=== PATIENT | female | born 1965 | race Hispanic/Latino ===

== ENCOUNTER 2020-05-03 17:41 | Inpatient (IN) | payer MEDICAID, SELFPAY ==
[~2020-05-03 17:41] MED LIST: Heparin 1,000 UNITS/ML VIAL ONE
[2020-05-03 18:08] LABS: Base Excess-Venous -8.8 mmol/L (-2.0 to 3.0); Bicarbonate (HCO3v) 16.3 mmol/L (22.0-28.0); CO2 Tension (PvCO2) 32.1 mmHg (40.0-50.0); Chloride 110 mmol/L (98-107); Hemoglobin - Calc 12.8 g/dL (12.0-16.0); Potassium 4.1 mmol/L (3.5-5.1); Sodium 140 mmol/L (138-145); T. Carbon Dioxide 17.3 mmol/L (22.0-28.0); vO2 Saturation-calc 67.7 % (60.0-85.0)
[2020-05-03] MEDS ORDERED: Albuterol 200 PUFF (6.7GM INHALER) ONE (18:12)
[2020-05-03 18:20] LABS: #Lymphocytes 0.6 thou/uL (1.20-3.40); #Monocytes 0.5 thou/uL (0.11-0.59); #Neutrophils 5.8 thou/uL (1.40-6.50); %Basophils 0.1 % (0.0-1.0); %Eosinophils 0.1 % (0.0-10.0); %Lymphocytes 9.2 % (21.0-51.0); %Monocytes 7.5 % (0.0-10.0); %Neutrophils 83.1 % (42.0-75.0); Hemoglobin 12.8 g/dL (12.0-16.0); Mean Corpuscular HGB CONC 33.5 g/dL (32.0-36.0); Mean Corpuscular Hemoglobin 30.3 pg (27.0-31.0); Mean Corpuscular Volume 90.5 fL (78.0-98.0); Mean Platelet Volume 8.3 fL (7.4-10.4); Platelet Count 389 thou/uL (130-400); RBC Distribution Width 12.7 % (11.5-14.5); White Blood Cell (WBC) Count 6.9 thou/uL (4.8-10.8)
--- NOTE | 2020-05-03 18:37 | RAD ---
SINGLE VIEW OF THE CHEST: 05/03/20 COMPARISON: 05/03/20 at 2:53 p.m. HISTORY: COVID pneumonia for one week with worsening shortness of breath. FINDINGS: Single view of the chest shows a normal sized cardiomediastinal silhouette. There are scattered multi focal opacities in the lungs. These are worse in the lower lobes. No pleural effusion is seen. IMPRESSION: Multifocal pneumonia. POS: EAA
[2020-05-03 18:40] LABS: ALT (SGPT) 455 U/L (8-55); AST (SGOT) 131 U/L (5-34); Albumin 3.4 g/dL (3.5-5.0); Alkaline Phosphatase 372 U/L (40-110); Anion Gap 21 mmol/L (10-20); BUN (Urea Nitrogen) 17 mg/dL (9.8-20.1); Bilirubin, Total 0.3 mg/dL (0.2-1.2); Calc. Creatinine Clearance 0 mL/min (70-130); Calcium 8.9 mg/dL (7.8-10.44); Carbon Dioxide 15 mmol/L (22-29); Chloride 107 mmol/L (98-107); Globulin 4.2 g/dL (2.4-3.5); Glucose 462 mg/dL (70-105); Potassium 4.2 mmol/L (3.5-5.1); Protein, Total 7.6 g/dL (6.0-8.3); Sodium 139 mmol/L (136-145)
[2020-05-03 19:02] LABS: CKMB 1.6 ng/mL (0-6.6)
[2020-05-03] MEDS ORDERED: INSULIN REGULAR IN 0.9 % NACL 100 UNIT/100 ML BAG ONE (19:03)
[2020-05-03] MEDS ORDERED: Potassium Chloride 20 MEQ in Premix Bag 1 BAG IVPB SCH (19:15)
[2020-05-03] MEDS ORDERED: Insulin Regular 100 units/100 ml in NS IVPB SCH (19:15)
[2020-05-03] MEDS ORDERED: NS 0.9% w/ 20 MEQ KCL 1,000 ML/1,000 ML BAG IV PRN ×3 (20:00→22:30)
--- NOTE | 2020-05-03 21:55 | HP ---
PRIMARY CARE PROVIDER: [facility]. CHIEF COMPLAINT: Fever, general weakness, and shortness of breath. HISTORY OF PRESENT ILLNESS: This is a 55-year-old female, who was transferred from [place] [facility] to [facility] after the patient apparently presented with complaints of generalized weakness and shortness of breath, feeling generally fatigued with associated cough. The patient was initially noted in [place] [facility] with hypoxia with O2 saturations in the low 80% range and placed on a non-rebreather. The patient apparently did not respond appropriate to the non-rebreather and was placed on high-flow by nasal cannula. The patient underwent chest imaging showing bilateral infiltrates and COVID PCR was positive. The patient was also noted with hyperglycemia with initial glucose of 653 and a potassium of 4.7 with a pH of 7.31 consistent with diabetic ketoacidosis. The patient was given IV Rocephin, Decadron, Pulmicort, and azithromycin as well as initiated on insulin infusion with intravenous normal saline per DKA protocol. The patient was transferred by [facility] to [facility] and placed in isolation protocol. The patient states she was exposed to her son, who had cough and shortness of breath and some fever approximately 1 week prior to this evaluation. The patient denied any other known exposure history. The patient admitted to associated nausea, vomiting, and some diarrhea over the last 2 to 3 days. The patient's O2 saturations stabilized on high-flow by nasal cannula in the emergency room and referred to the Hospitalist Service for admission. PAST MEDICAL HISTORY: 1. Diabetes mellitus type 2. 2. Hypothyroidism. PAST SURGICAL HISTORY: Status post laparoscopic procedure. The patient is unclear what was performed. CURRENT MEDICATIONS: Reviewed. The patient is unsure of her chronic medication regimen. ALLERGIES: NO KNOWN DRUG ALLERGIES. FAMILY HISTORY: Positive for diabetes and hypertension. SOCIAL HISTORY: Resides in [facility], living with her son. No alcohol, tobacco, or illicit drug use. Functional activities of daily living. REVIEW OF SYSTEMS: CONSTITUTIONAL: Negative for weight loss or gain, ability to conduct usual activities. SKIN: Negative for rash, itching. EYES: Negative for double vision, pain. ENT/MOUTH: Negative for nose bleeding, neck stiffness, pain, tenderness. CARDIOVASCULAR: Negative for palpitations, dyspnea on exertion, orthopnea. RESPIRATORY: Negative for shortness of breath, wheezing, cough, hemoptysis, fever or night sweats. GASTROINTESTINAL: Negative for poor appetite, abdominal pain, heartburn, nausea, vomiting, constipation, or diarrhea. GENITOURINARY: Negative for urgency, frequency, dysuria, nocturia. MUSCULOSKELETAL: Negative for pain, swelling. NEUROLOGIC/PSYCHIATRIC: Negative for anxiety, depression. ALLERGY/IMMUNOLOGIC: Negative for skin rash, bleeding tendency. Otherwise, negative except as stated per HPI. PHYSICAL EXAMINATION: VITALSIGNS: On admission, blood pressure 133/85, pulse 110, respiratory rate ranging between 28-40, temperature 99.8 degrees Fahrenheit, O2 saturation 87% on high-flow increasing to 97% on 80% FiO2 and 50 L/minute. GENERAL APPEARANCE: This is a 55-year-old female, alert, and responsive in respiratory distress in the emergency room. HEENT: Pupils are equal, round, reactive to light and accommodation. Extraocular muscles are intact. No scleral icterus. No conjunctival injection. Nares patent. OP is clear. High-flow nasal cannula in place. Oral mucosa dry. NECK: Supple. No cervical adenopathy. No thyromegaly. No carotid bruits. No JVD noted. Cervical spine with full active and passive range of motion. No meningeal signs noted. CHEST: Diminished breath sounds bilaterally with scattered coarse breath sounds. Tachypnea noted. CARDIOVASCULAR: S1 and S2 with tachycardia. ABDOMEN: Rounded, soft, nontender, and nondistended. Bowel sounds are positive in all 4 quadrants. There is no hepatosplenomegaly. No abdominal bruits. No rebound or guarding appreciated. EXTREMITIES: Warm and dry with fair turgor. Clammy to touch. Pulses palpable distally at the dorsalis pedis, posterior tibial, and popliteal arteries bilaterally. Capillary refill less than 2 seconds. No asymmetric edema. NEUROLOGIC: Cranial nerves 2 through 12 are grossly intact. No focal or lateralizing signs appreciated. PERTINENT LABORATORY AND X-RAY FINDINGS: Sodium 139, potassium 4.2, chloride is 107, CO2 of 15, BUN 17, creatinine 1.50, glucose ranging between 322-653. AST 131, ALT of 455, alkaline phosphatase 372. Troponin I 0.079. Albumin 3.4. CBC showed a white blood cell count of 6.9, hemoglobin 13, hematocrit 38, platelet count 389 with 83% neutrophils. Venous blood gas dated 05/03/2020, showed a pH of 7.31, pCO2 of 32, PO2 of 37.8. Portable chest x-ray dated 05/03/2020, showed multifocal pneumonia. EKG dated 05/03/2020, by my interpretation shows sinus tachycardia with heart rates in low 100s. Normal R-wave progression noted in the precordial leads. Normal axis. No acute ST-T wave changes appreciated. ASSESSMENT/PLAN: 1. Pneumonia due to COVID-19. The patient will be admitted to the intermediate care unit. We will continue azithromycin 500 mg IV daily with additional Rocephin 2 g IV daily. Add dexamethasone 8 mg IV daily. Consult Pulmonology Critical Care Service for initiation of remdesivir in the a.m. Add vitamin C 1000 mg p.o. daily and zinc sulfate 220 mg daily. Continue isolation protocol. Lovenox 40 mg subcutaneously daily. 2. Acute hypoxic respiratory failure secondary to pneumonia due to COVID-19. Continue high-flow oxygen to maintain O2 saturations greater than or equal to 90%. Titrate to clinical effect. Add albuterol metered-dose inhaler 2 puffs q.4 hours p.r.n. 3. Diabetic ketoacidosis. Continue admission to intermediate care unit. Continue DKA protocol. Suspect presentation secondary to COVID-19 pneumonia. Continue aggressive IV fluid hydration. Serial base met monitoring. Check beta hydroxybutyrate level per protocol. 4. Transaminitis. Suspect secondary to patient's presentation. We will repeat LFTs in the a.m. and monitor trend. Consider hepatitis A, B, and C evaluation if LFTs do not improve. Consider right upper quadrant ultrasound, however, the patient without clinical findings or tenderness in the right upper quadrant. 5. Acute kidney injury. Suspect multifactorial including volume depletion and COVID-19 pneumonia. Continue IV fluids as outlined previously and avoid nephrotoxic agents and limit contrast exposure. Repeat creatinine in the a.m. 6. Prophylaxis. SCDs while in bed. Pepcid 20 mg p.o. b.i.d. Isolation protocol. CODE STATUS: Full. Surrogate medical decision maker is the patient's son. Total critical care time is 40 minutes. Job ID: [id number]
[2020-05-03] MEDS ORDERED: Morphine 2 MG/ML VIAL SLOW IVP SCH (22:15)
[2020-05-03] MEDS ORDERED: Dextrose 5 %-0.45 % NaCl 1,000 ML IV PRN (22:30)
[2020-05-03] MEDS ORDERED: Dextrose 5% in Water 1,000 ML IV PRN (22:30)
[2020-05-03] MEDS ORDERED: Electrolyte Replacement Protocol FS PRN (22:30)
[2020-05-03] MEDS ORDERED: Sodium Chloride 0.9% 1,000 ML IV PRN ×4 (22:30)
[2020-05-03] MEDS ORDERED: D5 1/2 NS w/20 mEq KCL 1,000 ML IV PRN (22:30)
[2020-05-03] MEDS ORDERED: ADD ELECTROLYTE REPLACEMENT SET TO PROFILE FS SCH (22:30)
[2020-05-03 23:45] LABS: Troponin I 0.074 ng/mL (< 0.028)
[2020-05-04] MEDS: Lactated Ringer's 1,000 ML IV SCH ×2 (00:15→05:41)
[2020-05-04 01:17] LABS: Troponin I 0.096 ng/mL (< 0.028)
[2020-05-04 02:35] LABS: Anion Gap 21 mmol/L (10-20); BUN (Urea Nitrogen) 13 mg/dL (9.8-20.1); Calc. Creatinine Clearance 73 mL/min (70-130); Calcium 8.8 mg/dL (7.8-10.44); Carbon Dioxide 11 mmol/L (22-29); Chloride 115 mmol/L (98-107); Glucose 229 mg/dL (70-105); Potassium 4.7 mmol/L (3.5-5.1); Sodium 142 mmol/L (136-145)
[2020-05-04] MEDS ORDERED: cefTRIAXone\\ROCEPHIN 1 GM in Sodium Chloride 0.9% 100 ML IVPB SCH (03:00)
[2020-05-04 05:13] LABS: Anion Gap 16 mmol/L (10-20); BUN (Urea Nitrogen) 12 mg/dL (9.8-20.1); Calc. Creatinine Clearance 79 mL/min (70-130); Calcium 8.6 mg/dL (7.8-10.44); Carbon Dioxide 17 mmol/L (22-29); Chloride 113 mmol/L (98-107); Glucose 226 mg/dL (70-105); Potassium 4.3 mmol/L (3.5-5.1); Sodium 142 mmol/L (136-145)
[2020-05-04 06:21] LABS: SARS-CoV-2 MS2 Positive; SARS-CoV-2 N Gene Positive; SARS-CoV-2 S Gene Positive; SARS-CoV-2 by NAA DETECTED (NotDetected); SARS-CoV-2 orf1ab Positive
[2020-05-04] MEDS ORDERED: Ondansetron PF 4 MG/2 ML Vial IVP PRN (07:05)
[2020-05-04] MEDS ORDERED: Albuterol Sulfate 2.5 mg/3 ml Neb NEB PRN (07:05)
[2020-05-04] MEDS ORDERED: HUMULIN R 100 UNITS in Sodium Chloride 0.9% 100 ML IVPB SCH (07:05)
[2020-05-04] MEDS ORDERED: Ibuprofen 200 MG TAB PO PRN (07:05)
[2020-05-04] MEDS ORDERED: Ondansetron ODT 4 MG TAB PO PRN (07:05)
[2020-05-04] MEDS ORDERED: hydrALAZINE 20 MG/ML VIAL SLOW IVP PRN (07:05)
[2020-05-04] MEDS ORDERED: Electrolyte Replacement Protocol 1 EACH IVPB SCH (07:05)
[2020-05-04] MEDS ORDERED: NS 0.9% w/ 20 MEQ KCL 1,000 ML IV PRN ×2 (07:05)
[2020-05-04] MEDS ORDERED: Sodium Chloride 0.9% 1,000 ML IV PRN ×4 (07:05)
[2020-05-04] MEDS ORDERED: D5 1/2 NS w/20 mEq KCL 1,000 ML IV PRN (07:05)
[2020-05-04] MEDS ORDERED: Dextrose 5 %-0.45 % NaCl 1,000 ML IV PRN (07:05)
[2020-05-04] MEDS: Ascorbic Acid 500 mg Chewable Tablet PO SCH (08:35)
[2020-05-04] MEDS: Dexamethasone 10 MG/ML VIAL SLOW IVP SCH (08:36)
[2020-05-04] MEDS: Zinc Sulfate 220 MG CAP PO SCH (08:36)
[2020-05-04] MEDS: Famotidine 20 MG TAB PO SCH ×2 (08:36→21:34)
[2020-05-04] MEDS: cefTRIAXone\\ROCEPHIN 2 GM in Sodium Chloride 0.9% 100 ML IVPB SCH (08:37)
[2020-05-04 08:39] LABS: Anion Gap 18 mmol/L (10-20); BUN (Urea Nitrogen) 9 mg/dL (9.8-20.1); Calc. Creatinine Clearance 85 mL/min (70-130); Carbon Dioxide 18 mmol/L (22-29); Chloride 110 mmol/L (98-107); Glucose 231 mg/dL (70-105); Magnesium 1.8 mg/dL (1.6-2.6); Potassium 4.2 mmol/L (3.5-5.1); Sodium 142 mmol/L (136-145)
[2020-05-04] MEDS ORDERED: Magnesium 2 GM/50 ML 2 GM in Premix Bag 1 BAG IVPB SCH (09:00)
[2020-05-04] MEDS ORDERED: Enoxaparin Sodium 40 MG/0.4 ML SYRINGE SC SCH (09:00)
[2020-05-04] MEDS: Azithromycin 500 MG in Sodium Chloride 0.9% 250 ML 250 ML IVPB SCH (10:08)
--- NOTE | 2020-05-04 10:56 | CON ---
DATE OF CONSULTATION: 05/04/2020 CONSULTING PHYSICIAN: Dr. Glen Almazan. REASON FOR CONSULTATION: Shortness of breath related to COVID-19 pneumonia. HISTORY OF PRESENT ILLNESS: The patient is a 55-year-old female who recently presented to [place], but was transferred here for further care. She has had a several-day history of increasing cough. She was found to be hypoxic at the ER with an O2 saturation in the 80% range on nonrebreather. She tested positive for COVID there. She was also severely hyperglycemic with a glucose of 653. She was started on a DKA protocol. She was placed on BiPAP. She was brought here and has been stable on mechanical ventilation overnight. PAST MEDICAL HISTORY: 1. Diabetes mellitus, type 2. 2. Hypothyroidism. PAST SURGICAL HISTORY: Some type of laparoscopic abdominal procedure in the past. ALLERGIES: NONE. FAMILY MEDICAL HISTORY: Remarkable for diabetes and hypertension. SOCIAL HISTORY: She does not smoke, does not use illicit drugs, and does not consume alcohol. MEDICATIONS: Prior to admission, she is on some type of insulin regimen at home. Her inpatient medications were reviewed. REVIEW OF SYSTEMS: Difficult to obtain as the patient seems somewhat confused. PHYSICAL EXAMINATION: VITAL SIGNS: Temperature 98.8, pulse 102, blood pressure 160/113, O2 saturation 100% on BiPAP with an FiO2 of 80%. HEENT: Unremarkable. NECK: No adenopathy or JVD. LUNGS: Diffuse crackles. CARDIAC: S1 and S2. Regular. ABDOMEN: Soft. EXTREMITIES: No edema. LABORATORY DATA: White blood cell count 6.9, hematocrit 38.1, and platelet count 389. A pH of 7.31, pCO2 of 32, and venous oxygen 37.8. Sodium 142, potassium 4.2, chloride 110, CO2 of 18, BUN 9, creatinine 0.7, and glucose 231. Beta hydroxybutyrate 0.81. X-ray shows diffuse bilateral infiltrates. ASSESSMENT: 1. COVID-19 pneumonia. 2. Acute hypoxic respiratory failure. 3. Diabetes, out of control. PLAN: In terms of her COVID, she has severe risk for progressing towards endotracheal intubation. The main risk is being uncontrolled diabetes mellitus. The patient is on appropriate treatment including steroids and anticoagulation. I have added vitamin D to her vitamin C and zinc. She is not a candidate for remdesivir based on her need for mechanical ventilation. Thank you for the referral. We will continue to follow. Sunday ID: [id number]
[2020-05-04 11:55] LABS: Anion Gap 17 mmol/L (10-20); BUN (Urea Nitrogen) 9 mg/dL (9.8-20.1); Calc. Creatinine Clearance 91 mL/min (70-130); Carbon Dioxide 18 mmol/L (22-29); Chloride 107 mmol/L (98-107); Glucose 223 mg/dL (70-105); Potassium 4.1 mmol/L (3.5-5.1); Sodium 138 mmol/L (136-145)
[2020-05-04 15:10] LABS: Anion Gap 16 mmol/L (10-20); BUN (Urea Nitrogen) 11 mg/dL (9.8-20.1); Calc. Creatinine Clearance 92 mL/min (70-130); Calcium 8.9 mg/dL (7.8-10.44); Carbon Dioxide 20 mmol/L (22-29); Chloride 108 mmol/L (98-107); Glucose 214 mg/dL (70-105); Sodium 140 mmol/L (136-145)
--- NOTE | 2020-05-04 18:00 | PDOC.HOSPP ---
- Subjective Encounter Date: 05/04/20 Encounter Time: 10:10 Subjective: Patient seen for follow-up regarding COVID-19 pneumonia. She reports feeling better. She denies chest pain. Reports shortness of breath with exertion. - Objective Vital Signs & Weight: Vital Signs (12 hours) Temp Pulse Resp BP Pulse Ox 05/04/20 12:00 93 L 05/04/20 11:05 98.6 F 110 H 05/04/20 08:00 92 L 05/04/20 07:05 98.8 F 110 H 38 H 164/90 H 92 L Weight Weight 147 lb Most Recent Monitor Data Heart Rate from ECG 95 NIBP 144/82 NIBP BP-Mean 102 Respiration from ECG 37 SpO2 94 I&O: 05/03/20 05/04/20 05/05/20 06:59 06:59 06:59 Intake Total 2276 20 Output Total 900 1775 Balance 1376 -1755 Result Diagrams: 05/03/20 17:05 05/04/20 14:41 Additional Labs: Accuchecks 05/04/20 05/04/20 05/04/20 16:52 13:19 11:56 POC Glucose 175 H 238 H 213 H 05/04/20 05/04/20 05/04/20 11:06 10:21 08:55 POC Glucose 201 H 199 H 162 H 05/04/20 05/04/20 05/04/20 07:59 07:21 05:57 POC Glucose 201 H 232 H 248 H 05/04/20 05/04/20 05/04/20 04:45 04:14 03:17 POC Glucose 220 H 230 H 233 H 05/04/20 05/04/20 05/03/20 02:15 00:06 23:07 POC Glucose 173 H 216 H 248 H 05/03/20 05/03/20 05/03/20 22:23 20:20 19:14 POC Glucose 279 H 322 H 404 H 05/03/20 18:09 POC Glucose 390 H I reviewed patient's labs and MAR EKG Reviewed by me: Yes (Normal sinus rhythm on telemetry) Hospitalist ROS - Review of Systems Respiratory: reports: SOB with excertion Cardiovascular: denies: chest pain, palpitations, orthopnea, paroxysmal noc. dyspnea, edema, light headedness Gastrointestinal: denies: nausea, vomiting, abdominal pain, diarrhea, constipation, melena, hematochezia - Medication Medications: Active Medications Generic Name Dose Route Start Last Admin Trade Name Freq PRN Reason Stop Dose Admin Ascorbic Acid 1,000 mg 05/04/20 09:00 05/04/20 08:35 Ascorbic Acid 500 Mg Chewable Tablet PO 1,000 mg DAILY OMARI Administration Dexamethasone 8 mg 05/04/20 09:00 05/04/20 08:36 Dexamethasone 10 Mg/Ml Vial SLOW IVP 8 mg DAILY OMARI Administration Famotidine 20 mg 05/04/20 09:00 05/04/20 08:36 Famotidine 20 Mg Tab PO 20 mg BID OMARI Administration Ceftriaxone Sodium 2 gm/ 100 mls @ 200 mls/hr 05/04/20 08:00 05/04/20 08:37 Sodium Chloride IVPB 100 mls Q24HR OMARI Administration Azithromycin 500 mg/ Sodium 250 mls @ 250 mls/hr 05/04/20 09:00 05/04/20 10:08 Chloride IVPB 250 mls Q24HR OMARI Administration Ondansetron HCl 4 mg 05/04/20 07:05 05/04/20 12:12 Ondansetron Pf 4 Mg/2 Ml Vial IVP 4 mg Q6H PRN Administration Nausea/Vomiting Sodium Chloride 10 ml 05/03/20 22:30 05/04/20 08:38 Flush - Normal Saline 10 Ml Syringe IVF 10 ml PRN PRN Administration Saline Flush Zinc Sulfate 220 mg 05/04/20 09:00 05/04/20 08:36 Zinc Sulfate 220 Mg Cap PO 220 mg DAILY OMARI Administration - Exam General Appearance: awake alert Eye: anicteric sclera ENT: moist mucosa Neck: supple Heart: RRR Respiratory: CTAB Gastrointestinal: soft, non-tender Skin: no rashes Psychiatric: normal affect, normal behavior Hosp A/P (1) Pneumonia due to COVID-19 virus Code(s): U07.1 - COVID-19; J12.89 - OTHER VIRAL PNEUMONIA Status: Acute (2) Acute respiratory failure with hypoxia Code(s): J96.01 - ACUTE RESPIRATORY FAILURE WITH HYPOXIA Status: Acute (3) DKA (diabetic ketoacidoses) Code(s): E11.10 - TYPE 2 DIABETES MELLITUS WITH KETOACIDOSIS WITHOUT COMA Status: Acute - Plan Continue dexamethasone. Patient is also on ceftriaxone and azithromycin. Transition to subcutaneous insulin. Diabetic diet. Continue vitamin C, zinc and vitamin D. DVT prophylaxis with Lovenox.
[2020-05-04] MEDS: Insulin Glargine 20 UNITS in Pre-Filled Syringe 1 EACH SC SCH (21:32)
[2020-05-04] MEDS: Sodium Chloride 0.9% 1,000 ML IV SCH (21:32)
[2020-05-04] MEDS: Enoxaparin Sodium 40 MG/0.4 ML SYRINGE SC SCH (21:33)
[2020-05-04] MEDS: Cholecalciferol 1,000 UNITS (25 MCG) TAB PO SCH (21:34)
[2020-05-05] MEDS ORDERED: Insulin Regular 300 UNITS/3 ML VIAL SC PRN (01:19)
[2020-05-05 04:20] LABS: #Lymphocytes 0.9 thou/uL (1.20-3.40); #Monocytes 0.7 thou/uL (0.11-0.59); #Neutrophils 13.4 thou/uL (1.40-6.50); %Eosinophils 0.1 % (0.0-10.0); %Lymphocytes 6.3 % (21.0-51.0); %Monocytes 4.5 % (0.0-10.0); %Neutrophils 89.1 % (42.0-75.0); Mean Corpuscular HGB CONC 34.9 g/dL (32.0-36.0); Mean Corpuscular Hemoglobin 31.3 pg (27.0-31.0); Mean Corpuscular Volume 89.6 fL (78.0-98.0); Mean Platelet Volume 9.1 fL (7.4-10.4); Platelet Count 323 thou/uL (130-400); RBC Distribution Width 13.2 % (11.5-14.5); Red Blood Cell (RBC) Count 4.17 mill/uL (4.20-5.40)
[2020-05-05 04:22] LABS: Hemoglobin 12.9 g/dL (12.0-16.0); Mean Corpuscular HGB CONC 34.6 g/dL (32.0-36.0); Mean Corpuscular Hemoglobin 30.9 pg (27.0-31.0); Mean Corpuscular Volume 89.4 fL (78.0-98.0); Mean Platelet Volume 9.2 fL (7.4-10.4); Platelet Count 339 thou/uL (130-400); RBC Distribution Width 13.2 % (11.5-14.5); Red Blood Cell (RBC) Count 4.17 mill/uL (4.20-5.40); White Blood Cell (WBC) Count 14.4 thou/uL (4.8-10.8)
[2020-05-05 04:55] LABS: ALT (SGPT) 307 U/L (8-55); AST (SGOT) 128 U/L (5-34); Albumin 3.4 g/dL (3.5-5.0); Alkaline Phosphatase 382 U/L (40-110); Anion Gap 23 mmol/L (10-20); BUN (Urea Nitrogen) 21 mg/dL (9.8-20.1); Bilirubin, Direct 0.2 mg/dL (0.1-0.3); Bilirubin, Total 0.4 mg/dL (0.2-1.2); Calc. Creatinine Clearance 83 mL/min (70-130); Calcium 9.1 mg/dL (7.8-10.44); Carbon Dioxide 14 mmol/L (22-29); Chloride 107 mmol/L (98-107); Glucose 296 mg/dL (70-105); HBCM Index 0.11 S/CO (0-0.79); HBSAg Index 0.22 S/CO (0-0.99); Hep A IgM AB Non-Reactive (NonReactive); Hep A IgM S/CO 0.24 S/CO (0-0.79); Hep B Surf Ag Non-Reactive S/CO (NonReactive); Hep C IgG Ab Non-Reactive (NonReactive); Hep C Index 0.08 S/CO (0-0.79); Hepatitis B Core IgM Abs Non-Reactive (NonReactive); Potassium 4.4 mmol/L (3.5-5.1); Protein, Total 7.5 g/dL (6.0-8.3); Sodium 140 mmol/L (136-145)
[2020-05-05] MEDS: cefTRIAXone\\ROCEPHIN 2 GM in Sodium Chloride 0.9% 100 ML IVPB SCH (08:07)
[2020-05-05] MEDS: Famotidine 20 MG TAB PO SCH ×2 (08:08→20:53)
[2020-05-05] MEDS: Ascorbic Acid 500 mg Chewable Tablet PO SCH (08:09)
[2020-05-05] MEDS: Zinc Sulfate 220 MG CAP PO SCH (08:09)
[2020-05-05] MEDS: Enoxaparin Sodium 40 MG/0.4 ML SYRINGE SC SCH ×2 (08:11→20:54)
[2020-05-05] MEDS: Dexamethasone 10 MG/ML VIAL SLOW IVP SCH (08:13)
[2020-05-05] MEDS: HumaLOG 300 UNITS/3 ML VIAL SC PRN ×2 (08:41→13:27)
[2020-05-05] MEDS ORDERED: Insulin Glargine 15 UNITS in Pre-Filled Syringe 1 EACH SC SCH ×2 (10:02→10:15)
--- NOTE | 2020-05-05 10:04 | PDOC.HOSPP ---
- Subjective Encounter Date: 05/05/20 (f/u acute resp failure) Encounter Time: 10:02 Subjective: Pt reports her breathing feels more comfortable today. She denies any chest pain. She did have a small amount of nose bleed today an is currently on HF oxygen. - Objective Vital Signs & Weight: Vital Signs (12 hours) Temp Pulse Resp Pulse Ox 05/05/20 08:00 94 L 05/05/20 07:05 98.6 F 84 26 H 93 L 05/05/20 04:00 98.4 F 28 H 92 L 05/05/20 00:40 92 L 05/05/20 00:38 92 38 H 92 L 05/05/20 00:00 98.5 F Weight Weight 147 lb Most Recent Monitor Data Heart Rate from ECG 97 NIBP 140/81 NIBP BP-Mean 100 Respiration from ECG 17 SpO2 88 I&O: 05/04/20 05/05/20 05/06/20 06:59 06:59 06:59 Intake Total 2276 865 240 Output Total 900 3275 225 Balance 1376 -2410 15 Result Diagrams: 05/05/20 03:44 05/05/20 03:44 Additional Labs: Accuchecks 05/05/20 05/05/20 05/05/20 08:28 04:07 00:08 POC Glucose 239 H 274 H 328 H 05/04/20 05/04/20 05/04/20 19:37 18:31 17:49 POC Glucose 270 H 240 H 222 H 05/04/20 05/04/20 05/04/20 16:52 13:19 11:56 POC Glucose 175 H 238 H 213 H 05/04/20 05/04/20 11:06 10:21 POC Glucose 201 H 199 H EKG Reviewed by me: Yes (tele - sinus 80's) Hospitalist ROS - Medication Medications: Active Medications Generic Name Dose Route Start Last Admin Trade Name Freq PRN Reason Stop Dose Admin Ascorbic Acid 1,000 mg 05/04/20 09:00 05/05/20 08:09 Ascorbic Acid 500 Mg Chewable Tablet PO 1,000 mg DAILY OMARI Administration Cholecalciferol 5,000 units 05/04/20 21:00 05/04/20 21:34 Cholecalciferol 1,000 Units (25 Mcg) Tab PO 5,000 units HS OMARI Administration Dexamethasone 8 mg 05/04/20 09:00 05/05/20 08:13 Dexamethasone 10 Mg/Ml Vial SLOW IVP 8 mg DAILY OMARI Administration Enoxaparin Sodium 40 mg 05/04/20 21:00 05/05/20 08:11 Enoxaparin Sodium 40 Mg/0.4 Ml Syringe SC 40 mg 0900,2100 OMARI Administration Famotidine 20 mg 05/04/20 09:00 05/05/20 08:08 Famotidine 20 Mg Tab PO 20 mg BID OMARI Administration Ceftriaxone Sodium 2 gm/ 100 mls @ 200 mls/hr 05/04/20 08:00 05/05/20 08:07 Sodium Chloride IVPB 100 mls Q24HR OMARI Administration Azithromycin 500 mg/ Sodium 250 mls @ 250 mls/hr 05/04/20 09:00 05/04/20 10:08 Chloride IVPB 250 mls Q24HR OMARI Administration Insulin Glargine 20 units/ 0.2 mls @ 0 mls/hr 05/04/20 21:00 05/04/20 21:32 Miscellaneous Medication SC 0.2 mls HS OMARI Administration Sodium Chloride 1,000 mls @ 70 mls/hr 05/04/20 18:15 05/04/20 21:32 Normal Saline 0.9% IV 1,000 mls .[id number] OMARI Administration Insulin Human Lispro 0 units 05/05/20 01:19 05/05/20 08:41 Humalog 300 Units/3 Ml Vial SC 4 unit .MODERATE SLIDING SC PRN Administration Moderate Correctional Scale Ondansetron HCl 4 mg 05/04/20 07:05 05/04/20 12:12 Ondansetron Pf 4 Mg/2 Ml Vial IVP 4 mg Q6H PRN Administration Nausea/Vomiting Sodium Chloride 10 ml 05/03/20 22:30 05/04/20 08:38 Flush - Normal Saline 10 Ml Syringe IVF 10 ml PRN PRN Administration Saline Flush Zinc Sulfate 220 mg 05/04/20 09:00 05/05/20 08:09 Zinc Sulfate 220 Mg Cap PO 220 mg DAILY OMARI Administration - Exam General Appearance: NAD Heart: RRR, no murmur Respiratory: no wheezes Respiratory - other findings: rhonchi in lower lung chaves Gastrointestinal: soft, non-tender, non-distended, normal bowel sounds Extremities: no cyanosis, no clubbing, no edema Musculoskeletal: normal tone Psychiatric: normal affect Hosp A/P (1) Acute respiratory failure with hypoxia Code(s): J96.01 - ACUTE RESPIRATORY FAILURE WITH HYPOXIA Status: Acute (2) COVID-19 virus infection Code(s): U07.1 - COVID-19 Status: Acute (3) Diabetes mellitus Code(s): E11.9 - TYPE 2 DIABETES MELLITUS WITHOUT COMPLICATIONS Status: Chronic Qualifiers: Diabetes mellitus type: type 2 (4) Pneumonia due to COVID-19 virus Code(s): U07.1 - COVID-19; J12.89 - OTHER VIRAL PNEUMONIA Status: Acute (5) Elevated liver enzymes Code(s): R74.8 - ABNORMAL LEVELS OF OTHER SERUM ENZYMES Status: Acute - Plan Acute resp failure with bilateral pneumonia secondary to pneumonia - appreciate Pulm consult - continue steroids and antibiotics - not a candidate for remdesivir per Pulm - continue inhalers prn DM s/p DKA - uncontrolled - add lantus now and continue PM, titrate to effect dvt prophy - lovenox gi prophy - famotidine while on sterodis code status full reviewed plan of care with patient, no questions or further needs at end of eval
[2020-05-05] MEDS ORDERED: Sodium Chloride 0.65% Nasal 44 ML BOT EA NARE PRN (10:19)
[2020-05-05] MEDS: Azithromycin 500 MG in Sodium Chloride 0.9% 250 ML 250 ML IVPB SCH (11:01)
--- NOTE | 2020-05-05 11:26 | EKG ---
Test Reason : Blood Pressure : / mmHG Vent. Rate : 107 BPM Atrial Rate : 107 BPM P-R Int : 128 ms QRS Dur : 074 ms QT Int : 322 ms P-R-T Axes : 048 026 026 degrees QTc Int : 429 ms Sinus tachycardia Otherwise normal ECG Confirmed by GABBY HENRY ([id number]), deputy editor in chief AURE VAZQUEZ ([id number]) on 05/05/2020 11:26:36 AM Referred By: Confirmed By:GABBY HENRY
--- NOTE | 2020-05-05 12:46 | PRG ---
DATE OF SERVICE: 05/05/2020 SUBJECTIVE: The patient remains on high-flow oxygen. She says she feels better. OBJECTIVE: VITAL SIGNS: Temperature 98.6, pulse 103, blood pressure 148/82, and O2 saturation in the 90s on 75% high-flow oxygen. HEENT: Unremarkable. NECK: No adenopathy or JVD. LUNGS: Inspiratory crackles bilaterally. CARDIAC: S1 and S2. Regular. ABDOMEN: Soft. EXTREMITIES: No edema. LABORATORY DATA: White blood cell count 15, hematocrit 37, and platelet count 323. Sodium 140, potassium 4.4, BUN 21, creatinine 0.7, and glucose 296. C-reactive protein is 9.1. ASSESSMENT: 1. COVID-19 pneumonia. 2. Acute hypoxic respiratory failure. PLAN: The patient is continuing steroids, anticoagulation, vitamin D, vitamin C, and zinc. She will be michelle if she avoids intubation, but right now she seems stable on conservative measures. Job ID: [id number]
[2020-05-05] MEDS: Sodium Chloride 0.9% 1,000 ML IV SCH (13:29)
[2020-05-05] MEDS: Cholecalciferol 1,000 UNITS (25 MCG) TAB PO SCH (20:53)
[2020-05-05] MEDS: Insulin Glargine 20 UNITS in Pre-Filled Syringe 1 EACH SC SCH (20:54)
[2020-05-06] MEDS: Sodium Chloride 0.9% 1,000 ML IV SCH (00:22)
[2020-05-06 04:45] LABS: Anion Gap 20 mmol/L (10-20); BUN (Urea Nitrogen) 24 mg/dL (9.8-20.1); CRP (Inflammatory) 3.62 mg/dL (= or < 0.5); Calc. Creatinine Clearance 95 mL/min (70-130); Calcium 8.9 mg/dL (7.8-10.44); Carbon Dioxide 21 mmol/L (22-29); Chloride 106 mmol/L (98-107); Glucose 240 mg/dL (70-105); Sodium 143 mmol/L (136-145)
[2020-05-06 05:21] LABS: Band 6 % (5-11); Hemoglobin 11.8 g/dL (12.0-16.0); Lymphocytes 7 % (21-51); MDiff Complete? YES; Mean Corpuscular HGB CONC 34.1 g/dL (32.0-36.0); Mean Corpuscular Hemoglobin 30.2 pg (27.0-31.0); Mean Corpuscular Volume 88.7 fL (78.0-98.0); Mean Platelet Volume 9.9 fL (7.4-10.4); Monocytes 4 % (0-10); Neutrophil 82 % (42-75); Platelet Count 265 thou/uL (130-400); Reactive Lymphocytes 1 % (0-10); Red Blood Cell (RBC) Count 3.92 mill/uL (4.20-5.40); White Blood Cell (WBC) Count 12.2 thou/uL (4.8-10.8)
[2020-05-06] MEDS: HumaLOG 300 UNITS/3 ML VIAL SC PRN ×2 (05:46→17:07)
[2020-05-06] MEDS: cefTRIAXone\\ROCEPHIN 2 GM in Sodium Chloride 0.9% 100 ML IVPB SCH (07:51)
[2020-05-06] MEDS: Zinc Sulfate 220 MG CAP PO SCH (07:52)
[2020-05-06] MEDS: Famotidine 20 MG TAB PO SCH ×2 (07:53→21:01)
[2020-05-06] MEDS: Ascorbic Acid 500 mg Chewable Tablet PO SCH (07:53)
[2020-05-06] MEDS: Dexamethasone 10 MG/ML VIAL SLOW IVP SCH (07:53)
[2020-05-06] MEDS: Enoxaparin Sodium 40 MG/0.4 ML SYRINGE SC SCH ×2 (07:56→21:03)
[2020-05-06] MEDS ORDERED: Azithromycin 250 MG TAB PO SCH (09:00)
[2020-05-06] MEDS: Insulin Glargine 15 UNITS in Pre-Filled Syringe 1 EACH SC SCH (10:18)
--- NOTE | 2020-05-06 15:04 | PRG ---
DATE OF SERVICE: 05/06/2020 SUBJECTIVE: The patient says she feels better. She remains on high-flow oxygen is about 90% FiO2. OBJECTIVE: VITAL SIGNS: Temperature 97.8, pulse 95, O2 saturation 93%, blood pressure 140/89. HEENT: Unremarkable. NECK: No JVD. CHEST: With crackles. CARDIAC: S1 and S2. Regular. ABDOMEN: Soft. EXTREMITIES: No edema. LABORATORY DATA: White blood cell count 12.2, hematocrit 34.7, and platelet count 265. Sodium 143, potassium 4.0, chloride 106, CO2 of 21, BUN 24, creatinine 0.7, glucose 240. C-reactive protein is 3.6. ASSESSMENT: COVID-19 pneumonia with improved inflammatory markers and improved clinical status. PLAN: Continue to wean oxygen as tolerated. Continue steroids, anticoagulation, vitamin D, vitamin C, and zinc. Job ID: [id number]
[2020-05-06] MEDS ORDERED: Polyethylene Glycol 3350 17 GM Packet PO PRN (15:40)
--- NOTE | 2020-05-06 15:43 | PDOC.HOSPP ---
- Subjective Encounter Date: 05/06/20 (f/u acute resp failure) Encounter Time: 15:42 Subjective: Pt feeling a little better today. She remains on HF oxygen. No BM in about 5 days. She reports a sore throat and some pain in neck and chest. Denies n/v/abd pain. - Objective Vital Signs & Weight: Vital Signs (12 hours) Temp Resp Pulse Ox 05/06/20 12:00 97.8 F 05/06/20 08:00 98.3 F 24 H 91 L 05/06/20 07:54 92 L 05/06/20 06:00 97.2 F L 05/06/20 04:00 97.2 F L Weight Weight 147 lb Most Recent Monitor Data Heart Rate from ECG 93 NIBP 143/89 NIBP BP-Mean 107 Respiration from ECG 35 SpO2 94 I&O: 05/05/20 05/06/20 05/07/20 06:59 06:59 06:59 Intake Total 865 1640 Output Total 1510 5195 Balance -5911 -3834 Result Diagrams: 05/06/20 03:54 05/06/20 03:54 Additional Labs: Accuchecks 05/06/20 05/06/20 05/06/20 12:31 05:39 00:26 POC Glucose 271 H 219 H 250 H 05/05/20 05/05/20 19:54 17:29 POC Glucose 291 H 205 H EKG Reviewed by me: Yes (tele - sinus 80's) Hospitalist ROS - Medication Medications: Active Medications Generic Name Dose Route Start Last Admin Trade Name Jmq PRN Reason Stop Dose Admin Ascorbic Acid 1,000 mg 05/04/20 09:00 05/06/20 07:53 Ascorbic Acid 500 Mg Chewable Tablet PO 1,000 mg DAILY OMARI Administration Azithromycin 500 mg 05/06/20 09:00 05/06/20 07:52 Azithromycin 250 Mg Tab PO 500 mg DAILY OMARI Administration Cholecalciferol 5,000 units 05/04/20 21:00 05/05/20 20:53 Cholecalciferol 1,000 Units (25 Mcg) Tab PO 5,000 units HS OMARI Administration Dexamethasone 8 mg 05/04/20 09:00 05/06/20 07:53 Dexamethasone 10 Mg/Ml Vial SLOW IVP 8 mg DAILY OMARI Administration Enoxaparin Sodium 40 mg 05/04/20 21:00 05/06/20 07:56 Enoxaparin Sodium 40 Mg/0.4 Ml Syringe SC 40 mg 0900,2100 OMARI Administration Famotidine 20 mg 05/04/20 09:00 05/06/20 07:53 Famotidine 20 Mg Tab PO 20 mg BID OMARI Administration Ceftriaxone Sodium 2 gm/ 100 mls @ 200 mls/hr 05/04/20 08:00 05/06/20 07:51 Sodium Chloride IVPB 100 mls Q24HR OMARI Administration Insulin Glargine 15 units/ 0.15 mls @ 0 mls/hr 05/06/20 09:00 05/06/20 10:18 Miscellaneous Medication SC 0.15 mls QAM OMARI Administration Insulin Human Lispro 0 units 05/05/20 01:19 05/06/20 05:46 Humalog 300 Units/3 Ml Vial SC 4 unit .MODERATE SLIDING SC PRN Administration Moderate Correctional Scale Ondansetron HCl 4 mg 05/04/20 07:05 05/04/20 12:12 Ondansetron Pf 4 Mg/2 Ml Vial IVP 4 mg Q6H PRN Administration Nausea/Vomiting Sodium Chloride 10 ml 05/03/20 22:30 05/04/20 08:38 Flush - Normal Saline 10 Ml Syringe IVF 10 ml PRN PRN Administration Saline Flush Zinc Sulfate 220 mg 05/04/20 09:00 05/06/20 07:52 Zinc Sulfate 220 Mg Cap PO 220 mg DAILY OMARI Administration - Exam General Appearance: NAD Heart: RRR, no murmur Respiratory: no wheezes, no rales, no ronchi Respiratory - other findings: shallow breathing Gastrointestinal: soft, non-tender, non-distended, normal bowel sounds Extremities: no cyanosis, no clubbing, no edema Psychiatric: normal affect Hosp A/P (1) Acute respiratory failure with hypoxia Code(s): J96.01 - ACUTE RESPIRATORY FAILURE WITH HYPOXIA Status: Acute (2) COVID-19 virus infection Code(s): U07.1 - COVID-19 Status: Acute (3) Diabetes mellitus Code(s): E11.9 - TYPE 2 DIABETES MELLITUS WITHOUT COMPLICATIONS Status: Chronic Qualifiers: Diabetes mellitus type: type 2 (4) Pneumonia due to COVID-19 virus Code(s): U07.1 - COVID-19; J12.89 - OTHER VIRAL PNEUMONIA Status: Acute (5) Elevated liver enzymes Code(s): R74.8 - ABNORMAL LEVELS OF OTHER SERUM ENZYMES Status: Acute - Plan Acute resp failure with bilateral pneumonia secondary to pneumonia - on high flow oxygen with slight subjective improvement - appreciate Pulm consult - continue steroids and antibiotics. Has received 3 doses of azithromycin - will d/c this one. - not a candidate for remdesivir per Pulm - continue inhalers prn DM s/p DKA - uncontrolled - AM lantus added today 15 units, will increase lantus at night to 25 units and continue SSI Constipation - scheduled and prn bowel meds Sore throat - lozenges prn dvt prophy - lovenox gi prophy - famotidine while on steroids code status full reviewed plan of care with patient, no questions or further needs at end of eval
[2020-05-06] MEDS ORDERED: Cepastat Lozenges 1 LOZ PO PRN (15:44)
[2020-05-06] MEDS: Insulin Glargine 25 UNITS in Pre-Filled Syringe 1 EACH SC SCH (21:00)
[2020-05-06] MEDS: Senokot S 8.6-50 MG TAB PO SCH (21:01)
[2020-05-06] MEDS: Cholecalciferol 1,000 UNITS (25 MCG) TAB PO SCH (21:01)
[2020-05-06] MEDS: Acetaminophen 500 MG TAB PO PRN (21:02)
[2020-05-07 04:35] LABS: Anion Gap 19 mmol/L (10-20); BUN (Urea Nitrogen) 21 mg/dL (9.8-20.1); CRP (Inflammatory) 2.21 mg/dL (= or < 0.5); Calc. Creatinine Clearance 96 mL/min (70-130); Calcium 9.1 mg/dL (7.8-10.44); Carbon Dioxide 24 mmol/L (22-29); Chloride 103 mmol/L (98-107); Glucose 153 mg/dL (70-105); Potassium 3.8 mmol/L (3.5-5.1); Sodium 142 mmol/L (136-145)
[2020-05-07 06:19] LABS: Hemoglobin 13.1 g/dL (12.0-16.0); Mean Corpuscular HGB CONC 34.5 g/dL (32.0-36.0); Mean Corpuscular Hemoglobin 30.5 pg (27.0-31.0); Mean Corpuscular Volume 88.5 fL (78.0-98.0); Mean Platelet Volume 9.2 fL (7.4-10.4); Platelet Count 285 thou/uL (130-400); White Blood Cell (WBC) Count 12.7 thou/uL (4.8-10.8)
[2020-05-07 06:20] LABS: Band 10 % (5-11); Lymphocytes 4 % (21-51); MDiff Complete? YES; Monocytes 4 % (0-10); Neutrophil 82 % (42-75)
--- NOTE | 2020-05-07 07:11 | PDOC.HOSPP ---
- Subjective Encounter Date: 05/07/20 (f/u acute resp failure) Encounter Time: 07:08 Subjective: Pt admitted for acute resp failure secondary to COVID pneumonia. She has been on bipap and high flow oxygen, steroids, antibiotics. Pt requiring bipap overnight, tolerating it this morning. she denies any complaints. - Objective Vital Signs & Weight: Vital Signs (12 hours) Temp Pulse Resp Pulse Ox 05/07/20 04:00 98.7 F 05/07/20 00:00 80 33 H 91 L 05/06/20 22:10 98.2 F 05/06/20 20:00 99.4 F 05/06/20 19:50 93 L Weight Weight 147 lb Most Recent Monitor Data Heart Rate from ECG 79 NIBP 163/85 NIBP BP-Mean 111 Respiration from ECG 37 SpO2 91 I&O: 05/06/20 05/07/20 05/08/20 06:59 06:59 06:59 Intake Total 1640 240 Output Total 2825 400 Balance -1185 -160 Result Diagrams: 05/07/20 03:55 05/07/20 03:54 Additional Labs: Accuchecks 05/07/20 05/07/20 05/06/20 06:24 01:28 20:23 POC Glucose 145 H 154 H 186 H 05/06/20 05/06/20 05/06/20 18:54 15:43 12:31 POC Glucose 178 H 253 H 271 H EKG Reviewed by me: Yes (tele - sinus 90's) Hospitalist ROS - Medication Medications: Active Medications Generic Name Dose Route Start Last Admin Trade Name Jmq PRN Reason Stop Dose Admin Ascorbic Acid 1,000 mg 05/04/20 09:00 05/06/20 07:53 Ascorbic Acid 500 Mg Chewable Tablet PO 1,000 mg DAILY OMARI Administration Cholecalciferol 5,000 units 05/04/20 21:00 05/06/20 21:01 Cholecalciferol 1,000 Units (25 Mcg) Tab PO 5,000 units HS OMARI Administration Dexamethasone 8 mg 05/04/20 09:00 05/06/20 07:53 Dexamethasone 10 Mg/Ml Vial SLOW IVP 8 mg DAILY OMARI Administration Enoxaparin Sodium 40 mg 05/04/20 21:00 05/06/20 21:03 Enoxaparin Sodium 40 Mg/0.4 Ml Syringe SC 40 mg 0900,2100 OMARI Administration Famotidine 20 mg 05/04/20 09:00 05/06/20 21:01 Famotidine 20 Mg Tab PO 20 mg BID OMARI Administration Ceftriaxone Sodium 2 gm/ 100 mls @ 200 mls/hr 05/04/20 08:00 05/06/20 07:51 Sodium Chloride IVPB 100 mls Q24HR OMARI Administration Insulin Glargine 15 units/ 0.15 mls @ 0 mls/hr 05/06/20 09:00 05/06/20 10:18 Miscellaneous Medication SC 0.15 mls QAM OMARI Administration Insulin Glargine 25 units/ 0.25 mls @ 0 mls/hr 05/06/20 21:00 05/06/20 21:00 Miscellaneous Medication SC 0.25 mls HS OMARI Administration Insulin Human Lispro 0 units 05/05/20 01:19 05/06/20 17:07 Humalog 300 Units/3 Ml Vial SC 6 unit .MODERATE SLIDING SC PRN Administration Moderate Correctional Scale Ondansetron HCl 4 mg 05/04/20 07:05 05/04/20 12:12 Ondansetron Pf 4 Mg/2 Ml Vial IVP 4 mg Q6H PRN Administration Nausea/Vomiting Senna/Docusate Sodium 1 tab 05/06/20 21:00 05/06/20 21:01 Senokot S 8.6-50 Mg Tab PO 1 tab BID OMARI Administration Sodium Chloride 10 ml 05/03/20 22:30 05/04/20 08:38 Flush - Normal Saline 10 Ml Syringe IVF 10 ml PRN PRN Administration Saline Flush Zinc Sulfate 220 mg 05/04/20 09:00 05/06/20 07:52 Zinc Sulfate 220 Mg Cap PO 220 mg DAILY OMARI Administration - Exam General Appearance: NAD Heart: RRR, no murmur Respiratory: no wheezes, no rales, no ronchi Gastrointestinal: soft, non-tender, non-distended, normal bowel sounds Extremities: no cyanosis, no clubbing, no edema Psychiatric: normal affect Hosp A/P (1) Acute respiratory failure with hypoxia Code(s): J96.01 - ACUTE RESPIRATORY FAILURE WITH HYPOXIA Status: Acute (2) COVID-19 virus infection Code(s): U07.1 - COVID-19 Status: Acute (3) Diabetes mellitus Code(s): E11.9 - TYPE 2 DIABETES MELLITUS WITHOUT COMPLICATIONS Status: Chronic Qualifiers: Diabetes mellitus type: type 2 (4) Pneumonia due to COVID-19 virus Code(s): U07.1 - COVID-19; J12.89 - OTHER VIRAL PNEUMONIA Status: Acute (5) Elevated liver enzymes Code(s): R74.8 - ABNORMAL LEVELS OF OTHER SERUM ENZYMES Status: Acute - Plan Acute resp failure with bilateral pneumonia secondary to pneumonia - on high flow oxygen with slight subjective improvement - appreciate Pulm consult - continue steroids - on antibiotics- Azithromycin d/c after 3 doses, and ceftriaxone continues - not a candidate for remdesivir per Pulm - continue inhalers prn DM s/p DKA - improved - continue current insulin orders of lantus 15 units AM and 25 units PM Constipation - scheduled and prn bowel meds Sore throat - lozenges prn dvt prophy - lovenox gi prophy - famotidine while on steroids code status full reviewed plan of care with patient, no questions or further needs at end of eval given the need for frequent monitoring, transitions on/off bipap, and high flow oxygen, pt appropriate to remain in the IMCU.
[2020-05-07] MEDS: Dexamethasone 10 MG/ML VIAL SLOW IVP SCH (09:19)
[2020-05-07] MEDS: cefTRIAXone\\ROCEPHIN 2 GM in Sodium Chloride 0.9% 100 ML IVPB SCH (09:19)
[2020-05-07] MEDS: Ascorbic Acid 500 mg Chewable Tablet PO SCH (09:19)
[2020-05-07] MEDS: Insulin Glargine 15 UNITS in Pre-Filled Syringe 1 EACH SC SCH (09:20)
[2020-05-07] MEDS: Enoxaparin Sodium 40 MG/0.4 ML SYRINGE SC SCH ×2 (09:20→20:51)
[2020-05-07] MEDS: Famotidine 20 MG TAB PO SCH ×2 (09:20→20:50)
[2020-05-07] MEDS: Zinc Sulfate 220 MG CAP PO SCH (09:21)
[2020-05-07] MEDS: Senokot S 8.6-50 MG TAB PO SCH ×2 (09:21→20:50)
[2020-05-07] MEDS: Acetaminophen 500 MG TAB PO PRN ×2 (09:22→20:50)
--- NOTE | 2020-05-07 09:26 | PRG ---
DATE OF SERVICE: 05/07/2020 SUBJECTIVE: The patient is on BiPAP. She was doing well when I went in there earlier, but later, she took off her BiPAP and desaturated significantly, but did recover once the BiPAP was replaced. OBJECTIVE: VITAL SIGNS: Temperature 98.7, pulse 95, blood pressure 161/87, O2 saturation 94%. HEENT: Unremarkable. NECK: No JVD. LUNGS: Crackles bilaterally. CARDIAC: S1, S2. Regular. ABDOMEN: Soft. EXTREMITIES: No edema. LABORATORY DATA: White blood cell count 12.7, hematocrit 38, and platelet count 285. Sodium 142, potassium 3.8, chloride 103, CO2 of 24, BUN 21, creatinine 0.6, glucose 153. C-reactive protein 2.2. ASSESSMENT: 1. COVID-19 pneumonia. 2. Acute respiratory failure, requiring BiPAP. PLAN: Continue steroids, anticoagulation, vitamin D, vitamin C, zinc. It would not surprise me if she worsens to the point where she needs to be intubated. Job ID: [id number]
[2020-05-07] MEDS: Insulin Glargine 25 UNITS in Pre-Filled Syringe 1 EACH SC SCH (20:50)
[2020-05-07] MEDS: Cholecalciferol 1,000 UNITS (25 MCG) TAB PO SCH (20:50)
[2020-05-08 04:47] LABS: Anion Gap 16 mmol/L (10-20); BUN (Urea Nitrogen) 24 mg/dL (9.8-20.1); Calc. Creatinine Clearance 104 mL/min (70-130); Calcium 8.8 mg/dL (7.8-10.44); Carbon Dioxide 27 mmol/L (22-29); Chloride 103 mmol/L (98-107); Glucose 146 mg/dL (70-105); Potassium 3.5 mmol/L (3.5-5.1); Sodium 142 mmol/L (136-145)
[2020-05-08] MEDS ORDERED: Potassium Chloride 20 MEQ TAB PO SCH (06:45)
--- NOTE | 2020-05-08 09:38 | PRG ---
DATE OF SERVICE: 05/08/2020 SUBJECTIVE: She remains on BiPAP, looks about the same compared to yesterday. OBJECTIVE: VITAL SIGNS: Temperature 98.9, O2 saturation running in the high 90s, pulse 87, blood pressure 142/72. HEENT: Unremarkable. NECK: No JVD. LUNGS: Crackles. CARDIAC: S1, S2. Regular. ABDOMEN: Soft. EXTREMITIES: No edema. LABORATORY DATA: Sodium 142, potassium 3.5, BUN 24, creatinine 0.6, glucose 146. ASSESSMENT: COVID-19 pneumonia with acute respiratory failure requiring mechanical ventilation. PLAN: Continue anticoagulation, steroids, and BiPAP. Wean FiO2 as tolerated. Job ID: [id number]
[2020-05-08] MEDS: Senokot S 8.6-50 MG TAB PO SCH ×2 (09:53→21:04)
[2020-05-08] MEDS: Enoxaparin Sodium 40 MG/0.4 ML SYRINGE SC SCH ×2 (09:53→21:04)
[2020-05-08] MEDS: Famotidine 20 MG TAB PO SCH ×2 (09:53→21:04)
[2020-05-08] MEDS: Insulin Glargine 15 UNITS in Pre-Filled Syringe 1 EACH SC SCH (09:53)
[2020-05-08] MEDS: Ascorbic Acid 500 mg Chewable Tablet PO SCH (09:53)
[2020-05-08] MEDS: Zinc Sulfate 220 MG CAP PO SCH (09:53)
[2020-05-08] MEDS: Dexamethasone 10 MG/ML VIAL SLOW IVP SCH (09:53)
[2020-05-08] MEDS: cefTRIAXone\\ROCEPHIN 2 GM in Sodium Chloride 0.9% 100 ML IVPB SCH (09:54)
[2020-05-08] MEDS: Cholecalciferol 1,000 UNITS (25 MCG) TAB PO SCH (21:01)
[2020-05-08] MEDS: Insulin Glargine 25 UNITS in Pre-Filled Syringe 1 EACH SC SCH (21:04)
[2020-05-09 04:27] LABS: Anion Gap 15 mmol/L (10-20); BUN (Urea Nitrogen) 26 mg/dL (9.8-20.1); Calc. Creatinine Clearance 102 mL/min (70-130); Calcium 8.9 mg/dL (7.8-10.44); Carbon Dioxide 26 mmol/L (22-29); Chloride 105 mmol/L (98-107); Glucose 156 mg/dL (70-105); Potassium 3.9 mmol/L (3.5-5.1); Sodium 142 mmol/L (136-145)
[2020-05-09] MEDS: Acetaminophen 500 MG TAB PO PRN (04:45)
[2020-05-09] MEDS: Sodium Chloride 0.9% 1,000 ML IV SCH ×2 (06:15→22:47)
--- NOTE | 2020-05-09 07:38 | PDOC.HOSPP ---
- Subjective Encounter Date: 05/08/20 Encounter Time: 11:15 Subjective: Patient up in bed on BiPAP. Does not appear in any distress. - Objective Vital Signs & Weight: Vital Signs (12 hours) Temp Pulse Resp Pulse Ox 05/09/20 06:00 98.9 F 05/09/20 04:00 99.1 F 05/09/20 02:09 84 28 H 88 L 05/09/20 00:00 99.1 F 05/08/20 22:28 96 41 H 92 L 05/08/20 20:00 99.4 F 93 L Weight Weight 147 lb Most Recent Monitor Data Heart Rate from ECG 87 NIBP 119/68 NIBP BP-Mean 85 Respiration from ECG 29 SpO2 87 I&O: 05/08/20 05/09/20 05/10/20 06:59 06:59 06:59 Intake Total 880 2020 Output Total 950 1150 Balance -70 870 Result Diagrams: 05/07/20 03:55 05/09/20 03:34 Additional Labs: Accuchecks 05/09/20 05/08/20 05/08/20 04:48 21:13 17:29 POC Glucose 124 H 219 H 133 H 05/08/20 11:35 POC Glucose 210 H Hospitalist ROS - Review of Systems Cardiovascular: denies: chest pain, palpitations, orthopnea, paroxysmal noc. dyspnea, edema, light headedness, other Gastrointestinal: denies: nausea, vomiting, abdominal pain, diarrhea, constipation, melena, hematochezia, other Genitourinary: denies: dysuria, frequency, incontinence, hematuria, retention, other - Medication Medications: Active Medications Generic Name Dose Route Start Last Admin Trade Name Freq PRN Reason Stop Dose Admin Acetaminophen 1,000 mg 05/04/20 07:05 05/09/20 04:45 Acetaminophen 500 Mg Tab PO 1,000 mg Q6H PRN Administration Mild Pain (1-3) Ascorbic Acid 1,000 mg 05/04/20 09:00 05/08/20 09:53 Ascorbic Acid 500 Mg Chewable Tablet PO 1,000 mg DAILY OMARI Administration Cholecalciferol 5,000 units 05/04/20 21:00 05/08/20 21:01 Cholecalciferol 1,000 Units (25 Mcg) Tab PO 5,000 units HS OMARI Administration Dexamethasone 8 mg 05/04/20 09:00 12/08/20 09:53 Dexamethasone 10 Mg/Ml Vial SLOW IVP 8 mg DAILY OMARI Administration Enoxaparin Sodium 40 mg 05/04/20 21:00 05/08/20 21:04 Enoxaparin Sodium 40 Mg/0.4 Ml Syringe SC 40 mg 0900,2100 OMARI Administration Famotidine 20 mg 05/04/20 09:00 05/08/20 21:04 Famotidine 20 Mg Tab PO 20 mg BID OMARI Administration Ceftriaxone Sodium 2 gm/ 100 mls @ 200 mls/hr 05/04/20 08:00 05/08/20 09:54 Sodium Chloride IVPB 100 mls Q24HR OMARI Administration Insulin Glargine 15 units/ 0.15 mls @ 0 mls/hr 05/06/20 09:00 05/08/20 09:53 Miscellaneous Medication SC 0.15 mls QAM OMARI Administration Insulin Glargine 25 units/ 0.25 mls @ 0 mls/hr 05/06/20 21:00 05/08/20 21:04 Miscellaneous Medication SC 0.25 mls HS OMARI Administration Sodium Chloride 1,000 mls @ 50 mls/hr 05/09/20 06:15 05/09/20 06:15 Normal Saline 0.9% IV 1,000 mls .Q20H OMARI Administration Insulin Human Lispro 0 units 05/05/20 01:19 05/06/20 17:07 Humalog 300 Units/3 Ml Vial SC 6 unit .MODERATE SLIDING SC PRN Administration Moderate Correctional Scale Ondansetron HCl 4 mg 05/04/20 07:05 05/04/20 12:12 Ondansetron Pf 4 Mg/2 Ml Vial IVP 4 mg Q6H PRN Administration Nausea/Vomiting Senna/Docusate Sodium 1 tab 05/06/20 21:00 05/08/20 21:04 Senokot S 8.6-50 Mg Tab PO 1 tab BID OMARI Administration Sodium Chloride 10 ml 05/03/20 22:30 05/07/20 20:51 Flush - Normal Saline 10 Ml Syringe IVF 10 ml PRN PRN Administration Saline Flush Zinc Sulfate 220 mg 05/04/20 09:00 05/08/20 09:53 Zinc Sulfate 220 Mg Cap PO 220 mg DAILY OMARI Administration - Exam Heart: negative: RRR, no murmur, no gallops, no rubs, normal peripheral pulses, irregular, diminshed peripheral pulses, murmur present, II/IV, III/IV Respiratory: negative: CTAB, no wheezes, no rales, no ronchi, normal chest expansion, no tachypnea, normal percussion, rales, rhonchi, tachypneic, wheezes Gastrointestinal: negative: soft, non-tender, non-distended, normal bowel sounds, no palpable masses, no hepatomegaly, no splenomegaly, no bruit, no guarding, no rigidity, tender to palpation, distended, diminished bowl sounds, voluntary guarding Extremities: 1+ LE edema Hosp A/P - Plan (1) Acute respiratory failure with hypoxia Code(s): J96.01 - ACUTE RESPIRATORY FAILURE WITH HYPOXIA Status: Acute (2) COVID-19 virus infection Code(s): U07.1 - COVID-19 Status: Acute (3) Diabetes mellitus Code(s): E11.9 - TYPE 2 DIABETES MELLITUS WITHOUT COMPLICATIONS Status: Chronic Qualifiers: Diabetes mellitus type: type 2 (4) Pneumonia due to COVID-19 virus Code(s): U07.1 - COVID-19; J12.89 - OTHER VIRAL PNEUMONIA Status: Acute (5) Elevated liver enzymes Code(s): R74.8 - ABNORMAL LEVELS OF OTHER SERUM ENZYMES Status: Acute - Plan Acute resp failure with bilateral pneumonia secondary to pneumonia - on high flow oxygen with slight subjective improvement - appreciate Pulm consult - continue steroids - on antibiotics- Azithromycin d/c after 3 doses, and ceftriaxone continues - not a candidate for remdesivir per Pulm - continue inhalers prn DM s/p DKA - improved - continue current insulin orders of lantus 15 units AM and 25 units PM Constipation - scheduled and prn bowel meds Sore throat - lozenges prn dvt prophy - lovenox gi prophy - famotidine while on steroids code status full reviewed plan of care with patient, no questions or further needs at end of eval given the need for frequent monitoring, transitions on/off bipap, and high flow oxygen, pt appropriate to remain in the IMCU. 05/08 patient continues to be on BiPAP. If her oxygen saturations continues to drop may require an ABG. We will check CRP and ferritin in a.m. hepatitis panel negative we will continue to trend LFTs. Sugars are controlled. Patient on DVT prophylaxis.
[2020-05-09] MEDS: Zinc Sulfate 220 MG CAP PO SCH (08:41)
[2020-05-09] MEDS: Famotidine 20 MG TAB PO SCH ×2 (08:41→20:08)
[2020-05-09] MEDS: Senokot S 8.6-50 MG TAB PO SCH ×2 (08:41→20:09)
[2020-05-09] MEDS: Ascorbic Acid 500 mg Chewable Tablet PO SCH (08:41)
[2020-05-09] MEDS: Dexamethasone 4 mg/ml Vial SLOW IVP SCH (08:42)
[2020-05-09] MEDS: Enoxaparin Sodium 40 MG/0.4 ML SYRINGE SC SCH ×2 (08:42→20:09)
[2020-05-09] MEDS: Insulin Glargine 15 UNITS in Pre-Filled Syringe 1 EACH SC SCH (08:42)
[2020-05-09] MEDS: cefTRIAXone\\ROCEPHIN 2 GM in Sodium Chloride 0.9% 100 ML IVPB SCH (08:42)
[2020-05-09] MEDS ORDERED: Cholecalciferol (Vitamin D3) 400 UNITS TAB PO SCH (09:00)
--- NOTE | 2020-05-09 09:08 | PRG ---
DATE OF SERVICE: 05/09/2020 SUBJECTIVE: The patient remains on BiPAP. OBJECTIVE: VITAL SIGNS: Temperature 98.9, pulse 87, blood pressure 119/68, O2 saturation generally in the low 90s. She is requiring 100% FiO2. HEENT: Unremarkable. NECK: No adenopathy or JVD. LUNGS: Crackles. CARDIAC: S1 and S2, regular. ABDOMEN: Soft. EXTREMITIES: No edema. LABORATORY DATA: Sodium 142, potassium 3.9, chloride 105, CO2 of 26, BUN 26, creatinine 0.6, glucose 156. ASSESSMENT: 1. COVID-19 pneumonia. 2. Acute hypoxic respiratory failure requiring noninvasive mechanical ventilation. PLAN: Continue steroids, anticoagulation, and BiPAP. Job ID: [id number]
[2020-05-09 17:29] LABS: Actual Bicarbonate (HCO3a) 27.8 mEq/L (22-28); Base Excess (BEa) 4.5 mEq/L (-2.0 to +3.0); CO2 Tension 36.7 mmHg (35.0-45.0); Calcium, Ionized (arterial) 1.18 mmol/L (1.12-1.30); Carboxyhemoglobin (COHb) 0.7 gm% (0.0-3.0); Hemoglobin (Hb) 12.3 g/dL (12.0-16.0); Potassium - ABG Lab 4.01 mmol/L (3.70-5.30); Puncture Site RRA
[2020-05-09 17:30] LABS: ALV-art Gradient 618.125 mmHg (0-20)
[2020-05-09] MEDS: Cholecalciferol 1,000 UNITS (25 MCG) TAB PO SCH (20:08)
[2020-05-09] MEDS: Insulin Glargine 25 UNITS in Pre-Filled Syringe 1 EACH SC SCH (20:09)
[2020-05-10 04:44] LABS: Anion Gap 14 mmol/L (10-20); BUN (Urea Nitrogen) 21 mg/dL (9.8-20.1); Calc. Creatinine Clearance 113 mL/min (70-130); Calcium 8.6 mg/dL (7.8-10.44); Carbon Dioxide 28 mmol/L (22-29); Chloride 103 mmol/L (98-107); Glucose 81 mg/dL (70-105); Potassium 3.7 mmol/L (3.5-5.1); Sodium 141 mmol/L (136-145)
[2020-05-10 04:47] LABS: ALT (SGPT) 45 U/L (8-55); AST (SGOT) 41 U/L (5-34); Albumin 2.7 g/dL (3.5-5.0); Alkaline Phosphatase 179 U/L (40-110); Bilirubin, Direct 0.3 mg/dL (0.1-0.3); Bilirubin, Total 0.5 mg/dL (0.2-1.2); Protein, Total 6.6 g/dL (6.0-8.3)
[2020-05-10] MEDS: Zinc Sulfate 220 MG CAP PO SCH (09:10)
[2020-05-10] MEDS: Acetaminophen 500 MG TAB PO PRN (09:10)
[2020-05-10] MEDS: Enoxaparin Sodium 40 MG/0.4 ML SYRINGE SC SCH (09:10)
--- NOTE | 2020-05-10 09:10 | PDOC.HOSPP ---
- Subjective Encounter Date: 05/09/20 Encounter Time: 13:00 Subjective: Patient continues to be on BiPAP. Nursing staff stated that patient ripped her BiPAP off early and dropped her oxygen saturations in the 30s. - Objective Vital Signs & Weight: Vital Signs (12 hours) Temp Pulse Resp Pulse Ox 05/10/20 08:26 101 H 31 H 85 L 05/10/20 04:00 98.2 F 05/10/20 02:59 86 27 H 90 L 05/09/20 23:41 99.0 F Weight Weight 147 lb Most Recent Monitor Data Heart Rate from ECG 92 NIBP 122/64 NIBP BP-Mean 83 Respiration from ECG 31 SpO2 92 I&O: 05/09/20 05/10/20 05/11/20 06:59 06:59 06:59 Intake Total 2019 1997 Output Total 1150 950 Balance 870 1048 Result Diagrams: 05/07/20 03:55 05/10/20 03:51 Additional Labs: Accuchecks 05/10/20 05/10/20 05/09/20 07:45 00:35 20:27 POC Glucose 77 150 H 120 H 05/09/20 05/09/20 15:16 11:24 POC Glucose 139 H 183 H Hospitalist ROS - Review of Systems Other: Patient on BiPAP unable to tell me. - Medication Medications: Active Medications Generic Name Dose Route Start Last Admin Trade Name Freq PRN Reason Stop Dose Admin Acetaminophen 1,000 mg 05/04/20 07:05 05/09/20 04:45 Acetaminophen 500 Mg Tab PO 1,000 mg Q6H PRN Administration Mild Pain (1-3) Ascorbic Acid 1,000 mg 05/04/20 09:00 05/09/20 08:41 Ascorbic Acid 500 Mg Chewable Tablet PO 1,000 mg DAILY OMARI Administration Cholecalciferol 5,000 units 05/04/20 21:00 05/09/20 20:08 Cholecalciferol 1,000 Units (25 Mcg) Tab PO 5,000 units HS OMARI Administration Dexamethasone 6 mg 05/09/20 09:00 05/09/20 08:42 Dexamethasone 4 Mg/Ml Vial SLOW IVP 6 mg DAILY OMARI Administration Enoxaparin Sodium 40 mg 05/04/20 21:00 05/09/20 20:09 Enoxaparin Sodium 40 Mg/0.4 Ml Syringe SC 40 mg 0900,2100 OMARI Administration Famotidine 20 mg 05/04/20 09:00 05/09/20 20:08 Famotidine 20 Mg Tab PO 20 mg BID OMARI Administration Ceftriaxone Sodium 2 gm/ 100 mls @ 200 mls/hr 05/04/20 08:00 05/09/20 08:42 Sodium Chloride IVPB 100 mls Q24HR OMARI Administration Insulin Glargine 15 units/ 0.15 mls @ 0 mls/hr 05/06/20 09:00 05/09/20 08:42 Miscellaneous Medication SC 0.15 mls QAM OMARI Administration Insulin Glargine 25 units/ 0.25 mls @ 0 mls/hr 05/06/20 21:00 05/09/20 20:09 Miscellaneous Medication SC 0.25 mls HS OMRAI Administration Sodium Chloride 1,000 mls @ 50 mls/hr 05/09/20 06:15 05/09/20 22:47 Normal Saline 0.9% IV 1,000 mls .Q20H OMARI Administration Insulin Human Lispro 0 units 05/05/20 01:19 05/06/20 17:07 Humalog 300 Units/3 Ml Vial SC 6 unit .MODERATE SLIDING SC PRN Administration Moderate Correctional Scale Ondansetron HCl 4 mg 05/04/20 07:05 05/04/20 12:12 Ondansetron Pf 4 Mg/2 Ml Vial IVP 4 mg Q6H PRN Administration Nausea/Vomiting Senna/Docusate Sodium 1 tab 05/06/20 21:00 05/09/20 20:09 Senokot S 8.6-50 Mg Tab PO 1 tab BID OMARI Administration Sodium Chloride 10 ml 05/03/20 22:30 05/07/20 20:51 Flush - Normal Saline 10 Ml Syringe IVF 10 ml PRN PRN Administration Saline Flush Zinc Sulfate 220 mg 05/04/20 09:00 05/09/20 08:41 Zinc Sulfate 220 Mg Cap PO 220 mg DAILY OMARI Administration - Exam Neck: negative: supple, symmetric, no JVD, no thyromegaly, no lymphadenopathy, no carotid bruit, JVD Heart: negative: RRR, no murmur, no gallops, no rubs, normal peripheral pulses, irregular, diminshed peripheral pulses, murmur present, II/IV, III/IV Respiratory: rales Gastrointestinal: negative: soft, non-tender, non-distended, normal bowel sounds, no palpable masses, no hepatomegaly, no splenomegaly, no bruit, no guarding, no rigidity, tender to palpation, distended, diminished bowl sounds, voluntary guarding Hosp A/P - Plan (1) Acute respiratory failure with hypoxia Code(s): J96.01 - ACUTE RESPIRATORY FAILURE WITH HYPOXIA Status: Acute (2) COVID-19 virus infection Code(s): U07.1 - COVID-19 Status: Acute (3) Diabetes mellitus Code(s): E11.9 - TYPE 2 DIABETES MELLITUS WITHOUT COMPLICATIONS Status: Chronic Qualifiers: Diabetes mellitus type: type 2 (4) Pneumonia due to COVID-19 virus Code(s): U07.1 - COVID-19; J12.89 - OTHER VIRAL PNEUMONIA Status: Acute (5) Elevated liver enzymes Code(s): R74.8 - ABNORMAL LEVELS OF OTHER SERUM ENZYMES Status: Acute - Plan Acute resp failure with bilateral pneumonia secondary to pneumonia - on high flow oxygen with slight subjective improvement - appreciate Pulm consult - continue steroids - on antibiotics- Azithromycin d/c after 3 doses, and ceftriaxone continues - not a candidate for remdesivir per Pulm - continue inhalers prn DM s/p DKA - improved - continue current insulin orders of lantus 15 units AM and 25 units PM Constipation - scheduled and prn bowel meds Sore throat - lozenges prn dvt prophy - lovenox gi prophy - famotidine while on steroids code status full reviewed plan of care with patient, no questions or further needs at end of eval given the need for frequent monitoring, transitions on/off bipap, and high flow oxygen, pt appropriate to remain in the IMCU. 05/08 patient continues to be on BiPAP. If her oxygen saturations continues to drop may require an ABG. We will check CRP and ferritin in a.m. hepatitis panel negative we will continue to trend LFTs. Sugars are controlled. Patient on DVT prophylaxis. 05/09 we will get an ABG on this patient her sats are very labile. She is a high risk for intubation. We will continue current treatment. She was not a candidate for remdesivir per pulmonary notes. Patient is on DVT prophylaxis we will continue to monitor. Her ABG that was done later on showed a PO2 of 49 pulmonology was aware of this no further intervention per pulmonology.
[2020-05-10] MEDS: Famotidine 20 MG TAB PO SCH ×2 (09:12→21:02)
[2020-05-10] MEDS: Senokot S 8.6-50 MG TAB PO SCH ×2 (09:12→21:00)
[2020-05-10] MEDS: Insulin Glargine 15 UNITS in Pre-Filled Syringe 1 EACH SC SCH (09:12)
[2020-05-10] MEDS: Ascorbic Acid 500 mg Chewable Tablet PO SCH (09:12)
[2020-05-10] MEDS: cefTRIAXone\\ROCEPHIN 2 GM in Sodium Chloride 0.9% 100 ML IVPB SCH (09:13)
[2020-05-10] MEDS: Dexamethasone 4 mg/ml Vial SLOW IVP SCH (09:14)
--- NOTE | 2020-05-10 09:29 | RAD ---
PORTABLE CHEST: Date: 05/10/2020 HISTORY: COVID pneumonia. COMPARISON: 05/03/2020 exam. FINDINGS: Heart size and mediastinum are within normal limits. Bilateral lung infiltrates are stable. IMPRESSION: Stable exam. POS: RIGOBERTO
[2020-05-10] MEDS ORDERED: Enoxaparin Sodium 40 MG/0.4 ML SYRINGE SC SCH (11:05)
[2020-05-10] MEDS ORDERED: Ventilator Sedation Protocol 1 EACH FS SCH (11:15)
--- NOTE | 2020-05-10 11:25 | PRG ---
DATE OF SERVICE: 05/10/2020 35 minutes of critical care time. SUBJECTIVE: The patient remains on continuous BiPAP. Unfortunately, her O2 sats have continued to tank. OBJECTIVE: VITAL SIGNS: She right now is in the low 80s. Her temperature is 100.8, pulse 92, and blood pressure 122/64. HEENT: Unremarkable. NECK: No adenopathy or JVD. LUNGS: Diffuse crackles. CARDIAC: S1 and S2. Regular. ABDOMEN: Soft. EXTREMITIES: No edema. LABORATORY DATA: Chest x-ray demonstrates diffuse bilateral infiltrates. ASSESSMENT: 1. COVID-19 pneumonia with worsening hypoxemia. 2. Acute hypoxic respiratory failure. PLAN: 1. The patient is going to go to the ICU to be intubated. There is really no other option at this point as her O2 saturations are too low on BiPAP and I think there may be some component of oxygen toxicity. 2. I would like to use elevated PEEP and put her in a prone position. We will start enteral tube feeds. Her prognosis is fairly dismal. Job ID: [id number]
[2020-05-10] MEDS ORDERED: Propofol 1,000 MG/100 ML VIAL IV ONE (12:05)
[2020-05-10] MEDS ORDERED: DISCONTINUE PREVIOUS NARCOTIC PAIN MEDICATIONS AND BENZODIAZEPINES FS SCH (12:15)
[2020-05-10] MEDS ORDERED: Fentanyl BOLUS 250 ML IVPB PRN (12:15)
[2020-05-10] MEDS ORDERED: Propofol BOLUS 1,000 MG/100 ML VIAL IV PRN (12:15)
[2020-05-10] MEDS ORDERED: Morphine 2 MG/ML VIAL SLOW IVP PRN (12:15)
[2020-05-10] MEDS ORDERED: Enoxaparin Sodium 60 MG/0.6 ML SYRINGE SC SCH (12:15)
[2020-05-10] MEDS: Sterile Water 10 ML ONE ×2 (12:25→16:56)
[2020-05-10] MEDS: Vecuronium 10 MG VIAL IVP PRN ×5 (12:40→21:00)
[2020-05-10 13:12] LABS: Base Excess (BEa) 1.1 mEq/L (-2.0 to +3.0); CO2 Tension 48.1 mmHg (35.0-45.0); Calcium, Ionized (arterial) 1.17 mmol/L (1.12-1.30); Carboxyhemoglobin (COHb) 0.7 gm% (0.0-3.0); O2 Tension (PaO2), arterial 67.6 mmHg (80.0-100.0); Potassium - ABG Lab 3.87 mmol/L (3.70-5.30); pH, Arterial 7.37 (7.35-7.45)
[2020-05-10] MEDS ORDERED: Sterile Water 10 ML ONE (13:18)
[2020-05-10 13:20] LABS: ALV-art Gradient 442.675 mmHg (0-20); Puncture Site RRA
[2020-05-10] MEDS: Lorazepam 2 MG/ML VIAL SLOW IVP PRN ×2 (13:40→21:00)
[2020-05-10] MEDS: Sodium Chloride 0.9% 1,000 ML IV SCH ×2 (14:34→21:02)
[2020-05-10] MEDS ORDERED: PROPOFOL 200 MG/20 ML VIAL IVP SCH (14:45)
[2020-05-10] MEDS ORDERED: Succinylcholine 200 MG/10 ml SYRINGE FS SCH (14:45)
--- NOTE | 2020-05-10 16:16 | RAD ---
PORTABLE CHEST: 05/10/20 HISTORY: Intubation. COMPARISON: Earlier exam of the same day. Heart size within normal limits. Bilateral infiltrates related to COVID pneumonia are present. Endot chacho and NG tubes are in satisfactory position. IMPRESSION: Placement of endotracheal and NG tubes which are in satisfactory position. POS: RIGOBERTO
[2020-05-10] MEDS: HumaLOG 300 UNITS/3 ML VIAL SC PRN (16:56)
[2020-05-10] MEDS: Propofol 1,000 MG/100 ML VIAL IV PRN ×2 (16:57→21:00)
--- NOTE | 2020-05-10 18:54 | PDOC.HOSPP ---
- Subjective Encounter Date: 05/10/20 Encounter Time: 12:30 Subjective: Patient seen for follow-up regarding hypoxic respiratory failure. Patient is intubated, could not complete review of systems. - Objective Vital Signs & Weight: Vital Signs (12 hours) Temp Pulse Resp BP Pulse Ox 05/10/20 18:24 86 05/10/20 18:00 22 H 05/10/20 16:00 22 H 05/10/20 15:43 94 101/62 05/10/20 14:00 22 H 05/10/20 13:35 120 H 164/80 H 05/10/20 12:20 98.9 F 22 H 91 L 05/10/20 12:00 86 L 05/10/20 11:02 99.8 F H 05/10/20 09:10 100.8 F H 05/10/20 08:26 101 H 31 H 85 L 05/10/20 08:00 99.1 F 88 L 05/10/20 07:15 100.8 F H Weight Weight 147 lb Most Recent Monitor Data Heart Rate from ECG 87 NIBP 96/68 NIBP BP-Mean 77 Respiration from ECG 22 SpO2 92 I&O: 05/09/20 05/10/20 05/11/20 06:59 06:59 06:59 Intake Total 2019 1997 631.0 Output Total 9913 996 5281 Balance 870 1048 -484.0 Result Diagrams: 05/07/20 03:55 05/10/20 03:51 Additional Labs: Accuchecks 05/10/20 05/10/20 05/10/20 15:11 11:09 07:45 POC Glucose 227 H 154 H 77 05/10/20 05/09/20 00:35 20:27 POC Glucose 150 H 120 H I reviewed patient's labs and MAR EKG Reviewed by me: Yes (Normal sinus rhythm on telemetry) Hospitalist ROS - Review of Systems ROS unobtainable: due to endotracheal tube - Medication Medications: Active Medications Generic Name Dose Route Start Last Admin Trade Name Freq PRN Reason Stop Dose Admin Acetaminophen 1,000 mg 05/04/20 07:05 05/10/20 09:10 Acetaminophen 500 Mg Tab PO 1,000 mg Q6H PRN Administration Mild Pain (1-3) Ascorbic Acid 1,000 mg 05/04/20 09:00 05/10/20 09:12 Ascorbic Acid 500 Mg Chewable Tablet PO 1,000 mg DAILY OMARI Administration Cholecalciferol 5,000 units 05/04/20 21:00 05/09/20 20:08 Cholecalciferol 1,000 Units (25 Mcg) Tab PO 5,000 units HS OMARI Administration Dexamethasone 6 mg 05/09/20 09:00 05/10/20 09:14 Dexamethasone 4 Mg/Ml Vial SLOW IVP 6 mg DAILY OMARI Administration Famotidine 20 mg 05/04/20 09:00 05/10/20 09:12 Famotidine 20 Mg Tab PO 20 mg BID OMARI Administration Ceftriaxone Sodium 2 gm/ 100 mls @ 200 mls/hr 05/04/20 08:00 05/10/20 09:13 Sodium Chloride IVPB 100 mls Q24HR OMARI Administration Insulin Glargine 15 units/ 0.15 mls @ 0 mls/hr 05/06/20 09:00 05/10/20 09:12 Miscellaneous Medication SC Not Given QAM OMARI Insulin Glargine 25 units/ 0.25 mls @ 0 mls/hr 05/06/20 21:00 05/09/20 20:09 Miscellaneous Medication SC 0.25 mls HS OMARI Administration Sodium Chloride 1,000 mls @ 50 mls/hr 05/09/20 06:15 05/10/20 14:34 Normal Saline 0.9% IV 1,000 mls .Q20H OMARI Administration Midazolam HCl 100 mg/ Sodium 100 mls @ 0 mls/hr 05/10/20 14:45 05/10/20 15:03 Chloride IVPB 100 mls INF PRN Administration Sedation Protocol As Directed Insulin Human Lispro 0 units 05/05/20 01:19 05/10/20 16:56 Humalog 300 Units/3 Ml Vial SC 4 unit .MODERATE SLIDING SC PRN Administration Moderate Correctional Scale Lorazepam 2 mg 05/10/20 12:15 05/10/20 13:40 Lorazepam 2 Mg/Ml Vial SLOW IVP 06/09/20 12:15 2 mg Q1H PRN Administration Breakthrough agitation Ondansetron HCl 4 mg 05/04/20 07:05 05/04/20 12:12 Ondansetron Pf 4 Mg/2 Ml Vial IVP 4 mg Q6H PRN Administration Nausea/Vomiting Propofol 1,000 mg 05/10/20 12:15 05/10/20 16:57 Propofol 1,000 Mg/100 Ml Vial IV 06/09/20 12:15 1,000 mg INF PRN Administration TO ACHIEVE GOAL RASS Protocol Senna/Docusate Sodium 1 tab 05/06/20 21:00 05/10/20 09:12 Senokot S 8.6-50 Mg Tab PO 1 tab BID OMARI Administration Sodium Chloride 10 ml 05/03/20 22:30 05/07/20 20:51 Flush - Normal Saline 10 Ml Syringe IVF 10 ml PRN PRN Administration Saline Flush Vecuronium [place] 10 mg 05/10/20 11:01 05/10/20 16:56 Vecuronium 10 Mg Vial IVP 10 mg Q30MIN PRN Administration Agitation Zinc Sulfate 220 mg 05/04/20 09:00 05/10/20 09:10 Zinc Sulfate 220 Mg Cap PO 220 mg DAILY OMARI Administration - Exam General - other findings: Intubated, prone Neck: no lymphadenopathy Heart: RRR Respiratory: rales, rhonchi Skin: no rashes Neurological - other findings: Unable to assess Psychiatric - other findings: Unable to assess Hosp A/P (1) Acute respiratory failure with hypoxia Code(s): J96.01 - ACUTE RESPIRATORY FAILURE WITH HYPOXIA Status: Acute (2) Pneumonia due to COVID-19 virus Code(s): U07.1 - COVID-19; J12.89 - OTHER VIRAL PNEUMONIA Status: Acute (3) DKA (diabetic ketoacidoses) Code(s): E11.10 - TYPE 2 DIABETES MELLITUS WITH KETOACIDOSIS WITHOUT COMA Status: Acute - Plan Patient was intubated today, being ventilated in the prone position. Continue dexamethasone. Continue ceftriaxone and azithromycin. Continue vitamin C, zinc and vitamin D. DVT prophylaxis with Lovenox.
[2020-05-10] MEDS: Enoxaparin Sodium 60 MG/0.6 ML SYRINGE SC SCH (20:59)
[2020-05-10] MEDS: Cholecalciferol 1,000 UNITS (25 MCG) TAB PO SCH (20:59)
[2020-05-10] MEDS: Insulin Glargine 25 UNITS in Pre-Filled Syringe 1 EACH SC SCH (21:00)
[2020-05-11] MEDS: Propofol 1,000 MG/100 ML VIAL IV PRN ×2 (00:27→11:38)
[2020-05-11] MEDS: Lorazepam 2 MG/ML VIAL SLOW IVP PRN ×8 (00:27→23:10)
[2020-05-11] MEDS: Vecuronium 10 MG VIAL IVP PRN ×9 (00:27→23:10)
[2020-05-11] MEDS: fentaNYL Citrate/PF 2,000 MCG in Sodium Chloride 0.9% 60 ML IV SCH ×2 (00:52→17:42)
[2020-05-11 04:36] LABS: #Lymphocytes 0.5 thou/uL (1.20-3.40); #Monocytes 0.2 thou/uL (0.11-0.59); #Neutrophils 5.7 thou/uL (1.40-6.50); %Eosinophils 0.5 % (0.0-10.0); %Lymphocytes 7.4 % (21.0-51.0); %Monocytes 2.6 % (0.0-10.0); %Neutrophils 89.4 % (42.0-75.0); Hemoglobin 10.3 g/dL (12.0-16.0); Mean Corpuscular HGB CONC 33.1 g/dL (32.0-36.0); Mean Corpuscular Hemoglobin 30.4 pg (27.0-31.0); Mean Corpuscular Volume 91.6 fL (78.0-98.0); Mean Platelet Volume 9.5 fL (7.4-10.4); Platelet Count 244 thou/uL (130-400); RBC Distribution Width 12.5 % (11.5-14.5); Red Blood Cell (RBC) Count 3.39 mill/uL (4.20-5.40); White Blood Cell (WBC) Count 6.4 thou/uL (4.8-10.8)
[2020-05-11 04:38] LABS: Anion Gap 15 mmol/L (10-20); BUN (Urea Nitrogen) 16 mg/dL (9.8-20.1); Calc. Creatinine Clearance 126 mL/min (70-130); Carbon Dioxide 26 mmol/L (22-29); Chloride 104 mmol/L (98-107); Glucose 96 mg/dL (70-105); Sodium 141 mmol/L (136-145)
[2020-05-11 06:44] LABS: Actual Bicarbonate (HCO3a) 26.6 mEq/L (22-28); Base Excess (BEa) 1.9 mEq/L (-2.0 to +3.0); CO2 Tension 42.3 mmHg (35.0-45.0); Calcium, Ionized (arterial) 1.17 mmol/L (1.12-1.30); Carboxyhemoglobin (COHb) 0.7 gm% (0.0-3.0); Hemoglobin (Hb) 10.9 g/dL (12.0-16.0); O2 Tension (PaO2), arterial 61.7 mmHg (80.0-100.0); Potassium - ABG Lab 3.72 mmol/L (3.70-5.30); pH, Arterial 7.42 (7.35-7.45)
[2020-05-11 06:45] LABS: ALV-art Gradient 241.925 mmHg (0-20); Puncture Site LRA
--- NOTE | 2020-05-11 08:05 | PRG ---
DATE OF SERVICE: 05/11/2020 35 minutes of critical care time. SUBJECTIVE: The patient remains intubated in a prone position with no acute changes overnight. OBJECTIVE: VITAL SIGNS: Temperature 97.7, pulse 81, blood pressure 94/69. 24-hour intake 1704, output 1540. HEENT: Unremarkable. NECK: No JVD. LUNGS: Inspiratory crackles, poor air movement. CARDIOVASCULAR: S1, S2. Regular. ABDOMEN: Soft. EXTREMITIES: No edema. LABORATORY DATA: ABG; pH 7.42, pCO2 of 42, pO2 of 61, on bilevel rate 22, high pressure of 31, low pressure of 13, FiO2 of 50%. Sodium 141, potassium 4, chloride 104, CO2 of 26, BUN 16, creatinine 0.5, and glucose 96. White blood cell count 6.4, hematocrit 31.1, and platelet count 244. Chest x-ray continues to show diffuse bilateral infiltrates, although it appears to be clearing. ASSESSMENT: 1. Coronavirus disease 2019 pneumonia. 2. Acute respiratory failure requiring mechanical ventilation. PLAN: 1. Supine ventilation later today. 2. Start enteral tube feeds. 3. Wean off propofol, try to maintain her own Versed and fentanyl. 4. Continue steroids. 5. Discontinue antibiotics after today. Job ID: [id number]
--- NOTE | 2020-05-11 08:30 | RAD ---
CHEST 1 VIEW: Date: 05/11/2020 HISTORY: Follow up pneumonia FINDINGS/IMPRESSION: Life support tubes in place. Extensive bilateral interstitial alveolar and ground-glass opacity miles es throughout both lungs. Evidence for COVID pneumonia with little change from prior exams. Continue short-term follow-up. POS: RRE
[2020-05-11] MEDS: Zinc Sulfate 220 MG CAP PO SCH (08:47)
[2020-05-11] MEDS: cefTRIAXone\\ROCEPHIN 2 GM in Sodium Chloride 0.9% 100 ML IVPB SCH (08:47)
[2020-05-11] MEDS: Senokot S 8.6-50 MG TAB PO SCH ×2 (08:47→19:54)
[2020-05-11] MEDS: Ascorbic Acid 500 mg Chewable Tablet PO SCH (08:47)
[2020-05-11] MEDS: Dexamethasone 4 mg/ml Vial SLOW IVP SCH (08:47)
[2020-05-11] MEDS: Famotidine 20 MG TAB PO SCH ×2 (08:47→19:52)
[2020-05-11] MEDS: Enoxaparin Sodium 60 MG/0.6 ML SYRINGE SC SCH ×2 (08:48→19:52)
[2020-05-11] MEDS: Insulin Glargine 15 UNITS in Pre-Filled Syringe 1 EACH SC SCH (09:32)
[2020-05-11] MEDS: Dextrose 50% Abboject 50 ML SYRINGE SLOW IVP PRN (10:24)
[2020-05-11] MEDS: HumaLOG 300 UNITS/3 ML VIAL SC PRN (16:20)
--- NOTE | 2020-05-11 18:06 | PDOC.HOSPP ---
- Subjective Encounter Date: 05/11/20 Encounter Time: 14:00 Subjective: Seen for follow-up regarding COVID-19 pneumonia. Intubated, could not complete review of systems. - Objective Vital Signs & Weight: Vital Signs (12 hours) Temp Pulse Resp BP 05/11/20 14:05 75 86/54 L 05/11/20 14:00 22 H 05/11/20 12:00 22 H 05/11/20 10:00 22 H 05/11/20 08:00 97.6 F 22 H 05/11/20 06:26 70 94/68 Weight Admit Weight 147 lb Weight 147 lb Most Recent Monitor Data Heart Rate from ECG 75 NIBP 102/57 NIBP BP-Mean 72 Respiration from ECG 22 SpO2 91 I&O: 05/10/20 05/11/20 05/12/20 06:59 06:59 06:59 Intake Total 1997 1704.5 1071 Output Total 950 1540 600 Balance 1048 164.5 471 Result Diagrams: 05/11/20 03:48 05/11/20 03:47 Additional Labs: Accuchecks 05/11/20 05/11/20 05/11/20 13:18 11:10 10:17 POC Glucose 158 H 126 H 56 L* 05/11/20 05/11/20 05/11/20 09:03 04:34 00:37 POC Glucose 58 L* 88 111 H 05/10/20 05/10/20 21:31 05:00 POC Glucose 149 H 75 Labs and MAR reviewed by me EKG Reviewed by me: Yes (Normal sinus rhythm on telemetry) Hospitalist ROS - Review of Systems ROS unobtainable: due to endotracheal tube - Medication Medications: Active Medications Generic Name Dose Route Start Last Admin Trade Name Freq PRN Reason Stop Dose Admin Acetaminophen 1,000 mg 05/04/20 07:05 05/10/20 09:10 Acetaminophen 500 Mg Tab PO 1,000 mg Q6H PRN Administration Mild Pain (1-3) Ascorbic Acid 1,000 mg 05/04/20 09:00 05/11/20 08:47 Ascorbic Acid 500 Mg Chewable Tablet PO 1,000 mg DAILY OMARI Administration Cholecalciferol 5,000 units 05/04/20 21:00 05/10/20 20:59 Cholecalciferol 1,000 Units (25 Mcg) Tab PO 5,000 units HS OMARI Administration Dexamethasone 6 mg 05/09/20 09:00 05/11/20 08:47 Dexamethasone 4 Mg/Ml Vial SLOW IVP 6 mg DAILY OMARI Administration Dextrose/Water 25 gm 05/03/20 22:18 05/11/20 10:24 Dextrose 50% Abboject 50 Ml Syringe SLOW IVP 25 gm PRN PRN Administration HYPOGLYCEMIA PROTOCOL Enoxaparin Sodium 60 mg 05/10/20 21:00 05/11/20 08:48 Enoxaparin Sodium 60 Mg/0.6 Ml Syringe SC 60 mg 0900,2100 OMARI Administration Famotidine 20 mg 05/04/20 09:00 05/11/20 08:47 Famotidine 20 Mg Tab PO 20 mg BID OMARI Administration Ceftriaxone Sodium 2 gm/ 100 mls @ 200 mls/hr 05/04/20 08:00 05/11/20 08:47 Sodium Chloride IVPB 100 mls Q24HR OMARI Administration Insulin Glargine 15 units/ 0.15 mls @ 0 mls/hr 05/06/20 09:00 05/11/20 09:32 Miscellaneous Medication SC Not Given QAM OMARI Insulin Glargine 25 units/ 0.25 mls @ 0 mls/hr 05/06/20 21:00 05/10/20 21:00 Miscellaneous Medication SC 0.25 mls HS OMARI Administration Sodium Chloride 1,000 mls @ 50 mls/hr 05/09/20 06:15 05/10/20 21:02 Normal Saline 0.9% IV 1,000 mls .Q20H OMARI Administration Fentanyl Citrate 2,000 mcg/ 100 mls @ 0 mls/hr 05/10/20 12:15 05/11/20 17:42 Sodium Chloride IV 06/09/20 12:15 100 mls INF OMARI Administration Protocol Per Protocol Midazolam HCl 100 mg/ Sodium 100 mls @ 0 mls/hr 05/10/20 14:45 05/11/20 16:03 Chloride IVPB 100 mls INF PRN Administration Sedation Protocol As Directed Insulin Human Lispro 0 units 05/05/20 01:19 05/11/20 16:20 Humalog 300 Units/3 Ml Vial SC 4 unit .MODERATE SLIDING SC PRN Administration Moderate Correctional Scale Lorazepam 2 mg 05/10/20 12:15 05/11/20 16:33 Lorazepam 2 Mg/Ml Vial SLOW IVP 06/09/20 12:15 2 mg Q1H PRN Administration Breakthrough agitation Ondansetron HCl 4 mg 05/04/20 07:05 05/04/20 12:12 Ondansetron Pf 4 Mg/2 Ml Vial IVP 4 mg Q6H PRN Administration Nausea/Vomiting Propofol 1,000 mg 05/10/20 12:15 05/11/20 11:38 Propofol 1,000 Mg/100 Ml Vial IV 06/09/20 12:15 1,000 mg INF PRN Administration TO ACHIEVE GOAL RASS Protocol Senna/Docusate Sodium 1 tab 05/06/20 21:00 05/11/20 08:47 Senokot S 8.6-50 Mg Tab PO 1 tab BID OMARI Administration Sodium Chloride 10 ml 05/03/20 22:30 05/07/20 20:51 Flush - Normal Saline 10 Ml Syringe IVF 10 ml PRN PRN Administration Saline Flush Vecuronium [place] 10 mg 05/10/20 11:01 05/11/20 17:49 Vecuronium 10 Mg Vial IVP 10 mg Q30MIN PRN Administration Agitation Zinc Sulfate 220 mg 05/04/20 09:00 05/11/20 08:47 Zinc Sulfate 220 Mg Cap PO 220 mg DAILY OMARI Administration - Exam General - other findings: Intubated and mechanically ventilated, supine ENT: moist mucosa Heart: RRR Respiratory: rhonchi Gastrointestinal: soft Skin: no rashes Psychiatric - other findings: Unable to assess Hosp A/P (1) Acute respiratory failure with hypoxia Code(s): J96.01 - ACUTE RESPIRATORY FAILURE WITH HYPOXIA Status: Acute (2) Pneumonia due to COVID-19 virus Code(s): U07.1 - COVID-19; J12.89 - OTHER VIRAL PNEUMONIA Status: Acute (3) DKA (diabetic ketoacidoses) Code(s): E11.10 - TYPE 2 DIABETES MELLITUS WITH KETOACIDOSIS WITHOUT COMA Status: Acute - Plan Patient is being ventilated in supine position in the CCU. Continue dexamethasone. Antibiotics being discontinued. Continue vitamin C, zinc and vitamin D. DVT prophylaxis with Lovenox.
[2020-05-11] MEDS: Cholecalciferol 1,000 UNITS (25 MCG) TAB PO SCH (19:51)
[2020-05-11] MEDS: Insulin Glargine 25 UNITS in Pre-Filled Syringe 1 EACH SC SCH (19:54)
[2020-05-12] MEDS: Sodium Chloride 0.9% 1,000 ML IV SCH ×2 (00:19→20:13)
[2020-05-12] MEDS: Propofol 1,000 MG/100 ML VIAL IV PRN ×3 (00:20→22:39)
[2020-05-12 03:54] LABS: Band 9 % (5-11); Hemoglobin 11.1 g/dL (12.0-16.0); Hypochromia SLIGHT = 6-15 cells (100X) (0-5/hpf); Lymphocytes 5 % (21-51); MDiff Complete? YES; Mean Corpuscular HGB CONC 34.6 g/dL (32.0-36.0); Mean Corpuscular Hemoglobin 32.2 pg (27.0-31.0); Mean Platelet Volume 9.8 fL (7.4-10.4); Monocytes 5 % (0-10); Neutrophil 81 % (42-75); Platelet Count 265 thou/uL (130-400); Platelet Morphology Comment Appears Adequate; RBC Distribution Width 12.5 % (11.5-14.5); Red Blood Cell (RBC) Count 3.44 mill/uL (4.20-5.40); White Blood Cell (WBC) Count 7.8 thou/uL (4.8-10.8)
[2020-05-12 04:09] LABS: Anion Gap 15 mmol/L (10-20); BUN (Urea Nitrogen) 15 mg/dL (9.8-20.1); Calc. Creatinine Clearance 99 mL/min (70-130); Calcium 7.9 mg/dL (7.8-10.44); Carbon Dioxide 24 mmol/L (22-29); Chloride 103 mmol/L (98-107); Glucose 209 mg/dL (70-105); Potassium 4.1 mmol/L (3.5-5.1); Sodium 138 mmol/L (136-145)
[2020-05-12] MEDS: Vecuronium 10 MG VIAL IVP PRN ×6 (04:45→12:29)
[2020-05-12] MEDS: HumaLOG 300 UNITS/3 ML VIAL SC PRN ×2 (04:46→08:15)
[2020-05-12] MEDS: Lorazepam 2 MG/ML VIAL SLOW IVP PRN ×5 (04:46→09:59)
[2020-05-12] MEDS: fentaNYL Citrate/PF 2,000 MCG in Sodium Chloride 0.9% 60 ML IV SCH ×2 (05:08→15:49)
[2020-05-12 06:53] LABS: Actual Bicarbonate (HCO3a) 26.5 mEq/L (22-28); Base Excess (BEa) 2.2 mEq/L (-2.0 to +3.0); CO2 Tension 39.9 mmHg (35.0-45.0); Calcium, Ionized (arterial) 1.16 mmol/L (1.12-1.30); Carboxyhemoglobin (COHb) 1.1 gm% (0.0-3.0); Hemoglobin (Hb) 10.7 g/dL (12.0-16.0); Potassium - ABG Lab 3.77 mmol/L (3.70-5.30); pH, Arterial 7.44 (7.35-7.45)
[2020-05-12 07:02] LABS: O2 Tension (PaO2), arterial 46.5 mmHg (80.0-100.0); Puncture Site LRA
[2020-05-12 07:03] LABS: ALV-art Gradient 331.425 mmHg (0-20)
[2020-05-12] MEDS: Zinc Sulfate 220 MG CAP PO SCH (08:00)
[2020-05-12] MEDS: Ascorbic Acid 500 mg Chewable Tablet PO SCH (08:00)
[2020-05-12] MEDS: Senokot S 8.6-50 MG TAB PO SCH ×2 (08:00→19:56)
[2020-05-12] MEDS: Famotidine 20 MG TAB PO SCH ×2 (08:00→19:56)
[2020-05-12] MEDS: Dexamethasone 4 mg/ml Vial SLOW IVP SCH (08:01)
[2020-05-12] MEDS: Acetaminophen 500 MG TAB PO PRN (08:01)
[2020-05-12] MEDS: Enoxaparin Sodium 60 MG/0.6 ML SYRINGE SC SCH ×2 (08:01→19:56)
[2020-05-12] MEDS: cefTRIAXone\\ROCEPHIN 2 GM in Sodium Chloride 0.9% 100 ML IVPB SCH (08:03)
[2020-05-12] MEDS: Insulin Glargine 15 UNITS in Pre-Filled Syringe 1 EACH SC SCH (08:15)
--- NOTE | 2020-05-12 08:43 | RAD ---
PORTABLE CHEST 1 VIEW: Date: 05/12/2020 Time: 0516 hours HISTORY: Respiratory failure, pneumonia. COVID pneumonia. COMPARISON: Previous day. FINDINGS/IMPRESSION: Endotracheal and nasogastric tubes remain in place. The heart size is stable. Extensive bilateral int erstitial, alveolar, and ground-glass opacities are stable. No pneumothoraces are seen. POS: OFF
[2020-05-12] MEDS ORDERED: Furosemide 20 MG/2 ML VIAL IVP SCH (11:00)
--- NOTE | 2020-05-12 11:54 | PRG ---
DATE OF SERVICE: 05/12/2020 SUBJECTIVE: Ms. Parmar had worsening of oxygen status during the night and was returned to prone positioning. At this point, she is on FiO2 of 60% and bilevel with marginal saturation of only 90%. PHYSICAL EXAMINATION: VITAL SIGNS: Blood pressure 101/57, heart rate is 90, temperature 100. GENERAL: She is intubated in prone position. LUNGS: Show rhonchi without wheezes or rales. HEART: Regular rate and rhythm. ABDOMEN: Shows normal bowel sounds. EXTREMITIES: There is 1+ edema. There is no cords or tenderness. LABORATORY DATA: White count 7800, hemoglobin is 11.1, hematocrit 32, and platelet count 265,000. There were 9% bands. D-dimer is 11.6. Chemistry panel includes sodium 138, potassium 4.1, chloride 103, CO2 is 24, BUN 15, creatinine 0.6. Blood sugar ranges from 125-175. Blood gas includes pH 7.44, pCO2 of 40, pO2 of 27, and bicarbonate of 46. Chest x-ray today reviewed by me and demonstrates lines and tubes in good positions. There is a diffuse consolidative pattern greater in the lower lung zones and left greater than right. There is no obvious effusion when compared to the x-ray of 05/10, there appears to be increased consolidation along the left heart border, which is not as clear as previously noted. IMPRESSION: Coronavirus disease pneumonia, requiring prone positioning and FiO2 of 60%. PLAN: We will continue current ventilator support including prone positioning. Attempts yesterday to return to supine demonstrates saturations which could not be controlled even at 90%. We will try again. Her x-ray is a little wet and she may tolerate very gentle diuresis and as such, Lasix x1 is provided. Critical care 33 minutes. Job ID: [id number]
--- NOTE | 2020-05-12 18:32 | PDOC.HOSPP ---
- Subjective Encounter Date: 05/12/20 Encounter Time: 13:00 Subjective: Patient seen for follow-up for respiratory failure. She is intubated, could not complete review of systems. - Objective Vital Signs & Weight: Vital Signs (12 hours) Pulse Resp BP Pulse Ox 05/12/20 18:00 22 H 05/12/20 16:00 22 H 05/12/20 14:15 80 102/59 L 05/12/20 14:00 22 H 05/12/20 12:00 22 H 05/12/20 10:06 90 101/57 L 05/12/20 10:00 22 H 05/12/20 08:00 22 H 94 L 05/12/20 06:44 90 Weight Admit Weight 147 lb Weight 147 lb Most Recent Monitor Data Heart Rate from ECG 69 NIBP 114/67 NIBP BP-Mean 82 Respiration from ECG 22 SpO2 96 I&O: 05/11/20 05/12/20 05/13/20 06:59 06:59 06:59 Intake Total 1704.5 2771.3 1281.2 Output Total 1540 1090 1770 Balance 164.5 1681.3 -488.8 Result Diagrams: 05/12/20 03:15 05/12/20 03:15 Additional Labs: Accuchecks 05/12/20 05/12/20 05/12/20 15:56 12:34 00:35 POC Glucose 141 H 133 H 173 H 05/11/20 20:01 POC Glucose 147 H I reviewed patient's labs and MAR EKG Reviewed by me: Yes (Normal sinus rhythm on telemetry) Hospitalist ROS - Review of Systems ROS unobtainable: due to endotracheal tube - Medication Medications: Active Medications Generic Name Dose Route Start Last Admin Trade Name Freq PRN Reason Stop Dose Admin Acetaminophen 1,000 mg 05/04/20 07:05 05/12/20 08:01 Acetaminophen 500 Mg Tab PO 1,000 mg Q6H PRN Administration Mild Pain (1-3) Ascorbic Acid 1,000 mg 05/04/20 09:00 05/12/20 08:00 Ascorbic Acid 500 Mg Chewable Tablet PO 1,000 mg DAILY OMARI Administration Cholecalciferol 5,000 units 05/04/20 21:00 05/11/20 19:51 Cholecalciferol 1,000 Units (25 Mcg) Tab PO 5,000 units HS OMARI Administration Dexamethasone 6 mg 05/09/20 09:00 05/12/20 08:01 Dexamethasone 4 Mg/Ml Vial SLOW IVP 6 mg DAILY OMARI Administration Dextrose/Water 25 gm 05/03/20 22:18 05/11/20 10:24 Dextrose 50% Abboject 50 Ml Syringe SLOW IVP 25 gm PRN PRN Administration HYPOGLYCEMIA PROTOCOL Enoxaparin Sodium 60 mg 05/10/20 21:00 05/12/20 08:01 Enoxaparin Sodium 60 Mg/0.6 Ml Syringe SC 60 mg 0900,2100 OMARI Administration Famotidine 20 mg 05/04/20 09:00 05/12/20 08:00 Famotidine 20 Mg Tab PO 20 mg BID OMARI Administration Ceftriaxone Sodium 2 gm/ 100 mls @ 200 mls/hr 05/04/20 08:00 05/12/20 08:03 Sodium Chloride IVPB 100 mls Q24HR OMARI Administration Insulin Glargine 15 units/ 0.15 mls @ 0 mls/hr 05/06/20 09:00 05/12/20 08:15 Miscellaneous Medication SC 0.15 mls QAM OMARI Administration Insulin Glargine 25 units/ 0.25 mls @ 0 mls/hr 05/06/20 21:00 05/11/20 19:54 Miscellaneous Medication SC 0.25 mls HS OMARI Administration Sodium Chloride 1,000 mls @ 50 mls/hr 05/09/20 06:15 05/12/20 00:19 Normal Saline 0.9% IV 1,000 mls .Q20H OMARI Administration Fentanyl Citrate 2,000 mcg/ 100 mls @ 0 mls/hr 05/10/20 12:15 05/12/20 15:49 Sodium Chloride IV 06/09/20 12:15 100 mls INF OMARI Administration Protocol Per Protocol Midazolam HCl 100 mg/ Sodium 100 mls @ 0 mls/hr 05/10/20 14:45 05/12/20 08:01 Chloride IVPB 100 mls INF PRN Administration Sedation Protocol As Directed Insulin Human Lispro 0 units 05/05/20 01:19 05/12/20 08:15 Humalog 300 Units/3 Ml Vial SC 4 unit .MODERATE SLIDING SC PRN Administration Moderate Correctional Scale Lorazepam 2 mg 05/10/20 12:15 05/12/20 09:59 Lorazepam 2 Mg/Ml Vial SLOW IVP 06/09/20 12:15 2 mg Q1H PRN Administration Breakthrough agitation Ondansetron HCl 4 mg 05/04/20 07:05 05/04/20 12:12 Ondansetron Pf 4 Mg/2 Ml Vial IVP 4 mg Q6H PRN Administration Nausea/Vomiting Propofol 1,000 mg 05/10/20 12:15 05/12/20 14:00 Propofol 1,000 Mg/100 Ml Vial IV 06/09/20 12:15 1,000 mg INF PRN Administration TO ACHIEVE GOAL RASS Protocol Senna/Docusate Sodium 1 tab 05/06/20 21:00 05/12/20 08:00 Senokot S 8.6-50 Mg Tab PO 1 tab BID OMARI Administration Sodium Chloride 10 ml 05/03/20 22:30 05/07/20 20:51 Flush - Normal Saline 10 Ml Syringe IVF 10 ml PRN PRN Administration Saline Flush Vecuronium [place] 10 mg 05/10/20 11:01 05/12/20 12:29 Vecuronium 10 Mg Vial IVP 10 mg Q30MIN PRN Administration Agitation Zinc Sulfate 220 mg 05/04/20 09:00 05/12/20 08:00 Zinc Sulfate 220 Mg Cap PO 220 mg DAILY OMARI Administration - Exam General - other findings: Intubated, in prone position Heart: RRR Respiratory: rales, rhonchi Skin: no rashes Psychiatric - other findings: Could not assess Hosp A/P (1) Acute respiratory failure with hypoxia Code(s): J96.01 - ACUTE RESPIRATORY FAILURE WITH HYPOXIA Status: Acute (2) Pneumonia due to COVID-19 virus Code(s): U07.1 - COVID-19; J12.89 - OTHER VIRAL PNEUMONIA Status: Acute (3) DKA (diabetic ketoacidoses) Code(s): E11.10 - TYPE 2 DIABETES MELLITUS WITH KETOACIDOSIS WITHOUT COMA Status: Acute - Plan Patient is being ventilated in prone position in the CCU. Patient received a dose of furosemide today. Patient is on dexamethasone. Continue vitamin C, zinc and vitamin D. DVT prophylaxis with Lovenox.
[2020-05-12] MEDS: Cholecalciferol 1,000 UNITS (25 MCG) TAB PO SCH (19:57)
[2020-05-12] MEDS: Insulin Glargine 25 UNITS in Pre-Filled Syringe 1 EACH SC SCH (19:58)
[2020-05-13] MEDS: fentaNYL Citrate/PF 2,000 MCG in Sodium Chloride 0.9% 60 ML IV SCH ×2 (01:54→11:49)
[2020-05-13 03:31] LABS: #Lymphocytes 0.7 thou/uL (1.20-3.40); #Monocytes 0.3 thou/uL (0.11-0.59); #Neutrophils 8.1 thou/uL (1.40-6.50); %Basophils 0.1 % (0.0-1.0); %Eosinophils 0.4 % (0.0-10.0); %Lymphocytes 7.7 % (21.0-51.0); %Monocytes 3.3 % (0.0-10.0); %Neutrophils 88.6 % (42.0-75.0); Hemoglobin 10.2 g/dL (12.0-16.0); Mean Corpuscular HGB CONC 34.3 g/dL (32.0-36.0); Mean Corpuscular Hemoglobin 30.9 pg (27.0-31.0); Mean Corpuscular Volume 90.3 fL (78.0-98.0); Mean Platelet Volume 9.9 fL (7.4-10.4); Platelet Count 337 thou/uL (130-400); RBC Distribution Width 12.4 % (11.5-14.5); Red Blood Cell (RBC) Count 3.31 mill/uL (4.20-5.40); White Blood Cell (WBC) Count 9.1 thou/uL (4.8-10.8)
[2020-05-13 03:45] LABS: Anion Gap 13 mmol/L (10-20); BUN (Urea Nitrogen) 14 mg/dL (9.8-20.1); Calc. Creatinine Clearance 126 mL/min (70-130); Calcium 7.9 mg/dL (7.8-10.44); Carbon Dioxide 27 mmol/L (22-29); Chloride 103 mmol/L (98-107); Glucose 131 mg/dL (70-105); Potassium 3.8 mmol/L (3.5-5.1); Sodium 139 mmol/L (136-145)
[2020-05-13] MEDS: Senokot S 8.6-50 MG TAB PO SCH ×2 (08:00→19:34)
[2020-05-13] MEDS: Propofol 1,000 MG/100 ML VIAL IV PRN (08:00)
[2020-05-13] MEDS: Ascorbic Acid 500 mg Chewable Tablet PO SCH (08:00)
[2020-05-13] MEDS: Zinc Sulfate 220 MG CAP PO SCH (08:00)
[2020-05-13] MEDS: Enoxaparin Sodium 60 MG/0.6 ML SYRINGE SC SCH ×2 (08:00→19:34)
[2020-05-13] MEDS: Dexamethasone 4 mg/ml Vial SLOW IVP SCH (08:00)
[2020-05-13] MEDS: Famotidine 20 MG TAB PO SCH ×2 (08:00→19:34)
[2020-05-13] MEDS: Insulin Glargine 15 UNITS in Pre-Filled Syringe 1 EACH SC SCH (08:01)
[2020-05-13] MEDS: cefTRIAXone\\ROCEPHIN 2 GM in Sodium Chloride 0.9% 100 ML IVPB SCH (08:03)
[2020-05-13 08:22] LABS: Base Excess (BEa) 5.3 mEq/L (-2.0 to +3.0); Calcium, Ionized (arterial) 1.14 mmol/L (1.12-1.30); Carboxyhemoglobin (COHb) 0.5 gm% (0.0-3.0); Hemoglobin (Hb) 10.9 g/dL (12.0-16.0); Potassium - ABG Lab 3.52 mmol/L (3.70-5.30); pH, Arterial 7.49 (7.35-7.45)
--- NOTE | 2020-05-13 09:52 | RAD ---
SINGLE VIEW CHEST: Date: 05/13/2020 COMPARISON: 05/12/2020. HISTORY: Pneumonia. FINDINGS: Single view of the chest shows normal size cardiomediastinal silhouette. Endotracheal tube and NG tub e are unchanged in position. There are stable multifocal opacities scattered throughout the lungs. IMPRESSION: Stable multifocal pneumonia. POS: EAA
[2020-05-13] MEDS: Vecuronium 10 MG VIAL IVP PRN ×4 (10:24→21:03)
[2020-05-13] MEDS: Sodium Chloride 0.9% 1,000 ML IV SCH (10:25)
--- NOTE | 2020-05-13 11:30 | PRG ---
DATE OF SERVICE: 05/13/2020 SUBJECTIVE: Ms. Parmar has now been in prone position for approximately 36 hours. Current ventilator settings include a rate of 22, bilevel 31/13 with FiO2 45%. Saturations have been in the mid upper 90s. She is sedated. PHYSICAL EXAMINATION: VITAL SIGNS: Blood pressure 104/68, heart rate is 68, respiratory rate 22, saturation 97. She is afebrile 98.2. GENERAL: Orally intubated. Prone position. LUNGS: Bilateral rhonchi. HEART: Regular rate and rhythm. ABDOMEN: Soft. EXTREMITIES: She has 1+ edema. There is no cords or tenderness. LABORATORY DATA: White count 9100, hemoglobin is 10.2 with hematocrit 29.9. Chemistries include sodium 139, potassium 3.8, chloride 103, CO2 is 27, BUN 14, creatinine 0.5. Chest x-ray today is reviewed by me and demonstrates hazy bilateral interstitial infiltrates consistent with COVID/ARDS. There is no pneumothorax. There is no obvious effusion. Tubes and lines are appropriately placed. IMPRESSION: COVID pneumonia with persistent severe hypoxic respiratory failure. She has been in the prone position for 36 hours, having failed her prior attempt at return to supine. PLAN: Her oxygenation is a little bit better, although radiographically she is unchanged. Earlier, I have reduced her bilevel support to 28/11 and she seems to tolerate that well. I think it is reasonable that we try to get her out of prone positioning, although success is to be determined in the effort. She remains critically unstable. Critical care, 30 minutes. Job ID: [id number]
[2020-05-13] MEDS: HumaLOG 300 UNITS/3 ML VIAL SC PRN (13:44)
[2020-05-13 17:14] LABS: O2 Tension (PaO2), arterial 52.2 mmHg (80.0-100.0); Puncture Site LRA
--- NOTE | 2020-05-13 18:15 | PDOC.HOSPP ---
- Subjective Encounter Date: 05/13/20 Encounter Time: 12:00 Subjective: Patient seen for follow-up for acute hypoxic respiratory failure, secondary to COVID-19 infection. Patient is intubated, could not complete review of systems. - Objective Vital Signs & Weight: Vital Signs (12 hours) Pulse Resp BP Pulse Ox 05/13/20 15:00 22 H 05/13/20 14:38 61 99/56 L 05/13/20 07:46 22 H 96 05/13/20 07:40 65 106/66 Weight Admit Weight 147 lb Weight 153 lb 7.068 oz Most Recent Monitor Data Heart Rate from ECG 62 NIBP 100/63 NIBP BP-Mean 75 Respiration from ECG 22 SpO2 92 I&O: 05/12/20 05/13/20 05/14/20 06:59 06:59 06:59 Intake Total 2771.3 2421.8 1107 Output Total 1090 2700 735 Balance 1681.3 -278.2 372 Result Diagrams: 05/13/20 03:07 05/13/20 03:07 Additional Labs: Accuchecks 05/13/20 05/13/20 05/13/20 13:31 09:26 00:25 POC Glucose 171 H 151 H 127 H 05/12/20 20:03 POC Glucose 126 H Labs and MAR reviewed by me EKG Reviewed by me: Yes (Telemetry shows normal sinus rhythm) Hospitalist ROS - Review of Systems ROS unobtainable: due to endotracheal tube - Medication Medications: Active Medications Generic Name Dose Route Start Last Admin Trade Name Freq PRN Reason Stop Dose Admin Acetaminophen 1,000 mg 05/04/20 07:05 05/12/20 08:01 Acetaminophen 500 Mg Tab PO 1,000 mg Q6H PRN Administration Mild Pain (1-3) Ascorbic Acid 1,000 mg 05/04/20 09:00 05/13/20 08:00 Ascorbic Acid 500 Mg Chewable Tablet PO 1,000 mg DAILY OMARI Administration Cholecalciferol 5,000 units 05/04/20 21:00 05/12/20 19:57 Cholecalciferol 1,000 Units (25 Mcg) Tab PO 5,000 units HS OMARI Administration Dexamethasone 6 mg 05/09/20 09:00 05/13/20 08:00 Dexamethasone 4 Mg/Ml Vial SLOW IVP 6 mg DAILY OMARI Administration Dextrose/Water 25 gm 05/03/20 22:18 05/11/20 10:24 Dextrose 50% Abboject 50 Ml Syringe SLOW IVP 25 gm PRN PRN Administration HYPOGLYCEMIA PROTOCOL Enoxaparin Sodium 60 mg 05/10/20 21:00 05/13/20 08:00 Enoxaparin Sodium 60 Mg/0.6 Ml Syringe SC 60 mg 0900,2100 OMARI Administration Famotidine 20 mg 05/04/20 09:00 05/13/20 08:00 Famotidine 20 Mg Tab PO 20 mg BID OMARI Administration Ceftriaxone Sodium 2 gm/ 100 mls @ 200 mls/hr 05/04/20 08:00 05/13/20 08:03 Sodium Chloride IVPB 100 mls Q24HR OMARI Administration Insulin Glargine 15 units/ 0.15 mls @ 0 mls/hr 05/06/20 09:00 05/13/20 08:01 Miscellaneous Medication SC 0.15 mls QAM OMARI Administration Insulin Glargine 25 units/ 0.25 mls @ 0 mls/hr 05/06/20 21:00 05/12/20 19:58 Miscellaneous Medication SC 0.25 mls HS OMARI Administration Sodium Chloride 1,000 mls @ 50 mls/hr 05/09/20 06:15 05/13/20 10:25 Normal Saline 0.9% IV 1,000 mls .Q20H OMARI Administration Fentanyl Citrate 2,000 mcg/ 100 mls @ 0 mls/hr 05/10/20 12:15 05/13/20 11:49 Sodium Chloride IV 06/09/20 12:15 100 mls INF OMARI Administration Protocol Per Protocol Midazolam HCl 100 mg/ Sodium 100 mls @ 0 mls/hr 05/10/20 14:45 05/13/20 09:19 Chloride IVPB 100 mls INF PRN Administration Sedation Protocol As Directed Insulin Human Lispro 0 units 05/05/20 01:19 05/13/20 13:44 Humalog 300 Units/3 Ml Vial SC 2 unit .MODERATE SLIDING SC PRN Administration Moderate Correctional Scale Lorazepam 2 mg 05/10/20 12:15 05/12/20 09:59 Lorazepam 2 Mg/Ml Vial SLOW IVP 06/09/20 12:15 2 mg Q1H PRN Administration Breakthrough agitation Ondansetron HCl 4 mg 05/04/20 07:05 05/04/20 12:12 Ondansetron Pf 4 Mg/2 Ml Vial IVP 4 mg Q6H PRN Administration Nausea/Vomiting Propofol 1,000 mg 05/10/20 12:15 05/13/20 08:00 Propofol 1,000 Mg/100 Ml Vial IV 06/09/20 12:15 1,000 mg INF PRN Administration TO ACHIEVE GOAL RASS Protocol Senna/Docusate Sodium 1 tab 05/06/20 21:00 05/13/20 08:00 Senokot S 8.6-50 Mg Tab PO 1 tab BID OMARI Administration Sodium Chloride 10 ml 05/03/20 22:30 05/07/20 20:51 Flush - Normal Saline 10 Ml Syringe IVF 10 ml PRN PRN Administration Saline Flush Vecuronium [place] 10 mg 05/10/20 11:01 05/13/20 15:18 Vecuronium 10 Mg Vial IVP 10 mg Q30MIN PRN Administration Agitation Zinc Sulfate 220 mg 05/04/20 09:00 05/13/20 08:00 Zinc Sulfate 220 Mg Cap PO 220 mg DAILY OMARI Administration - Exam General - other findings: Intubated Heart: RRR Respiratory: rales, rhonchi Skin: no rashes Psychiatric - other findings: Unable to assess Hosp A/P (1) Acute respiratory failure with hypoxia Code(s): J96.01 - ACUTE RESPIRATORY FAILURE WITH HYPOXIA Status: Acute (2) Pneumonia due to COVID-19 virus Code(s): U07.1 - COVID-19; J12.89 - OTHER VIRAL PNEUMONIA Status: Acute (3) DKA (diabetic ketoacidoses) Code(s): E11.10 - TYPE 2 DIABETES MELLITUS WITH KETOACIDOSIS WITHOUT COMA Status: Acute - Plan Patient continues to be intubated and ventilated in BiPAP mode, in prone position. Patient is on dexamethasone. Patient is on vitamin C, zinc and vitamin D. Continue DVT prophylaxis with Lovenox.
[2020-05-13] MEDS: Cholecalciferol 1,000 UNITS (25 MCG) TAB PO SCH (19:34)
[2020-05-13] MEDS: Insulin Glargine 25 UNITS in Pre-Filled Syringe 1 EACH SC SCH (19:38)
[2020-05-13] MEDS: Sterile Water 10 ML ONE (19:47)
[2020-05-13] MEDS ORDERED: Sterile Water 10 ML ONE (21:01)
[2020-05-14] MEDS: Vecuronium 10 MG VIAL IVP PRN ×4 (00:16→06:03)
[2020-05-14] MEDS: Sterile Water 10 ML ONE ×3 (01:36→06:04)
[2020-05-14] MEDS: Propofol 1,000 MG/100 ML VIAL IV PRN ×2 (02:47→13:10)
[2020-05-14] MEDS: fentaNYL Citrate/PF 2,000 MCG in Sodium Chloride 0.9% 60 ML IV SCH ×3 (02:51→23:38)
[2020-05-14 03:47] LABS: #Eosinphils 0.1 thou/uL (0.0-0.7); #Lymphocytes 1.2 thou/uL (1.20-3.40); #Monocytes 0.5 thou/uL (0.11-0.59); #Neutrophils 9.6 thou/uL (1.40-6.50); %Basophils 0.1 % (0.0-1.0); %Eosinophils 0.8 % (0.0-10.0); %Lymphocytes 10.7 % (21.0-51.0); %Monocytes 4.2 % (0.0-10.0); %Neutrophils 84.2 % (42.0-75.0); Mean Corpuscular HGB CONC 33.5 g/dL (32.0-36.0); Mean Corpuscular Hemoglobin 30.8 pg (27.0-31.0); Mean Corpuscular Volume 92.1 fL (78.0-98.0); Mean Platelet Volume 10.6 fL (7.4-10.4); Platelet Count 346 thou/uL (130-400); RBC Distribution Width 12.7 % (11.5-14.5); Red Blood Cell (RBC) Count 3.24 mill/uL (4.20-5.40); White Blood Cell (WBC) Count 11.3 thou/uL (4.8-10.8)
[2020-05-14 04:07] LABS: Anion Gap 12 mmol/L (10-20); BUN (Urea Nitrogen) 20 mg/dL (9.8-20.1); Calc. Creatinine Clearance 116 mL/min (70-130); Carbon Dioxide 26 mmol/L (22-29); Chloride 102 mmol/L (98-107); Glucose 171 mg/dL (70-105); Potassium 4.3 mmol/L (3.5-5.1); Sodium 136 mmol/L (136-145)
[2020-05-14] MEDS: HumaLOG 300 UNITS/3 ML VIAL SC PRN ×4 (04:23→20:36)
[2020-05-14] MEDS ORDERED: Sterile Water 10 ML ONE (06:03)
[2020-05-14] MEDS ORDERED: Rocuronium Bromide 10 MG/ML (10ML VIAL) ONE (07:40)
--- NOTE | 2020-05-14 07:54 | PRG ---
DATE OF SERVICE: 05/14/2020 TIME SPENT: 35 minutes of critical care time. The patient remains intubated on mechanical ventilation, has not made any progress from an oxygenation standpoint over the weekend. OBJECTIVE: VITAL SIGNS: On exam, temperature 99.7, pulse 84, and blood pressure 91/59. 24-hour intake 2586, output 1295. HEENT: Unremarkable. NECK: No JVD. LUNGS: Inspiratory crackles. CARDIAC: S1 and S2. Regular. ABDOMEN: Soft. EXTREMITIES: Edematous. LABORATORY DATA: White blood cell count 11.3, hemoglobin 10, hematocrit 30, and platelet count 346. D-dimer is 9.4. ABG pending. Sodium 136, potassium 4.3, chloride 102, CO2 of 26, BUN 20, creatinine 0.6, and glucose 171. Ferritin 520. X-ray shows bilateral infiltrates. ASSESSMENT: 1. COVID-19 pneumonia. 2. Acute respiratory failure, requiring mechanical ventilation. PLAN: Given that she is requiring 85% FiO2 on mechanical ventilation, I will go ahead and put her back in prone positioning today. So far, she does not show any evidence of necrosis of her facial tissue from being in a prone position. We will continue her on steroids and anticoagulation. It looks like this will be a very protracted illness. Job ID: [id number]
[2020-05-14 07:57] LABS: Actual Bicarbonate (HCO3a) 26.3 mEq/L (22-28); Base Excess (BEa) 1.8 mEq/L (-2.0 to +3.0); CO2 Tension 40.6 mmHg (35.0-45.0); Calcium, Ionized (arterial) 1.18 mmol/L (1.12-1.30); Hemoglobin (Hb) 9.7 g/dL (12.0-16.0); Potassium - ABG Lab 3.96 mmol/L (3.70-5.30); pH, Arterial 7.43 (7.35-7.45)
[2020-05-14] MEDS: Sodium Chloride 0.9% 1,000 ML IV SCH (07:59)
--- NOTE | 2020-05-14 08:11 | RAD ---
EXAM: Single view of the chest HISTORY: Pneumonia COMPARISON: 05/13/2020 FINDINGS: Single view of the chest shows a normal sized cardiomediastinal silhouette. The endotrache al tube and NG tube are unchanged in position. Stable multifocal opacities are seen in the lungs. No acute osseous abnormality. IMPRESSION: Stable exam
[2020-05-14] MEDS: cefTRIAXone\\ROCEPHIN 2 GM in Sodium Chloride 0.9% 100 ML IVPB SCH (08:45)
[2020-05-14] MEDS: Dexamethasone 4 mg/ml Vial SLOW IVP SCH (08:45)
[2020-05-14] MEDS: Famotidine 20 MG TAB PO SCH ×2 (08:45→20:02)
[2020-05-14] MEDS: Enoxaparin Sodium 60 MG/0.6 ML SYRINGE SC SCH ×2 (08:45→20:02)
[2020-05-14] MEDS: Ascorbic Acid 500 mg Chewable Tablet PO SCH (08:45)
[2020-05-14] MEDS: Zinc Sulfate 220 MG CAP PO SCH (08:45)
[2020-05-14] MEDS: Senokot S 8.6-50 MG TAB PO SCH ×2 (08:45→20:01)
[2020-05-14] MEDS: Insulin Glargine 15 UNITS in Pre-Filled Syringe 1 EACH SC SCH (08:47)
[2020-05-14 09:21] LABS: O2 Tension (PaO2), arterial 46.4 mmHg (80.0-100.0); Puncture Site LRA
--- NOTE | 2020-05-14 19:15 | PDOC.HOSPP ---
- Subjective Encounter Date: 05/14/20 Encounter Time: 12:00 Subjective: Seen in follow-up for hypoxic respiratory failure. Prone position, could not complete review of systems. - Objective Vital Signs & Weight: Vital Signs (12 hours) Temp Pulse Resp BP Pulse Ox 05/14/20 18:29 61 05/14/20 18:00 22 H 05/14/20 16:00 98.9 F 22 H 05/14/20 14:15 65 129/70 05/14/20 14:00 22 H 05/14/20 12:00 98.8 F 22 H 05/14/20 10:48 77 84/56 L 05/14/20 10:00 22 H 05/14/20 08:00 22 H 90 L 05/14/20 07:55 79 103/56 L Weight Admit Weight 147 lb Weight 155 lb 3.287 oz Most Recent Monitor Data Heart Rate from ECG 56 NIBP 137/77 NIBP BP-Mean 97 Respiration from ECG 22 SpO2 99 I&O: 05/13/20 05/14/20 05/15/20 06:59 06:59 06:59 Intake Total 2421.8 2586.1 1316.5 Output Total 2700 1295 1750 Balance -278.2 1291.1 -433.5 Result Diagrams: 05/14/20 03:02 05/14/20 03:02 Additional Labs: Accuchecks 05/14/20 05/14/20 05/14/20 16:31 13:14 08:53 POC Glucose 174 H 225 H 138 H 05/13/20 05/13/20 05/12/20 23:38 19:41 08:12 POC Glucose 130 H 127 H 219 H 05/12/20 05/11/20 04:31 16:08 POC Glucose 187 H 205 H I reviewed patient's labs and MAR EKG Reviewed by me: Yes (Normal sinus rhythm on telemetry) Hospitalist ROS - Review of Systems ROS unobtainable: due to endotracheal tube - Medication Medications: Active Medications Generic Name Dose Route Start Last Admin Trade Name Freq PRN Reason Stop Dose Admin Acetaminophen 1,000 mg 05/04/20 07:05 05/12/20 08:01 Acetaminophen 500 Mg Tab PO 1,000 mg Q6H PRN Administration Mild Pain (1-3) Ascorbic Acid 1,000 mg 05/04/20 09:00 12/14/20 08:45 Ascorbic Acid 500 Mg Chewable Tablet PO 1,000 mg DAILY OMARI Administration Cholecalciferol 5,000 units 05/04/20 21:00 05/13/20 19:34 Cholecalciferol 1,000 Units (25 Mcg) Tab PO 5,000 units HS OMARI Administration Dexamethasone 6 mg 05/09/20 09:00 05/14/20 08:45 Dexamethasone 4 Mg/Ml Vial SLOW IVP 6 mg DAILY OMARI Administration Dextrose/Water 25 gm 05/03/20 22:18 05/11/20 10:24 Dextrose 50% Abboject 50 Ml Syringe SLOW IVP 25 gm PRN PRN Administration HYPOGLYCEMIA PROTOCOL Enoxaparin Sodium 60 mg 05/10/20 21:00 05/14/20 08:45 Enoxaparin Sodium 60 Mg/0.6 Ml Syringe SC 60 mg 09,2099 OMARI Administration Famotidine 20 mg 05/04/20 09:00 05/14/20 08:45 Famotidine 20 Mg Tab PO 20 mg BID OMARI Administration Insulin Glargine 15 units/ 0.15 mls @ 0 mls/hr 05/06/20 09:00 05/14/20 08:47 Miscellaneous Medication SC 0.15 mls QAM OMARI Administration Insulin Glargine 25 units/ 0.25 mls @ 0 mls/hr 05/06/20 21:00 05/13/20 19:38 Miscellaneous Medication SC 0.25 mls HS OMARI Administration Sodium Chloride 1,000 mls @ 50 mls/hr 05/09/20 06:15 05/14/20 07:59 Normal Saline 0.9% IV 1,000 mls .Q20H OMARI Administration Fentanyl Citrate 2,000 mcg/ 100 mls @ 0 mls/hr 05/10/20 12:15 05/14/20 13:25 Sodium Chloride IV 06/09/20 12:15 100 mls INF OMARI Administration Protocol Per Protocol Midazolam HCl 100 mg/ Sodium 100 mls @ 0 mls/hr 05/10/20 14:45 05/14/20 14:39 Chloride IVPB 100 mls INF PRN Administration Sedation Protocol As Directed Insulin Human Lispro 0 units 05/05/20 01:19 05/14/20 16:35 Humalog 300 Units/3 Ml Vial SC 2 unit .MODERATE SLIDING SC PRN Administration Moderate Correctional Scale Lorazepam 2 mg 05/10/20 12:15 05/12/20 09:59 Lorazepam 2 Mg/Ml Vial SLOW IVP 06/09/20 12:15 2 mg Q1H PRN Administration Breakthrough agitation Ondansetron HCl 4 mg 05/04/20 07:05 05/04/20 12:12 Ondansetron Pf 4 Mg/2 Ml Vial IVP 4 mg Q6H PRN Administration Nausea/Vomiting Propofol 1,000 mg 05/10/20 12:15 05/14/20 13:10 Propofol 1,000 Mg/100 Ml Vial IV 06/09/20 12:15 1,000 mg INF PRN Administration TO ACHIEVE GOAL RASS Protocol Senna/Docusate Sodium 1 tab 05/06/20 21:00 05/14/20 08:45 Senokot S 8.6-50 Mg Tab PO 1 tab BID OMARI Administration Sodium Chloride 10 ml 05/03/20 22:30 05/07/20 20:51 Flush - Normal Saline 10 Ml Syringe IVF 10 ml PRN PRN Administration Saline Flush Vecuronium [place] 10 mg 05/10/20 11:01 05/14/20 06:03 Vecuronium 10 Mg Vial IVP 10 mg Q30MIN PRN Administration Agitation Zinc Sulfate 220 mg 05/04/20 09:00 05/14/20 08:45 Zinc Sulfate 220 Mg Cap PO 220 mg DAILY OMARI Administration - Exam General - other findings: Intubated, in prone position Heart: RRR Respiratory: rhonchi Skin: no rashes Psychiatric - other findings: Unable to assess Hosp A/P (1) Acute respiratory failure with hypoxia Code(s): J96.01 - ACUTE RESPIRATORY FAILURE WITH HYPOXIA Status: Acute (2) Pneumonia due to COVID-19 virus Code(s): U07.1 - COVID-19; J12.89 - OTHER VIRAL PNEUMONIA Status: Acute (3) DKA (diabetic ketoacidoses) Code(s): E11.10 - TYPE 2 DIABETES MELLITUS WITH KETOACIDOSIS WITHOUT COMA Status: Acute - Plan Continue dexamethasone. Reasonable control of blood sugars. Patient is intubated and ventilated in bilevel mode, in prone position. Continue vitamin C, zinc and vitamin D. Patient is on DVT prophylaxis with Lovenox.
[2020-05-14] MEDS: Cholecalciferol 1,000 UNITS (25 MCG) TAB PO SCH (20:01)
[2020-05-14] MEDS: Insulin Glargine 25 UNITS in Pre-Filled Syringe 1 EACH SC SCH (20:35)
[2020-05-15] MEDS: Propofol 1,000 MG/100 ML VIAL IV PRN ×3 (01:45→23:25)
[2020-05-15 04:07] LABS: Hemoglobin 10.7 g/dL (12.0-16.0); Mean Corpuscular HGB CONC 33.8 g/dL (32.0-36.0); Mean Corpuscular Hemoglobin 30.6 pg (27.0-31.0); Mean Corpuscular Volume 90.6 fL (78.0-98.0); Mean Platelet Volume 10.7 fL (7.4-10.4); Platelet Count 312 thou/uL (130-400); RBC Distribution Width 12.6 % (11.5-14.5); Red Blood Cell (RBC) Count 3.49 mill/uL (4.20-5.40)
[2020-05-15 04:08] LABS: Band 27 % (5-11); Lymphocytes 10 % (21-51); MDiff Complete? YES; Monocytes 3 % (0-10); Neutrophil 60 % (42-75); Platelet Morphology Comment Appears Adequate
[2020-05-15 04:19] LABS: Anion Gap 14 mmol/L (10-20); BUN (Urea Nitrogen) 16 mg/dL (9.8-20.1); Calc. Creatinine Clearance 128 mL/min (70-130); Calcium 8.4 mg/dL (7.8-10.44); Carbon Dioxide 26 mmol/L (22-29); Chloride 102 mmol/L (98-107); Glucose 180 mg/dL (70-105); Sodium 137 mmol/L (136-145)
[2020-05-15] MEDS: Sodium Chloride 0.9% 1,000 ML IV SCH (04:19)
[2020-05-15] MEDS: HumaLOG 300 UNITS/3 ML VIAL SC PRN ×7 (04:30→23:45)
[2020-05-15 07:44] LABS: Actual Bicarbonate (HCO3a) 31.3 mEq/L (22-28); Base Excess (BEa) 7.4 mEq/L (-2.0 to +3.0); CO2 Tension 41.1 mmHg (35.0-45.0); Calcium, Ionized (arterial) 1.18 mmol/L (1.12-1.30); Carboxyhemoglobin (COHb) 0.9 gm% (0.0-3.0); Hemoglobin (Hb) 10.1 g/dL (12.0-16.0)
[2020-05-15 07:59] LABS: O2 Tension (PaO2), arterial 44.7 mmHg (80.0-100.0)
[2020-05-15 08:00] LABS: ALV-art Gradient 331.725 mmHg (0-20); Puncture Site RRA
--- NOTE | 2020-05-15 08:05 | RAD ---
XR Chest 1 View Portable History: Pneumonia Comparison: Radiograph prior day Findings: Endotracheal tube tip at the clavicular level. Enteric tube tip gastric fundus. Airspace op acities are similar. Bilateral pleural effusions are similar. Relative to the May 10, 2020 examination the findings are also similar. No acute osseous abnormality. Impression: Similar examination of the chest.
[2020-05-15] MEDS: Enoxaparin Sodium 60 MG/0.6 ML SYRINGE SC SCH ×2 (08:24→20:30)
[2020-05-15] MEDS: Famotidine 20 MG TAB PO SCH ×2 (08:25→20:12)
[2020-05-15] MEDS: Zinc Sulfate 220 MG CAP PO SCH (08:25)
[2020-05-15] MEDS: Senokot S 8.6-50 MG TAB PO SCH ×2 (08:25→20:11)
[2020-05-15] MEDS: Ascorbic Acid 500 mg Chewable Tablet PO SCH (08:25)
[2020-05-15] MEDS: Dexamethasone 4 mg/ml Vial SLOW IVP SCH (08:25)
[2020-05-15] MEDS: fentaNYL Citrate/PF 2,000 MCG in Sodium Chloride 0.9% 60 ML IV SCH ×2 (08:26→20:51)
[2020-05-15] MEDS: Insulin Glargine 15 UNITS in Pre-Filled Syringe 1 EACH SC SCH (08:33)
--- NOTE | 2020-05-15 08:40 | PRG ---
DATE OF SERVICE: 05/15/2020 Thirty five minutes critical care time. SUBJECTIVE: The patient remains intubated on mechanical ventilation. She has been proned since about 8 a.m. yesterday. OBJECTIVE: VITAL SIGNS: Temperature 99.7, pulse 74, blood pressure 101/65, O2 saturation running in the 92% to 93%. Total intake 2592, output 3020. HEENT: She is swollen from being in a prone position. NECK: No JVD. LUNGS: Harsh inspiratory crackles bilaterally. CARDIAC: S1 and S2, regular. ABDOMEN: Cannot be examined because she is in a prone position. EXTREMITIES: Edematous. LABORATORY DATA: White blood cell count 11.0, hematocrit 31.6, platelet count 312, with 60% neutrophils, 27% bands. PH 7.50, pCO2 of 41, PO2 of 45, on bilevel 36/10, with FiO2 of 60%. Sodium 137, potassium 5, chloride 102, CO2 of 26, BUN 16, creatinine 0.5, glucose 180. Ferritin 520. X-ray continued to show bilateral infiltrates. ASSESSMENT: 1. Acute respiratory failure, requiring mechanical ventilation. 2. COVID-19 pneumonia. 3. Developing hyperkalemia. 4. Developing bandemia. PLAN: 1. The bandemia is concerning for the development of a secondary infection. Therefore, I will go ahead and add empiric broad-spectrum antibiotics and antifungals for the next 7 days. 2. Continue steroids and anticoagulation. 3. Continue enteral tube feeds. 4. Prognosis remains very poor for functional recovery. Job ID: [id number]
[2020-05-15] MEDS: Micafungin 100 MG in Sodium Chloride 0.9% 100 ML IVPB SCH (09:14)
[2020-05-15] MEDS: Vecuronium 10 MG VIAL IVP PRN ×4 (10:05→17:02)
[2020-05-15] MEDS: Piperacillin/Tazobactam 3.375 GM in Sodium Chloride 0.9% 100 ML IVPB SCH ×3 (11:18→22:54)
--- NOTE | 2020-05-15 19:53 | PDOC.HOSPP ---
- Subjective Encounter Date: 05/15/20 Encounter Time: 19:52 Subjective: Patient seen for follow-up for hypoxic respiratory failure secondary to COVID-19 pneumonia. She is intubated, could not complete review of systems. - Objective Vital Signs & Weight: Vital Signs (12 hours) Pulse Resp BP Pulse Ox 05/15/20 18:27 64 05/15/20 18:00 31 H 05/15/20 16:00 22 H 05/15/20 14:54 62 111/64 05/15/20 14:00 22 H 05/15/20 12:00 22 H 05/15/20 10:59 74 105/59 L 05/15/20 10:00 40 H 05/15/20 08:00 22 H 94 L Weight Admit Weight 147 lb Weight 155 lb 3.287 oz Most Recent Monitor Data Heart Rate from ECG 67 NIBP 108/67 NIBP BP-Mean 80 Respiration from ECG 23 SpO2 91 I&O: 05/14/20 05/15/20 05/16/20 06:59 06:59 06:59 Intake Total 2586.1 2592.2 1216 Output Total 1295 3020 1370 Balance 1291.1 -427.8 -154 Result Diagrams: 05/15/20 03:12 05/15/20 03:12 Additional Labs: Accuchecks 05/15/20 05/15/20 05/15/20 11:26 08:41 04:25 POC Glucose 248 H 164 H 188 H 05/14/20 05/14/20 23:52 20:09 POC Glucose 193 H 192 H Labs and MAR reviewed by me EKG Reviewed by me: Yes (Telemetry shows normal sinus rhythm) Hospitalist ROS - Review of Systems ROS unobtainable: due to endotracheal tube - Medication Medications: Active Medications Generic Name Dose Route Start Last Admin Trade Name Freq PRN Reason Stop Dose Admin Acetaminophen 1,000 mg 05/04/20 07:05 05/12/20 08:01 Acetaminophen 500 Mg Tab PO 1,000 mg Q6H PRN Administration Mild Pain (1-3) Ascorbic Acid 1,000 mg 05/04/20 09:00 05/15/20 08:25 Ascorbic Acid 500 Mg Chewable Tablet PO 1,000 mg DAILY OMARI Administration Cholecalciferol 5,000 units 05/04/20 21:00 05/14/20 20:01 Cholecalciferol 1,000 Units (25 Mcg) Tab PO 5,000 units HS OMARI Administration Dexamethasone 6 mg 05/09/20 09:00 05/15/20 08:25 Dexamethasone 4 Mg/Ml Vial SLOW IVP 6 mg DAILY OMARI Administration Dextrose/Water 25 gm 05/03/20 22:18 05/11/20 10:24 Dextrose 50% Abboject 50 Ml Syringe SLOW IVP 25 gm PRN PRN Administration HYPOGLYCEMIA PROTOCOL Enoxaparin Sodium 60 mg 05/10/20 21:00 05/15/20 08:24 Enoxaparin Sodium 60 Mg/0.6 Ml Syringe SC 60 mg 0900,2100 OMARI Administration Famotidine 20 mg 05/04/20 09:00 05/15/20 08:25 Famotidine 20 Mg Tab PO 20 mg BID OMARI Administration Insulin Glargine 15 units/ 0.15 mls @ 0 mls/hr 05/06/20 09:00 05/15/20 08:33 Miscellaneous Medication SC 0.15 mls QAM OMARI Administration Insulin Glargine 25 units/ 0.25 mls @ 0 mls/hr 05/06/20 21:00 05/14/20 20:35 Miscellaneous Medication SC 0.25 mls HS OMARI Administration Fentanyl Citrate 2,000 mcg/ 100 mls @ 0 mls/hr 05/10/20 12:15 05/15/20 08:26 Sodium Chloride IV 06/09/20 12:15 100 mls INF OMARI Administration Protocol Per Protocol Midazolam HCl 100 mg/ Sodium 100 mls @ 0 mls/hr 05/10/20 14:45 05/15/20 16:31 Chloride IVPB 100 mls INF PRN Administration Sedation Protocol As Directed Piperacillin Sod/Tazobactam 100 mls @ 200 mls/hr 05/15/20 12:00 05/15/20 17:48 Sod 3.375 gm/ Sodium Chloride IVPB 05/22/20 12:01 100 mls Q6HR OMARI Administration Micafungin Sodium 100 mg/ 100 mls @ 100 mls/hr 05/15/20 08:30 05/15/20 09:14 Sodium Chloride IVPB 05/22/20 08:31 100 mls Q24H OMARI Administration Insulin Human Lispro 0 units 05/05/20 01:19 05/15/20 16:54 Humalog 300 Units/3 Ml Vial SC 4 unit .MODERATE SLIDING SC PRN Administration Moderate Correctional Scale Lorazepam 2 mg 05/10/20 12:15 05/12/20 09:59 Lorazepam 2 Mg/Ml Vial SLOW IVP 06/09/20 12:15 2 mg Q1H PRN Administration Breakthrough agitation Ondansetron HCl 4 mg 05/04/20 07:05 05/04/20 12:12 Ondansetron Pf 4 Mg/2 Ml Vial IVP 4 mg Q6H PRN Administration Nausea/Vomiting Propofol 1,000 mg 05/10/20 12:15 05/15/20 11:19 Propofol 1,000 Mg/100 Ml Vial IV 06/09/20 12:15 1,000 mg INF PRN Administration TO ACHIEVE GOAL RASS Protocol Senna/Docusate Sodium 1 tab 05/06/20 21:00 05/15/20 08:25 Senokot S 8.6-50 Mg Tab PO 1 tab BID OMARI Administration Sodium Chloride 10 ml 05/03/20 22:30 05/07/20 20:51 Flush - Normal Saline 10 Ml Syringe IVF 10 ml PRN PRN Administration Saline Flush Vecuronium [place] 10 mg 05/10/20 11:01 05/15/20 17:02 Vecuronium 10 Mg Vial IVP 10 mg Q30MIN PRN Administration Agitation Zinc Sulfate 220 mg 05/04/20 09:00 05/15/20 08:25 Zinc Sulfate 220 Mg Cap PO 220 mg DAILY OMARI Administration - Exam General - other findings: Intubated, in supine position ENT: moist mucosa Heart: RRR Respiratory: rales, rhonchi Gastrointestinal: soft, non-tender Skin: no rashes Psychiatric - other findings: Could not assess Hosp A/P (1) Acute respiratory failure with hypoxia Code(s): J96.01 - ACUTE RESPIRATORY FAILURE WITH HYPOXIA Status: Acute (2) Pneumonia due to COVID-19 virus Code(s): U07.1 - COVID-19; J12.89 - OTHER VIRAL PNEUMONIA Status: Acute (3) DKA (diabetic ketoacidoses) Code(s): E11.10 - TYPE 2 DIABETES MELLITUS WITH KETOACIDOSIS WITHOUT COMA Status: Acute - Plan Patient is on dexamethasone. Continue Accu-Cheks and insulin sliding scale Patient is intubated and ventilated in bilevel mode, in supine position today. Patient is on vitamin C, zinc and vitamin D. Patient is on DVT prophylaxis with Lovenox.
[2020-05-15] MEDS: Cholecalciferol 1,000 UNITS (25 MCG) TAB PO SCH (20:11)
[2020-05-15] MEDS: Insulin Glargine 25 UNITS in Pre-Filled Syringe 1 EACH SC SCH (20:12)
[2020-05-16 04:34] LABS: Anion Gap 11 mmol/L (10-20); BUN (Urea Nitrogen) 19 mg/dL (9.8-20.1); Calc. Creatinine Clearance 111 mL/min (70-130); Calcium 8.4 mg/dL (7.8-10.44); Carbon Dioxide 29 mmol/L (22-29); Chloride 100 mmol/L (98-107); Glucose 208 mg/dL (70-105); Potassium 4.1 mmol/L (3.5-5.1); Sodium 136 mmol/L (136-145)
[2020-05-16 04:40] LABS: Band 2 % (5-11); Hemoglobin 10.1 g/dL (12.0-16.0); Hypochromia SLIGHT = 6-15 cells (100X) (0-5/hpf); Lymphocytes 24 % (21-51); MDiff Complete? YES; Mean Corpuscular HGB CONC 33.2 g/dL (32.0-36.0); Mean Corpuscular Hemoglobin 30.2 pg (27.0-31.0); Mean Corpuscular Volume 90.9 fL (78.0-98.0); Mean Platelet Volume 9.8 fL (7.4-10.4); Monocytes 3 % (0-10); Neutrophil 71 % (42-75); Platelet Count 396 thou/uL (130-400); Platelet Morphology Comment Appears Adequate; RBC Distribution Width 12.6 % (11.5-14.5); Red Blood Cell (RBC) Count 3.34 mill/uL (4.20-5.40); White Blood Cell (WBC) Count 11.3 thou/uL (4.8-10.8)
[2020-05-16] MEDS: HumaLOG 300 UNITS/3 ML VIAL SC PRN ×4 (05:33→20:58)
[2020-05-16] MEDS: Piperacillin/Tazobactam 3.375 GM in Sodium Chloride 0.9% 100 ML IVPB SCH ×4 (06:18→23:35)
[2020-05-16 07:25] LABS: Actual Bicarbonate (HCO3a) 27.1 mEq/L (22-28); Base Excess (BEa) 3.1 mEq/L (-2.0 to +3.0); CO2 Tension 39.3 mmHg (35.0-45.0); Carboxyhemoglobin (COHb) 1.4 gm% (0.0-3.0); Hemoglobin (Hb) 12.4 g/dL (12.0-16.0); Potassium - ABG Lab 3.85 mmol/L (3.70-5.30); pH, Arterial 7.46 (7.35-7.45)
[2020-05-16 07:28] LABS: O2 Tension (PaO2), arterial 46.7 mmHg (80.0-100.0); Puncture Site RRA
[2020-05-16 07:29] LABS: ALV-art Gradient 331.975 mmHg (0-20)
[2020-05-16] MEDS: Enoxaparin Sodium 60 MG/0.6 ML SYRINGE SC SCH ×2 (08:20→20:18)
[2020-05-16] MEDS: Ascorbic Acid 500 mg Chewable Tablet PO SCH (08:20)
[2020-05-16] MEDS: Senokot S 8.6-50 MG TAB PO SCH ×2 (08:20→20:18)
[2020-05-16] MEDS: Zinc Sulfate 220 MG CAP PO SCH (08:20)
[2020-05-16] MEDS: Dexamethasone 4 mg/ml Vial SLOW IVP SCH (08:21)
[2020-05-16] MEDS: Famotidine 20 MG TAB PO SCH ×2 (08:30→20:18)
[2020-05-16] MEDS: Insulin Glargine 15 UNITS in Pre-Filled Syringe 1 EACH SC SCH (08:31)
--- NOTE | 2020-05-16 08:39 | RAD ---
PORTABLE CHEST: HISTORY: Followup of COVID pneumonia. COMPARISON: Prior day's study. FINDINGS: Endotracheal and NG tubes are in satisfactory position. Bilateral infiltrates are stable. IMPRESSION: Stable exam. POS: RIGOBERTO
[2020-05-16] MEDS: Micafungin 100 MG in Sodium Chloride 0.9% 100 ML IVPB SCH (08:48)
--- NOTE | 2020-05-16 09:11 | PRG ---
DATE OF SERVICE: 05/16/2020 35 minutes critical care time. SUBJECTIVE: The patient remains intubated on mechanical ventilation. She is lying in supine position today. OBJECTIVE: VITAL SIGNS: Temperature 98.6, pulse rate 64, blood pressure 110/63, and O2 saturation generally in the mid to low 90s. HEENT: Unremarkable. NECK: No JVD. LUNGS: Crackles bilaterally. CARDIAC: S1 and S2. Regular. ABDOMEN: Soft. EXTREMITIES: No edema. LABORATORY DATA: Sodium 136, potassium 4.1, chloride 100, CO2 of 29, BUN 19, creatinine 0.6, glucose 208. Ferritin is 728. PH 7.46, pCO2 of 39, PO2 of 46. Bilevel rate 22, pressure 38/12, FiO2 60%. White blood cell count 11.3, hematocrit 30.4, and platelet count 396. X-ray continues to show bilateral infiltrates. ASSESSMENT: 1. COVID-19 pneumonia. 2. Acute respiratory failure requiring mechanical ventilation. 3. Improved bandemia after starting antifungals and antibiotics yesterday. 4. Improved mild hyperkalemia. PLAN: Continue supportive care with mechanical ventilation; anticoagulants, steroids, antibiotics, and antifungals. Job ID: [id number]
[2020-05-16] MEDS: fentaNYL Citrate/PF 2,000 MCG in Sodium Chloride 0.9% 60 ML IV SCH (10:10)
[2020-05-16] MEDS: Propofol 1,000 MG/100 ML VIAL IV PRN ×2 (12:26→16:09)
[2020-05-16] MEDS ORDERED: Digoxin 0.5 MG/2 ML AMP ONE (17:51)
--- NOTE | 2020-05-16 19:28 | PDOC.HOSPP ---
- Subjective Encounter Date: 05/16/20 Encounter Time: 11:00 Subjective: Patient seen in follow-up for hypoxic respiratory failure secondary to COVID-19 infection. Patient is intubated, could not complete review of systems. - Objective Vital Signs & Weight: Vital Signs (12 hours) Temp Pulse Resp BP Pulse Ox 05/16/20 18:00 22 H 05/16/20 16:00 97.8 F 22 H 05/16/20 15:44 57 L 98/63 05/16/20 14:00 22 H 05/16/20 13:07 64 05/16/20 12:00 98.0 F 22 H 05/16/20 10:32 78 107/64 05/16/20 10:00 22 H 05/16/20 09:00 98.7 F 05/16/20 08:00 22 H 91 L Weight Admit Weight 147 lb Weight 155 lb 3.287 oz Most Recent Monitor Data Heart Rate from ECG 65 NIBP 109/70 NIBP BP-Mean 83 Respiration from ECG 22 SpO2 93 I&O: 05/15/20 05/16/20 05/17/20 06:59 06:59 06:59 Intake Total 2592.2 2022 747 Output Total 3020 2365 690 Balance -427.8 -343 57 Result Diagrams: 05/16/20 03:47 05/16/20 03:47 Additional Labs: Accuchecks 05/16/20 05/15/20 05/15/20 09:09 23:36 21:31 POC Glucose 150 H 198 H 223 H I reviewed patient's labs and MAR EKG Reviewed by me: Yes (Normal sinus rhythm on telemetry) Hospitalist ROS - Review of Systems ROS unobtainable: due to endotracheal tube - Medication Medications: Active Medications Generic Name Dose Route Start Last Admin Trade Name Freq PRN Reason Stop Dose Admin Acetaminophen 1,000 mg 05/04/20 07:05 05/12/20 08:01 Acetaminophen 500 Mg Tab PO 1,000 mg Q6H PRN Administration Mild Pain (1-3) Ascorbic Acid 1,000 mg 05/04/20 09:00 05/16/20 08:20 Ascorbic Acid 500 Mg Chewable Tablet PO 1,000 mg DAILY OMARI Administration Cholecalciferol 5,000 units 05/04/20 21:00 05/15/20 20:11 Cholecalciferol 1,000 Units (25 Mcg) Tab PO 5,000 units HS OMARI Administration Dexamethasone 6 mg 05/09/20 09:00 05/16/20 08:21 Dexamethasone 4 Mg/Ml Vial SLOW IVP 6 mg DAILY OMARI Administration Dextrose/Water 25 gm 05/03/20 22:18 05/11/20 10:24 Dextrose 50% Abboject 50 Ml Syringe SLOW IVP 25 gm PRN PRN Administration HYPOGLYCEMIA PROTOCOL Enoxaparin Sodium 60 mg 05/10/20 21:00 05/16/20 08:20 Enoxaparin Sodium 60 Mg/0.6 Ml Syringe SC 60 mg 09,2100 OMARI Administration Famotidine 20 mg 05/04/20 09:00 05/16/20 08:30 Famotidine 20 Mg Tab PO 20 mg BID OMARI Administration Insulin Glargine 15 units/ 0.15 mls @ 0 mls/hr 05/06/20 09:00 05/16/20 08:31 Miscellaneous Medication SC 0.15 mls QAM OMARI Administration Insulin Glargine 25 units/ 0.25 mls @ 0 mls/hr 05/06/20 21:00 05/15/20 20:12 Miscellaneous Medication SC 0.25 mls HS OMARI Administration Fentanyl Citrate 2,000 mcg/ 100 mls @ 0 mls/hr 05/10/20 12:15 05/16/20 10:10 Sodium Chloride IV 06/09/20 12:15 100 mls INF OMARI Administration Protocol Per Protocol Midazolam HCl 100 mg/ Sodium 100 mls @ 0 mls/hr 05/10/20 14:45 05/16/20 17:50 Chloride IVPB 100 mls INF PRN Administration Sedation Protocol As Directed Piperacillin Sod/Tazobactam 100 mls @ 200 mls/hr 05/15/20 12:00 05/16/20 17:33 Sod 3.375 gm/ Sodium Chloride IVPB 05/22/20 12:01 100 mls Q6HR OMARI Administration Micafungin Sodium 100 mg/ 100 mls @ 100 mls/hr 05/15/20 08:30 05/16/20 08:48 Sodium Chloride IVPB 05/22/20 08:31 100 mls Q24H OMARI Administration Insulin Human Lispro 0 units 05/05/20 01:19 05/16/20 17:34 Humalog 300 Units/3 Ml Vial SC 2 unit .MODERATE SLIDING SC PRN Administration Moderate Correctional Scale Lorazepam 2 mg 05/10/20 12:15 05/12/20 09:59 Lorazepam 2 Mg/Ml Vial SLOW IVP 06/09/20 12:15 2 mg Q1H PRN Administration Breakthrough agitation Ondansetron HCl 4 mg 05/04/20 07:05 05/04/20 12:12 Ondansetron Pf 4 Mg/2 Ml Vial IVP 4 mg Q6H PRN Administration Nausea/Vomiting Propofol 1,000 mg 05/10/20 12:15 05/16/20 16:09 Propofol 1,000 Mg/100 Ml Vial IV 06/09/20 12:15 1,000 mg INF PRN Administration TO ACHIEVE GOAL RASS Protocol Senna/Docusate Sodium 1 tab 05/06/20 21:00 05/16/20 08:20 Senokot S 8.6-50 Mg Tab PO 1 tab BID OMARI Administration Sodium Chloride 10 ml 05/03/20 22:30 05/07/20 20:51 Flush - Normal Saline 10 Ml Syringe IVF 10 ml PRN PRN Administration Saline Flush Vecuronium [place] 10 mg 05/10/20 11:01 05/15/20 17:02 Vecuronium 10 Mg Vial IVP 10 mg Q30MIN PRN Administration Agitation Zinc Sulfate 220 mg 05/04/20 09:00 05/16/20 08:20 Zinc Sulfate 220 Mg Cap PO 220 mg DAILY OMARI Administration - Exam General - other findings: Supine and intubated ENT: normocephalic atraumatic Heart: RRR Respiratory: rales, rhonchi Gastrointestinal: soft Neurological - other findings: Unable to assess Psychiatric - other findings: Unable to assess Hosp A/P (1) Acute respiratory failure with hypoxia Code(s): J96.01 - ACUTE RESPIRATORY FAILURE WITH HYPOXIA Status: Acute (2) Pneumonia due to COVID-19 virus Code(s): U07.1 - COVID-19; J12.89 - OTHER VIRAL PNEUMONIA Status: Acute (3) DKA (diabetic ketoacidoses) Code(s): E11.10 - TYPE 2 DIABETES MELLITUS WITH KETOACIDOSIS WITHOUT COMA S tatus: Acute - Plan Continue dexamethasone. Continue Accu-Cheks and insulin sliding scale Patient continues to be intubated and ventilated in bilevel mode, in supine position today. Continue vitamin C, zinc and vitamin D. Continue DVT prophylaxis with Lovenox.
[2020-05-16] MEDS: Cholecalciferol 1,000 UNITS (25 MCG) TAB PO SCH (20:18)
[2020-05-16] MEDS: Insulin Glargine 25 UNITS in Pre-Filled Syringe 1 EACH SC SCH (20:57)
[2020-05-17] MEDS: fentaNYL Citrate/PF 2,000 MCG in Sodium Chloride 0.9% 60 ML IV SCH ×2 (00:14→12:34)
[2020-05-17] MEDS: HumaLOG 300 UNITS/3 ML VIAL SC PRN ×4 (01:03→22:58)
[2020-05-17 05:30] LABS: Anion Gap 11 mmol/L (10-20); BUN (Urea Nitrogen) 22 mg/dL (9.8-20.1); Calc. Creatinine Clearance 108 mL/min (70-130); Calcium 8.5 mg/dL (7.8-10.44); Carbon Dioxide 31 mmol/L (22-29); Chloride 98 mmol/L (98-107); Glucose 149 mg/dL (70-105); Potassium 4.1 mmol/L (3.5-5.1); Sodium 136 mmol/L (136-145)
[2020-05-17 05:41] LABS: Band 10 % (5-11); Eosinophils 2 % (0-10); Hemoglobin 10.1 g/dL (12.0-16.0); Lymphocytes 21 % (21-51); MDiff Complete? YES; Mean Corpuscular HGB CONC 33.3 g/dL (32.0-36.0); Mean Corpuscular Hemoglobin 30.9 pg (27.0-31.0); Mean Platelet Volume 9.4 fL (7.4-10.4); Metamyelocyte 4 % (0-0); Monocytes 1 % (0-10); Neutrophil 62 % (42-75); Platelet Count 406 thou/uL (130-400); Platelet Morphology Comment Appears Increased; RBC Distribution Width 12.6 % (11.5-14.5); Red Blood Cell (RBC) Count 3.27 mill/uL (4.20-5.40); White Blood Cell (WBC) Count 14.6 thou/uL (4.8-10.8)
[2020-05-17] MEDS: Piperacillin/Tazobactam 3.375 GM in Sodium Chloride 0.9% 100 ML IVPB SCH ×4 (06:07→22:57)
[2020-05-17 07:26] LABS: Actual Bicarbonate (HCO3a) 29.5 mEq/L (22-28); Base Excess (BEa) 5.3 mEq/L (-2.0 to +3.0); CO2 Tension 41.8 mmHg (35.0-45.0); Calcium, Ionized (arterial) 1.21 mmol/L (1.12-1.30); Hemoglobin (Hb) 10.4 g/dL (12.0-16.0); pH, Arterial 7.47 (7.35-7.45)
[2020-05-17 07:27] LABS: O2 Tension (PaO2), arterial 44.4 mmHg (80.0-100.0)
[2020-05-17 07:28] LABS: Puncture Site RRA
--- NOTE | 2020-05-17 07:52 | PRG ---
DATE OF SERVICE: 05/17/2020 TIME SPENT: 35 minutes of critical care time. SUBJECTIVE: The patient remains intubated on mechanical ventilation. There has been no acute changes overnight. OBJECTIVE: VITAL SIGNS: On exam, temperature is 99.5, pulse 74, and blood pressure 92/56. 24-hour intake 1745, output 2185. HEENT: Unchanged. NECK: No adenopathy or JVD. LUNGS: Coarse breath sounds. CARDIOVASCULAR: S1 and S2. Regular. ABDOMEN: Soft and nontender. EXTREMITIES: Trace edema throughout. LABORATORY DATA: Sodium 136, potassium 4.1, chloride 98, CO2 of 31, BUN 22, creatinine 0.6, and glucose 149. ABG result pending. White blood cell count 14.6, hematocrit 30.4, and platelet count 406. X-ray is about the same. She has subtle bilateral infiltrates. ASSESSMENT: 1. COVID-19 pneumonia. 2. Acute hypoxic respiratory failure, requiring mechanical ventilation. 3. Improved bandemia after starting antifungals and antibiotics few days ago. 4. Resolved hyperkalemia. PLAN: There is really not much to do today other than continue supportive care with mechanical ventilation. I think it is going to be quite sometime before we see any significant improvement to the form where we can follow through with the tracheostomy. The patient continues on steroids, anticoagulation, and enteral tube feeds. Job ID: [id number]
--- NOTE | 2020-05-17 08:51 | RAD ---
PORTABLE CHEST: Date: 05/17/2020 HISTORY: CCU follow-up, on ventilator. COMPARISON: 05/16/2020. FINDINGS/IMPRESSION: ET tube and NG tube are unchanged. There are hazy bilateral infiltrates which have somewhat of a perihilar distribution but extend into both lower lobes. Evidence of small effusions. No significant interval change. POS: AGW
[2020-05-17] MEDS: Micafungin 100 MG in Sodium Chloride 0.9% 100 ML IVPB SCH (09:52)
[2020-05-17] MEDS: Apixaban 5 MG TAB PER TUBE SCH ×2 (09:52→21:38)
[2020-05-17] MEDS: Famotidine 20 MG TAB PO SCH ×2 (09:52→21:38)
[2020-05-17] MEDS: Senokot S 8.6-50 MG TAB PO SCH ×2 (09:53→21:38)
[2020-05-17] MEDS: Zinc Sulfate 220 MG CAP PO SCH (09:53)
[2020-05-17] MEDS: Ascorbic Acid 500 mg Chewable Tablet PO SCH (09:53)
[2020-05-17] MEDS: Insulin Glargine 15 UNITS in Pre-Filled Syringe 1 EACH SC SCH (09:53)
[2020-05-17] MEDS: Dexamethasone 4 mg/ml Vial SLOW IVP SCH (09:53)
[2020-05-17] MEDS: Propofol 1,000 MG/100 ML VIAL IV PRN (11:56)
[2020-05-17] MEDS: Lorazepam 2 MG/ML VIAL SLOW IVP PRN (11:57)
[2020-05-17] MEDS: Vecuronium 10 MG VIAL IVP PRN (11:58)
--- NOTE | 2020-05-17 18:41 | PDOC.HOSPP ---
- Subjective Encounter Date: 05/17/20 Encounter Time: 09:30 Subjective: Patient seen for follow-up for acute respiratory failure with hypoxia. Patient is intubated and mechanically ventilated in the CCU, could not complete review of systems. - Objective Vital Signs & Weight: Vital Signs (12 hours) Temp Pulse Resp BP Pulse Ox 05/17/20 16:00 98 F 22 H 05/17/20 14:18 66 106/63 05/17/20 14:00 22 H 05/17/20 12:00 22 H 05/17/20 11:17 83 123/63 05/17/20 11:00 99.2 F 05/17/20 10:00 22 H 05/17/20 08:00 99.4 F 22 H 87 L 05/17/20 07:13 74 92/55 L Weight Admit Weight 147 lb Weight 155 lb 3.287 oz Most Recent Monitor Data Heart Rate from ECG 62 NIBP 104/65 NIBP BP-Mean 78 Respiration from ECG 22 SpO2 96 I&O: 05/16/20 05/17/20 05/18/20 06:59 06:59 06:59 Intake Total 2 1745.8 358 Output Total 2365 2185 1250 Balance -343 -439.2 -892 Result Diagrams: 05/17/20 04:30 05/17/20 04:30 Additional Labs: Accuchecks 05/17/20 05/17/20 05/16/20 16:12 10:03 20:28 POC Glucose 240 H 136 H 181 H 05/16/20 05/15/20 16:18 16:39 POC Glucose 196 H 219 H Labs and MAR reviewed by me EKG Reviewed by me: Yes (Telemetry shows normal sinus rhythm) Hospitalist ROS - Review of Systems ROS unobtainable: due to endotracheal tube - Medication Medications: Active Medications Generic Name Dose Route Start Last Admin Trade Name Freq PRN Reason Stop Dose Admin Acetaminophen 1,000 mg 05/04/20 07:05 05/12/20 08:01 Acetaminophen 500 Mg Tab PO 1,000 mg Q6H PRN Administration Mild Pain (1-3) Apixaban 5 mg 05/17/20 09:00 05/17/20 09:52 Apixaban 5 Mg Tab PER TUBE 5 mg BID OMARI Administration Ascorbic Acid 1,000 mg 05/04/20 09:00 05/17/20 09:53 Ascorbic Acid 500 Mg Chewable Tablet PO 1,000 mg DAILY OMARI Administration Cholecalciferol 5,000 units 05/04/20 21:00 05/16/20 20:18 Cholecalciferol 1,000 Units (25 Mcg) Tab PO 5,000 units HS OMARI Administration Dexamethasone 6 mg 05/09/20 09:00 05/17/20 09:53 Dexamethasone 4 Mg/Ml Vial SLOW IVP 6 mg DAILY OMARI Administration Dextrose/Water 25 gm 05/03/20 22:18 05/11/20 10:24 Dextrose 50% Abboject 50 Ml Syringe SLOW IVP 25 gm PRN PRN Administration HYPOGLYCEMIA PROTOCOL Famotidine 20 mg 05/04/20 09:00 05/17/20 09:52 Famotidine 20 Mg Tab PO 20 mg BID OMARI Administration Insulin Glargine 15 units/ 0.15 mls @ 0 mls/hr 05/06/20 09:00 05/17/20 09:53 Miscellaneous Medication SC 0.15 mls QAM OMARI Administration Insulin Glargine 25 units/ 0.25 mls @ 0 mls/hr 05/06/20 21:00 05/16/20 20:57 Miscellaneous Medication SC 0.25 mls HS OMARI Administration Fentanyl Citrate 2,000 mcg/ 100 mls @ 0 mls/hr 05/10/20 12:15 05/17/20 12:34 Sodium Chloride IV 06/09/20 12:15 100 mls INF OMARI Administration Protocol Per Protocol Midazolam HCl 100 mg/ Sodium 100 mls @ 0 mls/hr 05/10/20 14:45 05/17/20 06:06 Chloride IVPB 100 mls INF PRN Administration Sedation Protocol As Directed Piperacillin Sod/Tazobactam 100 mls @ 200 mls/hr 05/15/20 12:00 05/17/20 18:25 Sod 3.375 gm/ Sodium Chloride IVPB 05/22/20 12:01 100 mls Q6HR OMARI Administration Micafungin Sodium 100 mg/ 100 mls @ 100 mls/hr 05/15/20 08:30 05/17/20 09:52 Sodium Chloride IVPB 05/22/20 08:31 100 mls Q24H OMARI Administration Insulin Human Lispro 0 units 05/05/20 01:19 05/17/20 16:33 Humalog 300 Units/3 Ml Vial SC 4 unit .MODERATE SLIDING SC PRN Administration Moderate Correctional Scale Lorazepam 2 mg 05/10/20 12:15 05/17/20 11:57 Lorazepam 2 Mg/Ml Vial SLOW IVP 06/09/20 12:15 2 mg Q1H PRN Administration Breakthrough agitation Ondansetron HCl 4 mg 05/04/20 07:05 05/04/20 12:12 Ondansetron Pf 4 Mg/2 Ml Vial IVP 4 mg Q6H PRN Administration Nausea/Vomiting Propofol 1,000 mg 05/10/20 12:15 05/17/20 11:56 Propofol 1,000 Mg/100 Ml Vial IV 06/09/20 12:15 1,000 mg INF PRN Administration TO ACHIEVE GOAL RASS Protocol Senna/Docusate Sodium 1 tab 05/06/20 21:00 05/17/20 09:53 Senokot S 8.6-50 Mg Tab PO 1 tab BID OMARI Administration Sodium Chloride 10 ml 05/03/20 22:30 05/07/20 20:51 Flush - Normal Saline 10 Ml Syringe IVF 10 ml PRN PRN Administration Saline Flush Vecuronium [place] 10 mg 05/10/20 11:01 05/17/20 11:58 Vecuronium 10 Mg Vial IVP 10 mg Q30MIN PRN Administration Agitation Zinc Sulfate 220 mg 05/04/20 09:00 05/17/20 09:53 Zinc Sulfate 220 Mg Cap PO 220 mg DAILY OMARI Administration - Exam General - other findings: Intubated ENT: moist mucosa Neck: supple Heart: RRR Respiratory: normal chest expansion, rales, rhonchi Gastrointestinal: soft, normal bowel sounds Skin: no rashes Psychiatric - other findings: Could not assess Hosp A/P (1) Acute respiratory failure with hypoxia Code(s): J96.01 - ACUTE RESPIRATORY FAILURE WITH HYPOXIA Status: Acute (2) Pneumonia due to COVID-19 virus Code(s): U07.1 - COVID-19; J12.89 - OTHER VIRAL PNEUMONIA Status: Acute (3) DKA (diabetic ketoacidoses) Code(s): E11.10 - TYPE 2 DIABETES MELLITUS WITH KETOACIDOSIS WITHOUT COMA Status: Acute - Plan Patient is on dexamethasone. Continue micafungin and Zosyn. Urinary tract infection with nonhemolytic Streptococcus. Patient also has candiduria. Continue vitamin C, zinc and vitamin D. Continue DVT prophylaxis with Lovenox.
[2020-05-17] MEDS: Cholecalciferol 1,000 UNITS (25 MCG) TAB PO SCH (22:56)
[2020-05-17] MEDS: Insulin Glargine 25 UNITS in Pre-Filled Syringe 1 EACH SC SCH (22:56)
[2020-05-18] MEDS: fentaNYL Citrate/PF 2,000 MCG in Sodium Chloride 0.9% 60 ML IV SCH ×2 (02:40→17:29)
[2020-05-18 05:19] LABS: #Basophils 0.1 thou/uL (0.0-0.2); #Eosinphils 0.2 thou/uL (0.0-0.7); #Lymphocytes 2.1 thou/uL (1.20-3.40); #Monocytes 0.4 thou/uL (0.11-0.59); #Neutrophils 14.9 thou/uL (1.40-6.50); %Basophils 0.6 % (0.0-1.0); %Eosinophils 1.3 % (0.0-10.0); %Lymphocytes 11.6 % (21.0-51.0); %Neutrophils 84.4 % (42.0-75.0); Hemoglobin 10.4 g/dL (12.0-16.0); Mean Corpuscular Hemoglobin 30.2 pg (27.0-31.0); Mean Corpuscular Volume 91.5 fL (78.0-98.0); Mean Platelet Volume 9.6 fL (7.4-10.4); Platelet Count 421 thou/uL (130-400); RBC Distribution Width 12.7 % (11.5-14.5); Red Blood Cell (RBC) Count 3.45 mill/uL (4.20-5.40); White Blood Cell (WBC) Count 17.7 thou/uL (4.8-10.8)
[2020-05-18] MEDS: Piperacillin/Tazobactam 3.375 GM in Sodium Chloride 0.9% 100 ML IVPB SCH ×3 (05:25→17:30)
[2020-05-18 05:33] LABS: Anion Gap 15 mmol/L (10-20); BUN (Urea Nitrogen) 23 mg/dL (9.8-20.1); Calc. Creatinine Clearance 97 mL/min (70-130); Calcium 8.7 mg/dL (7.8-10.44); Carbon Dioxide 28 mmol/L (22-29); Chloride 98 mmol/L (98-107); Glucose 231 mg/dL (70-105); Potassium 4.1 mmol/L (3.5-5.1); Sodium 137 mmol/L (136-145)
[2020-05-18] MEDS: HumaLOG 300 UNITS/3 ML VIAL SC PRN ×3 (06:41→18:18)
[2020-05-18 07:29] LABS: Actual Bicarbonate (HCO3a) 29.3 mEq/L (22-28); Base Excess (BEa) 4.9 mEq/L (-2.0 to +3.0); CO2 Tension 42.9 mmHg (35.0-45.0); Carboxyhemoglobin (COHb) 1.1 gm% (0.0-3.0); Hemoglobin (Hb) 10.7 g/dL (12.0-16.0); Potassium - ABG Lab 3.66 mmol/L (3.70-5.30); pH, Arterial 7.45 (7.35-7.45)
[2020-05-18 07:30] LABS: O2 Tension (PaO2), arterial 42.9 mmHg (80.0-100.0)
[2020-05-18 07:31] LABS: ALV-art Gradient 331.275 mmHg (0-20); Puncture Site RRA
[2020-05-18] MEDS: Propofol 1,000 MG/100 ML VIAL IV PRN ×2 (07:40→17:31)
[2020-05-18] MEDS: Micafungin 100 MG in Sodium Chloride 0.9% 100 ML IVPB SCH (07:42)
[2020-05-18] MEDS: Vecuronium 10 MG VIAL IVP PRN ×4 (09:02→11:10)
--- NOTE | 2020-05-18 09:15 | PRG ---
DATE OF SERVICE: 05/18/2020 SUBJECTIVE: 35 minutes critical time. The patient remains intubated on mechanical ventilation. Right now, she is in the left lateral decubitus position. OBJECTIVE: VITAL SIGNS: Temperature is 99.1, pulse 73, blood pressure 105/58, O2 saturation 89%. HEENT: Unremarkable. NECK: No adenopathy or JVD. LUNGS: Coarse breath sounds bilaterally. CARDIAC: S1, S2. Regular. ABDOMEN: Soft. EXTREMITIES: No edema. LABORATORY DATA: White blood cell count 17.7, hematocrit 31, and platelet count 421. PH of 7.45, pCO2 of 42, PO2 of 43. Sodium 137, potassium 4.1, chloride 98, CO2 of 28, BUN 22, creatinine 0.7, glucose 231. Chest x-ray is unchanged in terms of bilateral infiltrates. ASSESSMENT: 1. COVID-19 pneumonia. 2. Acute hypoxic respiratory failure requiring mechanical ventilation. 3. Previous hyperkalemia, which is resolved. PLAN: 1. I am going to prone her again today. I am going to reduce the steroid dose. 2. Continue mechanical ventilation. 3. Prognosis poor. Job ID: [id number]
--- NOTE | 2020-05-18 09:22 | RAD ---
AP CHEST: HISTORY: Followup of COVID pneumonia. FINDINGS: Endotracheal and NG tubes are in satisfactory position. Bilateral lung infiltrates are sable. IMPRESSION: Stable exam. POS: RIGOBERTO
[2020-05-18] MEDS: Ascorbic Acid 500 mg Chewable Tablet PO SCH (09:33)
[2020-05-18] MEDS: Zinc Sulfate 220 MG CAP PO SCH (09:33)
[2020-05-18] MEDS: Apixaban 5 MG TAB PER TUBE SCH ×2 (09:33→20:23)
[2020-05-18] MEDS: Senokot S 8.6-50 MG TAB PO SCH ×2 (09:34→20:23)
[2020-05-18] MEDS: Famotidine 20 MG TAB PO SCH ×2 (09:34→20:23)
[2020-05-18] MEDS: Insulin Glargine 15 UNITS in Pre-Filled Syringe 1 EACH SC SCH (09:34)
[2020-05-18] MEDS: Dexamethasone 4 mg/ml Vial SLOW IVP SCH (09:35)
--- NOTE | 2020-05-18 16:34 | PDOC.FMACP ---
Advance Care Planning - Problem (1) Palliative care encounter Status: Acute Code(s): Z51.5 - ENCOUNTER FOR PALLIATIVE CARE (2) Acute respiratory failure with hypoxia Status: Acute Code(s): J96.01 - ACUTE RESPIRATORY FAILURE WITH HYPOXIA (3) COVID-19 virus infection Status: Acute Code(s): U07.1 - COVID-19 (4) DKA (diabetic ketoacidoses) Status: Acute Code(s): E11.10 - TYPE 2 DIABETES MELLITUS WITH KETOACIDOSIS WITHOUT COMA (5) Pneumonia due to COVID-19 virus Status: Acute Code(s): U07.1 - COVID-19; J12.89 - OTHER VIRAL PNEUMONIA (6) Diabetes mellitus Status: Chronic Code(s): E11.9 - TYPE 2 DIABETES MELLITUS WITHOUT COMPLICATIONS Qualifiers: Diabetes mellitus type: type 2 - Note 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 The diagnosis, prognosis and goals of care were discussed. Appropriate forms and documentation to accomplish the goals of care were discussed. All questions were answered. *Father Enio met with son and prayed for patient. He was unable to stay for family meeting. *Utilized Cultural link for meeting - sat math tutor Naa [id number] *Justin present with his siblings on conference call *Overview of condition and health status *Discussed resuscitation at length. For the present time family wishes to r emain with full resuscitaiton measures. *Family to write down questions, Palliative care will follow up next week to address questions. Noteworthy is patient lost her spouse one year ago and had been grieving. Prior to being intubated, but when she got sick she started giving personal items away to different family members. *Justin, oldest son and spokesperson, states he desires to have everything done, but states he knows Gods will may be different than our prayers. A Way associate marketing manager also present for meeting, please refer to Palliative Care notes in note section. Time Spent (mins): 60
--- NOTE | 2020-05-18 18:05 | PDOC.HOSPP ---
- Subjective Encounter Date: 05/18/20 Encounter Time: 08:00 Subjective: Patient seen for follow-up regarding respiratory failure. She is intubated, could not complete review of systems. - Objective Vital Signs & Weight: Vital Signs (12 hours) Pulse Resp BP Pulse Ox 05/18/20 16:00 22 H 05/18/20 15:18 77 05/18/20 14:00 22 H 05/18/20 13:16 86 103/68 05/18/20 12:00 22 H 05/18/20 11:06 123 H 123/69 05/18/20 10:00 25 H 05/18/20 08:00 22 H 88 L 05/18/20 07:15 73 105/58 L Weight Admit Weight 147 lb Weight 155 lb 3.287 oz Most Recent Monitor Data Heart Rate from ECG 78 NIBP 104/69 NIBP BP-Mean 80 Respiration from ECG 22 SpO2 95 I&O: 05/17/20 05/18/20 05/19/20 06:59 06:59 06:59 Intake Total 1745.8 1978.1 230 Output Total 2185 2750 1170 [facility] -439.2 -771.9 -940 Result Diagrams: 05/18/20 04:30 05/18/20 04:30 Additional Labs: Accuchecks 05/17/20 05/17/20 04:29 00:02 POC Glucose 160 H 173 H I reviewed patient's labs and MAR EKG Reviewed by me: Yes (Normal sinus rhythm on telemetry) Hospitalist ROS - Review of Systems ROS unobtainable: due to endotracheal tube - Medication Medications: Active Medications Generic Name Dose Route Start Last Admin Trade Name Jmq PRN Reason Stop Dose Admin Acetaminophen 1,000 mg 05/04/20 07:05 05/12/20 08:01 Acetaminophen 500 Mg Tab PO 1,000 mg Q6H PRN Administration Mild Pain (1-3) Apixaban 5 mg 05/17/20 09:00 05/18/20 09:33 Apixaban 5 Mg Tab PER TUBE 5 mg BID OMARI Administration Ascorbic Acid 1,000 mg 05/04/20 09:00 05/18/20 09:33 Ascorbic Acid 500 Mg Chewable Tablet PO 1,000 mg DAILY OMARI Administration Cholecalciferol 5,000 units 05/04/20 21:00 05/17/20 22:56 Cholecalciferol 1,000 Units (25 Mcg) Tab PO 5,000 units HS OMARI Administration Dexamethasone 3 mg 05/18/20 09:00 05/18/20 09:35 Dexamethasone 4 Mg/Ml Vial SLOW IVP 3 mg DAILY OMARI Administration Dextrose/Water 25 gm 05/03/20 22:18 05/11/20 10:24 Dextrose 50% Abboject 50 Ml Syringe SLOW IVP 25 gm PRN PRN Administration HYPOGLYCEMIA PROTOCOL Famotidine 20 mg 05/04/20 09:00 05/18/20 09:34 Famotidine 20 Mg Tab PO 20 mg BID OMARI Administration Insulin Glargine 15 units/ 0.15 mls @ 0 mls/hr 05/06/20 09:00 05/18/20 09:34 Miscellaneous Medication SC 0.15 mls QAM OMARI Administration Insulin Glargine 25 units/ 0.25 mls @ 0 mls/hr 05/06/20 21:00 05/17/20 22:56 Miscellaneous Medication SC 0.25 mls HS OMARI Administration Fentanyl Citrate 2,000 mcg/ 100 mls @ 0 mls/hr 05/10/20 12:15 05/18/20 17:29 Sodium Chloride IV 06/09/20 12:15 100 mls INF OMARI Administration Protocol Per Protocol Midazolam HCl 100 mg/ Sodium 100 mls @ 0 mls/hr 05/10/20 14:45 05/18/20 07:41 Chloride IVPB 100 mls INF PRN Administration Sedation Protocol As Directed Piperacillin Sod/Tazobactam 100 mls @ 200 mls/hr 05/15/20 12:00 05/18/20 17:30 Sod 3.375 gm/ Sodium Chloride IVPB 05/22/20 12:01 100 mls Q6HR OMARI Administration Micafungin Sodium 100 mg/ 100 mls @ 100 mls/hr 05/15/20 08:30 05/18/20 07:42 Sodium Chloride IVPB 05/22/20 08:31 100 mls Q24H OMARI Administration Insulin Human Lispro 0 units 05/05/20 01:19 05/18/20 11:33 Humalog 300 Units/3 Ml Vial SC 2 unit .MODERATE SLIDING SC PRN Administration Moderate Correctional Scale Lorazepam 2 mg 05/10/20 12:15 05/17/20 11:57 Lorazepam 2 Mg/Ml Vial SLOW IVP 06/09/20 12:15 2 mg Q1H PRN Administration Breakthrough agitation Ondansetron HCl 4 mg 05/04/20 07:05 05/04/20 12:12 Ondansetron Pf 4 Mg/2 Ml Vial IVP 4 mg Q6H PRN Administration Nausea/Vomiting Propofol 1,000 mg 05/10/20 12:15 05/18/20 17:31 Propofol 1,000 Mg/100 Ml Vial IV 06/09/20 12:15 1,000 mg INF PRN Administration TO ACHIEVE GOAL RASS Protocol Senna/Docusate Sodium 1 tab 05/06/20 21:00 05/18/20 09:34 Senokot S 8.6-50 Mg Tab PO 1 tab BID OMARI Administration Sodium Chloride 10 ml 05/03/20 22:30 05/07/20 20:51 Flush - Normal Saline 10 Ml Syringe IVF 10 ml PRN PRN Administration Saline Flush Vecuronium [place] 10 mg 05/10/20 11:01 05/18/20 11:10 Vecuronium 10 Mg Vial IVP 10 mg Q30MIN PRN Administration Agitation Zinc Sulfate 220 mg 05/04/20 09:00 05/18/20 09:33 Zinc Sulfate 220 Mg Cap PO 220 mg DAILY OMARI Administration - Exam General - other findings: Intubated ENT - other findings: Endotracheal tube Heart: RRR Respiratory: rales, rhonchi Skin: no rashes Neurological - other findings: Unable to assess Psychiatric - other findings: Unable to assess Hosp A/P (1) Acute respiratory failure with hypoxia Code(s): J96.01 - ACUTE RESPIRATORY FAILURE WITH HYPOXIA Status: Acute (2) Pneumonia due to COVID-19 virus Code(s): U07.1 - COVID-19; J12.89 - OTHER VIRAL PNEUMONIA Status: Acute (3) DKA (diabetic ketoacidoses) Code(s): E11.10 - TYPE 2 DIABETES MELLITUS WITH KETOACIDOSIS WITHOUT COMA Status: Acute - Plan Continue dexamethasone. Patient is also on micafungin and Zosyn. Urinary tract infection nonhemolytic Streptococcus and candiduria. Patient is on vitamin C, zinc and vitamin D. Continue DVT prophylaxis with Lovenox.
[2020-05-18] MEDS: Cholecalciferol 1,000 UNITS (25 MCG) TAB PO SCH (20:23)
[2020-05-18] MEDS: Insulin Glargine 25 UNITS in Pre-Filled Syringe 1 EACH SC SCH (20:24)
[2020-05-19] MEDS: Piperacillin/Tazobactam 3.375 GM in Sodium Chloride 0.9% 100 ML IVPB SCH ×4 (00:07→17:40)
[2020-05-19 04:51] LABS: Anion Gap 13 mmol/L (10-20); BUN (Urea Nitrogen) 18 mg/dL (9.8-20.1); Calc. Creatinine Clearance 105 mL/min (70-130); Calcium 8.7 mg/dL (7.8-10.44); Carbon Dioxide 30 mmol/L (22-29); Chloride 98 mmol/L (98-107); Glucose 143 mg/dL (70-105); Sodium 137 mmol/L (136-145)
[2020-05-19] MEDS: Propofol 1,000 MG/100 ML VIAL IV PRN ×3 (04:56→20:57)
[2020-05-19 05:47] LABS: #Eosinphils 0.5 thou/uL (0.0-0.7); #Lymphocytes 2.3 thou/uL (1.20-3.40); #Monocytes 0.5 thou/uL (0.11-0.59); #Neutrophils 13.4 thou/uL (1.40-6.50); %Basophils 0.2 % (0.0-1.0); %Eosinophils 2.9 % (0.0-10.0); %Lymphocytes 13.7 % (21.0-51.0); %Neutrophils 80.3 % (42.0-75.0); Mean Corpuscular Hemoglobin 30.5 pg (27.0-31.0); Mean Corpuscular Volume 92.3 fL (78.0-98.0); Platelet Count 361 thou/uL (130-400); RBC Distribution Width 12.8 % (11.5-14.5); Red Blood Cell (RBC) Count 3.29 mill/uL (4.20-5.40); White Blood Cell (WBC) Count 16.7 thou/uL (4.8-10.8)
[2020-05-19] MEDS: fentaNYL Citrate/PF 2,000 MCG in Sodium Chloride 0.9% 60 ML IV SCH ×2 (07:21→20:57)
[2020-05-19 07:23] LABS: Actual Bicarbonate (HCO3a) 26.5 mEq/L (22-28); Base Excess (BEa) 3.5 mEq/L (-2.0 to +3.0); CO2 Tension 34.6 mmHg (35.0-45.0); Carboxyhemoglobin (COHb) 1.8 gm% (0.0-3.0); Hemoglobin (Hb) 11.3 g/dL (12.0-16.0); Potassium - ABG Lab 4.09 mmol/L (3.70-5.30)
[2020-05-19 07:42] LABS: O2 Tension (PaO2), arterial 40.4 mmHg (80.0-100.0); Puncture Site RRA
--- NOTE | 2020-05-19 08:08 | PRG ---
DATE OF SERVICE: 05/19/2020 35 minutes of critical care time. SUBJECTIVE: The patient remains in a prone position on mechanical ventilation. She has had progressive hypoxemia overnight. OBJECTIVE: VITAL SIGNS: Temperature is 100.2, pulse 90, blood pressure 112/65. 24-hour intake 2197, output 2115. HEENT: Exam cannot be assessed because she is in prone position. LUNGS: Coarse rhonchi. CARDIAC: S1, S2 regular. ABDOMEN: Soft. EXTREMITIES: No edema. LABORATORY DATA: White blood cell count 16.7, hematocrit 30.4, platelet count 361. PH 7.50, pCO2 of 34, pO2 of 40 that was on bilevel 38/12 with a rate of 22, FiO2 of 75%. Sodium 137, potassium 4, chloride 98, CO2 of 30, BUN 18, creatinine 0.6, glucose 143. X-ray continues to show bilateral infiltrates. ASSESSMENT: 1. COVID-19 pneumonia. 2. Acute respiratory failure requiring mechanical ventilation. 3. Worsening acute respiratory distress syndrome. PLAN: I am going to try to give her convalescent plasma to see if that will help. She is on broad-spectrum IV antibiotics, which should last through May 22. I spoke with her son yesterday. He understands that her prognosis is extremely poor for functional recovery. Job ID: [id number]
--- NOTE | 2020-05-19 08:15 | RAD ---
XR Chest 1 View Portable History: Pneumonia Comparison: Radiograph prior day Findings: Endotracheal tube tip at the clavicular level. Enteric tube tip at the gastric fundus as th e tube is focally partially kinked at the gastric body and tip extends craniad towards the fundus. Parenchymal opacities are similar along the pleural effusions. No pneumothorax or pneumomediastinum. Impression: Similar examination of the chest without worsening lung aeration.
[2020-05-19] MEDS: Insulin Glargine 15 UNITS in Pre-Filled Syringe 1 EACH SC SCH (08:58)
[2020-05-19] MEDS: Apixaban 5 MG TAB PER TUBE SCH ×2 (08:59→20:57)
[2020-05-19] MEDS: Dexamethasone 4 mg/ml Vial SLOW IVP SCH (08:59)
[2020-05-19] MEDS: Famotidine 20 MG TAB PO SCH ×2 (08:59→20:56)
[2020-05-19] MEDS: Zinc Sulfate 220 MG CAP PO SCH (08:59)
[2020-05-19] MEDS: Ascorbic Acid 500 mg Chewable Tablet PO SCH (08:59)
[2020-05-19] MEDS: Senokot S 8.6-50 MG TAB PO SCH ×2 (09:00→21:38)
[2020-05-19] MEDS: Acetaminophen 500 MG TAB PO PRN (10:11)
[2020-05-19] MEDS: Micafungin 100 MG in Sodium Chloride 0.9% 100 ML IVPB SCH (10:34)
--- NOTE | 2020-05-19 11:31 | PDOC.HOSPP ---
- Subjective Encounter Date: 05/19/20 Encounter Time: 11:30 Subjective: Ms. Parmar was seen today in follow-up of respiratory failure. She remains intubated. No new complaints voiced by staff. - Objective Vital Signs & Weight: Vital Signs (12 hours) Temp Pulse Resp BP 05/19/20 10:57 103 H 05/19/20 10:11 101.5 F H 05/19/20 10:00 26 H 05/19/20 08:00 27 H 05/19/20 07:40 110 H 05/19/20 06:00 31 H 05/19/20 04:00 22 H 05/19/20 02:10 84 88/59 L 05/19/20 02:00 22 H 05/19/20 00:22 77 83/60 L 05/19/20 00:00 22 H Weight Admit Weight 147 lb Weight 155 lb 3.287 oz Most Recent Monitor Data Heart Rate from ECG 107 NIBP 101/64 NIBP BP-Mean 76 Respiration from ECG 26 SpO2 92 I&O: 05/18/20 05/19/20 05/20/20 06:59 06:59 06:59 Intake Total 1978.1 2197.8 120 Output Total 2750 2150 265 Balance -771.9 47.8 -145 Result Diagrams: 05/19/20 03:35 05/19/20 03:35 Additional Labs: Accuchecks 05/19/20 00:17 POC Glucose 124 H Hospitalist ROS - Medication Medications: Active Medications Generic Name Dose Route Start Last Admin Trade Name Freq PRN Reason Stop Dose Admin Acetaminophen 1,000 mg 05/04/20 07:05 05/19/20 10:11 Acetaminophen 500 Mg Tab PO 1,000 mg Q6H PRN Administration Mild Pain (1-3) Apixaban 5 mg 05/17/20 09:00 05/19/20 08:59 Apixaban 5 Mg Tab PER TUBE 5 mg BID OMARI Administration Ascorbic Acid 1,000 mg 05/04/20 09:00 05/19/20 08:59 Ascorbic Acid 500 Mg Chewable Tablet PO 1,000 mg DAILY OMARI Administration Cholecalciferol 5,000 units 05/04/20 21:00 05/18/20 20:23 Cholecalciferol 1,000 Units (25 Mcg) Tab PO 5,000 units HS OMARI Administration Dexamethasone 3 mg 05/18/20 09:00 05/19/20 08:59 Dexamethasone 4 Mg/Ml Vial SLOW IVP 3 mg DAILY OMARI Administration Dextrose/Water 25 gm 05/03/20 22:18 05/11/20 10:24 Dextrose 50% Abboject 50 Ml Syringe SLOW IVP 25 gm PRN PRN Administration HYPOGLYCEMIA PROTOCOL Famotidine 20 mg 05/04/20 09:00 05/19/20 08:59 Famotidine 20 Mg Tab PO 20 mg BID OMARI Administration Insulin Glargine 15 units/ 0.15 mls @ 0 mls/hr 05/06/20 09:00 05/19/20 08:58 Miscellaneous Medication SC 0.15 mls QAM OMARI Administration Insulin Glargine 25 units/ 0.25 mls @ 0 mls/hr 05/06/20 21:00 05/18/20 20:24 Miscellaneous Medication SC 0.25 mls HS OMARI Administration Fentanyl Citrate 2,000 mcg/ 100 mls @ 0 mls/hr 05/10/20 12:15 05/19/20 07:21 Sodium Chloride IV 06/09/20 12:15 100 mls INF OMARI Administration Protocol Per Protocol Midazolam HCl 100 mg/ Sodium 100 mls @ 0 mls/hr 05/10/20 14:45 05/18/20 20:36 Chloride IVPB 100 mls INF PRN Administration Sedation Protocol As Directed Piperacillin Sod/Tazobactam 100 mls @ 200 mls/hr 05/15/20 12:00 05/19/20 06:00 Sod 3.375 gm/ Sodium Chloride IVPB 05/22/20 12:01 100 mls Q6HR OMARI Administration Micafungin Sodium 100 mg/ 100 mls @ 100 mls/hr 05/15/20 08:30 05/19/20 10:34 Sodium Chloride IVPB 05/22/20 08:31 100 mls Q24H OMARI Administration Insulin Human Lispro 0 units 05/05/20 01:19 05/18/20 18:18 Humalog 300 Units/3 Ml Vial SC 4 unit .MODERATE SLIDING SC PRN Administration Moderate Correctional Scale Lorazepam 2 mg 05/10/20 12:15 05/17/20 11:57 Lorazepam 2 Mg/Ml Vial SLOW IVP 06/09/20 12:15 2 mg Q1H PRN Administration Breakthrough agitation Ondansetron HCl 4 mg 05/04/20 07:05 05/04/20 12:12 Ondansetron Pf 4 Mg/2 Ml Vial IVP 4 mg Q6H PRN Administration Nausea/Vomiting Propofol 1,000 mg 05/10/20 12:15 05/19/20 07:22 Propofol 1,000 Mg/100 Ml Vial IV 06/09/20 12:15 1,000 mg INF PRN Administration TO ACHIEVE GOAL RASS Protocol Senna/Docusate Sodium 1 tab 05/06/20 21:00 05/19/20 09:00 Senokot S 8.6-50 Mg Tab PO Not Given BID OMARI Sodium Chloride 10 ml 05/03/20 22:30 05/07/20 20:51 Flush - Normal Saline 10 Ml Syringe IVF 10 ml PRN PRN Administration Saline Flush Vecuronium [place] 10 mg 05/10/20 11:01 05/18/20 11:10 Vecuronium 10 Mg Vial IVP 10 mg Q30MIN PRN Administration Agitation Zinc Sulfate 220 mg 05/04/20 09:00 05/19/20 08:59 Zinc Sulfate 220 Mg Cap PO 220 mg DAILY OMARI Administration - Exam Eye: PERRL Heart: RRR, no murmur, no gallops, no rubs, normal peripheral pulses Respiratory: rales (at both bases) Gastrointestinal: soft, non-tender, non-distended, normal bowel sounds, no palpable masses, no hepatomegaly Extremities: no cyanosis, 1+ LE edema Hosp A/P (1) Acute respiratory failure with hypoxia Code(s): J96.01 - ACUTE RESPIRATORY FAILURE WITH HYPOXIA Status: Acute (2) Pneumonia due to COVID-19 virus Code(s): U07.1 - COVID-19; J12.89 - OTHER VIRAL PNEUMONIA Status: Acute (3) Diabetes mellitus Code(s): E11.9 - TYPE 2 DIABETES MELLITUS WITHOUT COMPLICATIONS Status: Chronic Qualifiers: Diabetes mellitus type: type 2 - Plan * Acute respiratory failure due to COVID pneumonia-she continues to require mechanical ventilation * Plan is for a trial of convalescent plasma * Continue empiric broad spectrum antibiotics and Micafungin * DM- blood glucose is stable- continue Lantus as well as SSI * Nutritional Support- with tube feeds
[2020-05-19] MEDS: HumaLOG 300 UNITS/3 ML VIAL SC PRN (12:27)
[2020-05-19] MEDS: Cholecalciferol 1,000 UNITS (25 MCG) TAB PO SCH (20:56)
[2020-05-19] MEDS: Insulin Glargine 25 UNITS in Pre-Filled Syringe 1 EACH SC SCH (20:57)
[2020-05-19] MEDS: Lorazepam 2 MG/ML VIAL SLOW IVP PRN (21:55)
[2020-05-19] MEDS: Vecuronium 10 MG VIAL IVP PRN (21:55)
[2020-05-20] MEDS: Propofol 1,000 MG/100 ML VIAL IV PRN ×4 (01:08→13:55)
[2020-05-20] MEDS: Piperacillin/Tazobactam 3.375 GM in Sodium Chloride 0.9% 100 ML IVPB SCH ×5 (01:08→23:16)
[2020-05-20] MEDS: Vecuronium 10 MG VIAL IVP PRN ×4 (03:27→07:16)
[2020-05-20] MEDS: Lorazepam 2 MG/ML VIAL SLOW IVP PRN ×2 (04:29→07:16)
[2020-05-20 05:12] LABS: Anion Gap 14 mmol/L (10-20); BUN (Urea Nitrogen) 16 mg/dL (9.8-20.1); Calc. Creatinine Clearance 103 mL/min (70-130); Calcium 8.9 mg/dL (7.8-10.44); Carbon Dioxide 30 mmol/L (22-29); Chloride 99 mmol/L (98-107); Glucose 129 mg/dL (70-105); Potassium 3.7 mmol/L (3.5-5.1); Sodium 139 mmol/L (136-145)
[2020-05-20 06:47] LABS: #Basophils 0.1 thou/uL (0.0-0.2); #Eosinphils 0.6 thou/uL (0.0-0.7); #Lymphocytes 1.9 thou/uL (1.20-3.40); #Monocytes 0.3 thou/uL (0.11-0.59); #Neutrophils 14.7 thou/uL (1.40-6.50); %Basophils 0.5 % (0.0-1.0); %Eosinophils 3.7 % (0.0-10.0); %Lymphocytes 10.7 % (21.0-51.0); %Monocytes 1.6 % (0.0-10.0); %Neutrophils 83.6 % (42.0-75.0); Hemoglobin 9.8 g/dL (12.0-16.0); Mean Corpuscular HGB CONC 33.3 g/dL (32.0-36.0); Mean Corpuscular Hemoglobin 30.4 pg (27.0-31.0); Mean Corpuscular Volume 91.5 fL (78.0-98.0); Mean Platelet Volume 10.4 fL (7.4-10.4); Platelet Count 304 thou/uL (130-400); RBC Distribution Width 12.9 % (11.5-14.5); RBC Morphology Normal; Red Blood Cell (RBC) Count 3.24 mill/uL (4.20-5.40); White Blood Cell (WBC) Count 17.6 thou/uL (4.8-10.8)
[2020-05-20] MEDS: Micafungin 100 MG in Sodium Chloride 0.9% 100 ML IVPB SCH (07:17)
[2020-05-20 07:28] LABS: Actual Bicarbonate (HCO3a) 31.3 mEq/L (22-28); Base Excess (BEa) 4.9 mEq/L (-2.0 to +3.0); CO2 Tension 54.7 mmHg (35.0-45.0); Calcium, Ionized (arterial) 1.26 mmol/L (1.12-1.30); Carboxyhemoglobin (COHb) 1.9 gm% (0.0-3.0); Hemoglobin (Hb) 11.4 g/dL (12.0-16.0); Potassium - ABG Lab 3.48 mmol/L (3.70-5.30); pH, Arterial 7.38 (7.35-7.45)
[2020-05-20 08:01] LABS: O2 Tension (PaO2), arterial 48.7 mmHg (80.0-100.0); Puncture Site RRA
[2020-05-20 08:02] LABS: ALV-art Gradient 417.675 mmHg (0-20)
--- NOTE | 2020-05-20 08:17 | RAD ---
XR Chest 1 View Portable History: Pneumonia Comparison: Radiograph prior day Findings: Endotracheal tube tip at the clavicular level. Airspace opacities are similar. Enteric tube tip in gastric fundus. Right upper quadrant surgical clips. No pneumothorax or pneumomediastinum. Impression: No significant improved lung aeration.
[2020-05-20] MEDS: fentaNYL Citrate/PF 2,000 MCG in Sodium Chloride 0.9% 60 ML IV SCH ×2 (09:33→23:14)
[2020-05-20] MEDS: Famotidine 20 MG TAB PO SCH ×2 (09:34→20:48)
[2020-05-20] MEDS: Zinc Sulfate 220 MG CAP PO SCH (09:34)
[2020-05-20] MEDS: Apixaban 5 MG TAB PER TUBE SCH ×2 (09:34→20:49)
[2020-05-20] MEDS: Dexamethasone 4 mg/ml Vial SLOW IVP SCH (09:34)
[2020-05-20] MEDS: Ascorbic Acid 500 mg Chewable Tablet PO SCH (09:34)
[2020-05-20] MEDS: Senokot S 8.6-50 MG TAB PO SCH ×2 (09:35→20:57)
[2020-05-20] MEDS: Insulin Glargine 15 UNITS in Pre-Filled Syringe 1 EACH SC SCH (09:36)
--- NOTE | 2020-05-20 09:38 | PDOC.HOSPP ---
- Subjective Encounter Date: 05/20/20 Encounter Time: 09:36 Subjective: Ms. Parmar was seen today in follow-up of respiratory failure due to COVID pneumonia. She is intubated, and has a trach and PEG tube. She will respond by opening her eyes to voice. - Objective Vital Signs & Weight: Vital Signs (12 hours) Pulse Resp BP Pulse Ox 05/20/20 08:00 18 91 L 05/20/20 07:58 101 H 05/20/20 06:00 18 05/20/20 04:00 18 05/20/20 02:09 73 93/64 05/20/20 02:00 18 05/20/20 00:00 18 05/19/20 23:53 76 92/62 05/19/20 22:00 18 05/19/20 21:40 102 H 106/67 Weight Admit Weight 147 lb Weight 155 lb 3.287 oz Most Recent Monitor Data Heart Rate from ECG 97 NIBP 91/65 NIBP BP-Mean 73 Respiration from ECG 18 SpO2 93 I&O: 05/19/20 05/20/20 05/21/20 06:59 06:59 06:59 Intake Total 2197.8 2208 130 Output Total 2150 2230 675 Balance 47.8 -22 -545 Result Diagrams: 05/20/20 03:35 05/20/20 03:35 Additional Labs: Accuchecks 05/20/20 05/19/20 05/19/20 00:38 17:49 11:56 POC Glucose 102 H 130 H 237 H Hospitalist ROS - Medication Medications: Active Medications Generic Name Dose Route Start Last Admin Trade Name Jmq PRN Reason Stop Dose Admin Acetaminophen 1,000 mg 05/04/20 07:05 05/19/20 10:11 Acetaminophen 500 Mg Tab PO 1,000 mg Q6H PRN Administration Mild Pain (1-3) Apixaban 5 mg 05/17/20 09:00 05/19/20 20:57 Apixaban 5 Mg Tab PER TUBE 5 mg BID OMARI Administration Ascorbic Acid 1,000 mg 05/04/20 09:00 05/19/20 08:59 Ascorbic Acid 500 Mg Chewable Tablet PO 1,000 mg DAILY OMARI Administration Cholecalciferol 5,000 units 05/04/20 21:00 05/19/20 20:56 Cholecalciferol 1,000 Units (25 Mcg) Tab PO 5,000 units HS OMARI Administration Dexamethasone 3 mg 05/18/20 09:00 05/19/20 08:59 Dexamethasone 4 Mg/Ml Vial SLOW IVP 3 mg DAILY OMARI Administration Dextrose/Water 25 gm 05/03/20 22:18 05/11/20 10:24 Dextrose 50% Abboject 50 Ml Syringe SLOW IVP 25 gm PRN PRN Administration HYPOGLYCEMIA PROTOCOL Famotidine 20 mg 05/04/20 09:00 05/19/20 20:56 Famotidine 20 Mg Tab PO 20 mg BID OMARI Administration Insulin Glargine 15 units/ 0.15 mls @ 0 mls/hr 05/06/20 09:00 05/19/20 08:58 Miscellaneous Medication SC 0.15 mls QAM OMARI Administration Insulin Glargine 25 units/ 0.25 mls @ 0 mls/hr 05/06/20 21:00 05/19/20 20:57 Miscellaneous Medication SC 0.25 mls HS OMARI Administration Fentanyl Citrate 2,000 mcg/ 100 mls @ 0 mls/hr 05/10/20 12:15 05/19/20 20:57 Sodium Chloride IV 06/09/20 12:15 100 mls INF OMARI Administration Protocol Per Protocol Midazolam HCl 100 mg/ Sodium 100 mls @ 0 mls/hr 05/10/20 14:45 05/18/20 20:36 Chloride IVPB 100 mls INF PRN Administration Sedation Protocol As Directed Piperacillin Sod/Tazobactam 100 mls @ 200 mls/hr 05/15/20 12:00 05/20/20 04:29 Sod 3.375 gm/ Sodium Chloride IVPB 05/22/20 12:01 100 mls Q6HR OMARI Administration Micafungin Sodium 100 mg/ 100 mls @ 100 mls/hr 05/15/20 08:30 05/20/20 07:17 Sodium Chloride IVPB 05/22/20 08:31 100 mls Q24H OMARI Administration Insulin Human Lispro 0 units 05/05/20 01:19 05/19/20 12:27 Humalog 300 Units/3 Ml Vial SC 6 unit .MODERATE SLIDING SC PRN Administration Moderate Correctional Scale Lorazepam 2 mg 05/10/20 12:15 05/20/20 07:16 Lorazepam 2 Mg/Ml Vial SLOW IVP 06/09/20 12:15 2 mg Q1H PRN Administration Breakthrough agitation Ondansetron HCl 4 mg 05/04/20 07:05 05/04/20 12:12 Ondansetron Pf 4 Mg/2 Ml Vial IVP 4 mg Q6H PRN Administration Nausea/Vomiting Propofol 1,000 mg 05/10/20 12:15 05/20/20 07:15 Propofol 1,000 Mg/100 Ml Vial IV 06/09/20 12:15 1,000 mg INF PRN Administration TO ACHIEVE GOAL RASS Protocol Senna/Docusate Sodium 1 tab 05/06/20 21:00 05/19/20 21:38 Senokot S 8.6-50 Mg Tab PO Not Given BID OMARI Sodium Chloride 10 ml 05/03/20 22:30 05/07/20 20:51 Flush - Normal Saline 10 Ml Syringe IVF 10 ml PRN PRN Administration Saline Flush Vecuronium [place] 10 mg 05/10/20 11:01 05/20/20 07:16 Vecuronium 10 Mg Vial IVP 10 mg Q30MIN PRN Administration Agitation Zinc Sulfate 220 mg 05/04/20 09:00 05/19/20 08:59 Zinc Sulfate 220 Mg Cap PO 220 mg DAILY OMARI Administration - Exam Eye: PERRL, anicteric sclera ENT: dry oral mucosa Heart: RRR, no murmur, no gallops, no rubs, normal peripheral pulses, II/IV Respiratory: CTAB, no wheezes, no rales, no ronchi, normal chest expansion, no tachypnea, normal percussion Gastrointestinal: soft, non-tender, non-distended, normal bowel sounds, no palpable masses, no hepatomegaly Extremities: no cyanosis, no clubbing, 1+ LE edema Hosp A/P (1) Acute respiratory failure with hypoxia Code(s): J96.01 - ACUTE RESPIRATORY FAILURE WITH HYPOXIA Status: Acute (2) Pneumonia due to COVID-19 virus Code(s): U07.1 - COVID-19; J12.89 - OTHER VIRAL PNEUMONIA Status: Acute (3) Diabetes mellitus Code(s): E11.9 - TYPE 2 DIABETES MELLITUS WITHOUT COMPLICATIONS Status: Chronic Qualifiers: Diabetes mellitus type: type 2 - Plan * Acute respiratory failure due to COVID pneumonia-she continues to require mechanical ventilation * Continue Decadron and supportive care * Continue empiric broad spectrum antibiotics and Micafungin * DM- blood glucose is stable- continue Lantus as well as SSI * Nutritional Support- with tube feeds * HTN- blood pressure has been stable * Anticipate she will need LTAC placement
--- NOTE | 2020-05-20 09:44 | PRG ---
DATE OF SERVICE: 05/20/2020 35 minutes of critical care time. SUBJECTIVE: The patient remains intubated, on mechanical ventilation. She has been in a prone position now for the last 48 hours. OBJECTIVE: VITAL SIGNS: Temperature 99.3, pulse 97, blood pressure 91/65. She is on propofol drip, but is not requiring any vasopressors. Her 24-hour intake was 2208, output 2230. HEENT: Unchanged. NECK: No JVD. LUNGS: Coarse breath sounds. CARDIOVASCULAR: S1 and S2. Regular. ABDOMEN: Soft. EXTREMITIES: Edematous. LABORATORY DATA: White blood cell count 17.6, hemoglobin 9.8, hematocrit 29.6, and platelet count 304. PH 7.38, pCO2 of 54, pO2 of 48 on assist control, rate 18, inspiratory pressure 26, PEEP 12. Sodium 139, potassium 3.7, chloride 99, CO2 of 30, BUN 16, creatinine 0.6, and glucose 129. Her x-ray shows bilateral infiltrates. ASSESSMENT: 1. COVID-19 pneumonia. 2. Acute hypoxic respiratory failure requiring mechanical ventilation. PLAN: We will try to put her in a supine position today. She got convalescent plasma yesterday. She is continuing micafungin and piperacillin through 05/22, which will give her seven days of treatment. She is anticoagulated with Eliquis. Her steroids have been weaned down to 3 mg a day of Decadron. Her prognosis remains very poor for functional recovery. Job ID: [id number]
[2020-05-20] MEDS: HumaLOG 300 UNITS/3 ML VIAL SC PRN ×2 (17:32→21:31)
[2020-05-20] MEDS: Cholecalciferol 1,000 UNITS (25 MCG) TAB PO SCH (20:49)
[2020-05-20] MEDS: Insulin Glargine 25 UNITS in Pre-Filled Syringe 1 EACH SC SCH (20:57)
[2020-05-20] MEDS ORDERED: Morphine 2 MG/ML VIAL SLOW IVP PRN (22:50)
[2020-05-20] MEDS ORDERED: Fentanyl BOLUS 250 ML IVPB PRN (22:51)
[2020-05-21] MEDS: Propofol 1,000 MG/100 ML VIAL IV PRN ×2 (01:16→16:48)
[2020-05-21] MEDS: Lorazepam 2 MG/ML VIAL SLOW IVP PRN (01:16)
[2020-05-21 04:08] LABS: #Basophils 0.1 thou/uL (0.0-0.2); #Eosinphils 0.7 thou/uL (0.0-0.7); #Lymphocytes 1.9 thou/uL (1.20-3.40); #Monocytes 0.3 thou/uL (0.11-0.59); %Basophils 0.4 % (0.0-1.0); %Eosinophils 3.8 % (0.0-10.0); %Lymphocytes 9.9 % (21.0-51.0); %Monocytes 1.7 % (0.0-10.0); %Neutrophils 84.2 % (42.0-75.0); Hemoglobin 9.4 g/dL (12.0-16.0); Mean Corpuscular HGB CONC 32.9 g/dL (32.0-36.0); Mean Corpuscular Hemoglobin 29.6 pg (27.0-31.0); Mean Corpuscular Volume 90.1 fL (78.0-98.0); Mean Platelet Volume 9.1 fL (7.4-10.4); Platelet Count 383 thou/uL (130-400); Red Blood Cell (RBC) Count 3.16 mill/uL (4.20-5.40)
[2020-05-21 04:29] LABS: Anion Gap 12 mmol/L (10-20); BUN (Urea Nitrogen) 17 mg/dL (9.8-20.1); Calc. Creatinine Clearance 108 mL/min (70-130); Calcium 9.2 mg/dL (7.8-10.44); Carbon Dioxide 30 mmol/L (22-29); Chloride 98 mmol/L (98-107); Glucose 153 mg/dL (70-105); Potassium 3.4 mmol/L (3.5-5.1); Sodium 137 mmol/L (136-145)
[2020-05-21] MEDS: Piperacillin/Tazobactam 3.375 GM in Sodium Chloride 0.9% 100 ML IVPB SCH ×3 (06:24→18:19)
[2020-05-21] MEDS: Acetaminophen 500 MG TAB PO PRN (06:24)
[2020-05-21] MEDS ORDERED: Potassium Chloride 20 MEQ TAB PO SCH (06:45)
--- NOTE | 2020-05-21 07:23 | PRG ---
DATE OF SERVICE: 05/21/2020 35 minutes of critical care time. SUBJECTIVE: The patient remains intubated on mechanical ventilation for COVID-19 pneumonia. OBJECTIVE: VITAL SIGNS: Temperature 101.3, pulse 111, blood pressure 120/69. 24-hour intake 2352, output 2930. HEENT: Unremarkable. NECK: No adenopathy or JVD. LUNGS: Diffuse crackles anteriorly bilaterally. CARDIAC: S1, S2. Regular. ABDOMEN: Soft. EXTREMITIES: No edema. DIAGNOSTIC DATA: Chest x-ray continues to show bilateral diffuse infiltrates. LABORATORY DATA: White blood cell count 19, hematocrit 28.5, and platelet count 383. ABG pending. Sodium 137, potassium 3.4, chloride 98, CO2 of 30, BUN 17, creatinine 0.6, and glucose 153. ASSESSMENT: 1. COVID-19 pneumonia. 2. Development of fever overnight, on antibiotics which were scheduled to be stopped tomorrow. 3. Acute respiratory failure, requiring mechanical ventilation. PLAN: 1. Re-culture patient. 2. Continue supportive care with mechanical ventilation. 3. Replace potassium. 4. It seems less likely by the day that the patient will survive current illness. Job ID: [id number]
[2020-05-21 07:32] LABS: Actual Bicarbonate (HCO3a) 27.9 mEq/L (22-28); Base Excess (BEa) 4.2 mEq/L (-2.0 to +3.0); Calcium, Ionized (arterial) 1.21 mmol/L (1.12-1.30); Carboxyhemoglobin (COHb) 1.3 gm% (0.0-3.0); Hemoglobin (Hb) 9.7 g/dL (12.0-16.0); Potassium - ABG Lab 3.26 mmol/L (3.70-5.30); pH, Arterial 7.48 (7.35-7.45)
[2020-05-21 07:34] LABS: O2 Tension (PaO2), arterial 36.7 mmHg (80.0-100.0); Puncture Site RBA
--- NOTE | 2020-05-21 08:15 | RAD ---
XR Chest 1 View Portable History: Pneumonia Comparison: Radiograph prior day Findings: Multifocal airspace opacities are similar. Enteric tube tip at the gastric body. Endotrache al tube tip at the clavicular level. No pneumothorax. Moderate effusions. Impression: Similar examination of the chest.
[2020-05-21] MEDS: Dexamethasone 4 mg/ml Vial SLOW IVP SCH (09:10)
[2020-05-21] MEDS: Apixaban 5 MG TAB PER TUBE SCH ×2 (09:10→20:13)
[2020-05-21] MEDS: Famotidine 20 MG TAB PO SCH ×2 (09:10→20:13)
[2020-05-21] MEDS: Zinc Sulfate 220 MG CAP PO SCH (09:10)
[2020-05-21] MEDS: Ascorbic Acid 500 mg Chewable Tablet PO SCH (09:10)
[2020-05-21] MEDS: Insulin Glargine 15 UNITS in Pre-Filled Syringe 1 EACH SC SCH (10:18)
[2020-05-21] MEDS: Senokot S 8.6-50 MG TAB PO SCH ×2 (10:19→20:13)
--- NOTE | 2020-05-21 10:26 | PDOC.HOSPP ---
- Subjective Encounter Date: 05/21/20 Encounter Time: 10:25 Subjective: Ms. Parmar was seen today in follow-up of COVID pneumonia. She is intubated, and sedated. - Objective Vital Signs & Weight: Vital Signs (12 hours) Pulse Resp BP 05/21/20 07:03 109 H 96/55 L 05/21/20 06:00 31 H 05/21/20 04:00 24 H 05/21/20 02:12 87 101/64 05/21/20 02:00 25 H 05/21/20 00:05 105 H 98/69 05/21/20 00:00 22 H Weight Admit Weight 147 lb Weight 155 lb 3.287 oz Most Recent Monitor Data Heart Rate from ECG 111 NIBP 120/69 NIBP BP-Mean 86 Respiration from ECG 31 SpO2 86 I&O: 05/20/20 05/21/20 05/22/20 06:59 06:59 06:59 Intake Total 2208 2352.5 Output Total 2230 2930 Balance -22 -577.5 Result Diagrams: 05/21/20 03:45 05/21/20 03:45 Additional Labs: Accuchecks 05/21/20 05/20/20 05/20/20 09:20 21:20 17:08 POC Glucose 90 218 H 188 H 05/20/20 11:17 POC Glucose 192 H Hospitalist ROS - Medication Medications: Active Medications Generic Name Dose Route Start Last Admin Trade Name Freq PRN Reason Stop Dose Admin Acetaminophen 1,000 mg 05/04/20 07:05 05/21/20 06:24 Acetaminophen 500 Mg Tab PO 1,000 mg Q6H PRN Administration Mild Pain (1-3) Apixaban 5 mg 05/17/20 09:00 05/21/20 09:10 Apixaban 5 Mg Tab PER TUBE 5 mg BID OMARI Administration Ascorbic Acid 1,000 mg 05/04/20 09:00 05/21/20 09:10 Ascorbic Acid 500 Mg Chewable Tablet PO 1,000 mg DAILY OMARI Administration Cholecalciferol 5,000 units 05/04/20 21:00 05/20/20 20:49 Cholecalciferol 1,000 Units (25 Mcg) Tab PO 5,000 units HS OMARI Administration Dexamethasone 3 mg 05/18/20 09:00 05/21/20 09:10 Dexamethasone 4 Mg/Ml Vial SLOW IVP 3 mg DAILY OMARI Administration Dextrose/Water 25 gm 05/03/20 22:18 05/11/20 10:24 Dextrose 50% Abboject 50 Ml Syringe SLOW IVP 25 gm PRN PRN Administration HYPOGLYCEMIA PROTOCOL Famotidine 20 mg 05/04/20 09:00 05/21/20 09:10 Famotidine 20 Mg Tab PO 20 mg BID OMARI Administration Insulin Glargine 15 units/ 0.15 mls @ 0 mls/hr 05/06/20 09:00 05/21/20 10:18 Miscellaneous Medication SC Not Given QAM OMARI Insulin Glargine 25 units/ 0.25 mls @ 0 mls/hr 05/06/20 21:00 05/20/20 20:57 Miscellaneous Medication SC 0.25 mls HS OMARI Administration Piperacillin Sod/Tazobactam 100 mls @ 200 mls/hr 05/15/20 12:00 05/21/20 06:24 Sod 3.375 gm/ Sodium Chloride IVPB 05/22/20 12:01 100 mls Q6HR OMARI Administration Micafungin Sodium 100 mg/ 100 mls @ 100 mls/hr 05/15/20 08:30 05/20/20 07:17 Sodium Chloride IVPB 05/22/20 08:31 100 mls Q24H OMARI Administration Fentanyl Citrate 2,000 mcg/ 100 mls @ 0 mls/hr 05/20/20 23:00 05/20/20 23:14 Sodium Chloride IV 100 mls INF OMARI Administration Protocol Per Protocol Insulin Human Lispro 0 units 05/05/20 01:19 05/20/20 21:31 Humalog 300 Units/3 Ml Vial SC 4 unit .MODERATE SLIDING SC PRN Administration Moderate Correctional Scale Lorazepam 2 mg 05/20/20 22:51 05/21/20 01:16 Lorazepam 2 Mg/Ml Vial SLOW IVP 2 mg Q1H PRN Administration Breakthrough agitation Ondansetron HCl 4 mg 05/04/20 07:05 05/04/20 12:12 Ondansetron Pf 4 Mg/2 Ml Vial IVP 4 mg Q6H PRN Administration Nausea/Vomiting Propofol 1,000 mg 05/10/20 12:15 05/21/20 01:16 Propofol 1,000 Mg/100 Ml Vial IV 06/09/20 12:15 1,000 mg INF PRN Administration TO ACHIEVE GOAL RASS Protocol Senna/Docusate Sodium 1 tab 05/06/20 21:00 05/21/20 10:19 Senokot S 8.6-50 Mg Tab PO Not Given BID OMARI Sodium Chloride 10 ml 05/03/20 22:30 05/07/20 20:51 Flush - Normal Saline 10 Ml Syringe IVF 10 ml PRN PRN Administration Saline Flush Vecuronium [place] 10 mg 05/10/20 11:01 05/20/20 07:16 Vecuronium 10 Mg Vial IVP 10 mg Q30MIN PRN Administration Agitation Zinc Sulfate 220 mg 05/04/20 09:00 05/21/20 09:10 Zinc Sulfate 220 Mg Cap PO 220 mg DAILY OMARI Administration - Exam Eye: PERRL, anicteric sclera Heart: RRR, no murmur, no gallops, no rubs, normal peripheral pulses Respiratory: rales (at both bases) Gastrointestinal: soft, non-tender, non-distended, normal bowel sounds, no palpable masses Extremities: no cyanosis, 1+ LE edema (palpable d.p. pulses bilaterally) Hosp A/P (1) Acute respiratory failure with hypoxia Code(s): J96.01 - ACUTE RESPIRATORY FAILURE WITH HYPOXIA Status: Acute (2) Pneumonia due to COVID-19 virus Code(s): U07.1 - COVID-19; J12.89 - OTHER VIRAL PNEUMONIA Status: Acute (3) Diabetes mellitus Code(s): E11.9 - TYPE 2 DIABETES MELLITUS WITHOUT COMPLICATIONS Status: Chronic Qualifiers: Diabetes mellitus type: type 2 - Plan * Acute respiratory failure due to COVID pneumonia-she continues to require mechanical ventilation * Continue Decadron and supportive care * Continue empiric broad spectrum antibiotics and Micafungin- PCCM recom mendations noted- patient will be re-cultured * DM- blood glucose- she had a slightly low reading- and her Lantus was held this morning- will continue to monitor and adjust as needed * Nutritional Support- with tube feeds * HTN- blood pressure has been stable * Anticipate she will need LTAC placement
--- NOTE | 2020-05-21 12:14 | PDOC.PALCO ---
Palliative Care Consult - Consult Details Requesting Physician: Dr Conde Reason for Consult: goals of care, advance directives assistance, family support, complex decision-making - Pertinent HPI Ms Ghulam mo a 55 year old female who initially presented to [facility] room after continued weakness with increasing shortness of breath. Associated cough. On presentation to [facility] she was noted to have hypoxia, and placed on non re breather, but required high flow NC. Glucose of 653 and chest x-ray was bilateral infiltrates and PCR was Covid +. Given Steriods, ABX, and initiated on insulin as per DKA protocol. She was life flighted to [facility] for higher level of care. Admitted, continued decline with subsequent intubation and admission to CCU. Patient continues to require significant respiratory support, intermittent proning, nutritional support, Abx therapy with onset of febrile episode 05/20/2020. Chest x-ray continues to show bilateral diffuse infiltrates. *Palliative care initiated family meeting Thursday with cultural link, Patient oldest son Justin in person, and his siblings via phone. Justin at that time relayed that his mothers a year ago and she has had a difficult time "getting over his " he also relayed that after hospitalization, prior to intubation she was giving away some of her possessions to her children. - Pertinent PMH Diabetes II, Hypothyroid - Social History Smoking Status: Never smoker Smoking: no tobacco exposure Alcohol Use: none Drug Use History: none Living Situation: with family/parents - Allergies Allergies/Adverse Reactions: Allergies Allergy/AdvReac Type Severity Reaction Status Date / Time No Known Allergies Allergy Verified 05/03/20 23:57 - Subjective Intubated, mechanical ventilation, sedated, abx, nutritional support. - ROS Non Response: due to endotracheal tube, due to mental status - Objective Vital Signs: Vital Signs - Most Recent Temp Pulse Resp BP Pulse Ox 100.0 F H 99 33 H 97/60 90 L 05/19/20 14:00 05/21/20 11:14 05/21/20 10:00 05/21/20 11:14 05/21/20 08:00 Palliative Performance Scale: 20 - Physical Exam Constitutional: encephalitic, ill appearing HEENT: moist MMs Deviation from normal: intubated, bilaterally adventicious Cardiovascular: RRR Gastrointestinal: soft, non-tender Genitourinary: diamond catheter Musculoskeletal: pulses present, edema present, diffuse muscle atrophy Deviation from normal: Sedated Skin: fragile, friable Deviation from normal: Encephalopathic, sedated - Problem List (1) Palliative care encounter Code(s): Z51.5 - ENCOUNTER FOR PALLIATIVE CARE Current Visit: Yes Status: Acute (2) Acute respiratory failure with hypoxia Code(s): J96.01 - ACUTE RESPIRATORY FAILURE WITH HYPOXIA Current Visit: Yes Status: Acute (3) COVID-19 virus infection Code(s): U07.1 - COVID-19 Current Visit: Yes Status: Acute (4) DKA (diabetic ketoacidoses) Code(s): E11.10 - TYPE 2 DIABETES MELLITUS WITH KETOACIDOSIS WITHOUT COMA Current Visit: Yes Status: Resolved (5) Pneumonia due to COVID-19 virus Code(s): U07.1 - COVID-19; J12.89 - OTHER VIRAL PNEUMONIA Current Visit: Yes Status: Acute (6) Diabetes mellitus Code(s): E11.9 - TYPE 2 DIABETES MELLITUS WITHOUT COMPLICATIONS Current Visit: Yes Status: Chronic Qualifiers: Diabetes mellitus type: type 2 - Plan/Recommendations Plan: Justin had provided a short life review. Mrs Parmar was from [place], she came here and has "made a life for herself". She has various animals she cares for incliding chickens. She was active prior to anthony Covid. Difficult past year after the loss of her . Continue to assist family with understanding of prognosis, disease progression. Palliative Care communicating with patient oldest son Justin. He has been designated as surrogate decision maker. Conversation today to revisit resuscitation status. Please also refer to Palliative care notes in note section. [55] minutes spent on this encounter with >50% of the time in counseling and coordination of care. Thank you for this very appropriate consult.
[2020-05-21] MEDS: Micafungin 100 MG in Sodium Chloride 0.9% 100 ML IVPB SCH (12:21)
[2020-05-21] MEDS: fentaNYL Citrate/PF 2,000 MCG in Sodium Chloride 0.9% 60 ML IV SCH (12:22)
[2020-05-21] MEDS: HumaLOG 300 UNITS/3 ML VIAL SC PRN ×2 (16:10→21:38)
[2020-05-21] MEDS: Cholecalciferol 1,000 UNITS (25 MCG) TAB PO SCH (20:12)
[2020-05-21] MEDS: Insulin Glargine 25 UNITS in Pre-Filled Syringe 1 EACH SC SCH (20:13)
[2020-05-22] MEDS: Propofol 1,000 MG/100 ML VIAL IV PRN ×4 (01:07→20:15)
[2020-05-22] MEDS: Acetaminophen 500 MG TAB PO PRN (01:07)
[2020-05-22] MEDS: Piperacillin/Tazobactam 3.375 GM in Sodium Chloride 0.9% 100 ML IVPB SCH ×3 (01:07→12:26)
[2020-05-22] MEDS: Lorazepam 2 MG/ML VIAL SLOW IVP PRN ×3 (01:24→19:56)
[2020-05-22] MEDS: fentaNYL Citrate/PF 2,000 MCG in Sodium Chloride 0.9% 60 ML IV SCH ×3 (01:25→23:51)
[2020-05-22] MEDS: Vecuronium 10 MG VIAL IVP PRN ×5 (01:45→19:55)
[2020-05-22 05:15] LABS: #Basophils 0.1 thou/uL (0.0-0.2); #Eosinphils 0.9 thou/uL (0.0-0.7); #Lymphocytes 1.5 thou/uL (1.20-3.40); #Monocytes 0.2 thou/uL (0.11-0.59); #Neutrophils 16.5 thou/uL (1.40-6.50); %Basophils 0.4 % (0.0-1.0); %Eosinophils 4.8 % (0.0-10.0); %Lymphocytes 7.6 % (21.0-51.0); %Monocytes 1.1 % (0.0-10.0); Hemoglobin 8.9 g/dL (12.0-16.0); Mean Corpuscular HGB CONC 33.8 g/dL (32.0-36.0); Mean Corpuscular Hemoglobin 31.2 pg (27.0-31.0); Mean Corpuscular Volume 92.5 fL (78.0-98.0); Mean Platelet Volume 10.4 fL (7.4-10.4); Platelet Count 253 thou/uL (130-400); RBC Distribution Width 13.2 % (11.5-14.5); Red Blood Cell (RBC) Count 2.86 mill/uL (4.20-5.40); White Blood Cell (WBC) Count 19.2 thou/uL (4.8-10.8)
[2020-05-22 05:38] LABS: Anion Gap 15 mmol/L (10-20); BUN (Urea Nitrogen) 19 mg/dL (9.8-20.1); Calc. Creatinine Clearance 101 mL/min (70-130); Calcium 8.8 mg/dL (7.8-10.44); Carbon Dioxide 27 mmol/L (22-29); Chloride 99 mmol/L (98-107); Glucose 156 mg/dL (70-105); Potassium 3.6 mmol/L (3.5-5.1); Sodium 137 mmol/L (136-145)
[2020-05-22] MEDS: HumaLOG 300 UNITS/3 ML VIAL SC PRN ×4 (06:12→23:31)
[2020-05-22 07:11] LABS: Actual Bicarbonate (HCO3a) 27.3 mEq/L (22-28); CO2 Tension 40.6 mmHg (35.0-45.0); Carboxyhemoglobin (COHb) 1.3 gm% (0.0-3.0); Hemoglobin (Hb) 8.9 g/dL (12.0-16.0); Potassium - ABG Lab 3.72 mmol/L (3.70-5.30); pH, Arterial 7.45 (7.35-7.45)
[2020-05-22 07:16] LABS: O2 Tension (PaO2), arterial 45.4 mmHg (80.0-100.0); Puncture Site RRA
--- NOTE | 2020-05-22 08:32 | PRG ---
DATE OF SERVICE: 05/22/2020 35 minutes of critical care time. SUBJECTIVE: The patient remains intubated on mechanical ventilation plus oral this morning, she was in supine position, but her O2 saturations were terrible-in the high 70s to low 80s. OBJECTIVE: VITAL SIGNS: Her temperature is 100 with a T-max of 100.8, pulse 101, blood pressure 97/60. 24-hour intake output 2340. HEENT: Unchanged. NECK: No JVD. LUNGS: Coarse rhonchi bilaterally. CARDIOVASCULAR: S1, S2. Slightly tachycardic. ABDOMEN: Soft. EXTREMITIES: Edematous. LABORATORY DATA: Sodium 137, potassium 3.6, chloride 99, CO2 of 27, BUN 19, creatinine 0.6, glucose 156, pH 7.45, pCO2 of 40, pO2 of 45, that is on assist control with a pressure of 30 and FiO2 of 100%. White blood cell count 19.2, hematocrit 26.5, and platelet count 253. Chest x-ray shows diffuse bilateral infiltrates. ASSESSMENT: 1. COVID-19 pneumonia. 2. Persistent and worsening hypoxic respiratory failure. 3. Low-grade fevers. PLAN: The patient was re-cultured just today and her antibiotics are due to stop after today. We will place her back in a prone position. I am going to change her steroid regimen. I am becoming very pessimistic that she will survive this. Job ID: [id number]
[2020-05-22] MEDS: Insulin Glargine 15 UNITS in Pre-Filled Syringe 1 EACH SC SCH (09:06)
[2020-05-22] MEDS: Ascorbic Acid 500 mg Chewable Tablet PO SCH (09:07)
[2020-05-22] MEDS: Famotidine 20 MG TAB PO SCH ×2 (09:07→19:56)
[2020-05-22] MEDS: Apixaban 5 MG TAB PER TUBE SCH ×2 (09:07→19:57)
[2020-05-22] MEDS: methylPREDNISolone Sod Succ/PF 125 MG/2 ML VIAL IVP SCH ×3 (09:07→19:57)
[2020-05-22] MEDS: Zinc Sulfate 220 MG CAP PO SCH (09:07)
--- NOTE | 2020-05-22 09:12 | RAD ---
PORTABLE CHEST: Date: 05/22/2020 HISTORY: Follow-up of pneumonia. FINDINGS: Endotracheal and NG tubes are in satisfactory position. Heart size within normal limits. Diffuse pare nchymal lung changes are stable. IMPRESSION: Stable exam. POS: OFF
[2020-05-22] MEDS: Senokot S 8.6-50 MG TAB PO SCH ×2 (09:31→19:57)
[2020-05-22] MEDS ORDERED: Micafungin 100 MG in Sodium Chloride 0.9% 100 ML IVPB SCH (09:45)
[2020-05-22] MEDS: Micafungin 100 MG in Sodium Chloride 0.9% 100 ML IVPB SCH (10:37)
--- NOTE | 2020-05-22 11:40 | PDOC.HOSPP ---
- Subjective Encounter Date: 05/22/20 Encounter Time: 11:36 Subjective: Ms. Parmar was seen today in follow-up of COVID pneumonia. She is intubated and now in the prone position. She is not oxygenating well. - Objective Vital Signs & Weight: Vital Signs (12 hours) Temp Pulse Resp 05/22/20 10:49 116 H 05/22/20 10:00 18 05/22/20 08:00 23 H 05/22/20 06:55 94 05/22/20 06:00 22 H 05/22/20 04:00 26 H 05/22/20 02:50 104 H 05/22/20 02:00 18 05/22/20 01:07 100.6 F H 05/22/20 00:00 26 H Weight Admit Weight 147 lb Weight 155 lb 3.287 oz Most Recent Monitor Data Heart Rate from ECG 123 NIBP 110/67 NIBP BP-Mean 81 Respiration from ECG 18 SpO2 81 I&O: 05/21/20 05/22/20 05/23/20 06:59 06:59 06:59 Intake Total 2352.5 2771.1 100 Output Total 2930 2340 265 Balance -577.5 431.1 -165 Result Diagrams: 05/22/20 03:45 05/22/20 03:45 Additional Labs: Accuchecks 05/22/20 05/21/20 05/21/20 09:13 20:56 15:42 POC Glucose 173 H 208 H 217 H Hospitalist ROS - Medication Medications: Active Medications Generic Name Dose Route Start Last Admin Trade Name Freq PRN Reason Stop Dose Admin Acetaminophen 1,000 mg 05/04/20 07:05 05/22/20 01:07 Acetaminophen 500 Mg Tab PO 1,000 mg Q6H PRN Administration Mild Pain (1-3) Apixaban 5 mg 05/17/20 09:00 05/22/20 09:07 Apixaban 5 Mg Tab PER TUBE 5 mg BID OMARI Administration Ascorbic Acid 1,000 mg 05/04/20 09:00 05/22/20 09:07 Ascorbic Acid 500 Mg Chewable Tablet PO 1,000 mg DAILY OMARI Administration Cholecalciferol 5,000 units 05/04/20 21:00 05/21/20 20:12 Cholecalciferol 1,000 Units (25 Mcg) Tab PO 5,000 units HS OMARI Administration Dextrose/Water 25 gm 05/03/20 22:18 05/11/20 10:24 Dextrose 50% Abboject 50 Ml Syringe SLOW IVP 25 gm PRN PRN Administration HYPOGLYCEMIA PROTOCOL Famotidine 20 mg 05/04/20 09:00 05/22/20 09:07 Famotidine 20 Mg Tab PO 20 mg BID OMARI Administration Insulin Glargine 15 units/ 0.15 mls @ 0 mls/hr 05/06/20 09:00 05/22/20 09:06 Miscellaneous Medication SC 0.15 mls QAM OMARI Administration Insulin Glargine 25 units/ 0.25 mls @ 0 mls/hr 05/06/20 21:00 05/21/20 20:13 Miscellaneous Medication SC 0.25 mls HS OMARI Administration Piperacillin Sod/Tazobactam 100 mls @ 200 mls/hr 05/15/20 12:00 05/22/20 06:11 Sod 3.375 gm/ Sodium Chloride IVPB 05/22/20 12:01 100 mls Q6HR OMARI Administration Fentanyl Citrate 2,000 mcg/ 100 mls @ 0 mls/hr 05/20/20 23:00 05/22/20 01:25 Sodium Chloride IV 100 mls INF OMARI Administration Protocol Per Protocol Micafungin Sodium 100 mg/ 100 mls @ 100 mls/hr 05/22/20 09:45 05/22/20 10:37 Sodium Chloride IVPB 05/22/20 11:45 100 mls NOW OMARI Administration Insulin Human Lispro 0 units 05/05/20 01:19 05/22/20 09:29 Humalog 300 Units/3 Ml Vial SC 2 unit .MODERATE SLIDING SC PRN Administration Moderate Correctional Scale Lorazepam 2 mg 05/20/20 22:51 05/22/20 09:06 Lorazepam 2 Mg/Ml Vial SLOW IVP 2 mg Q1H PRN Administration Breakthrough agitation Methylprednisolone Sodium Succinate 60 mg 05/22/20 09:00 05/22/20 09:07 Methylprednisolone Sod Succ/Pf 125 Mg/2 Ml Vial IVP 60 mg 0300,0900,1500,2100 OMARI Administration Ondansetron HCl 4 mg 05/04/20 07:05 05/04/20 12:12 Ondansetron Pf 4 Mg/2 Ml Vial IVP 4 mg Q6H PRN Administration Nausea/Vomiting Propofol 1,000 mg 05/10/20 12:15 05/22/20 07:13 Propofol 1,000 Mg/100 Ml Vial IV 06/09/20 12:15 1,000 mg INF PRN Administration TO ACHIEVE GOAL RASS Protocol Senna/Docusate Sodium 1 tab 05/06/20 21:00 05/22/20 09:31 Senokot S 8.6-50 Mg Tab PO Not Given BID OMARI Sodium Chloride 10 ml 05/03/20 22:30 05/07/20 20:51 Flush - Normal Saline 10 Ml Syringe IVF 10 ml PRN PRN Administration Saline Flush Vecuronium [place] 10 mg 05/10/20 11:01 05/22/20 10:35 Vecuronium 10 Mg Vial IVP 10 mg Q30MIN PRN Administration Agitation Zinc Sulfate 220 mg 05/04/20 09:00 05/22/20 09:07 Zinc Sulfate 220 Mg Cap PO 220 mg DAILY OMARI Administration - Exam Eye: PERRL, anicteric sclera Heart: RRR, no murmur, no gallops, no rubs, normal peripheral pulses Respiratory: rales (+ rales at both bases. no wheezing or rhonchi) Extremities: no cyanosis, no edema Hosp A/P (1) Acute respiratory failure with hypoxia Code(s): J96.01 - ACUTE RESPIRATORY FAILURE WITH HYPOXIA Status: Acute (2) Pneumonia due to COVID-19 virus Code(s): U07.1 - COVID-19; J12.89 - OTHER VIRAL PNEUMONIA Status: Acute (3) Diabetes mellitus Code(s): E11.9 - TYPE 2 DIABETES MELLITUS WITHOUT COMPLICATIONS Status: [facility] Qualifiers: Diabetes mellitus type: type 2 - Plan * Acute respiratory failure due to COVID pneumonia-she continues to require mechanical ventilation and now is prone. Her oxygen saturations are in the 70's and 80's, and her pO2 is 45. * Continue Decadron and supportive care * Continue empiric broad spectrum antibiotics and Micafungin * DM- blood glucose- blood glucose is stable * Nutritional Support- with tube feeds * HTN- blood pressure has been stable * Anticipate she will need LTAC placement
[2020-05-22] MEDS: Cholecalciferol 1,000 UNITS (25 MCG) TAB PO SCH (19:56)
[2020-05-22] MEDS: Insulin Glargine 25 UNITS in Pre-Filled Syringe 1 EACH SC SCH (19:58)
[2020-05-23] MEDS: Vecuronium 10 MG VIAL IVP PRN ×9 (00:08→20:22)
[2020-05-23] MEDS: Lorazepam 2 MG/ML VIAL SLOW IVP PRN ×4 (00:08→20:22)
[2020-05-23] MEDS: methylPREDNISolone Sod Succ/PF 125 MG/2 ML VIAL IVP SCH ×4 (02:27→20:23)
[2020-05-23] MEDS: Propofol 1,000 MG/100 ML VIAL IV PRN ×4 (04:03→18:04)
[2020-05-23 04:46] LABS: #Monocytes 0.2 thou/uL (0.11-0.59); #Neutrophils 13.2 thou/uL (1.40-6.50); %Basophils 0.2 % (0.0-1.0); %Eosinophils 0.1 % (0.0-10.0); %Monocytes 1.7 % (0.0-10.0); %Neutrophils 91.1 % (42.0-75.0); Hemoglobin 8.6 g/dL (12.0-16.0); Mean Corpuscular Hemoglobin 29.1 pg (27.0-31.0); Mean Platelet Volume 10.2 fL (7.4-10.4); Platelet Count 297 thou/uL (130-400); RBC Distribution Width 13.2 % (11.5-14.5); Red Blood Cell (RBC) Count 2.94 mill/uL (4.20-5.40); White Blood Cell (WBC) Count 14.5 thou/uL (4.8-10.8)
[2020-05-23 05:09] LABS: Anion Gap 13 mmol/L (10-20); BUN (Urea Nitrogen) 31 mg/dL (9.8-20.1); Calc. Creatinine Clearance 108 mL/min (70-130); Carbon Dioxide 28 mmol/L (22-29); Chloride 98 mmol/L (98-107); Glucose 289 mg/dL (70-105); Potassium 4.7 mmol/L (3.5-5.1); Sodium 134 mmol/L (136-145)
[2020-05-23] MEDS: HumaLOG 300 UNITS/3 ML VIAL SC PRN ×4 (06:16→21:17)
[2020-05-23] MEDS: Apixaban 5 MG TAB PER TUBE SCH ×2 (07:40→20:22)
[2020-05-23] MEDS: Famotidine 20 MG TAB PO SCH ×2 (07:40→20:22)
[2020-05-23 07:41] LABS: Actual Bicarbonate (HCO3a) 26.4 mEq/L (22-28); Base Excess (BEa) 1.8 mEq/L (-2.0 to +3.0); CO2 Tension 41.6 mmHg (35.0-45.0); Calcium, Ionized (arterial) 1.25 mmol/L (1.12-1.30); Carboxyhemoglobin (COHb) 1.2 gm% (0.0-3.0); Hemoglobin (Hb) 9.4 g/dL (12.0-16.0); Potassium - ABG Lab 4.56 mmol/L (3.70-5.30); pH, Arterial 7.42 (7.35-7.45)
[2020-05-23] MEDS: Zinc Sulfate 220 MG CAP PO SCH (07:41)
[2020-05-23] MEDS: Ascorbic Acid 500 mg Chewable Tablet PO SCH (07:41)
--- NOTE | 2020-05-23 08:03 | RAD ---
CHEST 1 VIEW: Date: 05/23/2020 INDICATION: History of pneumonia. COMPARISON: Prior exam dated 05/22/2020. IMPRESSION: Patient remains intubated with gastric catheter placement. Bilateral air space disease is stable. No pneumothorax is evident. Osseous structures are unchanged. POS: BH
--- NOTE | 2020-05-23 08:12 | PRG ---
DATE OF SERVICE: 05/23/2020 35 minutes critical care time. SUBJECTIVE: The patient remains hypoxic on mechanical ventilation. She is on assist-control mode and FiO2 of 100%. OBJECTIVE: VITAL SIGNS: Temperature 97.9, pulse 74, blood pressure 115/70, O2 saturation around 81%. Total intake 2112, output 1935. HEENT: Unchanged. NECK: No JVD. LUNGS: Diffuse crackles. CARDIAC: S1, S2. Regular. ABDOMEN: Soft. EXTREMITIES: No edema. IMAGING DATA: Her x-ray shows diffuse bilateral infiltrates that are unchanged. LABORATORY DATA: White blood cell count 14.5, hematocrit 26.8, and platelet count 297, pH 7.42, pCO2 of 41, pO2 of 56. Sodium 134, potassium 4.7, chloride 98, CO2 of 28, BUN 31, creatinine 0.6, glucose 289. ASSESSMENT: 1. Coronavirus disease 2019 pneumonia. 2. Acute respiratory failure. 3. No improvement in the hypoxic respiratory failure, despite aggressive treatment. PLAN: It is really hard to justify moving her back into a supine position because of her extreme desaturation in prone position. Antibiotics were stopped yesterday as she has had 7 days of piperacillin and micafungin. She continues on Eliquis. I increased her steroid dose yesterday. I really do not think she is going to survive this. Job ID: [id number]
[2020-05-23] MEDS: Senokot S 8.6-50 MG TAB PO SCH ×2 (08:20→20:23)
[2020-05-23] MEDS ORDERED: Sterile Water 10 ML ONE (09:09)
[2020-05-23] MEDS: Insulin Glargine 15 UNITS in Pre-Filled Syringe 1 EACH SC SCH (09:10)
[2020-05-23 09:26] LABS: O2 Tension (PaO2), arterial 56.7 mmHg (80.0-100.0); Puncture Site RRA
[2020-05-23] MEDS: fentaNYL Citrate/PF 2,000 MCG in Sodium Chloride 0.9% 60 ML IV SCH ×2 (09:44→20:51)
--- NOTE | 2020-05-23 10:15 | PDOC.HOSPP ---
- Subjective Encounter Date: 05/23/20 Encounter Time: 10:14 Subjective: Ms. Parmar was seen today in follow-up of COVID pneumonia. She is intubated and in the prone position. - Objective Vital Signs & Weight: Vital Signs (12 hours) Pulse Resp BP 05/23/20 06:00 21 H 05/23/20 04:00 18 05/23/20 02:23 78 112/66 05/23/20 02:00 18 05/23/20 00:00 18 05/22/20 23:06 72 Weight Admit Weight 147 lb Weight 155 lb 3.287 oz Most Recent Monitor Data Heart Rate from ECG 74 NIBP 115/70 NIBP BP-Mean 85 Respiration from ECG 18 SpO2 87 I&O: 05/22/20 05/23/20 05/24/20 06:59 06:59 06:59 Intake Total 2771.1 2112.6 Output Total 2340 1935 Balance 431.1 177.6 Result Diagrams: 05/23/20 04:05 05/23/20 04:05 Additional Labs: Accuchecks 05/23/20 05/22/20 05/22/20 09:14 23:19 17:08 POC Glucose 324 H 290 H 274 H Hospitalist ROS - Medication Medications: Active Medications Generic Name Dose Route Start Last Admin Trade Name Freq PRN Reason Stop Dose Admin Acetaminophen 1,000 mg 05/04/20 07:05 05/22/20 01:07 Acetaminophen 500 Mg Tab PO 1,000 mg Q6H PRN Administration Mild Pain (1-3) Apixaban 5 mg 05/17/20 09:00 05/23/20 07:40 Apixaban 5 Mg Tab PER TUBE 5 mg BID OMARI Administration Ascorbic Acid 1,000 mg 05/04/20 09:00 05/23/20 07:41 Ascorbic Acid 500 Mg Chewable Tablet PO 1,000 mg DAILY OMARI Administration Cholecalciferol 5,000 units 05/04/20 21:00 05/22/20 19:56 Cholecalciferol 1,000 Units (25 Mcg) Tab PO 5,000 units HS OMARI Administration Dextrose/Water 25 gm 05/03/20 22:18 05/11/20 10:24 Dextrose 50% Abboject 50 Ml Syringe SLOW IVP 25 gm PRN PRN Administration HYPOGLYCEMIA PROTOCOL Famotidine 20 mg 05/04/20 09:00 05/23/20 07:40 Famotidine 20 Mg Tab PO 20 mg BID OMARI Administration Insulin Glargine 15 units/ 0.15 mls @ 0 mls/hr 05/06/20 09:00 05/23/20 09:10 Miscellaneous Medication SC 0.15 mls QAM OMARI Administration Insulin Glargine 25 units/ 0.25 mls @ 0 mls/hr 05/06/20 21:00 05/22/20 19:58 Miscellaneous Medication SC 0.25 mls HS OMARI Administration Fentanyl Citrate 2,000 mcg/ 100 mls @ 0 mls/hr 05/20/20 23:00 05/23/20 09:44 Sodium Chloride IV 100 mls INF OMARI Administration Protocol Per Protocol Insulin Human Lispro 0 units 05/05/20 01:19 05/23/20 09:25 Humalog 300 Units/3 Ml Vial SC 8 unit .MODERATE SLIDING SC PRN Administration Moderate Correctional Scale Lorazepam 2 mg 05/20/20 22:51 05/23/20 07:42 Lorazepam 2 Mg/Ml Vial SLOW IVP 2 mg Q1H PRN Administration Breakthrough agitation Methylprednisolone Sodium Succinate 60 mg 05/22/20 09:00 05/23/20 07:41 Methylprednisolone Sod Succ/Pf 125 Mg/2 Ml Vial IVP 60 mg 0300,0900,1500,2100 OMARI Administration Ondansetron HCl 4 mg 05/04/20 07:05 05/04/20 12:12 Ondansetron Pf 4 Mg/2 Ml Vial IVP 4 mg Q6H PRN Administration Nausea/Vomiting Propofol 1,000 mg 05/10/20 12:15 05/23/20 08:39 Propofol 1,000 Mg/100 Ml Vial IV 06/09/20 12:15 1,000 mg INF PRN Administration TO ACHIEVE GOAL RASS Protocol Senna/Docusate Sodium 1 tab 05/06/20 21:00 05/23/20 08:20 Senokot S 8.6-50 Mg Tab PO Not Given BID OMARI Sodium Chloride 10 ml 05/03/20 22:30 05/23/20 07:43 Flush - Normal Saline 10 Ml Syringe IVF 10 ml PRN PRN Administration Saline Flush Vecuronium [address] 10 mg 05/10/20 11:01 05/23/20 09:10 Vecuronium 10 Mg Vial IVP 10 mg Q30MIN PRN Administration Agitation Zinc Sulfate 220 mg 05/04/20 09:00 05/23/20 07:41 Zinc Sulfate 220 Mg Cap PO 220 mg DAILY OMARI Administration - Exam Eye: PERRL, anicteric sclera Heart: RRR, no murmur, no gallops, no rubs, normal peripheral pulses Respiratory: rales (at both bases) Gastrointestinal: soft, non-tender, non-distended, normal bowel sounds, no palpable masses Extremities: no cyanosis, no edema Hosp A/P (1) Acute respiratory failure with hypoxia Code(s): J96.01 - ACUTE RESPIRATORY FAILURE WITH HYPOXIA Status: Acute (2) Pneumonia due to COVID-19 virus Code(s): U07.1 - COVID-19; J12.89 - OTHER VIRAL PNEUMONIA Status: Acute (3) Diabetes mellitus Code(s): E11.9 - TYPE 2 DIABETES MELLITUS WITHOUT COMPLICATIONS Status: Chronic Qualifiers: Diabetes mellitus type: type 2 - Plan * Acute respiratory failure due to COVID pneumonia-she continues to require mechanical ventilation and now is prone. Oxygen saturation have improved. * Continue Decadron and supportive care * Antibiotic stop date is today * DM- blood glucose- is elevated- will increase the dose of the morning Lantus * Nutritional Support- with tube feeds * HTN- blood pressure has been stable
[2020-05-23] MEDS: Insulin Glargine 25 UNITS in Pre-Filled Syringe 1 EACH SC SCH (20:21)
[2020-05-23] MEDS: Cholecalciferol 1,000 UNITS (25 MCG) TAB PO SCH (20:22)
[2020-05-24] MEDS: methylPREDNISolone Sod Succ/PF 125 MG/2 ML VIAL IVP SCH ×4 (03:01→21:20)
[2020-05-24] MEDS: Propofol 1,000 MG/100 ML VIAL IV PRN ×4 (03:02→23:16)
[2020-05-24 04:25] LABS: Anion Gap 12 mmol/L (10-20); BUN (Urea Nitrogen) 30 mg/dL (9.8-20.1); Calc. Creatinine Clearance 109 mL/min (70-130); Calcium 9.2 mg/dL (7.8-10.44); Carbon Dioxide 31 mmol/L (22-29); Chloride 98 mmol/L (98-107); Glucose 210 mg/dL (70-105); Potassium 4.5 mmol/L (3.5-5.1); Sodium 136 mmol/L (136-145)
[2020-05-24 04:45] LABS: #Monocytes 0.3 thou/uL (0.11-0.59); #Neutrophils 10.3 thou/uL (1.40-6.50); %Eosinophils 0.1 % (0.0-10.0); %Lymphocytes 8.6 % (21.0-51.0); %Monocytes 2.8 % (0.0-10.0); %Neutrophils 88.4 % (42.0-75.0); Hemoglobin 8.9 g/dL (12.0-16.0); Mean Corpuscular HGB CONC 33.4 g/dL (32.0-36.0); Mean Corpuscular Hemoglobin 31.1 pg (27.0-31.0); Mean Corpuscular Volume 93.2 fL (78.0-98.0); Mean Platelet Volume 10.4 fL (7.4-10.4); Platelet Count 320 thou/uL (130-400); RBC Distribution Width 13.5 % (11.5-14.5); Red Blood Cell (RBC) Count 2.86 mill/uL (4.20-5.40); White Blood Cell (WBC) Count 11.6 thou/uL (4.8-10.8)
[2020-05-24] MEDS: HumaLOG 300 UNITS/3 ML VIAL SC PRN ×4 (05:55→23:12)
[2020-05-24 07:33] LABS: Actual Bicarbonate (HCO3a) 32.8 mEq/L (22-28); CO2 Tension 53.7 mmHg (35.0-45.0); Calcium, Ionized (arterial) 1.29 mmol/L (1.12-1.30); Carboxyhemoglobin (COHb) 0.6 gm% (0.0-3.0); Hemoglobin (Hb) 9.5 g/dL (12.0-16.0); O2 Tension (PaO2), arterial 66.6 mmHg (80.0-100.0); Potassium - ABG Lab 4.79 mmol/L (3.70-5.30)
--- NOTE | 2020-05-24 07:49 | RAD ---
Chest AP view INDICATION: Pneumonia COMPARISON: Prior exam dated May 23, 2020 FINDINGS: Lungs: Bilateral airspace disease is stable Cardiac silhouette: Mild cardiomegaly is stable. Pulmonary vasculature: Normal Pleural spaces: No pleural effusion or pneumothorax is demonstrated. Upper abdomen: No abnormality seen. Osseous structures: No acute osseous abnormality. Additional findings: ET tube and gastric catheter unchanged. IMPRESSION: Stable exam. Stable bilateral pneumonia.
--- NOTE | 2020-05-24 08:35 | PRG ---
DATE OF SERVICE: 05/24/2020 35 minutes critical care time. SUBJECTIVE: The patient remains intubated and prone on mechanical ventilation. OBJECTIVE: VITAL SIGNS: Temperature 98.2, pulse rate 65, blood pressure 101/66 with no vasopressors. She has had no fever overnight. 24-hour intake 1738, output 1835. HEENT: Exam is limited because she is prone. NECK: No JVD. LUNGS: Coarse breath sounds. CARDIOVASCULAR: S1 and S2. Regular. ABDOMEN: Soft and nontender to palpation. EXTREMITIES: No edema. LABORATORY DATA: Sodium 136, potassium 4.5, chloride 98, CO2 of 31, BUN 30, creatinine 0.6, glucose 210. White blood cell count 11.6, hematocrit 26.7, and platelet count 320. PH is 7.40, pCO2 of 53, PO2 of 66 on assist control, rate 18, , FiO2 100%. Chest x-ray continues to show bilateral infiltrates. ASSESSMENT: 1. COVID-19 pneumonia. 2. Acute hypoxic respiratory failure requiring mechanical ventilation without much improvement. PLAN: Antibiotics have been stopped. She continues on Eliquis. I have switched her over to Solu-Medrol to see if that would make a difference. I still do not believe she is going to survive this. The goal over the next week should be to try to wean her oxygen and if she tolerates, then consider tracheostomy feeding tube placement. Palliative care is working with the family. Job ID: [id number]
[2020-05-24] MEDS: fentaNYL Citrate/PF 2,000 MCG in Sodium Chloride 0.9% 60 ML IV SCH ×2 (08:41→20:14)
[2020-05-24] MEDS: Vecuronium 10 MG VIAL IVP PRN ×4 (08:48→15:22)
[2020-05-24] MEDS: Apixaban 5 MG TAB PER TUBE SCH ×2 (08:49→21:20)
[2020-05-24] MEDS: Senokot S 8.6-50 MG TAB PO SCH ×2 (08:49→21:20)
[2020-05-24] MEDS: Ascorbic Acid 500 mg Chewable Tablet PO SCH (08:49)
[2020-05-24] MEDS: Famotidine 20 MG TAB PO SCH ×2 (08:49→21:20)
[2020-05-24] MEDS: Zinc Sulfate 220 MG CAP PO SCH (08:52)
[2020-05-24 08:59] LABS: ALV-art Gradient 579.275 mmHg (0-20); Puncture Site LRA
[2020-05-24] MEDS: Insulin Glargine 25 UNITS in Pre-Filled Syringe 1 EACH SC SCH ×2 (09:00→21:41)
[2020-05-24] MEDS: Lorazepam 2 MG/ML VIAL SLOW IVP PRN ×3 (10:30→15:22)
--- NOTE | 2020-05-24 19:43 | PDOC.HOSPP ---
- Subjective Encounter Date: 05/24/20 Encounter Time: 12:30 Subjective: Patient seen in follow-up for COVID-19 infection. She is intubated, could not complete review of systems. - Objective Vital Signs & Weight: Vital Signs (12 hours) Temp Pulse Resp BP Pulse Ox 05/24/20 18:00 18 05/24/20 16:00 18 05/24/20 14:21 73 104/63 05/24/20 14:00 18 05/24/20 12:00 18 05/24/20 11:26 89 126/72 05/24/20 10:00 18 05/24/20 08:00 98.2 F 18 92 L Weight Admit Weight 147 lb Weight 155 lb 3.287 oz Most Recent Monitor Data Heart Rate from ECG 62 NIBP 105/64 NIBP BP-Mean 77 Respiration from ECG 18 SpO2 96 I&O: 05/23/20 05/24/20 05/25/20 06:59 06:59 06:59 Intake Total 2112.6 1738 914.2 Output Total 1935 1835 1025 Balance 177.6 -97 -110.8 Result Diagrams: 05/24/20 03:00 05/24/20 03:00 Additional Labs: Accuchecks 05/24/20 05/23/20 09:27 20:56 POC Glucose 267 H 291 H I reviewed patient's labs and MAR Hospitalist ROS - Review of Systems ROS unobtainable: due to endotracheal tube - Medication Medications: Active Medications Generic Name Dose Route Start Last Admin Trade Name Freq PRN Reason Stop Dose Admin Acetaminophen 1,000 mg 05/04/20 07:05 05/22/20 01:07 Acetaminophen 500 Mg Tab PO 1,000 mg Q6H PRN Administration Mild Pain (1-3) Apixaban 5 mg 05/17/20 09:00 05/24/20 08:49 Apixaban 5 Mg Tab PER TUBE 5 mg BID OMARI Administration Ascorbic Acid 1,000 mg 05/04/20 09:00 05/24/20 08:49 Ascorbic Acid 500 Mg Chewable Tablet PO 1,000 mg DAILY OMARI Administration Cholecalciferol 5,000 units 05/04/20 21:00 05/23/20 20:22 Cholecalciferol 1,000 Units (25 Mcg) Tab PO 5,000 units HS OMARI Administration Dextrose/Water 25 gm 05/03/20 22:18 05/11/20 10:24 Dextrose 50% Abboject 50 Ml Syringe SLOW IVP 25 gm PRN PRN Administration HYPOGLYCEMIA PROTOCOL Famotidine 20 mg 05/04/20 09:00 05/24/20 08:49 Famotidine 20 Mg Tab PO 20 mg BID OMARI Administration Insulin Glargine 25 units/ 0.25 mls @ 0 mls/hr 05/06/20 21:00 05/23/20 20:21 Miscellaneous Medication SC 0.25 mls HS OMARI Administration Fentanyl Citrate 2,000 mcg/ 100 mls @ 0 mls/hr 05/20/20 23:00 05/24/20 08:41 Sodium Chloride IV 100 mls INF OMARI Administration Protocol Per Protocol Insulin Glargine 25 units/ 0.25 mls @ 0 mls/hr 05/24/20 09:00 05/24/20 09:00 Miscellaneous Medication SC 0.25 mls QAM OMARI Administration Insulin Human Lispro 0 units 05/05/20 01:19 05/24/20 16:09 Humalog 300 Units/3 Ml Vial SC 2 unit .MODERATE SLIDING SC PRN Administration Moderate Correctional Scale Lorazepam 2 mg 05/20/20 22:51 05/24/20 15:22 Lorazepam 2 Mg/Ml Vial SLOW IVP 2 mg Q1H PRN Administration Breakthrough agitation Methylprednisolone Sodium Succinate 60 mg 05/22/20 09:00 05/24/20 15:30 Methylprednisolone Sod Succ/Pf 125 Mg/2 Ml Vial IVP 60 mg 0300,0900,1500,2100 OMARI Administration Ondansetron HCl 4 mg 05/04/20 07:05 05/04/20 12:12 Ondansetron Pf 4 Mg/2 Ml Vial IVP 4 mg Q6H PRN Administration Nausea/Vomiting Propofol 1,000 mg 05/10/20 12:15 05/24/20 15:22 Propofol 1,000 Mg/100 Ml Vial IV 06/09/20 12:15 1,000 mg INF PRN Administration TO ACHIEVE GOAL RASS Protocol Senna/Docusate Sodium 1 tab 05/06/20 21:00 05/24/20 08:49 Senokot S 8.6-50 Mg Tab PO 1 tab BID OMARI Administration Sodium Chloride 10 ml 05/03/20 22:30 05/23/20 07:43 Flush - Normal Saline 10 Ml Syringe IVF 10 ml PRN PRN Administration Saline Flush Vecuronium [place] 10 mg 05/10/20 11:01 05/24/20 15:22 Vecuronium 10 Mg Vial IVP 10 mg Q30MIN PRN Administration Agitation Zinc Sulfate 220 mg 05/04/20 09:00 05/24/20 08:52 Zinc Sulfate 220 Mg Cap PO 220 mg DAILY OMARI Administration - Exam Heart: RRR Respiratory: rhonchi Skin: no rashes Psychiatric - other findings: Unable to assess Hosp A/P (1) Pneumonia due to COVID-19 virus Code(s): U07.1 - COVID-19; J12.89 - OTHER VIRAL PNEUMONIA Status: Acute (2) Acute respiratory failure with hypoxia Code(s): J96.01 - ACUTE RESPIRATORY FAILURE WITH HYPOXIA Status: Acute (3) DKA (diabetic ketoacidoses) Code(s): E11.10 - TYPE 2 DIABETES MELLITUS WITH KETOACIDOSIS WITHOUT COMA Status: Resolved - Plan Continue Solu-Medrol, vitamin C, vitamin D and zinc. Continue DVT prophylaxis with Lovenox.
[2020-05-24] MEDS: Cholecalciferol 1,000 UNITS (25 MCG) TAB PO SCH (21:19)
[2020-05-25 04:49] LABS: #Lymphocytes 1.1 thou/uL (1.20-3.40); #Monocytes 0.4 thou/uL (0.11-0.59); #Neutrophils 8.9 thou/uL (1.40-6.50); %Basophils 0.3 % (0.0-1.0); %Eosinophils 0.2 % (0.0-10.0); %Lymphocytes 10.8 % (21.0-51.0); %Monocytes 3.5 % (0.0-10.0); %Neutrophils 85.2 % (42.0-75.0); Mean Corpuscular Hemoglobin 30.4 pg (27.0-31.0); Mean Platelet Volume 9.2 fL (7.4-10.4); Platelet Count 429 thou/uL (130-400); RBC Distribution Width 13.6 % (11.5-14.5); Red Blood Cell (RBC) Count 2.96 mill/uL (4.20-5.40); White Blood Cell (WBC) Count 10.4 thou/uL (4.8-10.8)
[2020-05-25] MEDS: methylPREDNISolone Sod Succ/PF 125 MG/2 ML VIAL IVP SCH ×4 (04:55→20:20)
[2020-05-25] MEDS: HumaLOG 300 UNITS/3 ML VIAL SC PRN (04:59)
[2020-05-25 05:15] LABS: Anion Gap 12 mmol/L (10-20); BUN (Urea Nitrogen) 30 mg/dL (9.8-20.1); Calc. Creatinine Clearance 117 mL/min (70-130); Calcium 9.2 mg/dL (7.8-10.44); Carbon Dioxide 31 mmol/L (22-29); Chloride 97 mmol/L (98-107); Glucose 178 mg/dL (70-105); Potassium 4.4 mmol/L (3.5-5.1); Sodium 136 mmol/L (136-145)
[2020-05-25] MEDS: Propofol 1,000 MG/100 ML VIAL IV PRN ×3 (06:26→15:13)
[2020-05-25] MEDS: fentaNYL Citrate/PF 2,000 MCG in Sodium Chloride 0.9% 60 ML IV SCH ×2 (07:47→20:16)
[2020-05-25] MEDS: Insulin Glargine 25 UNITS in Pre-Filled Syringe 1 EACH SC SCH ×2 (07:48→20:24)
[2020-05-25] MEDS: Ascorbic Acid 500 mg Chewable Tablet PO SCH (07:52)
[2020-05-25] MEDS: Apixaban 5 MG TAB PER TUBE SCH ×2 (07:52→20:20)
[2020-05-25] MEDS: Lorazepam 2 MG/ML VIAL SLOW IVP PRN ×2 (07:52→15:13)
[2020-05-25 07:53] LABS: Actual Bicarbonate (HCO3a) 33.4 mEq/L (22-28); Base Excess (BEa) 7.5 mEq/L (-2.0 to +3.0); CO2 Tension 54.7 mmHg (35.0-45.0); Calcium, Ionized (arterial) 1.31 mmol/L (1.12-1.30); Carboxyhemoglobin (COHb) 0.6 gm% (0.0-3.0); Hemoglobin (Hb) 9.7 g/dL (12.0-16.0); O2 Tension (PaO2), arterial 86.9 mmHg (80.0-100.0); Potassium - ABG Lab 4.35 mmol/L (3.70-5.30)
[2020-05-25] MEDS: Zinc Sulfate 220 MG CAP PO SCH (07:53)
[2020-05-25] MEDS: Famotidine 20 MG TAB PO SCH ×2 (07:53→20:20)
[2020-05-25] MEDS: Senokot S 8.6-50 MG TAB PO SCH ×2 (07:53→20:20)
--- NOTE | 2020-05-25 07:58 | RAD ---
CHEST 1 VIEW: Date: 05/25/2020 INDICATION: History of pneumonia. COMPARISON: Prior exam dated 05/24/2020. FINDINGS: There is bilateral air space disease that is stable, consistent with pneumonia. The patient remains i ntubated with gastric catheter placement. No pneumothorax is evident. Osseous structures unchanged. IMPRESSION: Stable bilateral pneumonia. POS: BH
[2020-05-25 08:09] LABS: Puncture Site LBA
[2020-05-25 08:10] LABS: ALV-art Gradient 557.725 mmHg (0-20)
--- NOTE | 2020-05-25 14:34 | PDOC.HOSPP ---
- Subjective Encounter Date: 05/25/20 Encounter Time: 14:33 non-verbal Subjective: pt seen on f/u for respiratory failure secondary to covid 19 pnuemonia. patient remains intubated and sedated with 100% 02 supplementation with her 02 sats in the low 80s - Objective Vital Signs & Weight: Vital Signs (12 hours) Pulse Resp BP Pulse Ox 05/25/20 14:00 18 05/25/20 12:00 18 05/25/20 10:50 76 135/75 05/25/20 10:00 18 05/25/20 08:00 18 98 05/25/20 06:33 60 102/67 05/25/20 05:39 18 05/25/20 04:00 18 Weight Admit Weight 147 lb Weight 155 lb 3.287 oz Most Recent Monitor Data Heart Rate from ECG 63 NIBP 106/60 NIBP BP-Mean 75 Respiration from ECG 18 SpO2 97 I&O: 05/24/20 05/25/20 05/26/20 06:59 06:59 06:59 Intake Total 1738 1779.2 Output Total 1835 1700 840 Balance -97 79.2 -840 Result Diagrams: 05/25/20 04:15 05/25/20 04:15 Additional Labs: Accuchecks 05/25/20 05/25/20 05/24/20 10:48 04:31 21:30 POC Glucose 261 H 167 H 245 H Hospitalist ROS - Review of Systems ROS unobtainable: due to endotracheal tube - Medication Medications: Active Medications Generic Name Dose Route Start Last Admin Trade Name Freq PRN Reason Stop Dose Admin Acetaminophen 1,000 mg 05/04/20 07:05 05/22/20 01:07 Acetaminophen 500 Mg Tab PO 1,000 mg Q6H PRN Administration Mild Pain (1-3) Apixaban 5 mg 05/17/20 09:00 05/25/20 07:52 Apixaban 5 Mg Tab PER TUBE 5 mg BID OMARI Administration Ascorbic Acid 1,000 mg 05/04/20 09:00 05/25/20 07:52 Ascorbic Acid 500 Mg Chewable Tablet PO 1,000 mg DAILY OMARI Administration Cholecalciferol 5,000 units 05/04/20 21:00 05/24/20 21:19 Cholecalciferol 1,000 Units (25 Mcg) Tab PO 5,000 units HS OMARI Administration Dextrose/Water 25 gm 05/03/20 22:18 05/11/20 10:24 Dextrose 50% Abboject 50 Ml Syringe SLOW IVP 25 gm PRN PRN Administration HYPOGLYCEMIA PROTOCOL Famotidine 20 mg 05/04/20 09:00 05/25/20 07:53 Famotidine 20 Mg Tab PO 20 mg BID OMARI Administration Insulin Glargine 25 units/ 0.25 mls @ 0 mls/hr 05/06/20 21:00 05/24/20 21:41 Miscellaneous Medication SC 0.25 mls HS OMARI Administration Fentanyl Citrate 2,000 mcg/ 100 mls @ 0 mls/hr 05/20/20 23:00 05/25/20 07:47 Sodium Chloride IV 100 mls INF OMARI Administration Protocol Per Protocol Insulin Glargine 25 units/ 0.25 mls @ 0 mls/hr 05/24/20 09:00 05/25/20 07:48 Miscellaneous Medication SC 0.25 mls QAM OMARI Administration Insulin Human Lispro 0 units 05/05/20 01:19 05/25/20 04:59 Humalog 300 Units/3 Ml Vial SC 2 unit .MODERATE SLIDING SC PRN Administration Moderate Correctional Scale Lorazepam 2 mg 05/20/20 22:51 05/25/20 07:52 Lorazepam 2 Mg/Ml Vial SLOW IVP 2 mg Q1H PRN Administration Breakthrough agitation Methylprednisolone Sodium Succinate 60 mg 05/22/20 09:00 05/25/20 07:53 Methylprednisolone Sod Succ/Pf 125 Mg/2 Ml Vial IVP 60 mg 0300,0900,1500,2100 OMARI Administration Ondansetron HCl 4 mg 05/04/20 07:05 05/04/20 12:12 Ondansetron Pf 4 Mg/2 Ml Vial IVP 4 mg Q6H PRN Administration Nausea/Vomiting Propofol 1,000 mg 05/10/20 12:15 05/25/20 09:32 Propofol 1,000 Mg/100 Ml Vial IV 06/09/20 12:15 1,000 mg INF PRN Administration TO ACHIEVE GOAL RASS Protocol Senna/Docusate Sodium 1 tab 05/06/20 21:00 05/25/20 07:53 Senokot S 8.6-50 Mg Tab PO 1 tab BID OMARI Administration Sodium Chloride 10 ml 05/03/20 22:30 05/23/20 07:43 Flush - Normal Saline 10 Ml Syringe IVF 10 ml PRN PRN Administration Saline Flush Vecuronium [place] 10 mg 05/10/20 11:01 05/24/20 15:22 Vecuronium 10 Mg Vial IVP 10 mg Q30MIN PRN Administration Agitation Zinc Sulfate 220 mg 05/04/20 09:00 05/25/20 07:53 Zinc Sulfate 220 Mg Cap PO 220 mg DAILY OMARI Administration - Exam General Appearance: ill appearing Eye: PERRL, anicteric sclera ENT: normocephalic atraumatic, no oropharyngeal lesions Neck: supple, symmetric, no JVD Heart: RRR, no murmur, no gallops Respiratory: CTAB, no wheezes, no rales Gastrointestinal: soft, non-tender, non-distended Extremities: no cyanosis, no clubbing, no edema Skin: normal turgor Neurological: cranial nerve grossly intact Musculoskeletal: normal tone, no muscle wasting Psychiatric - other findings: sedated Hosp A/P (1) Acute respiratory failure with hypoxia Code(s): J96.01 - ACUTE RESPIRATORY FAILURE WITH HYPOXIA Status: Acute (2) COVID-19 virus infection Code(s): U07.1 - COVID-19 Status: Acute (3) Elevated liver enzymes Code(s): R74.8 - ABNORMAL LEVELS OF OTHER SERUM ENZYMES Status: Acute (4) Pneumonia due to COVID-19 virus Code(s): U07.1 - COVID-19; J12.89 - OTHER VIRAL PNEUMONIA Status: Acute (5) Diabetes mellitus Code(s): E11.9 - TYPE 2 DIABETES MELLITUS WITHOUT COMPLICATIONS Status: Chronic Qualifiers: Diabetes mellitus type: type 2 (6) DKA (diabetic ketoacidoses) Code(s): E11.10 - TYPE 2 DIABETES MELLITUS WITH KETOACIDOSIS WITHOUT COMA Status: Resolved - Plan respiratory failure on MV - secondary to covid 19 - on 100% 02 supplementation - fail prone position - weight shifter following covid 19 - continue precautions - continue 02 supplementation as above - abx stopped - continue steroids dka / dm - resolved - continue ss+acc poor prognosis, worsening respiratory failure despite MV on 100% 02 sats
--- NOTE | 2020-05-25 16:14 | PRG ---
DATE OF SERVICE: 05/25/2020 SUBJECTIVE: Zoey Parmar continues to do poorly. OBJECTIVE: VITAL SIGNS: Heart rate is in the 50s, blood pressure is 90s, respiratory rate is in the teens, oximetry is 95% to 97% this afternoon. Oximetry tends to wander up and down. Her FiO2 is at 90%. LUNGS: Remarkable for coarse equal breath sounds. HEART: Regular rhythm. ABDOMEN: Soft. EXTREMITIES: Without asymmetry. LABORATORY DATA: White count 10.4, hemoglobin 9.0, platelets 429. Sodium 136, potassium 4.4, chloride 97, bicarb 31, BUN 30, creatinine 0.59. PH 7.4, pCO2 of 54, pO2 of 86. IMPRESSION: COVID pneumonia, status post prone ventilation, clinically doing poorly. Radiographs unchanged. We will continue supportive care. Job ID: [id number]
[2020-05-25] MEDS: Cholecalciferol 1,000 UNITS (25 MCG) TAB PO SCH (22:30)
[2020-05-26] MEDS: methylPREDNISolone Sod Succ/PF 125 MG/2 ML VIAL IVP SCH ×4 (03:18→20:46)
[2020-05-26] MEDS: Propofol 1,000 MG/100 ML VIAL IV PRN ×3 (03:38→17:42)
[2020-05-26 04:44] LABS: #Eosinphils 0.1 thou/uL (0.0-0.7); #Lymphocytes 1.4 thou/uL (1.20-3.40); #Monocytes 0.5 thou/uL (0.11-0.59); #Neutrophils 7.6 thou/uL (1.40-6.50); %Basophils 0.1 % (0.0-1.0); %Eosinophils 0.6 % (0.0-10.0); %Lymphocytes 14.7 % (21.0-51.0); %Monocytes 5.1 % (0.0-10.0); %Neutrophils 79.5 % (42.0-75.0); Hemoglobin 8.9 g/dL (12.0-16.0); Mean Corpuscular HGB CONC 31.8 g/dL (32.0-36.0); Mean Corpuscular Hemoglobin 29.2 pg (27.0-31.0); Mean Corpuscular Volume 91.9 fL (78.0-98.0); Mean Platelet Volume 8.7 fL (7.4-10.4); Platelet Count 506 thou/uL (130-400); RBC Distribution Width 13.6 % (11.5-14.5); Red Blood Cell (RBC) Count 3.05 mill/uL (4.20-5.40); White Blood Cell (WBC) Count 9.6 thou/uL (4.8-10.8)
[2020-05-26 05:03] LABS: Anion Gap 12 mmol/L (10-20); BUN (Urea Nitrogen) 24 mg/dL (9.8-20.1); Calc. Creatinine Clearance 121 mL/min (70-130); Calcium 8.9 mg/dL (7.8-10.44); Carbon Dioxide 34 mmol/L (22-29); Chloride 95 mmol/L (98-107); Glucose 155 mg/dL (70-105); Sodium 137 mmol/L (136-145)
[2020-05-26 06:59] LABS: Actual Bicarbonate (HCO3a) 36.1 mEq/L (22-28); Base Excess (BEa) 9.9 mEq/L (-2.0 to +3.0); CO2 Tension 55.5 mmHg (35.0-45.0); Calcium, Ionized (arterial) 1.27 mmol/L (1.12-1.30); Carboxyhemoglobin (COHb) 1.3 gm% (0.0-3.0); Hemoglobin (Hb) 12.7 g/dL (12.0-16.0); O2 Tension (PaO2), arterial 85.5 mmHg (80.0-100.0); Potassium - ABG Lab 3.98 mmol/L (3.70-5.30); pH, Arterial 7.43 (7.35-7.45)
[2020-05-26 07:12] LABS: Puncture Site RRA
[2020-05-26 07:13] LABS: ALV-art Gradient 486.825 mmHg (0-20)
[2020-05-26] MEDS: fentaNYL Citrate/PF 2,000 MCG in Sodium Chloride 0.9% 60 ML IV SCH ×2 (07:25→19:29)
[2020-05-26] MEDS: Lorazepam 2 MG/ML VIAL SLOW IVP PRN ×2 (07:49→14:52)
[2020-05-26] MEDS: Senokot S 8.6-50 MG TAB PO SCH ×2 (07:50→20:46)
[2020-05-26] MEDS: Ascorbic Acid 500 mg Chewable Tablet PO SCH (07:50)
[2020-05-26] MEDS: Insulin Glargine 25 UNITS in Pre-Filled Syringe 1 EACH SC SCH ×2 (07:51→20:47)
[2020-05-26] MEDS: Zinc Sulfate 220 MG CAP PO SCH (07:51)
[2020-05-26] MEDS: Famotidine 20 MG TAB PO SCH ×2 (07:51→20:46)
[2020-05-26] MEDS: Apixaban 5 MG TAB PER TUBE SCH ×2 (07:56→20:46)
--- NOTE | 2020-05-26 08:28 | RAD ---
Chest AP view INDICATION: Pneumonia COMPARISON: May 25, 2020 FINDINGS: Lungs: Bilateral airspace disease is stable. Cardiac silhouette: The cardiomediastinal silhouette appears within normal limits. Pulmonary vasculature: Normal Pleural spaces: No pleural effusion or pneumothorax is demonstrated. Upper abdomen: Cholecystectomy clips. Osseous structures: No acute osseous abnormality. Additional findings: ET tube and gastric catheter unchanged. IMPRESSION: Stable bilateral airspace disease. No pneumothorax.
[2020-05-26] MEDS: HumaLOG 300 UNITS/3 ML VIAL SC PRN ×2 (11:03→17:21)
--- NOTE | 2020-05-26 12:55 | PDOC.HOSPP ---
- Subjective Encounter Date: 05/26/20 Encounter Time: 11:00 Subjective: patient seen on f/u for respiratory failure secondary to covid 19, patient is on MV and sedated - Objective Vital Signs & Weight: Vital Signs (12 hours) Pulse Resp Pulse Ox 05/26/20 12:00 18 05/26/20 11:45 61 05/26/20 10:00 18 05/26/20 08:00 18 98 05/26/20 06:00 18 05/26/20 04:00 18 05/26/20 02:00 18 Weight Admit Weight 147 lb Weight 155 lb 3.287 oz Most Recent Monitor Data Heart Rate from ECG 59 NIBP 102/54 NIBP BP-Mean 70 Respiration from ECG 19 SpO2 92 I&O: 05/25/20 05/26/20 05/27/20 06:59 06:59 06:59 Intake Total 1779.2 2054.8 180 Output Total 1700 2840 460 Balance 79.2 -785.2 -280 Result Diagrams: 05/26/20 03:45 05/26/20 03:45 Additional Labs: Accuchecks 05/26/20 05/25/20 05/25/20 10:58 20:22 17:38 POC Glucose 203 H 179 H 128 H Hospitalist ROS - Review of Systems All other systems reviewed; all pertinent +/- noted in HPI/Subj - Medication Medications: Active Medications Generic Name Dose Route Start Last Admin Trade Name Freq PRN Reason Stop Dose Admin Acetaminophen 1,000 mg 05/04/20 07:05 05/22/20 01:07 Acetaminophen 500 Mg Tab PO 1,000 mg Q6H PRN Administration Mild Pain (1-3) Apixaban 5 mg 05/17/20 09:00 05/26/20 07:56 Apixaban 5 Mg Tab PER TUBE 5 mg BID OMARI Administration Ascorbic Acid 1,000 mg 05/04/20 09:00 05/26/20 07:50 Ascorbic Acid 500 Mg Chewable Tablet PO 1,000 mg DAILY OMARI Administration Cholecalciferol 5,000 units 05/04/20 21:00 05/25/20 22:30 Cholecalciferol 1,000 Units (25 Mcg) Tab PO 5,000 units HS OMARI Administration Dextrose/Water 25 gm 05/03/20 22:18 05/11/20 10:24 Dextrose 50% Abboject 50 Ml Syringe SLOW IVP 25 gm PRN PRN Administration HYPOGLYCEMIA PROTOCOL Famotidine 20 mg 05/04/20 09:00 05/26/20 07:51 Famotidine 20 Mg Tab PO 20 mg BID OMARI Administration Insulin Glargine 25 units/ 0.25 mls @ 0 mls/hr 05/06/20 21:00 05/25/20 20:24 Miscellaneous Medication SC 0.25 mls HS OMARI Administration Fentanyl Citrate 2,000 mcg/ 100 mls @ 0 mls/hr 05/20/20 23:00 05/26/20 07:25 Sodium Chloride IV 100 mls INF OMARI Administration Protocol Per Protocol Insulin Glargine 25 units/ 0.25 mls @ 0 mls/hr 05/24/20 09:00 05/26/20 07:51 Miscellaneous Medication SC 0.25 mls QAM OMARI Administration Insulin Human Lispro 0 units 05/05/20 01:19 05/26/20 11:03 Humalog 300 Units/3 Ml Vial SC 4 unit .MODERATE SLIDING SC PRN Administration Moderate Correctional Scale Lorazepam 2 mg 05/20/20 22:51 05/26/20 07:49 Lorazepam 2 Mg/Ml Vial SLOW IVP 2 mg Q1H PRN Administration Breakthrough agitation Methylprednisolone Sodium Succinate 60 mg 05/22/20 09:00 05/26/20 07:49 Methylprednisolone Sod Succ/Pf 125 Mg/2 Ml Vial IVP 60 mg 0300,0900,1500,2100 OMARI Administration Ondansetron HCl 4 mg 05/04/20 07:05 05/04/20 12:12 Ondansetron Pf 4 Mg/2 Ml Vial IVP 4 mg Q6H PRN Administration Nausea/Vomiting Propofol 1,000 mg 05/10/20 12:15 05/26/20 07:59 Propofol 1,000 Mg/100 Ml Vial IV 06/09/20 12:15 1,000 mg INF PRN Administration TO ACHIEVE GOAL RASS Protocol Senna/Docusate Sodium 1 tab 05/06/20 21:00 05/26/20 07:50 Senokot S 8.6-50 Mg Tab PO 1 tab BID OMARI Administration Sodium Chloride 10 ml 05/03/20 22:30 05/26/20 07:51 Flush - Normal Saline 10 Ml Syringe IVF 10 ml PRN PRN Administration Saline Flush Vecuronium [place] 10 mg 05/10/20 11:01 05/24/20 15:22 Vecuronium 10 Mg Vial IVP 10 mg Q30MIN PRN Administration Agitation Zinc Sulfate 220 mg 05/04/20 09:00 05/26/20 07:51 Zinc Sulfate 220 Mg Cap PO 220 mg DAILY OMARI Administration - Exam General Appearance: ill appearing Eye: PERRL, anicteric sclera ENT: normocephalic atraumatic, no oropharyngeal lesions Neck: supple, symmetric, no JVD Heart: RRR, no murmur, no gallops Respiratory: CTAB, no wheezes, no rales, no ronchi Gastrointestinal: soft, non-tender, non-distended, normal bowel sounds Extremities: no cyanosis, no clubbing Skin: normal turgor, no lesions, no rashes Neurological: cranial nerve grossly intact Musculoskeletal: normal tone, no muscle wasting Psychiatric - other findings: sedated Hosp A/P (1) Acute respiratory failure with hypoxia Code(s): J96.01 - ACUTE RESPIRATORY FAILURE WITH HYPOXIA Status: Acute (2) COVID-19 virus infection Code(s): U07.1 - COVID-19 Status: Acute (3) Elevated liver enzymes Code(s): R74.8 - ABNORMAL LEVELS OF OTHER SERUM ENZYMES Status: Acute (4) Pneumonia due to COVID-19 virus Code(s): U07.1 - COVID-19; J12.89 - OTHER VIRAL PNEUMONIA Status: Acute (5) Diabetes mellitus Code(s): E11.9 - TYPE 2 DIABETES MELLITUS WITHOUT COMPLICATIONS Status: Chronic Qualifiers: Diabetes mellitus type: type 2 (6) DKA (diabetic ketoacidoses) Code(s): E11.10 - TYPE 2 DIABETES MELLITUS WITH KETOACIDOSIS WITHOUT COMA Status: Resolved - Plan respiratory failure on MV - secondary to covid 19 - was on 100% 02 supplementation, wean as tolerated now on 90% with some fluctuations during the day - fail prone position - mystery shopper following covid 19 - continue 02 supplementation as above - abx stopped - continue steroids dka / dm - resolved - continue ss+acc poor prognosis, worsening respiratory failure despite MV on 100% 02
--- NOTE | 2020-05-26 13:34 | PRG ---
DATE OF SERVICE: 05/26/2020 SUBJECTIVE: Zoey Parmar remains ventilated. Family was in the room, I believe her sister. It has been explained to her that she is stable, but still quite ill. We have turned her PEEP down slightly and her FiO2 down slightly. OBJECTIVE: VITAL SIGNS: Heart rate is 61, blood pressure 102/54, respiratory rate is 18. LUNGS: Clear. HEART: Regular rhythm. ABDOMEN: Soft. EXTREMITIES: Without edema. LABORATORY DATA: White count 9.6, hemoglobin 8.9, platelets 506. Sodium 137, potassium 4, chloride 95, bicarb 34, BUN 24, creatinine 0.5. pH 7.43 CO2 55, PO2 85. IMPRESSION: COVID pneumonia, respiratory failure, making very slow progress. She is 23 days into her hospitalization and out of isolation. We will continue supportive care. Critical care time 35 min. Job ID: [id number] MTDD
[2020-05-26] MEDS: Vecuronium 10 MG VIAL IVP PRN (18:50)
[2020-05-26] MEDS: Cholecalciferol 1,000 UNITS (25 MCG) TAB PO SCH (20:45)
[2020-05-27] MEDS: Propofol 1,000 MG/100 ML VIAL IV PRN ×2 (00:42→07:58)
[2020-05-27] MEDS: methylPREDNISolone Sod Succ/PF 125 MG/2 ML VIAL IVP SCH ×4 (03:53→20:16)
[2020-05-27] MEDS: HumaLOG 300 UNITS/3 ML VIAL SC PRN ×3 (04:05→17:21)
[2020-05-27 04:48] LABS: #Eosinphils 0.1 thou/uL (0.0-0.7); #Lymphocytes 1.7 thou/uL (1.20-3.40); #Monocytes 0.5 thou/uL (0.11-0.59); #Neutrophils 8.7 thou/uL (1.40-6.50); %Basophils 0.1 % (0.0-1.0); %Eosinophils 0.8 % (0.0-10.0); %Lymphocytes 15.1 % (21.0-51.0); %Monocytes 4.7 % (0.0-10.0); %Neutrophils 79.3 % (42.0-75.0); Hemoglobin 9.3 g/dL (12.0-16.0); Mean Corpuscular HGB CONC 32.8 g/dL (32.0-36.0); Mean Corpuscular Hemoglobin 30.1 pg (27.0-31.0); Mean Corpuscular Volume 91.8 fL (78.0-98.0); Mean Platelet Volume 8.4 fL (7.4-10.4); Platelet Count 531 thou/uL (130-400); RBC Distribution Width 13.7 % (11.5-14.5); Red Blood Cell (RBC) Count 3.08 mill/uL (4.20-5.40)
[2020-05-27 05:01] LABS: Anion Gap 13 mmol/L (10-20); BUN (Urea Nitrogen) 30 mg/dL (9.8-20.1); Calc. Creatinine Clearance 123 mL/min (70-130); Calcium 8.6 mg/dL (7.8-10.44); Carbon Dioxide 32 mmol/L (22-29); Chloride 95 mmol/L (98-107); Glucose 194 mg/dL (70-105); Sodium 136 mmol/L (136-145)
[2020-05-27] MEDS: fentaNYL Citrate/PF 2,000 MCG in Sodium Chloride 0.9% 60 ML IV SCH (06:39)
[2020-05-27 07:02] LABS: Actual Bicarbonate (HCO3a) 32.4 mEq/L (22-28); CO2 Tension 44.5 mmHg (35.0-45.0); Carboxyhemoglobin (COHb) 1.3 gm% (0.0-3.0); Hemoglobin (Hb) 12.6 g/dL (12.0-16.0); Potassium - ABG Lab 4.09 mmol/L (3.70-5.30); pH, Arterial 7.48 (7.35-7.45)
[2020-05-27 07:12] LABS: O2 Tension (PaO2), arterial 43.8 mmHg (80.0-100.0)
[2020-05-27 07:13] LABS: ALV-art Gradient 470.975 mmHg (0-20); Puncture Site RRA
[2020-05-27] MEDS: Apixaban 5 MG TAB PER TUBE SCH ×2 (07:59→20:14)
[2020-05-27] MEDS: Senokot S 8.6-50 MG TAB PO SCH ×2 (07:59→20:14)
[2020-05-27] MEDS: Zinc Sulfate 220 MG CAP PO SCH (07:59)
[2020-05-27] MEDS: Ascorbic Acid 500 mg Chewable Tablet PO SCH (07:59)
[2020-05-27] MEDS: Famotidine 20 MG TAB PO SCH ×2 (07:59→20:14)
--- NOTE | 2020-05-27 08:19 | RAD ---
Chest AP view INDICATION: Pneumonia COMPARISON: Prior exam dated May 26, 2020 FINDINGS: Lungs: Bilateral airspace disease is stable Cardiac silhouette: The cardiomediastinal silhouette appears within normal limits. Pulmonary vasculature: Normal Pleural spaces: No pleural effusion or pneumothorax is demonstrated. Upper abdomen: No abnormality seen. Osseous structures: No acute osseous abnormality. Additional findings: Gastric catheter and ET tube are unchanged. No pneumothorax is evident. IMPRESSION: Stable exam.
[2020-05-27] MEDS: Insulin Glargine 25 UNITS in Pre-Filled Syringe 1 EACH SC SCH ×2 (09:01→20:21)
--- NOTE | 2020-05-27 17:05 | PRG ---
DATE OF SERVICE: 05/27/2020 OBJECTIVE: VITAL SIGNS: Ms. Parmar's heart rate is in the 90s. FiO2 is 65%, she was at 80 this morning down a little bit. Oximetry is staying in the 90s without change. LUNGS: Clear. HEART: Regular rate and rhythm. ABDOMEN: Soft. LABORATORY DATA: White count 11, hemoglobin 9.3, and platelets 531. Sodium 136, potassium 4, chloride 95, bicarb 32, BUN 30, and creatinine 0.56. PH 7.48, CO2 44, PO2 43. IMPRESSION: COVID pneumonia with respiratory failure. There has been a tiny improvement as I have explained to family. Otherwise, she is stable. Hopefully, this will persist and she will continue to slowly improve. Critical care time 30 min. Job ID: [id number] MTDD
--- NOTE | 2020-05-27 17:50 | PDOC.HOSPP ---
- Subjective Encounter Date: 05/27/20 Encounter Time: 17:00 Subjective: intubated, sedated, no acute events overnight - Objective Vital Signs & Weight: Vital Signs (12 hours) Temp Pulse Resp Pulse Ox 05/27/20 16:00 99.4 F 05/27/20 15:07 98 05/27/20 14:00 18 05/27/20 12:00 18 05/27/20 10:09 102 H 05/27/20 08:00 91 L 05/27/20 06:00 19 Weight Admit Weight 147 lb Weight 155 lb 3.287 oz Most Recent Monitor Data Heart Rate from ECG 87 NIBP 110/58 NIBP BP-Mean 75 Respiration from ECG 18 SpO2 91 I&O: 05/26/20 05/27/20 05/28/20 06:59 06:59 06:59 Intake Total 2054.8 1294.0 180 Output Total 2840 2515 1135 Balance -785.2 -1221.0 -955 Result Diagrams: 05/29/20 04:00 05/29/20 04:00 Additional Labs: Accuchecks 05/27/20 05/27/20 05/27/20 17:06 10:41 04:00 POC Glucose 180 H 240 H 196 H 05/26/20 20:38 POC Glucose 252 H Hospitalist ROS - Medication Medications: Active Medications Generic Name Dose Route Start Last Admin Trade Name Freq PRN Reason Stop Dose Admin Acetaminophen 1,000 mg 05/04/20 07:05 05/22/20 01:07 Acetaminophen 500 Mg Tab PO 1,000 mg Q6H PRN Administration Mild Pain (1-3) Apixaban 5 mg 05/17/20 09:00 05/27/20 07:59 Apixaban 5 Mg Tab PER TUBE 5 mg BID OMARI Administration Ascorbic Acid 1,000 mg 05/04/20 09:00 05/27/20 07:59 Ascorbic Acid 500 Mg Chewable Tablet PO 1,000 mg DAILY OMARI Administration Cholecalciferol 5,000 units 05/04/20 21:00 05/26/20 20:45 Cholecalciferol 1,000 Units (25 Mcg) Tab PO 5,000 units HS OMARI Administration Dextrose/Water 25 gm 05/03/20 22:18 05/11/20 10:24 Dextrose 50% Abboject 50 Ml Syringe SLOW IVP 25 gm PRN PRN Administration HYPOGLYCEMIA PROTOCOL Famotidine 20 mg 05/04/20 09:00 05/27/20 07:59 Famotidine 20 Mg Tab PO 20 mg BID OMARI Administration Insulin Glargine 25 units/ 0.25 mls @ 0 mls/hr 05/06/20 21:00 05/26/20 20:47 Miscellaneous Medication SC 0.25 mls HS OMARI Administration Fentanyl Citrate 2,000 mcg/ 100 mls @ 0 mls/hr 05/20/20 23:00 05/27/20 06:39 Sodium Chloride IV 100 mls INF OMARI Administration Protocol Per Protocol Insulin Glargine 25 units/ 0.25 mls @ 0 mls/hr 05/24/20 09:00 05/27/20 09:01 Miscellaneous Medication SC 0.25 mls QAM OMARI Administration Insulin Human Lispro 0 units 05/05/20 01:19 05/27/20 10:42 Humalog 300 Units/3 Ml Vial SC 4 unit .MODERATE SLIDING SC PRN Administration Moderate Correctional Scale Lorazepam 2 mg 05/20/20 22:51 05/26/20 14:52 Lorazepam 2 Mg/Ml Vial SLOW IVP 2 mg Q1H PRN Administration Breakthrough agitation Methylprednisolone Sodium Succinate 60 mg 05/22/20 09:00 05/27/20 15:14 Methylprednisolone Sod Succ/Pf 125 Mg/2 Ml Vial IVP 60 mg 0300,0900,1500,2100 OMARI Administration Ondansetron HCl 4 mg 05/04/20 07:05 05/04/20 12:12 Ondansetron Pf 4 Mg/2 Ml Vial IVP 4 mg Q6H PRN Administration Nausea/Vomiting Propofol 1,000 mg 05/10/20 12:15 05/27/20 07:58 Propofol 1,000 Mg/100 Ml Vial IV 06/09/20 12:15 1,000 mg INF PRN Administration TO ACHIEVE GOAL RASS Protocol Senna/Docusate Sodium 1 tab 05/06/20 21:00 05/27/20 07:59 Senokot S 8.6-50 Mg Tab PO 1 tab BID OMARI Administration Sodium Chloride 10 ml 05/03/20 22:30 05/26/20 07:51 Flush - Normal Saline 10 Ml Syringe IVF 10 ml PRN PRN Administration Saline Flush Vecuronium [place] 10 mg 05/10/20 11:01 05/26/20 18:50 Vecuronium 10 Mg Vial IVP 10 mg Q30MIN PRN Administration Agitation Zinc Sulfate 220 mg 05/04/20 09:00 05/27/20 07:59 Zinc Sulfate 220 Mg Cap PO 220 mg DAILY OMARI Administration - Exam General - other findings: intubated, sedated Eye: PERRL, anicteric sclera ENT: normocephalic atraumatic Neck: supple, symmetric, no JVD, no thyromegaly, no lymphadenopathy, no carotid bruit Heart: RRR, no murmur, no gallops, no rubs, normal peripheral pulses Respiratory: CTAB, no wheezes, no rales, no ronchi, normal chest expansion, no tachypnea, normal percussion Gastrointestinal: soft, non-tender, non-distended, normal bowel sounds, no palpable masses, no hepatomegaly, no splenomegaly, no bruit Extremities: no cyanosis, no clubbing, no edema Skin: no lesions, no rashes Hosp A/P (1) Acute respiratory failure with hypoxia Code(s): J96.01 - ACUTE RESPIRATORY FAILURE WITH HYPOXIA Status: Acute (2) COVID-19 virus infection Code(s): U07.1 - COVID-19 Status: Acute (3) Pneumonia due to COVID-19 virus Code(s): U07.1 - COVID-19; J12.89 - OTHER VIRAL PNEUMONIA Status: Acute (4) Diabetes mellitus Code(s): E11.9 - TYPE 2 DIABETES MELLITUS WITHOUT COMPLICATIONS Status: Chronic Qualifiers: Diabetes mellitus type: type 2 - Plan respiratory failure on MV - secondary to covid 19 - failed 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
[2020-05-27] MEDS: Cholecalciferol 1,000 UNITS (25 MCG) TAB PO SCH (20:14)
[2020-05-28] MEDS: methylPREDNISolone Sod Succ/PF 125 MG/2 ML VIAL IVP SCH ×4 (03:40→21:11)
[2020-05-28] MEDS: fentaNYL Citrate/PF 2,000 MCG in Sodium Chloride 0.9% 60 ML IV SCH ×2 (04:39→16:02)
[2020-05-28] MEDS: HumaLOG 300 UNITS/3 ML VIAL SC PRN ×4 (04:41→21:07)
[2020-05-28 05:14] LABS: Anion Gap 11 mmol/L (10-20); BUN (Urea Nitrogen) 28 mg/dL (9.8-20.1); Calc. Creatinine Clearance 111 mL/min (70-130); Calcium 9.1 mg/dL (7.8-10.44); Carbon Dioxide 35 mmol/L (22-29); Chloride 95 mmol/L (98-107); Glucose 194 mg/dL (70-105); Magnesium 1.6 mg/dL (1.6-2.6); Potassium 4.3 mmol/L (3.5-5.1); Sodium 137 mmol/L (136-145)
[2020-05-28 06:03] LABS: Lymphocytes 20 % (21-51); MDiff Complete? YES; Mean Corpuscular HGB CONC 32.1 g/dL (32.0-36.0); Mean Corpuscular Hemoglobin 29.7 pg (27.0-31.0); Mean Corpuscular Volume 92.4 fL (78.0-98.0); Mean Platelet Volume 8.6 fL (7.4-10.4); Monocytes 4 % (0-10); Neutrophil 76 % (42-75); Nucleated RBC 1 % (0); Platelet Count 625 thou/uL (130-400); Platelet Morphology Comment Appears Increased; RBC Distribution Width 14.4 % (11.5-14.5); Red Blood Cell (RBC) Count 3.38 mill/uL (4.20-5.40); White Blood Cell (WBC) Count 13.2 thou/uL (4.8-10.8)
[2020-05-28] MEDS: Propofol 1,000 MG/100 ML VIAL IV PRN ×3 (06:08→20:55)
[2020-05-28] MEDS ORDERED: Magnesium 2 GM/50 ML 2 GM in Premix Bag 1 BAG IVPB SCH (07:15)
[2020-05-28 07:51] LABS: Actual Bicarbonate (HCO3a) 34.2 mEq/L (22-28); Base Excess (BEa) 9.6 mEq/L (-2.0 to +3.0); CO2 Tension 46.6 mmHg (35.0-45.0); Calcium, Ionized (arterial) 1.23 mmol/L (1.12-1.30); Carboxyhemoglobin (COHb) 1.5 gm% (0.0-3.0); Hemoglobin (Hb) 11.2 g/dL (12.0-16.0); O2 Tension (PaO2), arterial 38.9 mmHg (80.0-100.0); Potassium - ABG Lab 4.28 mmol/L (3.70-5.30); pH, Arterial 7.48 (7.35-7.45)
[2020-05-28 07:52] LABS: Puncture Site RRA
--- NOTE | 2020-05-28 08:10 | RAD ---
XR Chest 1 View Portable History: Pneumonia Comparison: Radiograph prior day Findings: Endotracheal tube tip at the clavicular level. Enteric tube tip below diaphragm although ou t of field of view. The extensive airspace opacities have not significantly changed. No significant pneumothorax. Impression: Similar examination of the chest.
[2020-05-28] MEDS: Zinc Sulfate 220 MG CAP PO SCH (08:54)
[2020-05-28] MEDS: Ascorbic Acid 500 mg Chewable Tablet PO SCH (08:54)
[2020-05-28] MEDS: Famotidine 20 MG TAB PO SCH ×2 (08:54→21:01)
[2020-05-28] MEDS: Senokot S 8.6-50 MG TAB PO SCH ×2 (08:55→21:01)
[2020-05-28] MEDS: Apixaban 5 MG TAB PER TUBE SCH ×2 (08:55→21:01)
[2020-05-28] MEDS: Lorazepam 2 MG/ML VIAL SLOW IVP PRN (10:29)
[2020-05-28] MEDS: Insulin Glargine 25 UNITS in Pre-Filled Syringe 1 EACH SC SCH ×2 (11:23→21:06)
--- NOTE | 2020-05-28 11:55 | PRG ---
DATE OF SERVICE: 05/28/2020 SUBJECTIVE: Ms. Parmar is awake. She nods when I speak to her in [place]. She nods that she is reasonably comfortable. I explained to her that she is a tiny bit better, although she is making extremely slow progress. OBJECTIVE: VITAL SIGNS: Blood pressure 142/70, heart rate is 103. She is afebrile. Oximetry is in mid to high 80s. LUNGS: Remarkable for coarse equal breath sounds. HEART: Regular rhythm. ABDOMEN: Soft. LABORATORY DATA: White count is 13.2, hemoglobin 10, platelets 625. Electrolytes are normal. BUN 28, creatinine 0.6. IMPRESSION: COVID pneumonia and respiratory failure, now on a very prolonged period in the hospital. She was admitted on May 03. We will continue supportive care. Critical care time 30 min. Job ID: [id number] MTDD
[2020-05-28] MEDS: Cholecalciferol 1,000 UNITS (25 MCG) TAB PO SCH (23:24)
[2020-05-29] MEDS: fentaNYL Citrate/PF 2,000 MCG in Sodium Chloride 0.9% 60 ML IV SCH ×2 (03:46→16:17)
[2020-05-29] MEDS: methylPREDNISolone Sod Succ/PF 125 MG/2 ML VIAL IVP SCH ×4 (04:21→20:25)
[2020-05-29] MEDS: Propofol 1,000 MG/100 ML VIAL IV PRN ×4 (04:23→18:24)
[2020-05-29] MEDS: HumaLOG 300 UNITS/3 ML VIAL SC PRN ×4 (04:27→20:26)
[2020-05-29 04:56] LABS: #Eosinphils 0.1 thou/uL (0.0-0.7); #Lymphocytes 1.9 thou/uL (1.20-3.40); #Monocytes 0.2 thou/uL (0.11-0.59); #Neutrophils 9.3 thou/uL (1.40-6.50); %Basophils 0.1 % (0.0-1.0); %Eosinophils 0.6 % (0.0-10.0); %Lymphocytes 16.5 % (21.0-51.0); %Monocytes 1.9 % (0.0-10.0); %Neutrophils 80.9 % (42.0-75.0); Hemoglobin 11.3 g/dL (12.0-16.0); Mean Corpuscular HGB CONC 33.1 g/dL (32.0-36.0); Mean Corpuscular Hemoglobin 30.7 pg (27.0-31.0); Mean Platelet Volume 8.2 fL (7.4-10.4); Platelet Count 696 thou/uL (130-400); RBC Distribution Width 14.7 % (11.5-14.5); Red Blood Cell (RBC) Count 3.69 mill/uL (4.20-5.40); White Blood Cell (WBC) Count 11.5 thou/uL (4.8-10.8)
[2020-05-29 05:23] LABS: Anion Gap 15 mmol/L (10-20); BUN (Urea Nitrogen) 31 mg/dL (9.8-20.1); Calc. Creatinine Clearance 101 mL/min (70-130); Calcium 9.5 mg/dL (7.8-10.44); Carbon Dioxide 31 mmol/L (22-29); Chloride 94 mmol/L (98-107); Glucose 260 mg/dL (70-105); Magnesium 1.9 mg/dL (1.6-2.6); Potassium 4.4 mmol/L (3.5-5.1); Sodium 136 mmol/L (136-145)
[2020-05-29] MEDS ORDERED: Magnesium 2 GM/50 ML 2 GM in Premix Bag 1 BAG IVPB SCH (06:30)
[2020-05-29 06:56] LABS: Actual Bicarbonate (HCO3a) 30.3 mEq/L (22-28); Base Excess (BEa) 5.8 mEq/L (-2.0 to +3.0); CO2 Tension 43.1 mmHg (35.0-45.0); Calcium, Ionized (arterial) 1.22 mmol/L (1.12-1.30); Carboxyhemoglobin (COHb) 1.6 gm% (0.0-3.0); Hemoglobin (Hb) 15.9 g/dL (12.0-16.0); Potassium - ABG Lab 4.23 mmol/L (3.70-5.30); pH, Arterial 7.47 (7.35-7.45)
[2020-05-29 07:15] LABS: O2 Tension (PaO2), arterial 37.4 mmHg (80.0-100.0); Puncture Site RBA
[2020-05-29 07:16] LABS: ALV-art Gradient 372.175 mmHg (0-20)
--- NOTE | 2020-05-29 08:06 | RAD ---
RADIOGRAPH CHEST 1 VIEW: DATE: 05/29/2020 TIME: 4:36 AM HISTORY: 55-year-old female in respiratory failure with pneumonia. COMPARISON: 05/28/2020 and 05/27/2020 FINDINGS: ETT and esophagogastric tube remain. No interval change in bilateral reticulonodular infiltrates, confluent into dense airspace opacities at bilateral lung bases. Pneumomediastinum. No pneumothorax. No cardiomegaly. No interval change overall. IMPRESSION: 1 No interval change. 2. Bilateral pneumonia.
[2020-05-29] MEDS: Apixaban 5 MG TAB PER TUBE SCH ×2 (08:52→20:23)
[2020-05-29] MEDS: Zinc Sulfate 220 MG CAP PO SCH (08:52)
[2020-05-29] MEDS: Senokot S 8.6-50 MG TAB PO SCH ×2 (08:52→20:23)
[2020-05-29] MEDS: Ascorbic Acid 500 mg Chewable Tablet PO SCH (08:52)
[2020-05-29] MEDS: Famotidine 20 MG TAB PO SCH ×2 (08:52→20:23)
[2020-05-29] MEDS: Insulin Glargine 25 UNITS in Pre-Filled Syringe 1 EACH SC SCH ×2 (09:32→20:25)
[2020-05-29] MEDS ORDERED: acetaZOLAMIDE Sodium 500 mg Vial IVP SCH ×2 (16:00→16:45)
--- NOTE | 2020-05-29 16:20 | PRG ---
DATE OF SERVICE: 05/29/2020 SUBJECTIVE: Ms. Parmar has been reasonably stable overnight, managed to turn her FiO2 down to 60% today. OBJECTIVE: VITAL SIGNS: Blood pressure is 101/55, heart rate is 81, respiratory rates in the teens. GENERAL: She is awake and will nod to questions, [place]ian. LUNGS: Remarkable for clear breath sounds. They are equal on both sides. HEART: Regular rhythm. ABDOMEN: Soft, nontender. LABORATORY DATA: White count 11.5, hemoglobin 11.3, platelets 696,000. BUN is 31, creatinine 0.6, potassium 4.4, glucose is in the 200s. PH 7.47, pCO2 of 43, pO2 of reportedly 37 this morning, FiO2 was increased but has been decreased back down. IMPRESSION: COVID pneumonia, respiratory failure, making slow progress. There is no pneumothorax on today's chest x-ray. answered her questions. Her mother is making very little positive steps, but is improving for the last days, a little bit each day. Critical care time 30 min. Job ID: [id number] MTDD
[2020-05-29] MEDS: Lorazepam 2 MG/ML VIAL SLOW IVP PRN (16:38)
[2020-05-29] MEDS ORDERED: Sterile Water 10 ML VIAL IVP SCH (16:45)
[2020-05-29] MEDS ORDERED: Sterile Water 10 ML ONE (18:21)
[2020-05-29] MEDS: Cholecalciferol 1,000 UNITS (25 MCG) TAB PO SCH (20:24)
--- NOTE | 2020-05-29 21:37 | PDOC.HOSPP ---
- Subjective Encounter Date: 05/28/20 Encounter Time: 12:30 Subjective: intubated, sedated, no acute events overnight - Objective Vital Signs & Weight: Vital Signs (12 hours) Temp Pulse Resp BP 05/29/20 20:00 16 05/29/20 18:43 66 94/55 L 05/29/20 18:00 16 05/29/20 16:00 16 05/29/20 14:42 81 101/55 L 05/29/20 14:00 16 05/29/20 12:00 99.3 F 16 05/29/20 10:23 77 105/57 L 05/29/20 10:00 18 Weight Admit Weight 147 lb Weight 155 lb 3.287 oz Most Recent Monitor Data Heart Rate from ECG 58 NIBP 114/61 NIBP BP-Mean 78 Respiration from ECG 16 SpO2 94 I&O: 05/28/20 05/29/20 05/30/20 06:59 06:59 06:59 Intake Total 1840.7 2055.2 1102.1 Output Total 2595 2565 1435 Balance -754.3 -509.8 -332.9 Result Diagrams: 05/29/20 04:00 05/29/20 04:00 Additional Labs: Accuchecks 05/29/20 05/29/20 05/29/20 20:22 09:37 04:03 POC Glucose 185 H 244 H 255 H Radiology Reviewed by me: Yes Hospitalist ROS - Medication Medications: Active Medications Generic Name Dose Route Start Last Admin Trade Name Freq PRN Reason Stop Dose Admin Acetaminophen 1,000 mg 05/04/20 07:05 05/22/20 01:07 Acetaminophen 500 Mg Tab PO 1,000 mg Q6H PRN Administration Mild Pain (1-3) Apixaban 5 mg 05/17/20 09:00 05/29/20 20:23 Apixaban 5 Mg Tab PER TUBE 5 mg BID OMARI Administration Ascorbic Acid 1,000 mg 05/04/20 09:00 05/29/20 08:52 Ascorbic Acid 500 Mg Chewable Tablet PO 1,000 mg DAILY OMARI Administration Cholecalciferol 5,000 units 05/04/20 21:00 05/29/20 20:24 Cholecalciferol 1,000 Units (25 Mcg) Tab PO 5,000 units HS OMARI Administration Dextrose/Water 25 gm 05/03/20 22:18 12/11/20 10:24 Dextrose 50% Abboject 50 Ml Syringe SLOW IVP 25 gm PRN PRN Administration HYPOGLYCEMIA PROTOCOL Famotidine 20 mg 05/04/20 09:00 05/29/20 20:23 Famotidine 20 Mg Tab PO 20 mg BID OMARI Administration Insulin Glargine 25 units/ 0.25 mls @ 0 mls/hr 05/06/20 21:00 05/29/20 20:25 Miscellaneous Medication SC 0.25 mls HS OMARI Administration Fentanyl Citrate 2,000 mcg/ 100 mls @ 0 mls/hr 05/20/20 23:00 05/29/20 16:17 Sodium Chloride IV 100 mls INF OMARI Administration Protocol Per Protocol Fentanyl Citrate 250 mls @ 0 mls/hr 05/20/20 22:51 05/27/20 18:03 Fentanyl Bolus IVPB 250 mls PRN PRN Administration Breakthrough pain/agitation As Directed Insulin Glargine 25 units/ 0.25 mls @ 0 mls/hr 05/24/20 09:00 05/29/20 09:32 Miscellaneous Medication SC 0.25 mls QAM OMARI Administration Insulin Human Lispro 0 units 05/05/20 01:19 05/29/20 20:26 Humalog 300 Units/3 Ml Vial SC 2 unit .MODERATE SLIDING SC PRN Administration Moderate Correctional Scale Lorazepam 2 mg 05/20/20 22:51 05/29/20 16:38 Lorazepam 2 Mg/Ml Vial SLOW IVP 2 mg Q1H PRN Administration Breakthrough agitation Methylprednisolone Sodium Succinate 60 mg 05/22/20 09:00 05/29/20 20:25 Methylprednisolone Sod Succ/Pf 125 Mg/2 Ml Vial IVP 60 mg 0300,0900,1500,2100 OMARI Administration Ondansetron HCl 4 mg 05/04/20 07:05 05/04/20 12:12 Ondansetron Pf 4 Mg/2 Ml Vial IVP 4 mg Q6H PRN Administration Nausea/Vomiting Propofol 1,000 mg 05/10/20 12:15 05/29/20 18:24 Propofol 1,000 Mg/100 Ml Vial IV 06/09/20 12:15 1,000 mg INF PRN Administration TO ACHIEVE GOAL RASS Protocol Senna/Docusate Sodium 1 tab 05/06/20 21:00 05/29/20 20:23 Senokot S 8.6-50 Mg Tab PO 1 tab BID OMARI Administration Sodium Chloride 10 ml 05/03/20 22:30 05/26/20 07:51 Flush - Normal Saline 10 Ml Syringe IVF 10 ml PRN PRN Administration Saline Flush Vecuronium [place] 10 mg 05/10/20 11:01 05/26/20 18:50 Vecuronium 10 Mg Vial IVP 10 mg Q30MIN PRN Administration Agitation Zinc Sulfate 220 mg 05/04/20 09:00 05/29/20 08:52 Zinc Sulfate 220 Mg Cap PO 220 mg DAILY OMARI Administration - Exam General - other findings: intubated, sedated, et tube in place Eye: PERRL, anicteric sclera ENT: normocephalic atraumatic, no oropharyngeal lesions, moist mucosa Neck: supple, symmetric, no JVD, no thyromegaly, no lymphadenopathy, no carotid bruit Heart: RRR, no murmur, no gallops, no rubs, normal peripheral pulses Respiratory: CTAB, no wheezes, no rales, no ronchi, normal chest expansion, no tachypnea, normal percussion Gastrointestinal: soft, non-tender, non-distended, normal bowel sounds Extremities: no cyanosis, no clubbing, no edema Hosp A/P (1) Acute respiratory failure with hypoxia Code(s): J96.01 - ACUTE RESPIRATORY FAILURE WITH HYPOXIA Status: Acute (2) COVID-19 virus infection Code(s): U07.1 - COVID-19 Status: Acute (3) Pneumonia due to COVID-19 virus Code(s): U07.1 - COVID-19; J12.89 - OTHER VIRAL PNEUMONIA Status: Acute (4) Diabetes mellitus Code(s): E11.9 - TYPE 2 DIABETES MELLITUS WITHOUT COMPLICATIONS Status: Chronic Qualifiers: Diabetes mellitus type: type 2 - Plan respiratory failure on MV - secondary to covid 19 - failed prone position - 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
--- NOTE | 2020-05-29 21:38 | PDOC.HOSPP ---
- Subjective Encounter Date: 05/29/20 Encounter Time: 15:40 Subjective: intubated, sedated, no acute events overnight - Objective Vital Signs & Weight: Vital Signs (12 hours) Temp Pulse Resp BP 05/29/20 20:00 16 05/29/20 18:43 66 94/55 L 05/29/20 18:00 16 05/29/20 16:00 16 05/29/20 14:42 81 101/55 L 05/29/20 14:00 16 05/29/20 12:00 99.3 F 16 05/29/20 10:23 77 105/57 L 05/29/20 10:00 18 Weight Admit Weight 147 lb Weight 155 lb 3.287 oz Most Recent Monitor Data Heart Rate from ECG 58 NIBP 114/61 NIBP BP-Mean 78 Respiration from ECG 16 SpO2 94 I&O: 05/28/20 05/29/20 05/30/20 06:59 06:59 06:59 Intake Total 1840.7 2055.2 1102.1 Output Total 2595 2565 1435 Balance -754.3 -509.8 -332.9 Result Diagrams: 05/29/20 04:00 05/29/20 04:00 Additional Labs: Accuchecks 05/29/20 05/29/20 05/29/20 20:22 09:37 04:03 POC Glucose 185 H 244 H 255 H Radiology Reviewed by me: Yes Hospitalist ROS - Medication Medications: Active Medications Generic Name Dose Route Start Last Admin Trade Name Freq PRN Reason Stop Dose Admin Acetaminophen 1,000 mg 05/04/20 07:05 05/22/20 01:07 Acetaminophen 500 Mg Tab PO 1,000 mg Q6H PRN Administration Mild Pain (1-3) Apixaban 5 mg 05/17/20 09:00 05/29/20 20:23 Apixaban 5 Mg Tab PER TUBE 5 mg BID OMARI Administration Ascorbic Acid 1,000 mg 05/04/20 09:00 05/29/20 08:52 Ascorbic Acid 500 Mg Chewable Tablet PO 1,000 mg DAILY OMARI Administration Cholecalciferol 5,000 units 05/04/20 21:00 05/29/20 20:24 Cholecalciferol 1,000 Units (25 Mcg) Tab PO 5,000 units HS OMARI Administration Dextrose/Water 25 gm 05/03/20 22:18 12/11/20 10:24 Dextrose 50% Abboject 50 Ml Syringe SLOW IVP 25 gm PRN PRN Administration HYPOGLYCEMIA PROTOCOL Famotidine 20 mg 05/04/20 09:00 05/29/20 20:23 Famotidine 20 Mg Tab PO 20 mg BID OMARI Administration Insulin Glargine 25 units/ 0.25 mls @ 0 mls/hr 05/06/20 21:00 05/29/20 20:25 Miscellaneous Medication SC 0.25 mls HS OMARI Administration Fentanyl Citrate 2,000 mcg/ 100 mls @ 0 mls/hr 05/20/20 23:00 05/29/20 16:17 Sodium Chloride IV 100 mls INF OMARI Administration Protocol Per Protocol Fentanyl Citrate 250 mls @ 0 mls/hr 05/20/20 22:51 05/27/20 18:03 Fentanyl Bolus IVPB 250 mls PRN PRN Administration Breakthrough pain/agitation As Directed Insulin Glargine 25 units/ 0.25 mls @ 0 mls/hr 05/24/20 09:00 05/29/20 09:32 Miscellaneous Medication SC 0.25 mls QAM OMARI Administration Insulin Human Lispro 0 units 05/05/20 01:19 05/29/20 20:26 Humalog 300 Units/3 Ml Vial SC 2 unit .MODERATE SLIDING SC PRN Administration Moderate Correctional Scale Lorazepam 2 mg 05/20/20 22:51 05/29/20 16:38 Lorazepam 2 Mg/Ml Vial SLOW IVP 2 mg Q1H PRN Administration Breakthrough agitation Methylprednisolone Sodium Succinate 60 mg 05/22/20 09:00 05/29/20 20:25 Methylprednisolone Sod Succ/Pf 125 Mg/2 Ml Vial IVP 60 mg 0300,0900,1500,2100 OMARI Administration Ondansetron HCl 4 mg 05/04/20 07:05 05/04/20 12:12 Ondansetron Pf 4 Mg/2 Ml Vial IVP 4 mg Q6H PRN Administration Nausea/Vomiting Propofol 1,000 mg 05/10/20 12:15 05/29/20 18:24 Propofol 1,000 Mg/100 Ml Vial IV 06/09/20 12:15 1,000 mg INF PRN Administration TO ACHIEVE GOAL RASS Protocol Senna/Docusate Sodium 1 tab 05/06/20 21:00 05/29/20 20:23 Senokot S 8.6-50 Mg Tab PO 1 tab BID OMARI Administration Sodium Chloride 10 ml 05/03/20 22:30 05/26/20 07:51 Flush - Normal Saline 10 Ml Syringe IVF 10 ml PRN PRN Administration Saline Flush Vecuronium [employer] 10 mg 05/10/20 11:01 05/26/20 18:50 Vecuronium 10 Mg Vial IVP 10 mg Q30MIN PRN Administration Agitation Zinc Sulfate 220 mg 05/04/20 09:00 05/29/20 08:52 Zinc Sulfate 220 Mg Cap PO 220 mg DAILY OMARI Administration - Exam General - other findings: intubated, sedated Eye: PERRL ENT: normocephalic atraumatic, moist mucosa Neck: supple, no JVD Heart: RRR, no gallops, no rubs Respiratory: CTAB, no wheezes, no rales, no ronchi Gastrointestinal: soft, non-tender, non-distended, normal bowel sounds Extremities: no cyanosis, no clubbing, no edema Hosp A/P (1) Acute respiratory failure with hypoxia Code(s): J96.01 - ACUTE RESPIRATORY FAILURE WITH HYPOXIA Status: Acute (2) COVID-19 virus infection Code(s): U07.1 - COVID-19 Status: Acute (3) Pneumonia due to COVID-19 virus Code(s): U07.1 - COVID-19; J12.89 - OTHER VIRAL PNEUMONIA Status: Acute (4) Diabetes mellitus Code(s): E11.9 - TYPE 2 DIABETES MELLITUS WITHOUT COMPLICATIONS Status: Chronic Qualifiers: Diabetes mellitus type: type 2 - Plan respiratory failure on MV - secondary to covid 19 - 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
[2020-05-30] MEDS: Lorazepam 2 MG/ML VIAL SLOW IVP PRN ×3 (00:49→21:14)
[2020-05-30] MEDS: methylPREDNISolone Sod Succ/PF 125 MG/2 ML VIAL IVP SCH ×4 (03:11→20:12)
[2020-05-30] MEDS: fentaNYL Citrate/PF 2,000 MCG in Sodium Chloride 0.9% 60 ML IV SCH ×2 (03:34→14:00)
[2020-05-30] MEDS: HumaLOG 300 UNITS/3 ML VIAL SC PRN ×2 (05:11→09:54)
[2020-05-30 05:33] LABS: #Eosinphils 0.1 thou/uL (0.0-0.7); #Lymphocytes 0.7 thou/uL (1.20-3.40); #Monocytes 0.2 thou/uL (0.11-0.59); %Eosinophils 0.6 % (0.0-10.0); %Lymphocytes 6.7 % (21.0-51.0); %Monocytes 2.3 % (0.0-10.0); %Neutrophils 90.4 % (42.0-75.0); Hemoglobin 9.9 g/dL (12.0-16.0); Mean Corpuscular HGB CONC 31.7 g/dL (32.0-36.0); Mean Corpuscular Hemoglobin 29.3 pg (27.0-31.0); Mean Corpuscular Volume 92.5 fL (78.0-98.0); Platelet Count 635 thou/uL (130-400); RBC Distribution Width 14.6 % (11.5-14.5); Red Blood Cell (RBC) Count 3.38 mill/uL (4.20-5.40); White Blood Cell (WBC) Count 9.9 thou/uL (4.8-10.8)
[2020-05-30 05:54] LABS: Anion Gap 12 mmol/L (10-20); BUN (Urea Nitrogen) 40 mg/dL (9.8-20.1); Calc. Creatinine Clearance 93 mL/min (70-130); Calcium 8.8 mg/dL (7.8-10.44); Carbon Dioxide 27 mmol/L (22-29); Chloride 100 mmol/L (98-107); Glucose 333 mg/dL (70-105); Magnesium 1.9 mg/dL (1.6-2.6); Sodium 135 mmol/L (136-145)
[2020-05-30] MEDS ORDERED: Magnesium 2 GM/50 ML 2 GM in Premix Bag 1 BAG IVPB SCH (06:15)
[2020-05-30] MEDS: Propofol 1,000 MG/100 ML VIAL IV PRN ×2 (06:21→18:45)
[2020-05-30 07:27] LABS: Actual Bicarbonate (HCO3a) 26.1 mEq/L (22-28); Base Excess (BEa) 0.7 mEq/L (-2.0 to +3.0); CO2 Tension 44.6 mmHg (35.0-45.0); Calcium, Ionized (arterial) 1.27 mmol/L (1.12-1.30); Carboxyhemoglobin (COHb) 1.4 gm% (0.0-3.0); Hemoglobin (Hb) 12.7 g/dL (12.0-16.0); Potassium - ABG Lab 3.58 mmol/L (3.70-5.30); pH, Arterial 7.39 (7.35-7.45)
[2020-05-30 07:54] LABS: O2 Tension (PaO2), arterial 54.8 mmHg (80.0-100.0); Puncture Site RRA
[2020-05-30] MEDS: Zinc Sulfate 220 MG CAP PO SCH (08:34)
[2020-05-30] MEDS: Apixaban 5 MG TAB PER TUBE SCH ×2 (08:34→20:10)
[2020-05-30] MEDS: Ascorbic Acid 500 mg Chewable Tablet PO SCH (08:34)
[2020-05-30] MEDS: Senokot S 8.6-50 MG TAB PO SCH ×2 (08:34→20:11)
[2020-05-30] MEDS: Famotidine 20 MG TAB PO SCH ×2 (08:34→20:11)
[2020-05-30] MEDS: Insulin Glargine 25 UNITS in Pre-Filled Syringe 1 EACH SC SCH ×2 (08:49→20:12)
--- NOTE | 2020-05-30 09:38 | RAD ---
AP CHEST: HISTORY: Pneumonia followup. COMPARISON: 05/29/2020. FINDINGS: ET tube and NG tube remain in place. There are hazy bilateral infiltrates more prominent in the lower lobes. Findings are stable from yes terday. IMPRESSION: No acute interval change. POS: AGW
--- NOTE | 2020-05-30 14:19 | PRG ---
DATE OF SERVICE: 05/30/2020 SUBJECTIVE: Zoey Parmar remains mechanically ventilated. OBJECTIVE: VITAL SIGNS: Heart rates in the 50s, blood pressures in the 90s, respiratory rate is in the low 20s. She is afebrile. LUNGS: Unchanged. HEART: Unchanged. ABDOMEN: Unchanged. LABORATORY DATA: White count 9.9, hemoglobin 9.9, platelets 635. Sodium 135, potassium 4, chloride 100, bicarb 27, BUN 40, creatinine 0.7. PH 7.39, pCO2 of 44, pO2 of 54. Still continue to make slow changes in mechanical ventilation, decreasing FiO2. She is 27 days into her hospitalization. At some point in the near future, she will be hopefully a candidate for tracheostomy and feeding tube placements. Job ID: [id number]
--- NOTE | 2020-05-30 16:16 | PDOC.HOSPP ---
- Subjective Encounter Date: 05/30/20 Subjective: intubated, sedated, no acute events overnight. - Objective Vital Signs & Weight: Vital Signs (12 hours) Temp Pulse Resp Pulse Ox 05/30/20 14:00 16 05/30/20 12:00 16 05/30/20 10:45 57 L 05/30/20 10:00 16 05/30/20 08:00 16 05/30/20 07:52 59 L 05/30/20 07:23 97 05/30/20 07:00 98.6 F 05/30/20 06:00 16 Weight Admit Weight 147 lb Weight 155 lb 3.287 oz Most Recent Monitor Data Heart Rate from ECG 56 NIBP 97/62 NIBP BP-Mean 73 Respiration from ECG 21 SpO2 91 I&O: 05/29/20 05/30/20 05/31/20 06:59 06:59 06:59 Intake Total 2055.2 1624.8 210 Output Total 2565 2155 510 Balance -509.8 -530.2 -300 Result Diagrams: 05/31/20 05:00 05/31/20 05:00 Additional Labs: Accuchecks 05/30/20 05/30/20 05/29/20 09:42 05:06 20:22 POC Glucose 204 H 319 H 185 H 05/29/20 16:14 POC Glucose 307 H Hospitalist ROS - Medication Medications: Active Medications Generic Name Dose Route Start Last Admin Trade Name Freq PRN Reason Stop Dose Admin Acetaminophen 1,000 mg 05/04/20 07:05 05/22/20 01:07 Acetaminophen 500 Mg Tab PO 1,000 mg Q6H PRN Administration Mild Pain (1-3) Apixaban 5 mg 05/17/20 09:00 05/30/20 08:34 Apixaban 5 Mg Tab PER TUBE 5 mg BID OMARI Administration Ascorbic Acid 1,000 mg 05/04/20 09:00 05/30/20 08:34 Ascorbic Acid 500 Mg Chewable Tablet PO 1,000 mg DAILY OMARI Administration Cholecalciferol 5,000 units 05/04/20 21:00 05/29/20 20:24 Cholecalciferol 1,000 Units (25 Mcg) Tab PO 5,000 units HS OMARI Administration Dextrose/Water 25 gm 05/03/20 22:18 05/11/20 10:24 Dextrose 50% Abboject 50 Ml Syringe SLOW IVP 25 gm PRN PRN Administration HYPOGLYCEMIA PROTOCOL Famotidine 20 mg 05/04/20 09:00 05/30/20 08:34 Famotidine 20 Mg Tab PO 20 mg BID OMARI Administration Insulin Glargine 25 units/ 0.25 mls @ 0 mls/hr 05/06/20 21:00 05/29/20 20:25 Miscellaneous Medication SC 0.25 mls HS OMARI Administration Fentanyl Citrate 2,000 mcg/ 100 mls @ 0 mls/hr 05/20/20 23:00 05/30/20 14:00 Sodium Chloride IV 100 mls INF OMARI Administration Protocol Per Protocol Fentanyl Citrate 250 mls @ 0 mls/hr 05/20/20 22:51 05/27/20 18:03 Fentanyl Bolus IVPB 250 mls PRN PRN Administration Breakthrough pain/agitation As Directed Insulin Glargine 25 units/ 0.25 mls @ 0 mls/hr 05/24/20 09:00 05/30/20 08:49 Miscellaneous Medication SC 0.25 mls QAM OMARI Administration Insulin Human Lispro 0 units 05/05/20 01:19 05/30/20 09:54 Humalog 300 Units/3 Ml Vial SC 4 unit .MODERATE SLIDING SC PRN Administration Moderate Correctional Scale Lorazepam 2 mg 05/20/20 22:51 05/30/20 06:41 Lorazepam 2 Mg/Ml Vial SLOW IVP 2 mg Q1H PRN Administration Breakthrough agitation Methylprednisolone Sodium Succinate 60 mg 05/22/20 09:00 05/30/20 14:40 Methylprednisolone Sod Succ/Pf 125 Mg/2 Ml Vial IVP 60 mg 0300,0900,1500,2100 OMARI Administration Ondansetron HCl 4 mg 05/04/20 07:05 05/04/20 12:12 Ondansetron Pf 4 Mg/2 Ml Vial IVP 4 mg Q6H PRN Administration Nausea/Vomiting Propofol 1,000 mg 05/10/20 12:15 05/30/20 06:21 Propofol 1,000 Mg/100 Ml Vial IV 06/09/20 12:15 1,000 mg INF PRN Administration TO ACHIEVE GOAL RASS Protocol Senna/Docusate Sodium 1 tab 05/06/20 21:00 05/30/20 08:34 Senokot S 8.6-50 Mg Tab PO 1 tab BID OMARI Administration Sodium Chloride 10 ml 05/03/20 22:30 05/26/20 07:51 Flush - Normal Saline 10 Ml Syringe IVF 10 ml PRN PRN Administration Saline Flush Vecuronium [place] 10 mg 05/10/20 11:01 05/26/20 18:50 Vecuronium 10 Mg Vial IVP 10 mg Q30MIN PRN Administration Agitation Zinc Sulfate 220 mg 05/04/20 09:00 05/30/20 08:34 Zinc Sulfate 220 Mg Cap PO 220 mg DAILY OMARI Administration - Exam General - other findings: intubated, sedated Eye: PERRL, anicteric sclera ENT: normocephalic atraumatic Neck: supple, no JVD Heart: RRR, no murmur, no gallops, no rubs Respiratory: CTAB, no wheezes, no rales, no ronchi Gastrointestinal: soft, non-tender, non-distended, normal bowel sounds Extremities: no cyanosis, no clubbing, no edema Skin: no lesions, no rashes Neurological - other findings: sedated Hosp A/P (1) Acute respiratory failure with hypoxia Code(s): J96.01 - ACUTE RESPIRATORY FAILURE WITH HYPOXIA Status: Acute (2) COVID-19 virus infection Code(s): U07.1 - COVID-19 Status: Acute (3) Pneumonia due to COVID-19 virus Code(s): U07.1 - COVID-19; J12.89 - OTHER VIRAL PNEUMONIA Status: Acute (4) Diabetes mellitus Code(s): E11.9 - TYPE 2 DIABETES MELLITUS WITHOUT COMPLICATIONS Status: Chronic Qualifiers: Diabetes mellitus type: type 2 - Plan respiratory failure on MV - secondary to covid 19 - failed prone position - 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
[2020-05-30] MEDS: Cholecalciferol 1,000 UNITS (25 MCG) TAB PO SCH (20:10)
[2020-05-30] MEDS ORDERED: Fentanyl BOLUS 250 ML IVPB PRN (23:18)
[2020-05-31] MEDS: fentaNYL Citrate/PF 2,000 MCG in Sodium Chloride 0.9% 60 ML IV SCH ×3 (00:03→20:43)
[2020-05-31] MEDS: methylPREDNISolone Sod Succ/PF 125 MG/2 ML VIAL IVP SCH ×4 (02:36→21:17)
[2020-05-31] MEDS: Propofol 1,000 MG/100 ML VIAL IV PRN ×2 (05:23→16:50)
[2020-05-31] MEDS: HumaLOG 300 UNITS/3 ML VIAL SC PRN ×2 (05:24→10:05)
[2020-05-31 05:39] LABS: #Lymphocytes 0.7 thou/uL (1.20-3.40); #Monocytes 0.3 thou/uL (0.11-0.59); #Neutrophils 8.7 thou/uL (1.40-6.50); %Basophils 0.4 % (0.0-1.0); %Eosinophils 0.3 % (0.0-10.0); %Lymphocytes 7.1 % (21.0-51.0); %Monocytes 3.3 % (0.0-10.0); %Neutrophils 88.9 % (42.0-75.0); Hemoglobin 10.2 g/dL (12.0-16.0); Mean Corpuscular HGB CONC 32.2 g/dL (32.0-36.0); Mean Corpuscular Hemoglobin 29.8 pg (27.0-31.0); Mean Corpuscular Volume 92.5 fL (78.0-98.0); Mean Platelet Volume 8.5 fL (7.4-10.4); Platelet Count 657 thou/uL (130-400); RBC Distribution Width 14.8 % (11.5-14.5); Red Blood Cell (RBC) Count 3.43 mill/uL (4.20-5.40); White Blood Cell (WBC) Count 9.8 thou/uL (4.8-10.8)
[2020-05-31 06:03] LABS: Anion Gap 13 mmol/L (10-20); BUN (Urea Nitrogen) 39 mg/dL (9.8-20.1); Calc. Creatinine Clearance 103 mL/min (70-130); Calcium 8.9 mg/dL (7.8-10.44); Carbon Dioxide 28 mmol/L (22-29); Chloride 101 mmol/L (98-107); Glucose 198 mg/dL (70-105); Potassium 4.3 mmol/L (3.5-5.1); Sodium 138 mmol/L (136-145)
[2020-05-31 07:25] LABS: Actual Bicarbonate (HCO3a) 29.2 mEq/L (22-28); Base Excess (BEa) 4.7 mEq/L (-2.0 to +3.0); Calcium, Ionized (arterial) 1.23 mmol/L (1.12-1.30); Carboxyhemoglobin (COHb) 1.6 gm% (0.0-3.0); Hemoglobin (Hb) 12.6 g/dL (12.0-16.0); Potassium - ABG Lab 4.11 mmol/L (3.70-5.30); pH, Arterial 7.45 (7.35-7.45)
[2020-05-31 07:27] LABS: O2 Tension (PaO2), arterial 37.8 mmHg (80.0-100.0); Puncture Site LRA
--- NOTE | 2020-05-31 08:30 | RAD ---
Portable frontal chest radiograph: 05/31/2020 COMPARISON: 05/30/2020 HISTORY: Pneumonia FINDINGS: Endotracheal tube, and nasogastric tube present in stable position. Nonspecific coarse line ar interstitial opacity in bilateral perihilar regions and both lung bases with superimposed bibasilar groundglass opacity, not significantly changed when compared to the 05/30/2020 examination. IMPRESSION: No significant interval change.
[2020-05-31] MEDS: Ascorbic Acid 500 mg Chewable Tablet PO SCH (08:31)
[2020-05-31] MEDS: Zinc Sulfate 220 MG CAP PO SCH (08:31)
[2020-05-31] MEDS: Famotidine 20 MG TAB PO SCH ×2 (08:31→21:18)
[2020-05-31] MEDS: Apixaban 5 MG TAB PER TUBE SCH ×2 (08:31→21:18)
[2020-05-31] MEDS: Senokot S 8.6-50 MG TAB PO SCH ×2 (08:31→21:18)
[2020-05-31] MEDS: Insulin Glargine 25 UNITS in Pre-Filled Syringe 1 EACH SC SCH ×2 (08:34→21:21)
[2020-05-31] MEDS: Lorazepam 2 MG/ML VIAL SLOW IVP PRN ×4 (10:13→22:39)
--- NOTE | 2020-05-31 17:08 | PRG ---
DATE OF SERVICE: 05/31/2020 SUBJECTIVE: Ms. Parmar does not tolerate having her sedation decreased. If she is sedated, we can successfully ventilate her with lower FiO2 and lower PEEP, but if she wakes up, starts coughing, she desaturates very quickly. OBJECTIVE: VITAL SIGNS: Blood pressure is 95/56, heart rate is in the 60s, respiratory rates in the teens. LUNGS: Clear. HEART: Regular rhythm. ABDOMEN: Soft. EXTREMITIES: Without asymmetry. LABORATORY DATA: White count 9.8, hemoglobin 10.2, platelets 657. Sodium 138, potassium 4.3, chloride 101, bicarb 28, BUN 39, creatinine 0.67, glucose 198. PH 7.45, CO2 of 43, PO2 of 37. IMPRESSION: COVID pneumonia. We can get her PEEP down below 10. We can consider tracheostomy next week. She has made progress in the last week, although it is very slow. CRITICAL CARE TIME: 30 minutes. Job ID: [id number] MTDD
--- NOTE | 2020-05-31 17:24 | PDOC.HOSPP ---
- Subjective Encounter Date: 05/31/20 Subjective: Patient was seen and examined in bed. She was noncommunicative on ventilator support. No changes significant event overnight - Objective Vital Signs & Weight: Vital Signs (12 hours) Pulse Resp BP Pulse Ox 05/31/20 16:00 16 05/31/20 15:02 64 95/56 L 05/31/20 14:00 16 05/31/20 12:00 16 05/31/20 10:21 84 116/83 05/31/20 10:00 21 H 05/31/20 08:00 16 05/31/20 07:06 89 L 05/31/20 06:59 80 100/62 05/31/20 06:00 16 Weight Admit Weight 147 lb Weight 155 lb 3.287 oz Most Recent Monitor Data Heart Rate from ECG 63 NIBP 92/47 NIBP BP-Mean 62 Respiration from ECG 16 SpO2 91 I&O: 05/30/20 05/31/20 06/01/20 06:59 06:59 06:59 Intake Total 1624.8 1530.4 330 Output Total 2155 1570 470 Balance -530.2 -39.6 -140 Result Diagrams: 05/31/20 05:00 05/31/20 05:00 Additional Labs: Accuchecks 05/31/20 05/31/20 05/31/20 15:51 09:54 04:27 POC Glucose 131 H 213 H 176 H 05/30/20 05/30/20 20:04 15:54 POC Glucose 146 H 141 H Hospitalist ROS - Review of Systems ROS unobtainable: due to mental status All other systems reviewed; all pertinent +/- noted in HPI/Subj - Medication Medications: Active Medications Generic Name Dose Route Start Last Admin Trade Name Freq PRN Reason Stop Dose Admin Acetaminophen 1,000 mg 05/04/20 07:05 05/22/20 01:07 Acetaminophen 500 Mg Tab PO 1,000 mg Q6H PRN Administration Mild Pain (1-3) Apixaban 5 mg 05/17/20 09:00 05/31/20 08:31 Apixaban 5 Mg Tab PER TUBE 5 mg BID OMARI Administration Ascorbic Acid 1,000 mg 05/04/20 09:00 05/31/20 08:31 Ascorbic Acid 500 Mg Chewable Tablet PO 1,000 mg DAILY OMARI Administration Cholecalciferol 5,000 units 05/04/20 21:00 05/30/20 20:10 Cholecalciferol 1,000 Units (25 Mcg) Tab PO 5,000 units HS OMARI Administration Dextrose/Water 25 gm 05/03/20 22:18 05/11/20 10:24 Dextrose 50% Abboject 50 Ml Syringe SLOW IVP 25 gm PRN PRN Administration HYPOGLYCEMIA PROTOCOL Famotidine 20 mg 05/04/20 09:00 05/31/20 08:31 Famotidine 20 Mg Tab PO 20 mg BID OMARI Administration Insulin Glargine 25 units/ 0.25 mls @ 0 mls/hr 05/06/20 21:00 05/30/20 20:12 Miscellaneous Medication SC 0.25 mls HS OMARI Administration Insulin Glargine 25 units/ 0.25 mls @ 0 mls/hr 05/24/20 09:00 05/31/20 08:34 Miscellaneous Medication SC Not Given QAM OMARI Fentanyl Citrate 2,000 mcg/ 100 mls @ 0 mls/hr 05/30/20 23:30 05/31/20 10:37 Sodium Chloride IV 100 mls INF OMARI Administration Protocol Per Protocol Insulin Human Lispro 0 units 05/05/20 01:19 05/31/20 10:05 Humalog 300 Units/3 Ml Vial SC 4 unit .MODERATE SLIDING SC PRN Administration Moderate Correctional Scale Lorazepam 2 mg 05/30/20 23:18 05/31/20 16:29 Lorazepam 2 Mg/Ml Vial SLOW IVP 2 mg Q1H PRN Administration Breakthrough agitation Methylprednisolone Sodium Succinate 60 mg 05/22/20 09:00 05/31/20 14:31 Methylprednisolone Sod Succ/Pf 125 Mg/2 Ml Vial IVP 60 mg 0300,0900,1500,2100 OMARI Administration Ondansetron HCl 4 mg 05/04/20 07:05 05/04/20 12:12 Ondansetron Pf 4 Mg/2 Ml Vial IVP 4 mg Q6H PRN Administration Nausea/Vomiting Propofol 1,000 mg 05/10/20 12:15 05/31/20 16:50 Propofol 1,000 Mg/100 Ml Vial IV 06/09/20 12:15 1,000 mg INF PRN Administration TO ACHIEVE GOAL RASS Protocol Senna/Docusate Sodium 1 tab 05/06/20 21:00 05/31/20 08:31 Senokot S 8.6-50 Mg Tab PO 1 tab BID OMARI Administration Sodium Chloride 10 ml 05/03/20 22:30 05/26/20 07:51 Flush - Normal Saline 10 Ml Syringe IVF 10 ml PRN PRN Administration Saline Flush Vecuronium [place] 10 mg 05/10/20 11:01 05/26/20 18:50 Vecuronium 10 Mg Vial IVP 10 mg Q30MIN PRN Administration Agitation Zinc Sulfate 220 mg 05/04/20 09:00 05/31/20 08:31 Zinc Sulfate 220 Mg Cap PO 220 mg DAILY OMARI Administration - Exam General - other findings: Noncommunicative. On ventilator support Eye: PERRL, anicteric sclera ENT: normocephalic atraumatic, no oropharyngeal lesions Heart: RRR, no murmur, no gallops, no rubs Respiratory - other findings: Mechanical breath sounds bilaterally. No wheeze or rhonchi Gastrointestinal: soft, non-distended, normal bowel sounds Extremities: no cyanosis, no clubbing, no edema Psychiatric - other findings: Unable to assess Hosp A/P - Plan This is a 55-year-old female patient with a history of diabetes mellitus, hypothyroidism diagnosed on 05/03/2020 with pneumonia due to Covid. She is currently on ventilator support. Acute hypoxic respiratory failure Continue support on ventilator Possible trach next week Appreciate pulmonology input Pneumonia due to Covid Continue supplemental oxygen Continue steroids Appreciate pulmonology input. Prolonged ICU stay Continue supportive management. Diabetes mellitus DKA at presentationresolved Continue glucose monitoring Continue insulin therapy. VT prophylaxisapixaban CODE STATUSfull code Dispositionpending improvement .
[2020-05-31] MEDS: Cholecalciferol 1,000 UNITS (25 MCG) TAB PO SCH (22:13)
[2020-06-01] MEDS: Lorazepam 2 MG/ML VIAL SLOW IVP PRN ×4 (00:36→14:54)
[2020-06-01] MEDS: methylPREDNISolone Sod Succ/PF 125 MG/2 ML VIAL IVP SCH ×4 (02:35→21:11)
[2020-06-01] MEDS ORDERED: Sodium Chloride 0.9% 500 ML IV SCH (03:30)
[2020-06-01] MEDS: HumaLOG 300 UNITS/3 ML VIAL SC PRN (04:11)
[2020-06-01 04:38] LABS: #Lymphocytes 1.2 thou/uL (1.20-3.40); #Monocytes 0.4 thou/uL (0.11-0.59); #Neutrophils 8.1 thou/uL (1.40-6.50); %Basophils 0.1 % (0.0-1.0); %Eosinophils 0.5 % (0.0-10.0); %Lymphocytes 12.1 % (21.0-51.0); %Neutrophils 83.3 % (42.0-75.0); Hemoglobin 10.2 g/dL (12.0-16.0); Mean Corpuscular Hemoglobin 30.7 pg (27.0-31.0); Mean Platelet Volume 8.4 fL (7.4-10.4); Platelet Count 609 thou/uL (130-400); RBC Distribution Width 14.9 % (11.5-14.5); Red Blood Cell (RBC) Count 3.31 mill/uL (4.20-5.40); White Blood Cell (WBC) Count 9.8 thou/uL (4.8-10.8)
[2020-06-01 04:58] LABS: Anion Gap 12 mmol/L (10-20); BUN (Urea Nitrogen) 33 mg/dL (9.8-20.1); Calc. Creatinine Clearance 111 mL/min (70-130); Calcium 8.6 mg/dL (7.8-10.44); Carbon Dioxide 28 mmol/L (22-29); Chloride 99 mmol/L (98-107); Glucose 218 mg/dL (70-105); Potassium 4.1 mmol/L (3.5-5.1); Sodium 135 mmol/L (136-145)
[2020-06-01 07:21] LABS: Actual Bicarbonate (HCO3a) 23.9 mEq/L (22-28); Base Excess (BEa) 1.1 mEq/L (-2.0 to +3.0); CO2 Tension 33.1 mmHg (35.0-45.0); Calcium, Ionized (arterial) 1.19 mmol/L (1.12-1.30); Carboxyhemoglobin (COHb) 2.5 gm% (0.0-3.0); Hemoglobin (Hb) 15.5 g/dL (12.0-16.0); Potassium - ABG Lab 4.04 mmol/L (3.70-5.30); pH, Arterial 7.48 (7.35-7.45)
[2020-06-01 07:25] LABS: ALV-art Gradient 402.325 mmHg (0-20); O2 Tension (PaO2), arterial 55.4 mmHg (80.0-100.0); Puncture Site LRA
[2020-06-01] MEDS: Insulin Glargine 25 UNITS in Pre-Filled Syringe 1 EACH SC SCH ×2 (08:26→21:08)
[2020-06-01] MEDS: Famotidine 20 MG TAB PO SCH ×2 (08:26→21:10)
[2020-06-01] MEDS: Zinc Sulfate 220 MG CAP PO SCH (08:26)
[2020-06-01] MEDS: Apixaban 5 MG TAB PER TUBE SCH ×2 (08:27→21:10)
[2020-06-01] MEDS: Senokot S 8.6-50 MG TAB PO SCH ×2 (08:27→21:10)
[2020-06-01] MEDS: Ascorbic Acid 500 mg Chewable Tablet PO SCH (08:27)
[2020-06-01] MEDS: Propofol 1,000 MG/100 ML VIAL IV PRN ×2 (09:05→21:11)
--- NOTE | 2020-06-01 09:06 | RAD ---
Chest one view HISTORY: Pneumonia. Follow-up. COMPARISON: Multiple exams back to 05/29/2020. FINDINGS: Cardiac silhouette is partially obscured by ill-defined patchy infiltrate throughout each l kulwinder that is similar in appearance to the prior study. Mediastinum is unchanged in position. Pulmonary vasculature are unremarkable. No evidence of pneumothorax. IMPRESSION : Widespread parenchymal infiltrate and other findings are stable.
[2020-06-01] MEDS: fentaNYL Citrate/PF 2,000 MCG in Sodium Chloride 0.9% 60 ML IV SCH (12:37)
[2020-06-01] MEDS: Vecuronium 10 MG VIAL IVP PRN (15:26)
--- NOTE | 2020-06-01 18:21 | PDOC.HOSPP ---
- Subjective Encounter Date: 06/01/20 Subjective: Was seen and examined in bed. She was on ventilator support. No significant changes overnight. - Objective Vital Signs & Weight: Vital Signs (12 hours) Pulse Resp BP Pulse Ox 06/01/20 18:00 16 06/01/20 16:00 16 06/01/20 14:09 72 99/58 L 06/01/20 14:00 16 06/01/20 12:00 16 06/01/20 10:37 65 94/52 L 06/01/20 10:00 16 06/01/20 08:00 16 06/01/20 07:07 96 06/01/20 06:59 91 112/61 Weight Admit Weight 147 lb Weight 155 lb 3.287 oz Most Recent Monitor Data Heart Rate from ECG 60 NIBP 93/50 NIBP BP-Mean 64 Respiration from ECG 16 SpO2 96 I&O: 05/31/20 06/01/20 06/02/20 06:59 06:59 06:59 Intake Total 1530.4 2879 845 Output Total 1570 1245 685 Balance -39.6 1634 160 Result Diagrams: 06/01/20 03:15 06/01/20 03:15 Additional Labs: Accuchecks 06/01/20 06/01/20 06/01/20 15:29 09:45 04:06 POC Glucose 125 H 128 H 229 H 05/31/20 21:24 POC Glucose 148 H Hospitalist ROS - Review of Systems ROS unobtainable: due to endotracheal tube - Medication Medications: Active Medications Generic Name Dose Route Start Last Admin Trade Name Freq PRN Reason Stop Dose Admin Acetaminophen 1,000 mg 05/04/20 07:05 05/22/20 01:07 Acetaminophen 500 Mg Tab PO 1,000 mg Q6H PRN Administration Mild Pain (1-3) Apixaban 5 mg 05/17/20 09:00 06/01/20 08:27 Apixaban 5 Mg Tab PER TUBE 5 mg BID OMARI Administration Ascorbic Acid 1,000 mg 05/04/20 09:00 06/01/20 08:27 Ascorbic Acid 500 Mg Chewable Tablet PO 1,000 mg DAILY OMARI Administration Cholecalciferol 5,000 units 05/04/20 21:00 05/31/20 22:13 Cholecalciferol 1,000 Units (25 Mcg) Tab PO 5,000 units HS OMARI Administration Dextrose/Water 25 gm 05/03/20 22:18 05/11/20 10:24 Dextrose 50% Abboject 50 Ml Syringe SLOW IVP 25 gm PRN PRN Administration HYPOGLYCEMIA PROTOCOL Famotidine 20 mg 05/04/20 09:00 06/01/20 08:26 Famotidine 20 Mg Tab PO 20 mg BID OMARI Administration Insulin Glargine 25 units/ 0.25 mls @ 0 mls/hr 05/06/20 21:00 05/31/20 21:21 Miscellaneous Medication SC 0.25 mls HS OMARI Administration Insulin Glargine 25 units/ 0.25 mls @ 0 mls/hr 05/24/20 09:00 06/01/20 08:26 Miscellaneous Medication SC 0.25 mls QAM OMARI Administration Fentanyl Citrate 2,000 mcg/ 100 mls @ 0 mls/hr 05/30/20 23:30 06/01/20 12:37 Sodium Chloride IV 100 mls INF OMARI Administration Protocol Per Protocol Insulin Human Lispro 0 units 05/05/20 01:19 06/01/20 04:11 Humalog 300 Units/3 Ml Vial SC 4 unit .MODERATE SLIDING SC PRN Administration Moderate Correctional Scale Lorazepam 2 mg 05/30/20 23:18 06/01/20 14:54 Lorazepam 2 Mg/Ml Vial SLOW IVP 2 mg Q1H PRN Administration Breakthrough agitation Methylprednisolone Sodium Succinate 60 mg 05/22/20 09:00 06/01/20 14:29 Methylprednisolone Sod Succ/Pf 125 Mg/2 Ml Vial IVP 60 mg 0300,0900,1500,2100 OMARI Administration Ondansetron HCl 4 mg 05/04/20 07:05 05/04/20 12:12 Ondansetron Pf 4 Mg/2 Ml Vial IVP 4 mg Q6H PRN Administration Nausea/Vomiting Propofol 1,000 mg 05/10/20 12:15 06/01/20 09:05 Propofol 1,000 Mg/100 Ml Vial IV 06/09/20 12:15 1,000 mg INF PRN Administration TO ACHIEVE GOAL RASS Protocol Senna/Docusate Sodium 1 tab 05/06/20 21:00 06/01/20 08:27 Senokot S 8.6-50 Mg Tab PO 1 tab BID OMARI Administration Sodium Chloride 10 ml 05/03/20 22:30 05/26/20 07:51 Flush - Normal Saline 10 Ml Syringe IVF 10 ml PRN PRN Administration Saline Flush Vecuronium [place] 10 mg 05/10/20 11:01 06/01/20 15:26 Vecuronium 10 Mg Vial IVP 10 mg Q30MIN PRN Administration Agitation Zinc Sulfate 220 mg 05/04/20 09:00 06/01/20 08:26 Zinc Sulfate 220 Mg Cap PO 220 mg DAILY OMARI Administration - Exam General - other findings: On ventilator support. Not communicative. ENT: normocephalic atraumatic Heart: RRR, no murmur, no gallops, no rubs Respiratory - other findings: Mechanical breath sounds. Gastrointestinal: soft, non-distended, normal bowel sounds Extremities: no cyanosis, no clubbing, no edema Psychiatric - other findings: Unable to assess Hosp A/P - Plan This is a 55-year-old female patient with a history of diabetes mellitus, hypothyroidism diagnosed on 05/03/2020 with pneumonia due to Covid. She is currently on ventilator support. No significant improvement so far. Acute hypoxic respiratory failure Continue support on ventilator Possible trach next week Appreciate pulmonology input Pneumonia due to Covid Continue supplemental oxygen Continue steroids, vitamins anticoagulation Appreciate pulmonology input. Prolonged ICU stay Continue supportive management. Diabetes mellitus DKA at presentationresolved Continue glucose monitoring Continue insulin therapy. VT prophylaxisapixaban CODE STATUSfull code Dispositionpending improvement .
[2020-06-01] MEDS: Cholecalciferol 1,000 UNITS (25 MCG) TAB PO SCH (21:10)
[2020-06-01] MEDS: Benzonatate 100 MG CAP PO PRN (23:19)
[2020-06-02] MEDS: methylPREDNISolone Sod Succ/PF 125 MG/2 ML VIAL IVP SCH ×4 (02:15→21:38)
[2020-06-02] MEDS: HumaLOG 300 UNITS/3 ML VIAL SC PRN (03:31)
[2020-06-02] MEDS: Lorazepam 2 MG/ML VIAL SLOW IVP PRN ×2 (04:16→21:51)
[2020-06-02 04:59] LABS: #Eosinphils 0.1 thou/uL (0.0-0.7); #Lymphocytes 0.9 thou/uL (1.20-3.40); #Monocytes 0.4 thou/uL (0.11-0.59); #Neutrophils 11.1 thou/uL (1.40-6.50); %Basophils 0.2 % (0.0-1.0); %Eosinophils 0.5 % (0.0-10.0); %Lymphocytes 7.5 % (21.0-51.0); %Monocytes 2.8 % (0.0-10.0); Mean Corpuscular HGB CONC 32.5 g/dL (32.0-36.0); Mean Corpuscular Hemoglobin 30.1 pg (27.0-31.0); Mean Corpuscular Volume 92.6 fL (78.0-98.0); Mean Platelet Volume 8.5 fL (7.4-10.4); Platelet Count 612 thou/uL (130-400); RBC Distribution Width 15.2 % (11.5-14.5); Red Blood Cell (RBC) Count 3.65 mill/uL (4.20-5.40); White Blood Cell (WBC) Count 12.5 thou/uL (4.8-10.8)
[2020-06-02 05:17] LABS: Anion Gap 15 mmol/L (10-20); BUN (Urea Nitrogen) 29 mg/dL (9.8-20.1); Calc. Creatinine Clearance 108 mL/min (70-130); Calcium 8.8 mg/dL (7.8-10.44); Carbon Dioxide 27 mmol/L (22-29); Chloride 98 mmol/L (98-107); Glucose 224 mg/dL (70-105); Potassium 3.7 mmol/L (3.5-5.1); Sodium 136 mmol/L (136-145)
--- NOTE | 2020-06-02 06:13 | PRG ---
DATE OF SERVICE: 06/01/2020 SUBJECTIVE: Zoey Parmar is a 55-year-old female, who was intubated on the vent. She is day 29 in the hospital. OBJECTIVE: GENERAL: She is sedated. VITAL SIGNS: Apparently, PEEP is down to 10, respirations 18, 70% of FiO2, blood pressure 96/59. CHEST: Rhonchi, crackles. CARDIAC: Sinus tach. ABDOMEN: Soft. NEUROLOGIC: She is sedated. LABORATORY DATA: White count 9000, H and H of 10 and 30, and platelet count is normal. PO2 is 55, pCO2 of 33, pH 7.48 . Lytes are normal. X-ray still shows bilateral infiltrates. ASSESSMENT: Respiratory failure COVID pneumonia. PLAN: Continue supportive care, nutrition, PT. Maybe trach next week. One-half hour of critical care time. Job ID: [id number]
[2020-06-02 07:20] LABS: Actual Bicarbonate (HCO3a) 28.3 mEq/L (22-28); Base Excess (BEa) 4.6 mEq/L (-2.0 to +3.0); CO2 Tension 38.6 mmHg (35.0-45.0); Calcium, Ionized (arterial) 1.19 mmol/L (1.12-1.30); Carboxyhemoglobin (COHb) 1.2 gm% (0.0-3.0); Hemoglobin (Hb) 11.3 g/dL (12.0-16.0); Potassium - ABG Lab 3.67 mmol/L (3.70-5.30); pH, Arterial 7.48 (7.35-7.45)
[2020-06-02 07:21] LABS: O2 Tension (PaO2), arterial 50.3 mmHg (80.0-100.0)
[2020-06-02 07:22] LABS: Puncture Site LRA
[2020-06-02] MEDS: fentaNYL Citrate/PF 2,000 MCG in Sodium Chloride 0.9% 60 ML IV SCH ×2 (07:44→21:14)
--- NOTE | 2020-06-02 08:13 | RAD ---
Chest one view HISTORY: Pneumonia. Follow-up. COMPARISON: 06/01/2020. FINDINGS: Cardiac silhouette is magnified by projection. Partially obscured by widespread reticulonod ular interstitial prominence and patchy airspace disease that has progressed slightly since the prior exam. Partial obscuration of the hemidiaphragms. Mediastinum is midline. Lines and tubes unchanged in position. No evidence of pneumothorax. IMPRESSION : Slight interval radiographic worsening of widespread bilateral infiltrates.
[2020-06-02] MEDS: Famotidine 20 MG TAB PO SCH ×2 (08:20→21:37)
[2020-06-02] MEDS: Apixaban 5 MG TAB PER TUBE SCH ×2 (08:20→21:37)
[2020-06-02] MEDS: Ascorbic Acid 500 mg Chewable Tablet PO SCH (08:20)
[2020-06-02] MEDS: Zinc Sulfate 220 MG CAP PO SCH (08:20)
[2020-06-02] MEDS: Senokot S 8.6-50 MG TAB PO SCH ×2 (08:20→21:37)
[2020-06-02] MEDS: Insulin Glargine 25 UNITS in Pre-Filled Syringe 1 EACH SC SCH ×2 (08:51→21:38)
--- NOTE | 2020-06-02 09:52 | PRG ---
DATE OF SERVICE: 06/02/2020 SUBJECTIVE: Zoey Parmar intubated in the vent, sedated. No change in the x-ray, still diffuse infiltrates. OBJECTIVE: VITAL SIGNS: Temperature 98, respirations 16, saturations are 95%, blood pressure 86/57. CHEST: No wheezing. No crackles. CARDIAC: Normal S1 and S2. No gallops. ABDOMEN: No masses. LABORATORY DATA: White count 12,000, H and H of 11 and 33, platelet count is normal. PO2 was 50, pCO2 of flow rate. Lytes are normal. ASSESSMENT: Respiratory failure, keller positive pneumonia, prolonged intubation. PLAN: The patient's family to decide about trach, PEG next week. Supportive care. She is still not weanable, still on high-dose steroids. One-half hour of critical care time. Job ID: [id number]
[2020-06-02] MEDS: Propofol 1,000 MG/100 ML VIAL IV PRN (10:11)
[2020-06-02] MEDS: Vecuronium 10 MG VIAL IVP PRN ×2 (12:29→23:05)
--- NOTE | 2020-06-02 18:29 | PDOC.HOSPP ---
- Subjective Encounter Date: 06/02/20 Encounter Time: 14:00 Subjective: F/u: COVID THe patient is still intubated. She has not had a bowel movement in four days. She does open her eyes to stimulation and said hi - Objective Vital Signs & Weight: Vital Signs (12 hours) Pulse Resp BP Pulse Ox 06/02/20 18:20 90 06/02/20 18:00 13 06/02/20 16:00 12 06/02/20 15:25 73 99/59 L 06/02/20 14:00 14 06/02/20 12:00 16 06/02/20 10:32 76 98/58 L 06/02/20 10:00 10 L 06/02/20 08:00 16 06/02/20 07:04 95 06/02/20 06:41 79 99/61 Weight Admit Weight 147 lb Weight 155 lb 3.287 oz Most Recent Monitor Data Heart Rate from ECG 76 NIBP 98/59 NIBP BP-Mean 72 Respiration from ECG 18 SpO2 91 I&O: 06/01/20 06/02/20 06/03/20 06:59 06:59 06:59 Intake Total 2879 1560.6 878 Output Total 1245 1460 675 Balance 1634 100.6 203 Result Diagrams: 06/02/20 03:20 06/02/20 03:20 Additional Labs: Accuchecks 06/02/20 06/02/20 06/02/20 15:51 09:51 03:20 POC Glucose 105 H 147 H 213 H 06/01/20 21:18 POC Glucose 130 H Hospitalist ROS - Review of Systems Constitutional: denies: fever, chills - Medication Medications: Active Medications Generic Name Dose Route Start Last Admin Trade Name Freq PRN Reason Stop Dose Admin Acetaminophen 1,000 mg 05/04/20 07:05 05/22/20 01:07 Acetaminophen 500 Mg Tab PO 1,000 mg Q6H PRN Administration Mild Pain (1-3) Apixaban 5 mg 05/17/20 09:00 06/02/20 08:20 Apixaban 5 Mg Tab PER TUBE 5 mg BID OMARI Administration Ascorbic Acid 1,000 mg 05/04/20 09:00 06/02/20 08:20 Ascorbic Acid 500 Mg Chewable Tablet PO 1,000 mg DAILY OMARI Administration Benzonatate 100 mg 05/04/20 07:05 06/01/20 23:19 Benzonatate 100 Mg Cap PO 100 mg Q6H PRN Administration Cough Cholecalciferol 5,000 units 05/04/20 21:00 06/01/20 21:10 Cholecalciferol 1,000 Units (25 Mcg) Tab PO 5,000 units HS OMARI Administration Dextrose/Water 25 gm 05/03/20 22:18 05/11/20 10:24 Dextrose 50% Abboject 50 Ml Syringe SLOW IVP 25 gm PRN PRN Administration HYPOGLYCEMIA PROTOCOL Famotidine 20 mg 05/04/20 09:00 06/02/20 08:20 Famotidine 20 Mg Tab PO 20 mg BID OMARI Administration Insulin Glargine 25 units/ 0.25 mls @ 0 mls/hr 05/06/20 21:00 06/01/20 21:08 Miscellaneous Medication SC 0.25 mls HS OMARI Administration Insulin Glargine 25 units/ 0.25 mls @ 0 mls/hr 05/24/20 09:00 06/02/20 08:51 Miscellaneous Medication SC 0.25 mls QAM OMARI Administration Fentanyl Citrate 2,000 mcg/ 100 mls @ 0 mls/hr 05/30/20 23:30 06/02/20 07:44 Sodium Chloride IV 100 mls INF OMARI Administration Protocol Per Protocol Insulin Human Lispro 0 units 05/05/20 01:19 06/02/20 03:31 Humalog 300 Units/3 Ml Vial SC 4 unit .MODERATE SLIDING SC PRN Administration Moderate Correctional Scale Lorazepam 2 mg 05/30/20 23:18 06/02/20 04:16 Lorazepam 2 Mg/Ml Vial SLOW IVP 2 mg Q1H PRN Administration Breakthrough agitation Methylprednisolone Sodium Succinate 60 mg 05/22/20 09:00 06/02/20 14:26 Methylprednisolone Sod Succ/Pf 125 Mg/2 Ml Vial IVP 60 mg 0300,0900,1500,2100 OMARI Administration Ondansetron HCl 4 mg 05/04/20 07:05 05/04/20 12:12 Ondansetron Pf 4 Mg/2 Ml Vial IVP 4 mg Q6H PRN Administration Nausea/Vomiting Propofol 1,000 mg 05/10/20 12:15 06/02/20 10:11 Propofol 1,000 Mg/100 Ml Vial IV 06/09/20 12:15 1,000 mg INF PRN Administration TO ACHIEVE GOAL RASS Protocol Senna/Docusate Sodium 1 tab 05/06/20 21:00 06/02/20 08:20 Senokot S 8.6-50 Mg Tab PO 1 tab BID OMARI Administration Sodium Chloride 10 ml 05/03/20 22:30 05/26/20 07:51 Flush - Normal Saline 10 Ml Syringe IVF 10 ml PRN PRN Administration Saline Flush Vecuronium [place] 10 mg 05/10/20 11:01 06/02/20 12:29 Vecuronium 10 Mg Vial IVP 10 mg Q30MIN PRN Administration Agitation Zinc Sulfate 220 mg 05/04/20 09:00 06/02/20 08:20 Zinc Sulfate 220 Mg Cap PO 220 mg DAILY OMARI Administration - Exam General Appearance: NAD, awake alert General - other findings: intubated Eye: PERRL, anicteric sclera ENT: normocephalic atraumatic, no oropharyngeal lesions Neck: no JVD Heart: RRR, no murmur, no gallops, no rubs Respiratory: CTAB, no wheezes, no rales, no ronchi Gastrointestinal: soft, non-tender, non-distended, normal bowel sounds Extremities: no cyanosis, no clubbing, no edema Skin: normal turgor, no lesions, no rashes Neurological - other findings: opens eyes to her name Hosp A/P - Plan Chest X ray 06/02: worsening of bilateral infiltrates This is is a 55 year old female who presented with weakness and shortness of breath, hypoxia. SHe also had DKA which resolved Acute hypoxic respiratory failure from COVID pneumonia - the patient received ceftriaxone from 05/04 to 05/14, zosyn from 05/05 to 05/22. Chest X ray stabilized but today shows worsening bilateral infiltrates. WBC is up to 12, will start meropenem - she is on steroids 40 mg IV q6 hours Leukocytosis - WBC up to 12.5, will broaden antibiotic to meropenem given worsening X ray findings Anemia - hb 11.0, stable, will monitor Type II Diabetes - blood sugars controlled,c ontinue lantus 25 units BID
[2020-06-02] MEDS: Cholecalciferol 1,000 UNITS (25 MCG) TAB PO SCH (21:37)
[2020-06-02] MEDS ORDERED: Meropenem 2 GM in Admixture Fee 1 EACH IVPB SCH (22:00)
[2020-06-03] MEDS: Benzonatate 100 MG CAP PO PRN ×2 (00:16→06:07)
[2020-06-03] MEDS: Meropenem 2 GM in Sodium Chloride 0.9% 100 ML IVPB SCH ×4 (00:24→23:25)
[2020-06-03] MEDS: Propofol 1,000 MG/100 ML VIAL IV PRN ×3 (00:24→21:53)
[2020-06-03] MEDS: methylPREDNISolone Sod Succ/PF 125 MG/2 ML VIAL IVP SCH ×4 (03:17→21:29)
[2020-06-03] MEDS ORDERED: Sodium Chloride 0.9% 1,000 ML IV SCH (03:30)
[2020-06-03] MEDS: HumaLOG 300 UNITS/3 ML VIAL SC PRN ×3 (03:37→17:37)
[2020-06-03 04:21] LABS: #Lymphocytes 1.2 thou/uL (1.20-3.40); #Monocytes 0.7 thou/uL (0.11-0.59); #Neutrophils 12.8 thou/uL (1.40-6.50); %Basophils 0.1 % (0.0-1.0); %Eosinophils 0.2 % (0.0-10.0); %Lymphocytes 8.1 % (21.0-51.0); %Monocytes 4.7 % (0.0-10.0); %Neutrophils 86.9 % (42.0-75.0); Hemoglobin 10.6 g/dL (12.0-16.0); Mean Corpuscular HGB CONC 32.9 g/dL (32.0-36.0); Mean Corpuscular Hemoglobin 30.4 pg (27.0-31.0); Mean Corpuscular Volume 92.5 fL (78.0-98.0); Mean Platelet Volume 8.3 fL (7.4-10.4); Platelet Count 539 thou/uL (130-400); RBC Distribution Width 14.9 % (11.5-14.5); Red Blood Cell (RBC) Count 3.47 mill/uL (4.20-5.40); White Blood Cell (WBC) Count 14.7 thou/uL (4.8-10.8)
[2020-06-03 04:44] LABS: Anion Gap 12 mmol/L (10-20); BUN (Urea Nitrogen) 22 mg/dL (9.8-20.1); Calc. Creatinine Clearance 119 mL/min (70-130); Calcium 8.7 mg/dL (7.8-10.44); Carbon Dioxide 30 mmol/L (22-29); Chloride 99 mmol/L (98-107); Glucose 148 mg/dL (70-105); Potassium 3.8 mmol/L (3.5-5.1); Sodium 137 mmol/L (136-145)
[2020-06-03 07:42] LABS: Actual Bicarbonate (HCO3a) 26.4 mEq/L (22-28); Base Excess (BEa) 2.4 mEq/L (-2.0 to +3.0); CO2 Tension 38.4 mmHg (35.0-45.0); Calcium, Ionized (arterial) 1.21 mmol/L (1.12-1.30); Carboxyhemoglobin (COHb) 1.7 gm% (0.0-3.0); Hemoglobin (Hb) 11.5 g/dL (12.0-16.0); Potassium - ABG Lab 3.47 mmol/L (3.70-5.30); pH, Arterial 7.46 (7.35-7.45)
[2020-06-03 07:43] LABS: Puncture Site LRA
[2020-06-03] MEDS: Ascorbic Acid 500 mg Chewable Tablet PO SCH (08:06)
[2020-06-03] MEDS: Apixaban 5 MG TAB PER TUBE SCH ×2 (08:07→21:28)
[2020-06-03] MEDS: Senokot S 8.6-50 MG TAB PO SCH ×2 (08:07→21:31)
[2020-06-03] MEDS: Zinc Sulfate 220 MG CAP PO SCH (08:07)
[2020-06-03] MEDS: Famotidine 20 MG TAB PO SCH ×2 (08:07→21:31)
[2020-06-03] MEDS: Insulin Glargine 25 UNITS in Pre-Filled Syringe 1 EACH SC SCH ×2 (08:08→21:31)
--- NOTE | 2020-06-03 08:16 | RAD ---
Chest one view HISTORY: Pneumonia. Follow-up. COMPARISON: 06/02/2020. FINDINGS: Cardiac silhouette and pulmonary vasculature are unremarkable. Mediastinum is midline. Line s and tubes unchanged in position. Widespread reticulonodular interstitial prominence and patchy airspace disease are similar in appeara nce to the previous study. No lobar consolidation. No evidence of pneumothorax. IMPRESSION : Patchy widespread infiltrates and other findings are stable.
--- NOTE | 2020-06-03 08:55 | PRG ---
DATE OF SERVICE: 06/03/2020 SUBJECTIVE: Intubated in the vent, sedated. OBJECTIVE: VITAL SIGNS: Temperature 98, pulse 100, blood pressure 101/57, sats , and respiratory rate 20. GENERAL: She barely opens her eyes. CHEST: Rhonchi and crackles. CARDIAC: Sinus tach. ABDOMEN: Soft. LABORATORY DATA: White count 14,000, H and H 10 and 32, platelet count is normal. PO2 is only 50, pCO2 . X-ray remains unchanged. Lytes are normal. ASSESSMENT: Gandhi positive pneumonia, respiratory failure, prolonged intubation. Family is going to make a decision about trach and a PEG in the next day or two. She is clearly not weanable at this stage. We are going to continue broad-spectrum antibiotics, steroids. Job ID: [id number]
[2020-06-03] MEDS: Lorazepam 2 MG/ML VIAL SLOW IVP PRN (09:41)
[2020-06-03] MEDS: fentaNYL Citrate/PF 2,000 MCG in Sodium Chloride 0.9% 60 ML IV SCH (13:31)
--- NOTE | 2020-06-03 18:59 | PDOC.HOSPP ---
- Subjective Encounter Date: 06/03/20 Encounter Time: 09:00 Subjective: F/u: COVID The patient is still intubated. She is having bowel movements now per nursing. FiO2 is at 65% - Objective Vital Signs & Weight: Vital Signs (12 hours) Temp Pulse Resp BP Pulse Ox 06/03/20 18:32 78 93/58 L 06/03/20 18:00 18 06/03/20 16:00 99 F 16 06/03/20 14:30 79 109/63 06/03/20 14:00 26 H 06/03/20 12:00 99.6 F 18 06/03/20 10:13 90 111/64 06/03/20 10:00 25 H 06/03/20 08:00 99.7 F H 31 H 93 L Weight Admit Weight 147 lb Weight 155 lb 3.287 oz Most Recent Monitor Data Heart Rate from ECG 77 NIBP 104/55 NIBP BP-Mean 71 Respiration from ECG 16 SpO2 89 I&O: 06/02/20 06/03/20 06/04/20 06:59 06:59 06:59 Intake Total 1560.6 2855.6 884 Output Total 1460 1620 1775 Balance 100.6 1235.6 -891 Result Diagrams: 06/03/20 03:30 06/03/20 03:30 Additional Labs: Accuchecks 06/03/20 06/03/20 16:02 03:30 POC Glucose 171 H 150 H Hospitalist ROS - Review of Systems ROS unobtainable: due to endotracheal tube - Medication Medications: Active Medications Generic Name Dose Route Start Last Admin Trade Name Jmq PRN Reason Stop Dose Admin Acetaminophen 1,000 mg 05/04/20 07:05 05/22/20 01:07 Acetaminophen 500 Mg Tab PO 1,000 mg Q6H PRN Administration Mild Pain (1-3) Apixaban 5 mg 05/17/20 09:00 06/03/20 08:07 Apixaban 5 Mg Tab PER TUBE 5 mg BID OMARI Administration Ascorbic Acid 1,000 mg 05/04/20 09:00 06/03/20 08:06 Ascorbic Acid 500 Mg Chewable Tablet PO 1,000 mg DAILY OMARI Administration Benzonatate 100 mg 05/04/20 07:05 06/03/20 06:07 Benzonatate 100 Mg Cap PO 100 mg Q6H PRN Administration Cough Cholecalciferol 5,000 units 05/04/20 21:00 06/02/20 21:37 Cholecalciferol 1,000 Units (25 Mcg) Tab PO 5,000 units HS OMARI Administration Dextrose/Water 25 gm 05/03/20 22:18 05/11/20 10:24 Dextrose 50% Abboject 50 Ml Syringe SLOW IVP 25 gm PRN PRN Administration HYPOGLYCEMIA PROTOCOL Famotidine 20 mg 05/04/20 09:00 06/03/20 08:07 Famotidine 20 Mg Tab PO 20 mg BID OMARI Administration Insulin Glargine 25 units/ 0.25 mls @ 0 mls/hr 05/06/20 21:00 06/02/20 21:38 Miscellaneous Medication SC 0.25 mls HS OMARI Administration Insulin Glargine 25 units/ 0.25 mls @ 0 mls/hr 05/24/20 09:00 06/03/20 08:08 Miscellaneous Medication SC 0.25 mls QAM OMARI Administration Fentanyl Citrate 2,000 mcg/ 100 mls @ 0 mls/hr 05/30/20 23:30 06/03/20 13:31 Sodium Chloride IV 100 mls INF OMARI Administration Protocol Per Protocol Meropenem 2 gm/ Sodium 100 mls @ 200 mls/hr 06/02/20 22:00 06/03/20 14:11 Chloride IVPB 100 mls Q8HR OMARI Administration Insulin Human Lispro 0 units 05/05/20 01:19 06/03/20 17:37 Humalog 300 Units/3 Ml Vial SC 2 unit .MODERATE SLIDING SC PRN Administration Moderate Correctional Scale Lorazepam 2 mg 05/30/20 23:18 06/03/20 09:41 Lorazepam 2 Mg/Ml Vial SLOW IVP 2 mg Q1H PRN Administration Breakthrough agitation Methylprednisolone Sodium Succinate 60 mg 05/22/20 09:00 06/03/20 14:12 Methylprednisolone Sod Succ/Pf 125 Mg/2 Ml Vial IVP 60 mg 0300,0900,1500,2100 OMARI Administration Ondansetron HCl 4 mg 05/04/20 07:05 05/04/20 12:12 Ondansetron Pf 4 Mg/2 Ml Vial IVP 4 mg Q6H PRN Administration Nausea/Vomiting Propofol 1,000 mg 05/10/20 12:15 06/03/20 09:41 Propofol 1,000 Mg/100 Ml Vial IV 06/09/20 12:15 1,000 mg INF PRN Administration TO ACHIEVE GOAL RASS Protocol Senna/Docusate Sodium 1 tab 05/06/20 21:00 06/03/20 08:07 Senokot S 8.6-50 Mg Tab PO 1 tab BID OMARI Administration Sodium Chloride 10 ml 05/03/20 22:30 05/26/20 07:51 Flush - Normal Saline 10 Ml Syringe IVF 10 ml PRN PRN Administration Saline Flush Vecuronium Angelica 10 mg 05/10/20 11:01 06/02/20 23:05 Vecuronium 10 Mg Vial IVP 10 mg Q30MIN PRN Administration Agitation Zinc Sulfate 220 mg 05/04/20 09:00 06/03/20 08:07 Zinc Sulfate 220 Mg Cap PO 220 mg DAILY OMARI Administration - Exam General Appearance: NAD, awake alert Eye: PERRL, anicteric sclera ENT: normocephalic atraumatic, no oropharyngeal lesions Neck: no JVD Heart: RRR, no murmur, no gallops, no rubs Respiratory: no wheezes, no rales, no ronchi Respiratory - other findings: dimnished breath sounds Gastrointestinal: soft, non-tender, non-distended, normal bowel sounds Extremities: no cyanosis, no clubbing, no edema Skin: normal turgor, no lesions, no rashes Neurological: cranial nerve grossly intact, normal sensation to touch, no weakness Hosp A/P - Plan Chest X ray 1/2: worsening of bilateral infiltrates This is is a 55 year old female who presented with weakness and shortness of breath, hypoxia. SHe also had DKA which resolved Acute hypoxic respiratory failure from COVID pneumonia - the patient received ceftriaxone from 05/04 to 05/14, zosyn from 05/05 to 05/22. Chest X ray showed worsening infiltrates 1/2. Started on meropenem. WBC up to 14.7 - will add IV vancomycin. Continue IV steroids Leukocytosis - WBC still increasing to 14. Continue meropenem day 2, will add IV vancomycin Anemia - hb 11.0, stable, will monitor Type II Diabetes - blood sugars controlled,c ontinue lantus 25 units BID
[2020-06-03] MEDS: Cholecalciferol 1,000 UNITS (25 MCG) TAB PO SCH (21:28)
[2020-06-03] MEDS: Vancomycin 1 GM in Premix Bag 1 BAG IVPB SCH (21:30)
[2020-06-04] MEDS: Lorazepam 2 MG/ML VIAL SLOW IVP PRN (01:25)
[2020-06-04] MEDS: methylPREDNISolone Sod Succ/PF 125 MG/2 ML VIAL IVP SCH (03:14)
[2020-06-04] MEDS: HumaLOG 300 UNITS/3 ML VIAL SC PRN ×3 (03:29→16:27)
[2020-06-04 04:34] LABS: Anion Gap 11 mmol/L (10-20); BUN (Urea Nitrogen) 18 mg/dL (9.8-20.1); Calc. Creatinine Clearance 130 mL/min (70-130); Calcium 8.7 mg/dL (7.8-10.44); Carbon Dioxide 31 mmol/L (22-29); Chloride 98 mmol/L (98-107); Glucose 148 mg/dL (70-105); Potassium 3.8 mmol/L (3.5-5.1); Sodium 136 mmol/L (136-145)
[2020-06-04 04:57] LABS: Band 7 % (5-11); Hemoglobin 10.9 g/dL (12.0-16.0); Lymphocytes 8 % (21-51); MDiff Complete? YES; Mean Corpuscular HGB CONC 31.6 g/dL (32.0-36.0); Mean Corpuscular Hemoglobin 29.4 pg (27.0-31.0); Mean Corpuscular Volume 92.9 fL (78.0-98.0); Mean Platelet Volume 8.5 fL (7.4-10.4); Monocytes 6 % (0-10); Neutrophil 79 % (42-75); Platelet Count 527 thou/uL (130-400); Red Blood Cell (RBC) Count 3.72 mill/uL (4.20-5.40); White Blood Cell (WBC) Count 13.2 thou/uL (4.8-10.8)
[2020-06-04] MEDS: Meropenem 2 GM in Sodium Chloride 0.9% 100 ML IVPB SCH ×3 (05:48→22:17)
[2020-06-04 07:34] LABS: Actual Bicarbonate (HCO3a) 30.4 mEq/L (22-28); Base Excess (BEa) 6.2 mEq/L (-2.0 to +3.0); CO2 Tension 42.3 mmHg (35.0-45.0); Hemoglobin (Hb) 11.9 g/dL (12.0-16.0); Potassium - ABG Lab 3.91 mmol/L (3.70-5.30); pH, Arterial 7.47 (7.35-7.45)
[2020-06-04 07:35] LABS: O2 Tension (PaO2), arterial 51.7 mmHg (80.0-100.0)
[2020-06-04 07:36] LABS: Puncture Site LRA
[2020-06-04 07:37] LABS: ALV-art Gradient 394.525 mmHg (0-20)
--- NOTE | 2020-06-04 08:01 | PRG ---
DATE OF SERVICE: 06/04/2020 TIME SPENT: This is a 35 -minute critical care time. SUBJECTIVE: The patient remains intubated, on mechanical ventilation. She will wake up and follow some commands. OBJECTIVE: VITAL SIGNS: Her temperature is 98.6, pulse 70, blood pressure 93/57, O2 saturation generally in the high 80s to low 90s. 24-hour intake 1094, output 3735. HEENT: Unremarkable except for being intubated. NECK: No JVD. LUNGS: Coarse crackles bilaterally. CARDIOVASCULAR: S1, S2. Regular. ABDOMEN: Soft and nontender. EXTREMITIES: Severe muscle wasting. LABORATORY DATA: ABG; pH 7.47, pCO2 of 42, pO2 of 86. That was on assist-control rate 10, FiO2 of 70% with a PEEP of 10. White blood cell count 13.2, hematocrit 34.9, and platelet count 527. Sodium 136, potassium 3.8, chloride 98, CO2 of 31, BUN 18, creatinine 0.5, glucose 149. Chest x-ray continued to show bilateral infiltrates. ASSESSMENT: 1. COVID-19 pneumonia. 2. The patient looks as if she has been started on secondary antibiotics for reasons that are not quite clear to me - cultures are negative. 3. Acute respiratory failure requiring mechanical ventilation. 4. Diabetes mellitus. PLAN: 1. I will go ahead and try to cut her steroid dose in half. 2. She needs tracheostomy and PEG tube placement if family is in agreement. I believe that the patient will be on mechanical ventilation for quite sometime. Daily x-rays are warranted because of the high instances of pneumothorax. The patient is on mechanical ventilation. Job ID: [id number]
[2020-06-04] MEDS: Famotidine 20 MG TAB PO SCH ×2 (08:50→19:47)
[2020-06-04] MEDS: Senokot S 8.6-50 MG TAB PO SCH ×2 (08:50→19:47)
[2020-06-04] MEDS: Zinc Sulfate 220 MG CAP PO SCH (08:50)
[2020-06-04] MEDS: Apixaban 5 MG TAB PER TUBE SCH (08:50)
[2020-06-04] MEDS: Ascorbic Acid 500 mg Chewable Tablet PO SCH (08:50)
[2020-06-04] MEDS: Insulin Glargine 25 UNITS in Pre-Filled Syringe 1 EACH SC SCH ×2 (08:51→23:26)
[2020-06-04] MEDS: methylPREDNISolone Sod Succ 40 MG VIAL IVP SCH ×3 (08:51→19:48)
[2020-06-04] MEDS: Vancomycin 1 GM in Premix Bag 1 BAG IVPB SCH ×2 (08:54→19:47)
[2020-06-04] MEDS: fentaNYL Citrate/PF 2,000 MCG in Sodium Chloride 0.9% 60 ML IV SCH (09:04)
--- NOTE | 2020-06-04 09:33 | RAD ---
PORTABLE CHEST: HISTORY: Followup of pneumonia. COMPARISON: Prior day's exam. FINDINGS: Endotracheal and NG tubes are in satisfactory position. The infiltrative lung changes in the right b ase have worsened as compared to the prior examination. Left-sided changes are stable. IMPRESSION: Worsening right basilar infiltrative lung change. POS: OFF
[2020-06-04] MEDS: Propofol 1,000 MG/100 ML VIAL IV PRN ×2 (10:08→19:46)
--- NOTE | 2020-06-04 15:33 | PDOC.PALPN ---
Palliative Progress Note - Subjective Intubated, but awakens. Appears anxious, son at bedside. Family electing to seek Trach/Peg - Objective Vital Signs: Vital Signs - Most Recent Temp Pulse Resp BP Pulse Ox 99.1 F 83 12 97/56 L 98 06/04/20 12:00 06/04/20 14:02 06/04/20 14:00 06/04/20 14:02 06/04/20 13:48 - Physical Exam Constitutional: ill appearing, mild distress HEENT: EOMI, moist MMs, PERRLA Deviation from normal: Intubated/mechanical ventilation, Bilaterally coarse breath sounds Cardiovascular: RRR, diminished peripheral pulses Gastrointestinal: soft, non-tender, positive bowel sounds, incontinent Genitourinary: diamond catheter Musculoskeletal: edema present, diffuse muscle atrophy Neurology: no focal deficits Skin: cap refill <2 seconds, no lesions, no rash, bruising, fragile - Assessment (1) Palliative care encounter Code(s): Z51.5 - ENCOUNTER FOR PALLIATIVE CARE Current Visit: Yes Status: Acute (2) Acute respiratory failure with hypoxia Code(s): J96.01 - ACUTE RESPIRATORY FAILURE WITH HYPOXIA Current Visit: Yes Status: Acute (3) COVID-19 virus infection Code(s): U07.1 - COVID-19 Current Visit: Yes Status: Acute (4) DKA (diabetic ketoacidoses) Code(s): E11.10 - TYPE 2 DIABETES MELLITUS WITH KETOACIDOSIS WITHOUT COMA Current Visit: Yes Status: Resolved (5) Pneumonia due to COVID-19 virus Code(s): U07.1 - COVID-19; J12.89 - OTHER VIRAL PNEUMONIA Current Visit: Yes Status: Acute (6) Diabetes mellitus Code(s): E11.9 - TYPE 2 DIABETES MELLITUS WITHOUT COMPLICATIONS Current Visit: Yes Status: Chronic Qualifiers: Diabetes mellitus type: type 2 - Plan Plan: Goal of care: Patient son has elected to continue with aggressive measures. Trach/Peg to be placed 06/05/2020 with eventual transition to LTAC. Family remains hopeful for meaningful recovery. Please also refer to Palliative Care notes in note section. Palliative Care will sign off as Goal of care established. Please re consult if assistance is needed to revisit goal of care, complex decision making, disease trajectory education, family support, coping. Thank you for this very appropriate consult and allowing our team to participate in the care of Ms Parmar. [35] minutes spent on this encounter with >50% of the time in counseling and coordination of care. - ROS Non Response: due to endotracheal tube, due to mental status
--- NOTE | 2020-06-04 17:24 | PDOC.HOSPP ---
- Subjective Encounter Date: 06/04/20 Encounter Time: 10:00 Subjective: Fu: COVID The patient is awake and appears fearful when wakes up. She is still intubated. Family has decided on proceeding with trach and PEG No new changes - Objective Vital Signs & Weight: Vital Signs (12 hours) Temp Pulse Pulse Pulse Resp BP BP 06/04/20 16:00 98.5 F 25 H 06/04/20 14:02 83 97/56 L 06/04/20 14:00 12 06/04/20 13:48 85 95 101/63 06/04/20 12:00 99.1 F 18 06/04/20 11:19 100 98/65 06/04/20 10:00 22 H 06/04/20 08:00 14 06/04/20 07:00 98.6 F 06/04/20 06:44 70 98/57 L 06/04/20 05:34 17 BP Pulse Ox Pulse Ox Pulse Ox 06/04/20 16:00 06/04/20 14:02 06/04/20 14:00 06/04/20 13:48 102/62 98 96 06/04/20 12:00 06/04/20 11:19 06/04/20 10:00 06/04/20 08:00 92 L 06/04/20 07:00 06/04/20 06:44 06/04/20 05:34 Weight Admit Weight 147 lb Weight 135 lb 2.294 oz Most Recent Monitor Data Heart Rate from ECG 85 NIBP 97/60 NIBP BP-Mean 72 Respiration from ECG 15 SpO2 98 I&O: 06/03/20 06/04/20 06/05/20 06:59 06:59 06:59 Intake Total 2855.6 1094 120 Output Total 1620 6585 1750 Balance 1235.6 -6481 -1630 Result Diagrams: 06/04/20 03:48 06/04/20 03:48 Additional Labs: Accuchecks 06/04/20 06/04/20 06/04/20 16:07 08:56 03:27 POC Glucose 218 H 235 H 150 H 06/03/20 06/03/20 06/03/20 21:38 09:39 09:34 POC Glucose 126 H 195 H 192 H 06/02/20 21:43 POC Glucose 131 H Hospitalist ROS - Review of Systems ROS unobtainable: due to endotracheal tube - Medication Medications: Active Medications Generic Name Dose Route Start Last Admin Trade Name Freq PRN Reason Stop Dose Admin Acetaminophen 1,000 mg 05/04/20 07:05 05/22/20 01:07 Acetaminophen 500 Mg Tab PO 1,000 mg Q6H PRN Administration Mild Pain (1-3) Ascorbic Acid 1,000 mg 05/04/20 09:00 06/04/20 08:50 Ascorbic Acid 500 Mg Chewable Tablet PO 1,000 mg DAILY OMARI Administration Benzonatate 100 mg 05/04/20 07:05 06/03/20 06:07 Benzonatate 100 Mg Cap PO 100 mg Q6H PRN Administration Cough Cholecalciferol 5,000 units 05/04/20 21:00 06/03/20 21:28 Cholecalciferol 1,000 Units (25 Mcg) Tab PO 5,000 units HS OMARI Administration Dextrose/Water 25 gm 05/03/20 22:18 05/11/20 10:24 Dextrose 50% Abboject 50 Ml Syringe SLOW IVP 25 gm PRN PRN Administration HYPOGLYCEMIA PROTOCOL Famotidine 20 mg 05/04/20 09:00 06/04/20 08:50 Famotidine 20 Mg Tab PO 20 mg BID OMARI Administration Insulin Glargine 25 units/ 0.25 mls @ 0 mls/hr 05/06/20 21:00 06/03/20 21:31 Miscellaneous Medication SC 0.25 mls HS OMARI Administration Insulin Glargine 25 units/ 0.25 mls @ 0 mls/hr 05/24/20 09:00 06/04/20 08:51 Miscellaneous Medication SC 0.25 mls QAM OMARI Administration Fentanyl Citrate 2,000 mcg/ 100 mls @ 0 mls/hr 05/30/20 23:30 06/04/20 09:04 Sodium Chloride IV 100 mls INF OMARI Administration Protocol Per Protocol Meropenem 2 gm/ Sodium 100 mls @ 200 mls/hr 06/02/20 22:00 06/04/20 15:16 Chloride IVPB 100 mls Q8HR OMARI Administration Vancomycin HCl 1 gm/ Device 200 mls @ 200 mls/hr 06/03/20 21:00 06/04/20 08:54 IVPB 200 mls Q12HR OMARI Administration Insulin Human Lispro 0 units 05/05/20 01:19 06/04/20 16:27 Humalog 300 Units/3 Ml Vial SC 4 unit .MODERATE SLIDING SC PRN Administration Moderate Correctional Scale Lorazepam 2 mg 05/30/20 23:18 06/04/20 01:25 Lorazepam 2 Mg/Ml Vial SLOW IVP 2 mg Q1H PRN Administration Breakthrough agitation Methylprednisolone Sodium Succinate 30 mg 06/04/20 09:00 06/04/20 15:16 Methylprednisolone Sod Succ 40 Mg Vial IVP 30 mg 0300,0900,1500,2100 OMARI Administration Ondansetron HCl 4 mg 05/04/20 07:05 05/04/20 12:12 Ondansetron Pf 4 Mg/2 Ml Vial IVP 4 mg Q6H PRN Administration Nausea/Vomiting Propofol 1,000 mg 05/10/20 12:15 06/04/20 10:08 Propofol 1,000 Mg/100 Ml Vial IV 06/09/20 12:15 1,000 mg INF PRN Administration TO ACHIEVE GOAL RASS Protocol Senna/Docusate Sodium 1 tab 05/06/20 21:00 06/04/20 08:50 Senokot S 8.6-50 Mg Tab PO 1 tab BID OMARI Administration Sodium Chloride 10 ml 05/03/20 22:30 05/26/20 07:51 Flush - Normal Saline 10 Ml Syringe IVF 10 ml PRN PRN Administration Saline Flush Vecuronium Excello 10 mg 05/10/20 11:01 06/02/20 23:05 Vecuronium 10 Mg Vial IVP 10 mg Q30MIN PRN Administration Agitation Zinc Sulfate 220 mg 05/04/20 09:00 06/04/20 08:50 Zinc Sulfate 220 Mg Cap PO 220 mg DAILY OMARI Administration - Exam General Appearance: NAD, awake alert Eye: PERRL, anicteric sclera ENT: normocephalic atraumatic, no oropharyngeal lesions Neck: no JVD Heart: RRR, no murmur, no gallops, no rubs Respiratory - other findings: coarse breath sounds Gastrointestinal: soft, non-tender, non-distended, normal bowel sounds Extremities: 1+ LE edema Skin: normal turgor, no lesions, no rashes Hosp A/P - Plan Chest X ray 06/02: worsening of bilateral infiltrates Chest X ray 06/04: worsening right lung infiltrate This is is a 55 year old female who presented with weakness and shortness of breath, hypoxia. SHe also had DKA which resolved Acute hypoxic respiratory failure from COVID pneumonia - the patient received ceftriaxone from 05/04 to 05/14, zosyn from 05/05 to 05/22. Chest X ray showed worsening infiltrates 1/2. Started on meropenem. WBC up to 14.7. Added IV vanc 06/03. WBC now down to 13. - continue steroids at reduced dose. Surgery consulted for trach and PEG Leukocytosis - improved, continue vanc and meropenem Anemia - hb 11.0, stable, will monitor Type II Diabetes - blood sugars 150-218, continue lantus 25 units BID
--- NOTE | 2020-06-04 19:29 | CON ---
DATE OF CONSULTATION: HISTORY OF PRESENT ILLNESS: Zoey Parmar is a 55-year-old female admitted with COVID pneumonia on 05/03/2020 by hospitalist service, seen by Dr. Martinez, Dr. Ljoa, followed with respiratory failure and initially thought prognosis poor, but the patient rallied and is doing better, such that I have been asked to see her regarding tracheostomy, percutaneous endoscopic gastrostomy tube, and central line. She is on Eliquis and we will hold that today and plan these procedures Thursday. I have discussed with her son, who understands risks of infection, bleeding, adjacent visceral injury, reoperation, and consents. PAST MEDICAL HISTORY: Diabetes, hypothyroidism. PAST SURGICAL HISTORY: Some laparoscopic procedure. She is unclear of what of nature. MEDICATIONS: None. ALLERGIES: NONE. SOCIAL HISTORY: Patient lives in [place]. No history of alcohol or drug use. PHYSICAL EXAMINATION: VITAL SIGNS: Height 5 feet 2 inches, 135 pounds, 24 BMI. She is on the ventilator. Her son is at the bedside. Heart rate 80, blood pressure 83/56, respiratory rate 17. HEAD, EARS, EYES, NOSE, AND THROAT: Unremarkable. LUNGS: Clear to auscultation. CARDIAC: Regular rate and rhythm without murmur or gallop. ABDOMEN: Soft, Nontender. EXTREMITIES: Unremarkable. LABORATORY DATA: White count 13, hemoglobin 10. Basic metabolic profile normal. ASSESSMENT: Coronavirus disease pneumonia, respiratory failure, dysphagia, malnutrition. PLAN: Placement of a tracheostomy, PEG tube, central line. Risks and benefits, consents. We will hold her Eliquis and plan in 48 hours. Job ID: [id number]
[2020-06-04] MEDS: Cholecalciferol 1,000 UNITS (25 MCG) TAB PO SCH (19:47)
[2020-06-05] MEDS: methylPREDNISolone Sod Succ 40 MG VIAL IVP SCH ×4 (02:41→20:40)
[2020-06-05 04:56] LABS: #Eosinphils 0.1 thou/uL (0.0-0.7); #Lymphocytes 1.3 thou/uL (1.20-3.40); #Monocytes 0.4 thou/uL (0.11-0.59); #Neutrophils 10.6 thou/uL (1.40-6.50); %Eosinophils 0.7 % (0.0-10.0); %Lymphocytes 10.6 % (21.0-51.0); %Monocytes 3.5 % (0.0-10.0); %Neutrophils 85.1 % (42.0-75.0); Mean Corpuscular HGB CONC 32.1 g/dL (32.0-36.0); Mean Corpuscular Hemoglobin 29.8 pg (27.0-31.0); Mean Corpuscular Volume 92.8 fL (78.0-98.0); Mean Platelet Volume 8.3 fL (7.4-10.4); Platelet Count 546 thou/uL (130-400); RBC Distribution Width 14.9 % (11.5-14.5); Red Blood Cell (RBC) Count 3.71 mill/uL (4.20-5.40); White Blood Cell (WBC) Count 12.4 thou/uL (4.8-10.8)
[2020-06-05 05:20] LABS: Anion Gap 13 mmol/L (10-20); BUN (Urea Nitrogen) 25 mg/dL (9.8-20.1); Calc. Creatinine Clearance 105 mL/min (70-130); Calcium 8.5 mg/dL (7.8-10.44); Carbon Dioxide 31 mmol/L (22-29); Chloride 99 mmol/L (98-107); Glucose 128 mg/dL (70-105); Potassium 3.6 mmol/L (3.5-5.1); Sodium 139 mmol/L (136-145)
[2020-06-05] MEDS: fentaNYL Citrate/PF 2,000 MCG in Sodium Chloride 0.9% 60 ML IV SCH (05:28)
--- NOTE | 2020-06-05 07:40 | PRG ---
DATE OF SERVICE: 06/05/2020 35 minutes critical care time. SUBJECTIVE: The patient remains intubated on mechanical ventilation. She will wake up and follow some commands for me. She is lightly sedated on propofol and fentanyl. OBJECTIVE: VITAL SIGNS: On exam, temperature 98.7, pulse 70, blood pressure 84/56. 24-hour intake , output 2665. HEENT: Unremarkable. NECK: No JVD. LUNGS: Fairly clear. CARDIOVASCULAR: S1 and S2. Regular. ABDOMEN: Soft. EXTREMITIES: Severe muscle wasting. LABORATORY DATA: White blood cell count 12.4, hematocrit 34.4, and platelet count 546. ABG pending. Sodium 139, potassium 3.6, chloride 99, CO2 of 31, BUN 25, creatinine 0.6, and glucose 128. Her x-ray is starting to show some good clearing. ASSESSMENT: 1. COVID-19 pneumonia. 2. Acute hypoxic respiratory failure requiring mechanical ventilation. 3. Diabetes mellitus with adequate control of blood sugars. PLAN: Tracheostomy plan for tomorrow I believe. Given the fact that she has no fever, I would recommend stopping the vancomycin today and perhaps the meropenem tomorrow. I will stop her paralytic. Her Eliquis is being held for tracheostomy. I began weaning her steroids yesterday. She is seeing occupational therapy and physical therapy. Job ID: [id number]
--- NOTE | 2020-06-05 08:06 | RAD ---
EXAM: CHEST ONE VIEW HISTORY: Pneumonia. COMPARISON: 06/04/2020 and 06/03/2020 FINDINGS: Endotracheal tube and nasogastric tube remain in place. Cardiac silhouette is within normal limits. T his examination is obtained in a better depth of inspiration compared to recent study. Again noted are increased interstitial densities throughout the lungs bilaterally more similar to study on 06/03/19 21 with minimal patchy airspace opacities also again noted. Findings do appear minimally improved compared to prior exam on 06/03/2020. No new area of consolidation or pleural fluid is evident. No othe r interval change. IMPRESSION: Persistent bilateral interstitial and mild patchy parenchymal opacities which may be related to infec tious process.
[2020-06-05 08:52] LABS: Actual Bicarbonate (HCO3a) 29.2 mEq/L (22-28); Base Excess (BEa) 5.7 mEq/L (-2.0 to +3.0); CO2 Tension 38.4 mmHg (35.0-45.0); Calcium, Ionized (arterial) 1.22 mmol/L (1.12-1.30); Carboxyhemoglobin (COHb) 2.2 gm% (0.0-3.0); Hemoglobin (Hb) 12.7 g/dL (12.0-16.0)
[2020-06-05] MEDS: Lorazepam 2 MG/ML VIAL SLOW IVP PRN (08:52)
[2020-06-05] MEDS: Famotidine 20 MG TAB PO SCH ×2 (08:52→20:40)
[2020-06-05] MEDS: Ascorbic Acid 500 mg Chewable Tablet PO SCH (08:52)
[2020-06-05] MEDS: Senokot S 8.6-50 MG TAB PO SCH ×2 (08:53→20:39)
[2020-06-05] MEDS: Zinc Sulfate 220 MG CAP PO SCH (08:53)
[2020-06-05] MEDS: Morphine 2 MG/ML VIAL SLOW IVP PRN (09:04)
[2020-06-05 09:42] LABS: O2 Tension (PaO2), arterial 39.2 mmHg (80.0-100.0)
[2020-06-05 09:43] LABS: Puncture Site LRA
[2020-06-05] MEDS: Meropenem 2 GM in Sodium Chloride 0.9% 100 ML IVPB SCH ×3 (09:47→22:05)
[2020-06-05] MEDS: Insulin Glargine 25 UNITS in Pre-Filled Syringe 1 EACH SC SCH ×2 (09:47→22:08)
[2020-06-05] MEDS: Propofol 1,000 MG/100 ML VIAL IV PRN ×2 (11:30→23:53)
[2020-06-05] MEDS: Sodium Chloride 0.9% 1,000 ML IV SCH (16:17)
--- NOTE | 2020-06-05 19:52 | PDOC.HOSPP ---
- Subjective Encounter Date: 06/05/20 Encounter Time: 10:00 Subjective: F/u: COVID The patient is awake. She follows commands. There is plan for trach and PEG tomorrow. She is intubated on minimal vent settings - Objective Vital Signs & Weight: Vital Signs (12 hours) Temp Pulse Pulse Pulse Resp BP BP 06/05/20 18:53 91 112/61 06/05/20 18:00 14 06/05/20 16:00 27 H 06/05/20 15:00 98.8 F 06/05/20 14:28 94 86/55 L 06/05/20 14:00 13 06/05/20 12:00 97.9 F 12 06/05/20 10:35 76 72/51 L 06/05/20 10:00 12 06/05/20 09:35 86 85 91/55 L 06/05/20 08:00 97.9 F 24 H BP Pulse Ox Pulse Ox Pulse Ox 06/05/20 18:53 06/05/20 18:00 06/05/20 16:00 06/05/20 15:00 06/05/20 14:28 06/05/20 14:00 06/05/20 12:00 06/05/20 10:35 06/05/20 10:00 06/05/20 09:35 76/55 L 100 99 06/05/20 08:00 98 Weight Admit Weight 147 lb Weight 135 lb 2.294 oz Most Recent Monitor Data Heart Rate from ECG 99 NIBP 112/61 NIBP BP-Mean 78 Respiration from ECG 30 SpO2 86 I&O: 06/04/20 06/05/20 06/06/20 06:59 06:59 06:59 Intake Total 1094 1609 833.1 Output Total 5545 2665 560 Balance -8001 -9888 273.1 Result Diagrams: 06/05/20 04:15 06/05/20 04:15 Additional Labs: Accuchecks 06/05/20 06/05/20 06/04/20 15:59 10:36 21:34 POC Glucose 88 122 H 190 H Hospitalist ROS - Review of Systems Constitutional: denies: fever, chills - Medication Medications: Active Medications Generic Name Dose Route Start Last Admin Trade Name Freq PRN Reason Stop Dose Admin Acetaminophen 1,000 mg 05/04/20 07:05 12/22/20 01:07 Acetaminophen 500 Mg Tab PO 1,000 mg Q6H PRN Administration Mild Pain (1-3) Ascorbic Acid 1,000 mg 05/04/20 09:00 06/05/20 08:52 Ascorbic Acid 500 Mg Chewable Tablet PO 1,000 mg DAILY OMARI Administration Benzonatate 100 mg 05/04/20 07:05 06/03/20 06:07 Benzonatate 100 Mg Cap PO 100 mg Q6H PRN Administration Cough Cholecalciferol 5,000 units 05/04/20 21:00 06/04/20 19:47 Cholecalciferol 1,000 Units (25 Mcg) Tab PO 5,000 units HS OMARI Administration Dextrose/Water 25 gm 05/03/20 22:18 05/11/20 10:24 Dextrose 50% Abboject 50 Ml Syringe SLOW IVP 25 gm PRN PRN Administration HYPOGLYCEMIA PROTOCOL Famotidine 20 mg 05/04/20 09:00 06/05/20 08:52 Famotidine 20 Mg Tab PO 20 mg BID OMARI Administration Insulin Glargine 25 units/ 0.25 mls @ 0 mls/hr 05/06/20 21:00 06/04/20 23:26 Miscellaneous Medication SC 0.25 mls HS OMARI Administration Insulin Glargine 25 units/ 0.25 mls @ 0 mls/hr 05/24/20 09:00 06/05/20 09:47 Miscellaneous Medication SC 0.25 mls QAM OAMRI Administration Fentanyl Citrate 2,000 mcg/ 100 mls @ 0 mls/hr 05/30/20 23:30 06/05/20 05:28 Sodium Chloride IV 100 mls INF OMARI Administration Protocol Per Protocol Meropenem 2 gm/ Sodium 100 mls @ 200 mls/hr 06/02/20 22:00 06/05/20 16:28 Chloride IVPB 100 mls Q8HR OMARI Administration Sodium Chloride 1,000 mls @ 75 mls/hr 06/05/20 11:15 06/05/20 16:17 Normal Saline 0.9% IV 1,000 mls .[id number] OMARI Administration Insulin Human Lispro 0 units 05/05/20 01:19 06/04/20 16:27 Humalog 300 Units/3 Ml Vial SC 4 unit .MODERATE SLIDING SC PRN Administration Moderate Correctional Scale Lorazepam 2 mg 05/30/20 23:18 06/05/20 08:52 Lorazepam 2 Mg/Ml Vial SLOW IVP 2 mg Q1H PRN Administration Breakthrough agitation Methylprednisolone Sodium Succinate 30 mg 06/04/20 09:00 06/05/20 16:16 Methylprednisolone Sod Succ 40 Mg Vial IVP 30 mg 0300,0900,1500,2100 OMARI Administration Morphine Sulfate 2 mg 05/30/20 23:18 06/05/20 09:04 Morphine 2 Mg/Ml Vial SLOW IVP 2 mg Q1H PRN Administration Breakthrough Pain/Agitation Ondansetron HCl 4 mg 05/04/20 07:05 05/04/20 12:12 Ondansetron Pf 4 Mg/2 Ml Vial IVP 4 mg Q6H PRN Administration Nausea/Vomiting Propofol 1,000 mg 05/10/20 12:15 06/05/20 11:30 Propofol 1,000 Mg/100 Ml Vial IV 06/09/20 12:15 1,000 mg INF PRN Administration TO ACHIEVE GOAL RASS Protocol Senna/Docusate Sodium 1 tab 05/06/20 21:00 06/05/20 08:53 Senokot S 8.6-50 Mg Tab PO 1 tab BID OMARI Administration Sodium Chloride 10 ml 05/03/20 22:30 05/26/20 07:51 Flush - Normal Saline 10 Ml Syringe IVF 10 ml PRN PRN Administration Saline Flush Zinc Sulfate 220 mg 05/04/20 09:00 06/05/20 08:53 Zinc Sulfate 220 Mg Cap PO 220 mg DAILY OMARI Administration - Exam General Appearance: NAD, awake alert General - other findings: intubated Eye: PERRL, anicteric sclera ENT: normocephalic atraumatic, no oropharyngeal lesions Neck: supple, no JVD Heart: RRR, no murmur, no gallops Respiratory: CTAB, no wheezes, no rales, no ronchi Gastrointestinal: soft, non-tender, non-distended, normal bowel sounds Extremities: no edema Skin: normal turgor, no lesions, no rashes Hosp A/P - Plan Chest X ray 06/02: worsening of bilateral infiltrates Chest X ray 06/04: worsening right lung infiltrate This is is a 55 year old female who presented with weakness and shortness of breath, hypoxia. SHe also had DKA which resolved Acute hypoxic respiratory failure from COVID pneumonia - the patient received ceftriaxone from 05/04 to 05/14, zosyn from 05/05 to 05/22. Chest X ray showed worsening infiltrates /. Started on meropenem 06/02. WBC up to 14.7. Added IV vanc 06/03. WBC now down to 13. Vanc has been discontinued - continue steroids at reduced dose. Surgery consulted for trach and PEG Leukocytosis - improved, continue meropenem Anemia - hb 11.0, stable, will monitor Type II Diabetes - blood sugars 88-218, continue lantus 25 units BID
[2020-06-05] MEDS: Cholecalciferol 1,000 UNITS (25 MCG) TAB PO SCH (22:05)
[2020-06-05] MEDS ORDERED: Propofol 1,000 MG/100 ML VIAL IV ONE (23:42)
[2020-06-06] MEDS: methylPREDNISolone Sod Succ 40 MG VIAL IVP SCH ×3 (02:52→20:22)
[2020-06-06] MEDS: Sodium Chloride 0.9% 1,000 ML IV SCH ×2 (02:52→15:23)
[2020-06-06 04:29] LABS: #Lymphocytes 1.4 thou/uL (1.20-3.40); #Monocytes 0.3 thou/uL (0.11-0.59); #Neutrophils 9.1 thou/uL (1.40-6.50); %Basophils 0.2 % (0.0-1.0); %Eosinophils 0.4 % (0.0-10.0); %Lymphocytes 12.6 % (21.0-51.0); %Monocytes 2.3 % (0.0-10.0); %Neutrophils 84.5 % (42.0-75.0); Hemoglobin 10.9 g/dL (12.0-16.0); Mean Corpuscular Hemoglobin 30.7 pg (27.0-31.0); Mean Corpuscular Volume 93.2 fL (78.0-98.0); Mean Platelet Volume 8.5 fL (7.4-10.4); Platelet Count 504 thou/uL (130-400); RBC Distribution Width 14.9 % (11.5-14.5); Red Blood Cell (RBC) Count 3.53 mill/uL (4.20-5.40); White Blood Cell (WBC) Count 10.8 thou/uL (4.8-10.8)
[2020-06-06 04:47] LABS: Anion Gap 13 mmol/L (10-20); BUN (Urea Nitrogen) 22 mg/dL (9.8-20.1); Calc. Creatinine Clearance 107 mL/min (70-130); Calcium 8.5 mg/dL (7.8-10.44); Carbon Dioxide 28 mmol/L (22-29); Chloride 101 mmol/L (98-107); Glucose 80 mg/dL (70-105); Potassium 3.6 mmol/L (3.5-5.1); Sodium 138 mmol/L (136-145)
[2020-06-06] MEDS: Meropenem 2 GM in Sodium Chloride 0.9% 100 ML IVPB SCH (06:19)
--- NOTE | 2020-06-06 07:43 | PRG ---
DATE OF SERVICE: 06/06/2020 35 minutes critical time. SUBJECTIVE: The patient remains intubated on mechanical ventilation. She is scheduled for tracheostomy later today. OBJECTIVE: VITAL SIGNS: Temperature 99, pulse 86, blood pressure 95/65, O2 saturation 100%. 24-hour intake 1999, output 2114. HEENT: Unremarkable. NECK: No JVD. LUNGS: With inspiratory crackles. CARDIAC: S1 and S2. Regular. ABDOMEN: Soft. EXTREMITIES: No edema. LABORATORY DATA: White blood cell count 10.8, hematocrit 32.9, and platelet count 504. Sodium , potassium 3.6, chloride 101, CO2 of 28, BUN 22, creatinine 0.5, glucose 80. Chest x-ray shows no evidence of pneumothorax, slowly clearing infiltrates. ASSESSMENT: 1. Acute respiratory failure requiring mechanical ventilation. 2. COVID-19 pneumonia with prolonged mechanical ventilation. PLAN: 1. Tracheostomy today. 2. Would stop antibiotics as nothing has grown from cultures. 3. Try to limit IV fluids as much as possible. 4. I will decrease her steroid dose to twice daily dosing. Job ID: [id number]
[2020-06-06] MEDS: Ascorbic Acid 500 mg Chewable Tablet PO SCH (08:20)
[2020-06-06] MEDS: Zinc Sulfate 220 MG CAP PO SCH (08:20)
[2020-06-06] MEDS: Insulin Glargine 25 UNITS in Pre-Filled Syringe 1 EACH SC SCH ×2 (08:20→21:38)
[2020-06-06] MEDS: Famotidine 20 MG TAB PO SCH ×2 (08:20→20:21)
[2020-06-06] MEDS: Senokot S 8.6-50 MG TAB PO SCH ×2 (08:20→20:21)
[2020-06-06] MEDS: fentaNYL Citrate/PF 2,000 MCG in Sodium Chloride 0.9% 60 ML IV SCH (08:23)
[2020-06-06 08:34] LABS: Actual Bicarbonate (HCO3a) 25.8 mEq/L (22-28); Base Excess (BEa) 2.5 mEq/L (-2.0 to +3.0); CO2 Tension 35.1 mmHg (35.0-45.0); Calcium, Ionized (arterial) 1.17 mmol/L (1.12-1.30); Carboxyhemoglobin (COHb) 1.6 gm% (0.0-3.0); Hemoglobin (Hb) 10.7 g/dL (12.0-16.0); Potassium - ABG Lab 3.78 mmol/L (3.70-5.30); pH, Arterial 7.48 (7.35-7.45)
[2020-06-06] MEDS ORDERED: Rocuronium Bromide 10 MG/ML (10ML VIAL) ONE (08:53)
--- NOTE | 2020-06-06 09:20 | RAD ---
EXAM: Portable chest PROVIDED CLINICAL HISTORY: Respiratory insufficiency COMPARISON: 06/05/2020 FINDINGS: Significant interval change with respect to the prior examination is not apparent. IMPRESSION: As above.
[2020-06-06 09:35] LABS: Puncture Site LRA
[2020-06-06 09:36] LABS: ALV-art Gradient 344.575 mmHg (0-20)
[2020-06-06] MEDS ORDERED: EPINEPHrine 1 MG/ML AMP ONE (10:16)
[2020-06-06] MEDS ORDERED: Bupivacaine PF 0.5% 30 ML VIAL ONE (10:16)
[2020-06-06] MEDS ORDERED: Fentanyl 100 MCG/2 ML VIAL ONE (10:30)
[2020-06-06] MEDS ORDERED: Midazolam HCl 2 mg/2 ml Vial ONE (10:30)
[2020-06-06] MEDS ORDERED: Sodium Chloride 0.9% 10 ML ONE (11:10)
--- NOTE | 2020-06-06 12:38 | RAD ---
EXAM: CHEST ONE VIEW HISTORY: Central line placement. COMPARISON: 06/06/2020 FINDINGS: The nasogastric tube and endotracheal tubes have been removed. Tracheostomy device is now in place. R ight subclavian central venous catheter is also now present with tip overlying the expected location of the right atrium. Cardiac silhouette is within normal limits for portable technique. Incr eased interstitial and minimal patchy parenchymal opacities are again seen. Gastrostomy tube overlies the left upper quadrant. IMPRESSION: 1. Interval placement of tracheostomy device with removal of endotracheal tube and nasogastric tubes. 2. Interval placement of right-sided vascular catheter with tip overlying expected location right atr ium. 3. Gastrostomy tube noted in place. 4. Persistent bilateral interstitial and patchy parenchymal airspace opacities likely related to Covi d pneumonia and possibly secondary to chronic fibrotic lung changes given long-standing presence of airspace opacities compared to multiple prior chest radiographs.
--- NOTE | 2020-06-06 12:57 | OP ---
DATE OF PROCEDURE: 06/06/2020 PREOPERATIVE DIAGNOSES: Coronavirus disease pneumonia, respiratory failure, malnutrition, poor IV access. POSTOPERATIVE DIAGNOSES: Coronavirus disease pneumonia, respiratory failure, malnutrition, poor IV access, PICC line right arm. PROCEDURES PERFORMED: #8 Shiley tracheostomy tube, right subclavian vein triple-lumen catheter, percutaneous endoscopic gastrostomy tube. ANESTHESIA: General, local 0.5% Marcaine 30 mL mixed with 1% Xylocaine with epinephrine 20 mL. DESCRIPTION OF PROCEDURE: The patient was taken to the operating room, where under general anesthesia, neck and chest, abdomen was prepared with ChloraPrep and draped in routine fashion. Right subclavian vein accessed, infraclavicular approach. J-wire threaded, trocar catheter removed. Seldinger technique used to place triple-lumen catheter, removing the J-wire, securing the catheter with 3-0 Prolene suture. Each port aspirated blood, flushed with saline solution, connected to IV fluid. PICC line removed. Incision was made in the supramanubrial lower neck and carried down to skin and platysma. Strap muscles reflected laterally. Anterior jugular veins divided between 3-0 silk ties. Trachea identified below the cricoid and strap sutures 3-0 Prolene placed on either side. Air knot was tied, secured to the chest wall with an OpSite. Tracheal window made sharply below the cricoid over two cartilaginous rings. Endotracheal tube removed. Good hemostasis noted as #8 Shiley low-pressure cuffed tracheostomy tube inserted, inflated, connected to the ventilator. Skin incisions were approximated with either side with continuous suture of 3-0 Prolene. Sterile dressings applied. Tracheostomy appliance secured to the neck with a fixation device. The patient tolerated the procedure well. There was good hemostasis. Endoscope was placed per os under direct visualization. Using air insufflation, passed throughout the esophagus into the stomach. Good indentation noted in the left subxiphoid. Local anesthetic was infiltrated in the skin and subcutaneous tissue which had been prepped with ChloraPrep. Stab incision was made and trocar catheter induced percutaneously into the gastric lumen, visualized endoscopically grasping an introduced wire and brought it out through mouth, connected to the feeding tube, lubricated, and pulled it back down through the mouth. Scope had been withdrawn, noting normal esophagus. Tube secured to the abdominal wall with a fixation device, tailored to length, connected to the feeding device. Sterile dressings applied. Job ID: [id number]
--- NOTE | 2020-06-06 16:38 | PDOC.HOSPP ---
- Subjective Encounter Date: 06/06/20 Encounter Time: 15:00 Subjective: F/u : COVID The patient is s/p trach and PEG today. She is not following commands, currently on sedation . SHe does respond to painful stimuli - Objective Vital Signs & Weight: Vital Signs (12 hours) Temp Pulse Pulse Pulse Resp BP BP 06/06/20 16:00 18 06/06/20 14:41 102 H 96/64 06/06/20 14:00 21 H 06/06/20 11:53 98.3 F 18 06/06/20 10:00 13 06/06/20 08:35 75 76 98/57 L 06/06/20 08:00 99.3 F 15 06/06/20 07:11 84 97/88 06/06/20 06:00 14 BP Pulse Ox Pulse Ox Pulse Ox 06/06/20 16:00 06/06/20 14:41 06/06/20 14:00 06/06/20 11:53 06/06/20 10:00 06/06/20 08:35 85/58 L 95 97 06/06/20 08:00 96 06/06/20 07:11 06/06/20 06:00 Weight Admit Weight 147 lb Weight 134 lb 4.184 oz Most Recent Monitor Data Heart Rate from ECG 82 NIBP 87/65 NIBP BP-Mean 72 Respiration from ECG 21 SpO2 96 I&O: 06/05/20 06/06/20 06/07/20 06:59 06:59 06:59 Intake Total 1609 2000.9 349 Output Total 2665 2115 1755 Balance -1056 -114.1 -1406 Result Diagrams: 06/06/20 03:40 06/06/20 03:40 Additional Labs: Accuchecks 06/06/20 06/06/20 06/05/20 16:23 09:42 22:07 POC Glucose 151 H 75 110 H Hospitalist ROS - Review of Systems ROS unobtainable: due to endotracheal tube - Medication Medications: Active Medications Generic Name Dose Route Start Last Admin Trade Name Freq PRN Reason Stop Dose Admin Acetaminophen 1,000 mg 05/04/20 07:05 05/22/20 01:07 Acetaminophen 500 Mg Tab PO 1,000 mg Q6H PRN Administration Mild Pain (1-3) Ascorbic Acid 1,000 mg 05/04/20 09:00 06/06/20 08:20 Ascorbic Acid 500 Mg Chewable Tablet PO Not Given DAILY OMARI Benzonatate 100 mg 05/04/20 07:05 06/03/20 06:07 Benzonatate 100 Mg Cap PO 100 mg Q6H PRN Administration Cough Cholecalciferol 5,000 units 05/04/20 21:00 06/05/20 22:05 Cholecalciferol 1,000 Units (25 Mcg) Tab PO 5,000 units HS OMARI Administration Dextrose/Water 25 gm 05/03/20 22:18 05/11/20 10:24 Dextrose 50% Abboject 50 Ml Syringe SLOW IVP 25 gm PRN PRN Administration HYPOGLYCEMIA PROTOCOL Famotidine 20 mg 05/04/20 09:00 06/06/20 08:20 Famotidine 20 Mg Tab PO Not Given BID OMARI Dextrose/Water 1,000 mls @ 0 mls/hr 05/03/20 22:30 06/06/20 09:49 D5w IV 1,000 mls INF PRN Administration HYPOGLYCEMIA PROTOCOL As Directed Insulin Glargine 25 units/ 0.25 mls @ 0 mls/hr 05/06/20 21:00 06/05/20 22:08 Miscellaneous Medication SC Not Given HS OMARI Insulin Glargine 25 units/ 0.25 mls @ 0 mls/hr 05/24/20 09:00 06/06/20 08:20 Miscellaneous Medication SC Not Given QAM [facility] Fentanyl Citrate 2,000 mcg/ 100 mls @ 0 mls/hr 05/30/20 23:30 06/06/20 08:23 Sodium Chloride IV 100 mls INF OMARI Administration Protocol Per Protocol Sodium Chloride 1,000 mls @ 75 mls/hr 06/05/20 11:15 06/06/20 15:23 Normal Saline 0.9% IV Not Given .[id number] [facility] Insulin Human Lispro 0 units 05/05/20 01:19 06/04/20 16:27 Humalog 300 Units/3 Ml Vial SC 4 unit .MODERATE SLIDING SC PRN Administration Moderate Correctional Scale Lorazepam 2 mg 05/30/20 23:18 06/05/20 08:52 Lorazepam 2 Mg/Ml Vial SLOW IVP 2 mg Q1H PRN Administration Breakthrough agitation Methylprednisolone Sodium Succinate 30 mg 06/06/20 09:00 06/06/20 08:43 Methylprednisolone Sod Succ 40 Mg Vial IVP 30 mg BID OMARI Administration Morphine Sulfate 2 mg 05/30/20 23:18 06/05/20 09:04 Morphine 2 Mg/Ml Vial SLOW IVP 2 mg Q1H PRN Administration Breakthrough Pain/Agitation Ondansetron HCl 4 mg 05/04/20 07:05 05/04/20 12:12 Ondansetron Pf 4 Mg/2 Ml Vial IVP 4 mg Q6H PRN Administration Nausea/Vomiting Propofol 1,000 mg 05/10/20 12:15 06/05/20 23:53 Propofol 1,000 Mg/100 Ml Vial IV 06/09/20 12:15 1,000 mg INF PRN Administration TO ACHIEVE GOAL RASS Protocol Senna/Docusate Sodium 1 tab 05/06/20 21:00 06/06/20 08:20 Senokot S 8.6-50 Mg Tab PO Not Given BID OMARI Sodium Chloride 10 ml 05/03/20 22:30 05/26/20 07:51 Flush - Normal Saline 10 Ml Syringe IVF 10 ml PRN PRN Administration Saline Flush Zinc Sulfate 220 mg 05/04/20 09:00 06/06/20 08:20 Zinc Sulfate 220 Mg Cap PO Not Given DAILY OMARI - Exam General - other findings: intubated Eye: PERRL, anicteric sclera ENT: normocephalic atraumatic, no oropharyngeal lesions Neck: no JVD Heart: RRR, no murmur, no gallops, no rubs Respiratory: CTAB, no wheezes, no rales, no ronchi Gastrointestinal: soft, non-tender, non-distended, normal bowel sounds Extremities: no cyanosis, no clubbing, no edema Hosp A/P - Plan Chest X ray 06/02: worsening of bilateral infiltrates Chest X ray 06/04: worsening right lung infiltrate Chest X ray 06/06: bilateral pneumonia This is is a 55 year old female who presented with weakness and shortness of breath, hypoxia. SHe also had DKA which resolved Acute hypoxic respiratory failure from COVID pneumonia - the patient received ceftriaxone from 05/04 to 05/14, zosyn from 05/05 to 05/22. Chest X ray showed worsening infiltrates 1/2. Started on meropenem 1 and vanc 1. - WBC is now down to 10. Antibiotics have been discontinued and steroids tapered - patient is s/p trach and PEG. Does not qualify for LTAC since no insurance . She is still on the vent and not following commands. Weaning as tolerated Leukocytosis - resolved Anemia - hb 10.9, stable Type II Diabetes - blood sugars 88-218, continue lantus 25 units BID
[2020-06-06] MEDS: Cholecalciferol 1,000 UNITS (25 MCG) TAB PO SCH (20:21)
[2020-06-06] MEDS: Propofol 1,000 MG/100 ML VIAL IV PRN (21:38)
[2020-06-06] MEDS: Dextrose 50% Abboject 50 ML SYRINGE SLOW IVP PRN (22:08)
[2020-06-07] MEDS: Sodium Chloride 0.9% 1,000 ML IV SCH (03:37)
[2020-06-07 03:53] LABS: #Eosinphils 0.1 thou/uL (0.0-0.7); #Lymphocytes 1.5 thou/uL (1.20-3.40); #Monocytes 0.5 thou/uL (0.11-0.59); #Neutrophils 14.7 thou/uL (1.40-6.50); %Basophils 0.1 % (0.0-1.0); %Eosinophils 0.4 % (0.0-10.0); %Lymphocytes 9.2 % (21.0-51.0); %Monocytes 2.8 % (0.0-10.0); %Neutrophils 87.4 % (42.0-75.0); Hemoglobin 11.6 g/dL (12.0-16.0); Mean Corpuscular HGB CONC 33.1 g/dL (32.0-36.0); Mean Corpuscular Volume 93.7 fL (78.0-98.0); Platelet Count 477 thou/uL (130-400); RBC Distribution Width 15.1 % (11.5-14.5); Red Blood Cell (RBC) Count 3.75 mill/uL (4.20-5.40); White Blood Cell (WBC) Count 16.8 thou/uL (4.8-10.8)
[2020-06-07 04:37] LABS: Anion Gap 13 mmol/L (10-20); BUN (Urea Nitrogen) 23 mg/dL (9.8-20.1); Calc. Creatinine Clearance 90 mL/min (70-130); Calcium 8.7 mg/dL (7.8-10.44); Carbon Dioxide 29 mmol/L (22-29); Chloride 97 mmol/L (98-107); Glucose 223 mg/dL (70-105); Potassium 3.8 mmol/L (3.5-5.1); Sodium 135 mmol/L (136-145)
[2020-06-07 06:55] LABS: Actual Bicarbonate (HCO3a) 24.4 mEq/L (22-28); Base Excess (BEa) 2.4 mEq/L (-2.0 to +3.0); Calcium, Ionized (arterial) 1.18 mmol/L (1.12-1.30); Carboxyhemoglobin (COHb) 1.5 gm% (0.0-3.0); Hemoglobin (Hb) 12.4 g/dL (12.0-16.0); O2 Tension (PaO2), arterial 60.6 mmHg (80.0-100.0); Potassium - ABG Lab 3.58 mmol/L (3.70-5.30); pH, Arterial 7.53 (7.35-7.45)
[2020-06-07 07:15] LABS: Puncture Site RRA
[2020-06-07] MEDS: Ascorbic Acid 500 mg Chewable Tablet PO SCH (08:37)
[2020-06-07] MEDS: Senokot S 8.6-50 MG TAB PO SCH ×2 (08:37→21:18)
[2020-06-07] MEDS: Famotidine 20 MG TAB PO SCH ×2 (08:37→21:19)
[2020-06-07] MEDS: Zinc Sulfate 220 MG CAP PO SCH (08:37)
[2020-06-07] MEDS: Lorazepam 2 MG/ML VIAL SLOW IVP PRN (08:37)
[2020-06-07] MEDS: methylPREDNISolone Sod Succ 40 MG VIAL IVP SCH ×2 (08:38→21:20)
--- NOTE | 2020-06-07 08:47 | PRG ---
DATE OF SERVICE: 06/07/2020 35 minutes critical time. SUBJECTIVE: Zoey underwent tracheostomy yesterday and is now awake and understands commands. OBJECTIVE: VITAL SIGNS: Heart rate is 94, blood pressure 114/60, O2 sat generally 85 and above, respiratory rate 27, temperature 98.7. HEENT: Unremarkable. NECK: Trach in good position. LUNGS: Clear anteriorly. CARDIOVASCULAR: S1, S2. Regular. ABDOMEN: Soft. EXTREMITIES: Trace edema. LABORATORY DATA: Sodium 135, potassium 3.8, chloride 97, CO2 of 29, BUN 23, creatinine 0.6, glucose 223. White blood cell count 16.8, hematocrit 35.1, and platelet count 477. ABG; pH 7.53, pCO2 of 30, pO2 of 60, on assist control, FiO2 60%, PEEP of 10. Her x-ray continued to show bilateral infiltrates. ASSESSMENT: 1. Coronavirus disease 2019 pneumonia. 2. Prolonged respiratory failure, requiring mechanical ventilation. PLAN: 1. I am switching her over to volume ventilation, but keep her on assist-control mode. Continue the steroids. 2. Continue enteral tube feeds. 3. Initiated physical therapy. 4. Stop IV fluids as she is getting enough fluid through her tube feeds. Job ID: [id number]
[2020-06-07] MEDS: Insulin Glargine 25 UNITS in Pre-Filled Syringe 1 EACH SC SCH (08:56)
[2020-06-07] MEDS: HumaLOG 300 UNITS/3 ML VIAL SC PRN ×2 (08:57→17:16)
--- NOTE | 2020-06-07 09:58 | RAD ---
AP CHEST: Date: 06/07/2020 INDICATION: Pneumonia follow-up. COMPARISON: 06/06/2020\. FINDINGS/IMPRESSION: Tracheostomy device and central line are unchanged. The tip of the central line overlies the right at rium. Interstitial and hazy alveolar infiltrates are seen bilaterally, more prominent in the right lower natalie ng. No significant change from 06/06/2020 apparent. The right lung infiltrates appear more prominent on the current study, but this is due to differences in exposure. POS: AGW
--- NOTE | 2020-06-07 13:54 | PRG ---
DATE OF SERVICE: Ms. Parmar is doing well after tracheostomy and PEG tube yesterday. Abdomen is soft and nontender. She is tolerating her PEG tube feedings. Tracheostomy site is dry. At this point, I will see her as needed. Please call if necessary. Job ID: [id number]
--- NOTE | 2020-06-07 15:41 | PDOC.HOSPP ---
- Subjective Encounter Date: 06/07/20 Encounter Time: 13:00 Subjective: F/u: COVID The patient is s/p trach and PEG. She is tolerating her feedings. She understands [place]ian per nursing staff - Objective Vital Signs & Weight: Vital Signs (12 hours) Temp Pulse Pulse Pulse Resp BP BP 06/07/20 14:25 93 91/56 L 06/07/20 14:00 28 H 06/07/20 12:00 99.6 F 24 H 06/07/20 10:48 105 H 119/61 06/07/20 10:00 22 H 06/07/20 09:34 100 104 H 103/69 06/07/20 09:01 99 103 H 97/58 L 06/07/20 08:00 99.7 F H 23 H 06/07/20 06:50 90 89/57 L 06/07/20 06:00 21 H 06/07/20 04:00 98.7 F 19 BP Pulse Ox Pulse Ox Pulse Ox 06/07/20 14:25 06/07/20 14:00 06/07/20 12:00 06/07/20 10:48 06/07/20 10:00 06/07/20 09:34 100/65 92 L 90 L 06/07/20 09:01 100/65 90 L 89 L 06/07/20 08:00 92 L 06/07/20 06:50 06/07/20 06:00 06/07/20 04:00 Weight Admit Weight 147 lb Weight 133 lb 2.547 oz Most Recent Monitor Data Heart Rate from ECG 92 NIBP 92/58 NIBP BP-Mean 69 Respiration from ECG 29 SpO2 98 I&O: 06/06/20 06/07/20 06/08/20 06:59 06:59 06:59 Intake Total 2206.9 905.9 231.0 Output Total 2115 2490 385 Balance 91.9 -1584.1 -154.0 Result Diagrams: 06/07/20 03:33 06/07/20 03:33 Additional Labs: Accuchecks 06/07/20 06/06/20 06/06/20 08:50 22:56 21:34 POC Glucose 248 H 253 H 66 L 06/06/20 16:23 POC Glucose 151 H Hospitalist ROS - Review of Systems ROS unobtainable: due to mental status - Medication Medications: Active Medications Generic Name Dose Route Start Last Admin Trade Name Freq PRN Reason Stop Dose Admin Acetaminophen 1,000 mg 05/04/20 07:05 05/22/20 01:07 Acetaminophen 500 Mg Tab PO 1,000 mg Q6H PRN Administration Mild Pain (1-3) Ascorbic Acid 1,000 mg 05/04/20 09:00 06/07/20 08:37 Ascorbic Acid 500 Mg Chewable Tablet PO 1,000 mg DAILY OMARI Administration Cholecalciferol 5,000 units 05/04/20 21:00 06/06/20 20:21 Cholecalciferol 1,000 Units (25 Mcg) Tab PO 5,000 units HS OMARI Administration Dextrose/Water 25 gm 05/03/20 22:18 06/06/20 22:08 Dextrose 50% Abboject 50 Ml Syringe SLOW IVP 25 gm PRN PRN Administration HYPOGLYCEMIA PROTOCOL Famotidine 20 mg 05/04/20 09:00 06/07/20 08:37 Famotidine 20 Mg Tab PO 20 mg BID OMARI Administration Dextrose/Water 1,000 mls @ 0 mls/hr 05/03/20 22:30 06/06/20 09:49 D5w IV 1,000 mls INF PRN Administration HYPOGLYCEMIA PROTOCOL As Directed Insulin Glargine 25 units/ 0.25 mls @ 0 mls/hr 05/06/20 21:00 06/06/20 21:38 Miscellaneous Medication SC Not Given HS [facility] Insulin Glargine 25 units/ 0.25 mls @ 0 mls/hr 05/24/20 09:00 06/07/20 08:56 Miscellaneous Medication SC 0.25 mls QAM OMARI Administration Fentanyl Citrate 2,000 mcg/ 100 mls @ 0 mls/hr 05/30/20 23:30 06/06/20 08:23 Sodium Chloride IV 100 mls INF OMARI Administration Protocol Per Protocol Insulin Human Lispro 0 units 05/05/20 01:19 06/07/20 08:57 Humalog 300 Units/3 Ml Vial SC 4 unit .MODERATE SLIDING SC PRN Administration Moderate Correctional Scale Lorazepam 2 mg 05/30/20 23:18 06/07/20 08:37 Lorazepam 2 Mg/Ml Vial SLOW IVP 2 mg Q1H PRN Administration Breakthrough agitation Methylprednisolone Sodium Succinate 30 mg 06/06/20 09:00 06/07/20 08:38 Methylprednisolone Sod Succ 40 Mg Vial IVP 30 mg BID OMARI Administration Morphine Sulfate 2 mg 05/30/20 23:18 06/05/20 09:04 Morphine 2 Mg/Ml Vial SLOW IVP 2 mg Q1H PRN Administration Breakthrough Pain/Agitation Ondansetron HCl 4 mg 05/04/20 07:05 05/04/20 12:12 Ondansetron Pf 4 Mg/2 Ml Vial IVP 4 mg Q6H PRN Administration Nausea/Vomiting Senna/Docusate Sodium 1 tab 05/06/20 21:00 06/07/20 08:37 Senokot S 8.6-50 Mg Tab PO 1 tab BID OMARI Administration Sodium Chloride 10 ml 05/03/20 22:30 06/06/20 20:22 Flush - Normal Saline 10 Ml Syringe IVF 10 ml PRN PRN Administration Saline Flush Zinc Sulfate 220 mg 05/04/20 09:00 06/07/20 08:37 Zinc Sulfate 220 Mg Cap PO 220 mg DAILY OMARI Administration - Exam General Appearance: NAD, awake alert Eye: PERRL, anicteric sclera ENT: normocephalic atraumatic, no oropharyngeal lesions Neck: supple, no JVD Heart: RRR, no murmur, no gallops, no rubs Respiratory: CTAB, no wheezes, no rales, no ronchi Gastrointestinal: soft, non-tender, non-distended, normal bowel sounds Extremities: 1+ LE edema Skin: no rashes Hosp A/P - Plan Chest X ray 06/02: worsening of bilateral infiltrates Chest X ray 06/04: worsening right lung infiltrate Chest X ray 06/06: bilateral pneumonia Chest X ray 06/07: interstitial infiltrates This is is a 55 year old female who presented with weakness and shortness of br eath, hypoxia. SHe also had DKA which resolved Acute hypoxic respiratory failure from COVID pneumonia - the patient received ceftriaxone from 05/04 to 05/14, zosyn from 05/05 to 05/22. Chest X ray showed worsening infiltrates 1/2. Started on meropenem 06/02 and vanc 06/03. Antibiotics were discontinued on 06/06 and steroids were tapered since WBC resolved to 10 - 06/07: WBC is now up to 16. She is s/p trach and PEG and tolerating feeds. Will monitor. Chest Xray shows interstitial infiltrates. IV fluids have been discontinued Leukocytosis - increasing to 16, will monitor off antibiotics Anemia - hb 10.9, stable Type II Diabetes Hypoglycemia - blood sugars 66 in the evening. Will decrease lantus to 21 units qam and continue lantus 25 units qhs
[2020-06-07] MEDS ORDERED: PRE FILLED SC SCH (21:00)
[2020-06-07] MEDS ORDERED: INSULIN GLARGINE SC SCH (21:00)
[2020-06-07] MEDS: Apixaban 5 MG TAB PER TUBE SCH (21:19)
[2020-06-07] MEDS: Cholecalciferol 1,000 UNITS (25 MCG) TAB PO SCH (21:19)
[2020-06-07] MEDS: Insulin Glargine 25 UNITS in Pre-Filled Syringe SC SCH (22:58)
[2020-06-08 04:17] LABS: #Eosinphils 0.1 thou/uL (0.0-0.7); #Lymphocytes 1.4 thou/uL (1.20-3.40); #Monocytes 0.3 thou/uL (0.11-0.59); #Neutrophils 17.1 thou/uL (1.40-6.50); %Eosinophils 0.3 % (0.0-10.0); %Lymphocytes 7.2 % (21.0-51.0); %Monocytes 1.6 % (0.0-10.0); %Neutrophils 90.8 % (42.0-75.0); Hemoglobin 11.5 g/dL (12.0-16.0); Mean Corpuscular HGB CONC 33.6 g/dL (32.0-36.0); Mean Corpuscular Volume 92.3 fL (78.0-98.0); Mean Platelet Volume 8.2 fL (7.4-10.4); Platelet Count 440 thou/uL (130-400); RBC Distribution Width 15.1 % (11.5-14.5); Red Blood Cell (RBC) Count 3.72 mill/uL (4.20-5.40); White Blood Cell (WBC) Count 18.8 thou/uL (4.8-10.8)
[2020-06-08 04:39] LABS: Anion Gap 12 mmol/L (10-20); BUN (Urea Nitrogen) 26 mg/dL (9.8-20.1); Calc. Creatinine Clearance 108 mL/min (70-130); Calcium 8.6 mg/dL (7.8-10.44); Carbon Dioxide 31 mmol/L (22-29); Chloride 97 mmol/L (98-107); Glucose 206 mg/dL (70-105); Potassium 3.5 mmol/L (3.5-5.1); Sodium 136 mmol/L (136-145)
[2020-06-08] MEDS: HumaLOG 300 UNITS/3 ML VIAL SC PRN ×2 (04:51→17:48)
[2020-06-08] MEDS ORDERED: Potassium Chloride 20 MEQ TAB PO SCH (06:30)
--- NOTE | 2020-06-08 07:58 | PRG ---
DATE OF SERVICE: 06/08/2020 35 minutes critical care time. SUBJECTIVE: The patient remains on mechanical ventilation through a tracheostomy. She is awake and alert this morning. She is off all continuous sedation. OBJECTIVE: VITAL SIGNS: Temperature 98.8, pulse , blood pressure 93/58. 24-hour intake 1156, output 1259. HEENT: Unremarkable. NECK: Trach in good position. LUNGS: Fairly clear anteriorly with few scattered crackles. CARDIAC: S1, S2. Regular. ABDOMEN: Soft. Nontender to palpation. EXTREMITIES: No clubbing, cyanosis, or edema. She has fairly significant muscle wasting. LABORATORY DATA: White blood cell count 18.8, hematocrit 34.3, platelet count 440. Sodium 136, potassium 3.5, chloride 97, CO2 of 31, BUN 26, creatinine 0.5, glucose 206. X-ray is about the same. ASSESSMENT: 1. COVID-19 pneumonia. 2. Acute hypoxic respiratory failure requiring mechanical ventilation. 3. Blood sugar elevated secondary to steroid use. PLAN: 1. I am going to cut her steroid dose again. 2. We are going to start getting her up in the chair. 3. She has been weaned off propofol and fentanyl. 4. Continue physical therapy. 5. Continue enteral tube feeds. 6. Stop daily CBCs and consider stopping daily chemistry soon. Overall, this patient's prognosis is improving by the day. Job ID: [id number]
--- NOTE | 2020-06-08 08:08 | RAD ---
Portable frontal chest radiograph: 06/08/2020 COMPARISON: 06/07/2020 HISTORY: Reevaluate pneumonia FINDINGS: Stable tracheostomy tube and right vascular catheter. No pneumothorax. Coarse diffuse linea r interstitial density with superimposed prominent bilateral groundglass alveolar opacity with a basilar predominance, left greater than right. Round density in the left upper quadrant suggests a ga strostomy tube. IMPRESSION: No significant interval change.
[2020-06-08] MEDS: Ascorbic Acid 500 mg Chewable Tablet PO SCH (11:00)
[2020-06-08] MEDS: Apixaban 5 MG TAB PER TUBE SCH ×2 (11:00→21:01)
[2020-06-08] MEDS: Senokot S 8.6-50 MG TAB PO SCH ×2 (11:00→21:02)
[2020-06-08] MEDS: Famotidine 20 MG TAB PO SCH ×2 (11:00→21:00)
[2020-06-08] MEDS: Acetaminophen 500 MG TAB PO PRN ×2 (11:00→17:53)
[2020-06-08] MEDS: methylPREDNISolone Sod Succ 40 MG VIAL IVP SCH ×2 (11:01→21:01)
[2020-06-08] MEDS: PRE FILLED SC SCH (11:02)
[2020-06-08] MEDS: INSULIN GLARGINE SC SCH (11:02)
[2020-06-08] MEDS: Lorazepam 2 MG/ML VIAL SLOW IVP PRN (12:13)
--- NOTE | 2020-06-08 17:54 | PDOC.HOSPP ---
- Subjective Encounter Date: 06/08/20 Encounter Time: 10:00 Subjective: F/u: COVID THe patient is awake. When I asked how she felt in [place]ian, she said "koch." She is still on the vent. No excess secretions noted per respiratory - Objective Vital Signs & Weight: Vital Signs (12 hours) Temp Pulse Resp BP Pulse Ox 06/08/20 17:23 97.9 F 06/08/20 17:00 99.7 F H 06/08/20 16:00 30 H 06/08/20 14:56 111 H 94/65 06/08/20 14:00 29 H 06/08/20 13:00 29 H 06/08/20 12:00 99.6 F 36 H 06/08/20 10:36 102 H 94/57 L 06/08/20 10:00 30 H 06/08/20 08:00 28 H 94 L 06/08/20 07:59 99.5 F 06/08/20 06:59 104 H 93/58 L 06/08/20 06:00 31 H Weight Admit Weight 147 lb Weight 2.018 oz Most Recent Monitor Data Heart Rate from ECG 113 NIBP 94/65 NIBP BP-Mean 74 Respiration from ECG 28 SpO2 99 I&O: 06/07/20 06/08/20 06/09/20 06:59 06:59 06:59 Intake Total 905.9 1156.0 517 Output Total 2490 1259 389 Balance -1584.1 -103.0 128 Result Diagrams: 06/08/20 03:41 06/08/20 03:41 Additional Labs: Accuchecks 06/08/20 06/08/20 10:55 03:36 POC Glucose 102 H 204 H Hospitalist ROS - Review of Systems Constitutional: denies: fever, chills - Medication Medications: Active Medications Generic Name Dose Route Start Last Admin Trade Name Freq PRN Reason Stop Dose Admin Acetaminophen 1,000 mg 05/04/20 07:05 06/08/20 11:00 Acetaminophen 500 Mg Tab PO 1,000 mg Q6H PRN Administration Mild Pain (1-3) Apixaban 5 mg 06/07/20 21:00 06/08/20 11:00 Apixaban 5 Mg Tab PER TUBE 5 mg BID OMARI Administration Ascorbic Acid 1,000 mg 05/04/20 09:00 06/08/20 11:00 Ascorbic Acid 500 Mg Chewable Tablet PO 1,000 mg DAILY OMARI Administration Cholecalciferol 5,000 units 05/04/20 21:00 06/07/20 21:19 Cholecalciferol 1,000 Units (25 Mcg) Tab PO 5,000 units HS OMARI Administration Dextrose/Water 25 gm 05/03/20 22:18 06/06/20 22:08 Dextrose 50% Abboject 50 Ml Syringe SLOW IVP 25 gm PRN PRN Administration HYPOGLYCEMIA PROTOCOL Famotidine 20 mg 05/04/20 09:00 06/08/20 11:00 Famotidine 20 Mg Tab PO 20 mg BID OMARI Administration Dextrose/Water 1,000 mls @ 0 mls/hr 05/03/20 22:30 06/06/20 09:49 D5w IV 1,000 mls INF PRN Administration HYPOGLYCEMIA PROTOCOL As Directed Insulin Glargine 21 units/ 0.21 mls @ 0 mls/hr 06/08/20 09:00 06/08/20 11:02 Miscellaneous Medication SC [place] [facility] [place] Glargine 25 units/ 0.25 mls @ 0 mls/hr 06/07/20 21:00 06/07/20 22:58 Miscellaneous Medication SC 0.25 mls HS OMARI Administration Insulin Human Lispro 0 units 05/05/20 01:19 06/08/20 17:48 Humalog 300 Units/3 Ml Vial SC 6 unit .MODERATE SLIDING SC PRN Administration Moderate Correctional Scale Lorazepam 2 mg 05/30/20 23:18 06/08/20 12:13 Lorazepam 2 Mg/Ml Vial SLOW IVP 2 mg Q1H PRN Administration Breakthrough agitation Methylprednisolone Sodium Succinate 20 mg 06/08/20 09:00 06/08/20 11:01 Methylprednisolone Sod Succ 40 Mg Vial IVP 20 mg BID OMARI Administration Morphine Sulfate 2 mg 05/30/20 23:18 06/05/20 09:04 Morphine 2 Mg/Ml Vial SLOW IVP 2 mg Q1H PRN Administration Breakthrough Pain/Agitation Ondansetron HCl 4 mg 05/04/20 07:05 05/04/20 12:12 Ondansetron Pf 4 Mg/2 Ml Vial IVP 4 mg Q6H PRN Administration Nausea/Vomiting Senna/Docusate Sodium 1 tab 05/06/20 21:00 06/08/20 11:00 Senokot S 8.6-50 Mg Tab PO 1 tab BID OMARI Administration Sodium Chloride 10 ml 05/03/20 22:30 06/06/20 20:22 Flush - Normal Saline 10 Ml Syringe IVF 10 ml PRN PRN Administration Saline Flush - Exam General Appearance: NAD, awake alert General - other findings: on trach ENT: normocephalic atraumatic, no oropharyngeal lesions Neck: no JVD Heart: RRR, no murmur, no gallops, no rubs Respiratory: CTAB, no wheezes, no rales, no ronchi Gastrointestinal: soft, non-tender, non-distended, normal bowel sounds Extremities: 1+ LE edema Hosp A/P - Plan Chest X ray 06/02: worsening of bilateral infiltrates Chest X ray 06/04: worsening right lung infiltrate Chest X ray 06/06: bilateral pneumonia Chest X ray 06/07: interstitial infiltrates Chest X ray 06/08: no change in bilateral infiltrates This is is a 55 year old female who presented with weakness and shortness of breath, hypoxia. SHe also had DKA which resolved Acute hypoxic respiratory failure from COVID pneumonia - the patient received ceftriaxone from 05/04 to 05/14, zosyn from 05/05 to 05/22. Chest X ray showed worsening infiltrates 06/02. Started on meropenem 06/02 and vanc 06/03. Antibiotics were discontinued on 06/06 and steroids were tapered since WBC resolved to 10 - 06/07: WBC is now up to 16. She is s/p trach and PEG and tolerating feeds. Will monitor. Chest Xray shows interstitial infiltrates. IV fluids have been discontinued -06/08: WBC has increased to 18. Steroids have tapered further Leukocytosis - increasing to 16, will monitor off antibiotics Anemia - hb 10.9, stable Type II Diabetes Hypoglycemia - blood sugars 66 in the evening. Will decrease lantus to 21 units qam and continue lantus 25 units qhs
[2020-06-08] MEDS: Cholecalciferol 1,000 UNITS (25 MCG) TAB PO SCH (21:01)
[2020-06-08] MEDS: Insulin Glargine 25 UNITS in Pre-Filled Syringe SC SCH (22:12)
[2020-06-09 05:00] LABS: Hemoglobin 11.1 g/dL (12.0-16.0); Mean Corpuscular HGB CONC 32.1 g/dL (32.0-36.0); Mean Corpuscular Hemoglobin 29.9 pg (27.0-31.0); Mean Corpuscular Volume 93.1 fL (78.0-98.0); Mean Platelet Volume 8.4 fL (7.4-10.4); Platelet Count 423 thou/uL (130-400); Red Blood Cell (RBC) Count 3.72 mill/uL (4.20-5.40); White Blood Cell (WBC) Count 13.1 thou/uL (4.8-10.8)
[2020-06-09 05:20] LABS: Anion Gap 12 mmol/L (10-20); BUN (Urea Nitrogen) 28 mg/dL (9.8-20.1); Calc. Creatinine Clearance 96 mL/min (70-130); Carbon Dioxide 30 mmol/L (22-29); Chloride 97 mmol/L (98-107); Glucose 307 mg/dL (70-105); Potassium 3.9 mmol/L (3.5-5.1); Sodium 135 mmol/L (136-145)
[2020-06-09] MEDS: HumaLOG 300 UNITS/3 ML VIAL SC PRN ×4 (05:28→17:03)
[2020-06-09] MEDS: Senokot S 8.6-50 MG TAB PO SCH ×2 (08:46→21:06)
[2020-06-09] MEDS: Ascorbic Acid 500 mg Chewable Tablet PO SCH (08:46)
[2020-06-09] MEDS: Famotidine 20 MG TAB PO SCH ×2 (08:47→21:07)
[2020-06-09] MEDS: Apixaban 5 MG TAB PER TUBE SCH ×2 (08:47→21:09)
[2020-06-09] MEDS: PRE FILLED SC SCH (08:50)
[2020-06-09] MEDS: INSULIN GLARGINE SC SCH (08:50)
[2020-06-09] MEDS: methylPREDNISolone Sod Succ 40 MG VIAL IVP SCH ×2 (08:51→21:07)
--- NOTE | 2020-06-09 12:02 | PDOC.HOSPP ---
- Subjective Encounter Date: 06/09/20 Encounter Time: 12:01 Subjective: F/u: COVID The patient is on the trach. She is unable to answer questions . The patient was suctioned by nurse and desaturated to 80% and heart rate increased to 130. She became more alert after that but seemed to be in discomfort She also has some hematuria in her diamond catheter today - Objective Vital Signs & Weight: Vital Signs (12 hours) Temp Pulse Resp Pulse Ox 06/09/20 11:00 108 H 06/09/20 10:00 32 H 06/09/20 08:10 94 L 06/09/20 08:00 99.6 F 32 H 06/09/20 07:26 113 H 06/09/20 06:00 30 H 06/09/20 04:00 99.6 F 30 H 06/09/20 02:00 29 H 06/09/20 01:57 98 Weight Admit Weight 147 lb Weight 128 lb 1.417 oz Most Recent Monitor Data Heart Rate from ECG 101 NIBP 91/52 NIBP BP-Mean 65 Respiration from ECG 34 SpO2 94 I&O: 06/08/20 06/09/20 06/10/20 06:59 06:59 06:59 Intake Total 1156.0 1286 240 Output Total 1259 1097 149 Balance -103.0 189 91 Result Diagrams: 06/09/20 04:45 06/09/20 04:45 Additional Labs: Accuchecks 06/09/20 06/09/20 06/08/20 10:27 08:33 03:36 POC Glucose 151 H 150 H 204 H Hospitalist ROS - Review of Systems Constitutional: denies: fever, chills - Medication Medications: Active Medications Generic Name Dose Route Start Last Admin Trade Name Freq PRN Reason Stop Dose Admin Acetaminophen 1,000 mg 05/04/20 07:05 06/08/20 17:53 Acetaminophen 500 Mg Tab PO 1,000 mg Q6H PRN Administration Mild Pain (1-3) Apixaban 5 mg 06/07/20 21:00 06/09/20 08:47 Apixaban 5 Mg Tab PER TUBE 5 mg BID OMARI Administration Ascorbic Acid 1,000 mg 05/04/20 09:00 06/09/20 08:46 Ascorbic Acid 500 Mg Chewable Tablet PO 1,000 mg DAILY OMARI Administration Cholecalciferol 5,000 units 05/04/20 21:00 06/08/20 21:01 Cholecalciferol 1,000 Units (25 Mcg) Tab PO 5,000 units HS OMARI Administration Dextrose/Water 25 gm 05/03/20 22:18 06/06/20 22:08 Dextrose 50% Abboject 50 Ml Syringe SLOW IVP 25 gm PRN PRN Administration HYPOGLYCEMIA PROTOCOL Famotidine 20 mg 05/04/20 09:00 06/09/20 08:47 Famotidine 20 Mg Tab PO 20 mg BID OMARI Administration Dextrose/Water 1,000 mls @ 0 mls/hr 05/03/20 22:30 06/06/20 09:49 D5w IV 1,000 mls INF PRN Administration HYPOGLYCEMIA PROTOCOL As Directed Insulin Glargine 21 units/ 0.21 mls @ 0 mls/hr 06/08/20 09:00 06/09/20 08:50 Miscellaneous Medication SC 0.21 mls QAM OMARI Administration Insulin Glargine 25 units/ 0.25 mls @ 0 mls/hr 06/07/20 21:00 06/08/20 22:12 Miscellaneous Medication SC 0.25 mls HS OMARI Administration Insulin Human Lispro 0 units 05/05/20 01:19 06/09/20 10:47 Humalog 300 Units/3 Ml Vial SC 2 unit .MODERATE SLIDING SC PRN Administration Moderate Correctional Scale Lorazepam 2 mg 05/30/20 23:18 06/08/20 12:13 Lorazepam 2 Mg/Ml Vial SLOW IVP 2 mg Q1H PRN Administration Breakthrough agitation Methylprednisolone Sodium Succinate 20 mg 06/08/20 09:00 06/09/20 08:51 Methylprednisolone Sod Succ 40 Mg Vial IVP 20 mg BID OMARI Administration Morphine Sulfate 2 mg 05/30/20 23:18 06/05/20 09:04 Morphine 2 Mg/Ml Vial SLOW IVP 2 mg Q1H PRN Administration Breakthrough Pain/Agitation Ondansetron HCl 4 mg 05/04/20 07:05 05/04/20 12:12 Ondansetron Pf 4 Mg/2 Ml Vial IVP 4 mg Q6H PRN Administration Nausea/Vomiting Senna/Docusate Sodium 1 tab 05/06/20 21:00 06/09/20 08:46 Senokot S 8.6-50 Mg Tab PO 1 tab BID OMARI Administration Sodium Chloride 10 ml 05/03/20 22:30 06/06/20 20:22 Flush - Normal Saline 10 Ml Syringe IVF 10 ml PRN PRN Administration Saline Flush - Exam General Appearance: NAD, awake alert General - other findings: intubated Eye: anicteric sclera ENT: normocephalic atraumatic, no oropharyngeal lesions Neck: no JVD Heart: RRR, no murmur, no gallops, no rubs Respiratory - other findings: slight rhonchi at the base Gastrointestinal: soft, non-tender, non-distended, normal bowel sounds Extremities: no cyanosis, no clubbing, no edema Skin: normal turgor, no lesions, no rashes Hosp A/P - Plan Chest X ray 06/02: worsening of bilateral infiltrates Chest X ray 06/04: worsening right lung infiltrate Chest X ray 06/06: bilateral pneumonia Chest X ray 06/07: interstitial infiltrates Chest X ray 06/08: no change in bilateral infiltrates Chest X ray 06/09: mild bilateral infiltrates This is is a 55 year old female who presented with weakness and shortness of breath, hypoxia. SHe also had DKA which resolved Acute hypoxic respiratory failure from COVID pneumonia - the patient received ceftriaxone from 05/04 to 05/14, zosyn from 05/05 to 05/22. Chest X ray showed worsening infiltrates 06/02. Started on meropenem 06/02 and vanc 06/03. Antibiotics were discontinued on 06/06 . - 06/09: WBC has improved to 13. Steroids tapered to 20 mg IV bid, will monitor. Chest Xray unchanged with bilateral infiltrates, slightly worst on the right. Continue with physical therapy Hematuria - noted in diamond catheter. Patient is on eliquis. Will check PT/INR, consider holding tonight's eliquis dose Leukocytosis - improving to 13, continue to taper steroids gradually Anemia - hb 11.1 #Type II Diabetes #Hypoglycemia- resolved - blood sugars 100-200. Continue lantus 21 qam and 25 qhs
[2020-06-09 12:30] LABS: INR-International Normal Ratio 1.4; PTT 32.6 sec (22.9-36.1); Prothrombin Time 17.4 sec (12.0-14.7)
[2020-06-09] MEDS: Lorazepam 2 MG/ML VIAL SLOW IVP PRN (13:53)
--- NOTE | 2020-06-09 16:17 | PRG ---
DATE OF SERVICE: 06/09/2020 SUBJECTIVE: Ms. Parmar remains ventilated. She has trach in place. OBJECTIVE: VITAL SIGNS: Heart rate is 108, respiratory rates in the 20s. We switched her back to assist-control ventilation today. FiO2 is at 50%. Blood pressure 108/67. LUNGS: Her lung compliance is still quite poor. She has coarse equal breath sounds. HEART: Regular rhythm. ABDOMEN: Soft. EXTREMITIES: Without asymmetry. LABORATORY DATA: White count 13.1, hemoglobin 11.1, platelets 423. Sodium 135, potassium 3.9, chloride 97, bicarb 30, BUN 20, creatinine 0.59. IMPRESSION: COVID pneumonia with evidence of interstitial fibrosis, ongoing diffuse alveolar damage. Her lung compliance prevents successful weaning from mechanical ventilation at this time. Hopefully, we will continue to make very slow progress. If we can turn her FiO2 down in her ventilatory support a tiny bit every day, we will eventually get there assuming no setback, although she is getting weaker every day. She has an extremely prolonged hospitalization. She is now 37 days into this hospitalization. We will continue critical care support. Job ID: [id number]
[2020-06-09] MEDS: Cholecalciferol 1,000 UNITS (25 MCG) TAB PO SCH (21:06)
[2020-06-09] MEDS: Insulin Glargine 25 UNITS in Pre-Filled Syringe SC SCH (21:08)
[2020-06-10] MEDS: Lorazepam 2 MG/ML VIAL SLOW IVP PRN ×3 (00:34→16:59)
[2020-06-10 04:08] LABS: Hemoglobin 10.7 g/dL (12.0-16.0); Mean Corpuscular HGB CONC 33.1 g/dL (32.0-36.0); Mean Corpuscular Hemoglobin 30.9 pg (27.0-31.0); Mean Corpuscular Volume 93.4 fL (78.0-98.0); Mean Platelet Volume 8.5 fL (7.4-10.4); Platelet Count 337 thou/uL (130-400); RBC Distribution Width 15.1 % (11.5-14.5); Red Blood Cell (RBC) Count 3.46 mill/uL (4.20-5.40); White Blood Cell (WBC) Count 12.1 thou/uL (4.8-10.8)
[2020-06-10 04:28] LABS: Anion Gap 12 mmol/L (10-20); BUN (Urea Nitrogen) 31 mg/dL (9.8-20.1); Calc. Creatinine Clearance 98 mL/min (70-130); Calcium 8.9 mg/dL (7.8-10.44); Carbon Dioxide 30 mmol/L (22-29); Chloride 99 mmol/L (98-107); Glucose 306 mg/dL (70-105); Potassium 3.9 mmol/L (3.5-5.1); Sodium 137 mmol/L (136-145)
[2020-06-10] MEDS: HumaLOG 300 UNITS/3 ML VIAL SC PRN ×2 (04:40→17:16)
[2020-06-10] MEDS: Ascorbic Acid 500 mg Chewable Tablet PO SCH (09:55)
[2020-06-10] MEDS: Senokot S 8.6-50 MG TAB PO SCH ×2 (09:55→21:20)
[2020-06-10] MEDS: Apixaban 5 MG TAB PER TUBE SCH ×2 (09:55→21:20)
[2020-06-10] MEDS: Famotidine 20 MG TAB PO SCH ×2 (09:57→21:20)
[2020-06-10] MEDS: methylPREDNISolone Sod Succ 40 MG VIAL IVP SCH ×2 (09:57→21:21)
[2020-06-10] MEDS: INSULIN GLARGINE SC SCH (09:57)
[2020-06-10] MEDS: PRE FILLED SC SCH (09:57)
--- NOTE | 2020-06-10 14:52 | PDOC.HOSPP ---
- Subjective Encounter Date: 06/10/20 non-verbal - Objective Vital Signs & Weight: Vital Signs (12 hours) Temp Pulse Resp 06/10/20 14:37 113 H 06/10/20 13:00 99.8 F H 06/10/20 12:00 32 H 06/10/20 10:19 100 06/10/20 10:00 31 H 06/10/20 08:06 91 06/10/20 07:58 31 H 06/10/20 06:00 30 H 06/10/20 04:00 99.1 F 29 H Weight Admit Weight 147 lb Weight 129 lb 3.054 oz Most Recent Monitor Data Heart Rate from ECG 110 NIBP 97/64 NIBP BP-Mean 75 Respiration from ECG 32 SpO2 93 I&O: 06/09/20 06/10/20 06/11/20 06:59 06:59 06:59 Intake Total 1286 1186 110 Output Total 1097 875 300 Balance 189 311 -190 Result Diagrams: 06/10/20 03:22 06/10/20 03:22 Additional Labs: Accuchecks 06/10/20 06/09/20 11:19 16:49 POC Glucose 206 H 262 H Hospitalist ROS - Medication Medications: Active Medications Generic Name Dose Route Start Last Admin Trade Name Freq PRN Reason Stop Dose Admin Acetaminophen 1,000 mg 05/04/20 07:05 06/08/20 17:53 Acetaminophen 500 Mg Tab PO 1,000 mg Q6H PRN Administration Mild Pain (1-3) Apixaban 5 mg 06/07/20 21:00 06/10/20 09:55 Apixaban 5 Mg Tab PER TUBE 5 mg BID OMARI Administration Ascorbic Acid 1,000 mg 05/04/20 09:00 06/10/20 09:55 Ascorbic Acid 500 Mg Chewable Tablet PO 1,000 mg DAILY OMARI Administration Cholecalciferol 5,000 units 05/04/20 21:00 06/09/20 21:06 Cholecalciferol 1,000 Units (25 Mcg) Tab PO 5,000 units HS OMARI Administration Dextrose/Water 25 gm 05/03/20 22:18 06/06/20 22:08 Dextrose 50% Abboject 50 Ml Syringe SLOW IVP 25 gm PRN PRN Administration HYPOGLYCEMIA PROTOCOL Famotidine 20 mg 05/04/20 09:00 06/10/20 09:57 Famotidine 20 Mg Tab PO 20 mg BID OMARI Administration Dextrose/Water 1,000 mls @ 0 mls/hr 05/03/20 22:30 06/06/20 09:49 D5w IV 1,000 mls INF PRN Administration HYPOGLYCEMIA PROTOCOL As Directed Insulin Glargine 21 units/ 0.21 mls @ 0 mls/hr 06/08/20 09:00 06/10/20 09:57 Miscellaneous Medication SC 0.21 mls QAM OMARI Administration Insulin Glargine 25 units/ 0.25 mls @ 0 mls/hr 06/07/20 21:00 06/09/20 21:08 Miscellaneous Medication SC 0.25 mls HS OMARI Administration Insulin Human Lispro 0 units 05/05/20 01:19 06/10/20 04:40 Humalog 300 Units/3 Ml Vial SC 8 unit .MODERATE SLIDING SC PRN Administration Moderate Correctional Scale Lorazepam 2 mg 05/30/20 23:18 06/10/20 09:13 Lorazepam 2 Mg/Ml Vial SLOW IVP 2 mg Q1H PRN Administration Breakthrough agitation Methylprednisolone Sodium Succinate 20 mg 06/08/20 09:00 06/10/20 09:57 Methylprednisolone Sod Succ 40 Mg Vial IVP 20 mg BID OMARI Administration Morphine Sulfate 2 mg 05/30/20 23:18 06/05/20 09:04 Morphine 2 Mg/Ml Vial SLOW IVP 2 mg Q1H PRN Administration Breakthrough Pain/Agitation Ondansetron HCl 4 mg 05/04/20 07:05 05/04/20 12:12 Ondansetron Pf 4 Mg/2 Ml Vial IVP 4 mg Q6H PRN Administration Nausea/Vomiting Senna/Docusate Sodium 1 tab 05/06/20 21:00 06/10/20 09:55 Senokot S 8.6-50 Mg Tab PO 1 tab BID OMARI Administration Sodium Chloride 10 ml 05/03/20 22:30 06/06/20 20:22 Flush - Normal Saline 10 Ml Syringe IVF 10 ml PRN PRN Administration Saline Flush - Exam General Appearance: NAD General - other findings: Intermittently awake. Nonverbal. Ventilated. Heart: RRR, no murmur, no gallops, no rubs, normal peripheral pulses Respiratory: rales, wheezes Gastrointestinal: soft, non-distended, normal bowel sounds, no palpable masses, no hepatomegaly, no splenomegaly, no bruit Extremities: no cyanosis, no clubbing, no edema Musculoskeletal: generalized weakness Hosp A/P (1) Acute respiratory failure with hypoxia Code(s): J96.01 - ACUTE RESPIRATORY FAILURE WITH HYPOXIA Status: Acute (2) COVID-19 virus infection Code(s): U07.1 - COVID-19 Status: Acute (3) Elevated liver enzymes Code(s): R74.8 - ABNORMAL LEVELS OF OTHER SERUM ENZYMES Status: Acute (4) Diabetes mellitus Code(s): E11.9 - TYPE 2 DIABETES MELLITUS WITHOUT COMPLICATIONS Status: Chronic Qualifiers: Diabetes mellitus type: type 2 - Plan Acute hypoxic respiratory failure: Secondary to COVID-19 virus pneumonia and some pulmonary fibrosis. Patient has been here for an extended period time and has a very slow progression. Pulmonary following. Discussed with Dr. Loja. COVID-19 pneumonia: Patient remains on vitamin supplementation. Continue Solu-Medrol. Continue Eliquis. Patient is out of isolation. Diabetes mellitus: Exacerbated by steroids. Continue Lantus and sliding scale. Anemia of chronic disease: Hemoglobin stable at 10.7.
--- NOTE | 2020-06-10 15:57 | PRG ---
DATE OF SERVICE: 06/10/2020 SUBJECTIVE: Ms. Parmar remains ventilated. She still has a very poor lung compliance. OBJECTIVE: VITAL SIGNS: Heart rate is 113, FiO2 is 60, blood pressure 98/61, respiratory rates high 20s to low 30s. LUNGS: Remarkable for equal breath sounds. HEART: Regular rhythm. ABDOMEN: Soft. LABORATORY DATA: White count 12.1, hemoglobin 10.7, and platelets 337. Sodium 137, potassium 3.9, chloride 99, bicarb 30, BUN 31, and creatinine 0.58. IMPRESSION: COVID pneumonia, now in the hospital since 38 days. She has extremely poor lung compliance. It is unclear whether or not she will survive this. If she does it, it is going to take quite some time. Job ID: [id number]
[2020-06-10] MEDS: Morphine 2 MG/ML VIAL SLOW IVP PRN (18:22)
[2020-06-10] MEDS: Cholecalciferol 1,000 UNITS (25 MCG) TAB PO SCH (21:21)
[2020-06-10] MEDS: Insulin Glargine 25 UNITS in Pre-Filled Syringe SC SCH (21:22)
[2020-06-11] MEDS: Acetaminophen 500 MG TAB PO PRN (00:09)
[2020-06-11 05:23] LABS: Anion Gap 11 mmol/L (10-20); BUN (Urea Nitrogen) 32 mg/dL (9.8-20.1); Calc. Creatinine Clearance 104 mL/min (70-130); Calcium 8.8 mg/dL (7.8-10.44); Carbon Dioxide 30 mmol/L (22-29); Chloride 100 mmol/L (98-107); Glucose 259 mg/dL (70-105); Potassium 4.2 mmol/L (3.5-5.1); Sodium 137 mmol/L (136-145)
[2020-06-11] MEDS: HumaLOG 300 UNITS/3 ML VIAL SC PRN ×2 (06:26→17:09)
--- NOTE | 2020-06-11 07:49 | PRG ---
DATE OF SERVICE: 06/11/2020 SUBJECTIVE: Ms. Parmar remains on mechanical ventilation through a tracheostomy. She will awaken and follow some commands. OBJECTIVE: VITAL SIGNS: Her temperature is 99, pulse is 102, blood pressure 111/70. Twenty hour intake 1663, output 1010. HEENT: Unremarkable. NECK: Trach in good position. LUNGS: Clear. CARDIAC: S1 and S2. Regular. ABDOMEN: Soft. EXTREMITIES: Edematous. LABS: Sodium 137, potassium 4.2, chloride 100, CO2 of 30, BUN 32, creatinine 0.5, glucose 259. ASSESSMENT: 1. COVID-19 pneumonia. 2. Acute respiratory failure, requiring mechanical ventilation and tracheostomy placement. PLAN: I am going to attempt to switch her over to SIMV mode ventilation today. oxygenation issues with FiO2 60% and PEEP of 10. She is also very tachypneic at baseline. I am not confident at all that she will wean from the ventilator, but we will continue to try. I will update her son later today. Job ID: [id number]
[2020-06-11] MEDS: Lorazepam 2 MG/ML VIAL SLOW IVP PRN ×2 (09:17→21:04)
[2020-06-11] MEDS: Senokot S 8.6-50 MG TAB PO SCH ×2 (09:17→21:24)
[2020-06-11] MEDS: INSULIN GLARGINE SC SCH (09:17)
[2020-06-11] MEDS: methylPREDNISolone Sod Succ 40 MG VIAL IVP SCH ×2 (09:17→21:03)
[2020-06-11] MEDS: PRE FILLED SC SCH (09:17)
[2020-06-11] MEDS: Ascorbic Acid 500 mg Chewable Tablet PO SCH (09:17)
[2020-06-11] MEDS: Apixaban 5 MG TAB PER TUBE SCH ×2 (09:17→21:02)
[2020-06-11] MEDS: Famotidine 20 MG TAB PO SCH ×2 (09:17→21:02)
--- NOTE | 2020-06-11 09:31 | PDOC.HOSPP ---
- Subjective Encounter Date: 06/11/20 Encounter Time: 12:30 Subjective: Patient remains dependent on the vent. Tachycardic when son visits but 90s otherwise. - Objective Vital Signs & Weight: Vital Signs (12 hours) Temp Pulse Resp BP 06/11/20 08:00 98.0 F 06/11/20 07:21 36 H 06/11/20 06:54 97 109/62 06/11/20 06:00 35 H 06/11/20 04:00 99.0 F 37 H 06/11/20 02:00 34 H 06/11/20 01:49 107 H 06/11/20 00:09 99.8 F H 06/11/20 00:00 99.8 F H 36 H 06/10/20 22:34 112 H 06/10/20 22:00 32 H Weight Admit Weight 147 lb Weight 126 lb 15.78 oz Most Recent Monitor Data Heart Rate from ECG 104 NIBP 116/68 NIBP BP-Mean 84 Respiration from ECG 40 SpO2 93 I&O: 06/10/20 06/11/20 06/12/20 06:59 06:59 06:59 Intake Total 1186 1663 30 Output Total 875 1010 125 Balance 311 653 -95 Result Diagrams: 06/10/20 03:22 06/11/20 04:45 Additional Labs: Accuchecks 06/10/20 06/10/20 06/10/20 21:19 17:15 11:19 POC Glucose 145 H 282 H 206 H 06/09/20 06/08/20 06/08/20 21:18 21:58 17:47 POC Glucose 183 H 212 H 269 H Hospitalist ROS - Review of Systems ROS unobtainable: due to endotracheal tube - Medication Medications: Active Medications Generic Name Dose Route Start Last Admin Trade Name Freq PRN Reason Stop Dose Admin Acetaminophen 1,000 mg 05/04/20 07:05 06/11/20 00:09 Acetaminophen 500 Mg Tab PO 1,000 mg Q6H PRN Administration Mild Pain (1-3) Apixaban 5 mg 06/07/20 21:00 06/11/20 09:17 Apixaban 5 Mg Tab PER TUBE 5 mg BID OMARI Administration Ascorbic Acid 1,000 mg 05/04/20 09:00 06/11/20 09:17 Ascorbic Acid 500 Mg Chewable Tablet PO 1,000 mg DAILY OMARI Administration Cholecalciferol 5,000 units 05/04/20 21:00 06/10/20 21:21 Cholecalciferol 1,000 Units (25 Mcg) Tab PO 5,000 units HS OMARI Administration Dextrose/Water 25 gm 05/03/20 22:18 06/06/20 22:08 Dextrose 50% Abboject 50 Ml Syringe SLOW IVP 25 gm PRN PRN Administration HYPOGLYCEMIA PROTOCOL Famotidine 20 mg 05/04/20 09:00 06/11/20 09:17 Famotidine 20 Mg Tab PO 20 mg BID OMARI Administration Dextrose/Water 1,000 mls @ 0 mls/hr 05/03/20 22:30 06/06/20 09:49 D5w IV 1,000 mls INF PRN Administration HYPOGLYCEMIA PROTOCOL As Directed Insulin Human Lispro 0 units 05/05/20 01:19 06/11/20 06:26 Humalog 300 Units/3 Ml Vial SC 6 unit .MODERATE SLIDING SC PRN Administration Moderate Correctional Scale Lorazepam 2 mg 05/30/20 23:18 06/11/20 09:17 Lorazepam 2 Mg/Ml Vial SLOW IVP 2 mg Q1H PRN Administration Breakthrough agitation Methylprednisolone Sodium Succinate 20 mg 06/08/20 09:00 06/11/20 09:17 Methylprednisolone Sod Succ 40 Mg Vial IVP 20 mg BID OMARI Administration Morphine Sulfate 2 mg 05/30/20 23:18 06/10/20 18:22 Morphine 2 Mg/Ml Vial SLOW IVP 2 mg Q1H PRN Administration Breakthrough Pain/Agitation Ondansetron HCl 4 mg 05/04/20 07:05 05/04/20 12:12 Ondansetron Pf 4 Mg/2 Ml Vial IVP 4 mg Q6H PRN Administration Nausea/Vomiting Senna/Docusate Sodium 1 tab 05/06/20 21:00 06/11/20 09:17 Senokot S 8.6-50 Mg Tab PO 1 tab BID OMARI Administration Sodium Chloride 10 ml 05/03/20 22:30 06/10/20 21:21 Flush - Normal Saline 10 Ml Syringe IVF 10 ml PRN PRN Administration Saline Flush - Exam General Appearance: NAD, awake alert ENT: moist mucosa ENT - other findings: trach in place, on vent Heart: no murmur, no gallops, no rubs. negative: irregular Heart - other findings: tachycardic Respiratory: CTAB, no wheezes, no rales, no ronchi Gastrointestinal: soft, non-tender, non-distended, normal bowel sounds Gastrointestinal - other findings: PEG in place Psychiatric: normal affect, normal behavior Hosp A/P - Plan (1) Acute respiratory failure with hypoxia Code(s): J96.01 - ACUTE RESPIRATORY FAILURE WITH HYPOXIA Status: Acute (2) COVID-19 virus infection Code(s): U07.1 - COVID-19 Status: Acute (3) Elevated liver enzymes Code(s): R74.8 - ABNORMAL LEVELS OF OTHER SERUM ENZYMES Status: Acute (4) Diabetes mellitus Code(s): E11.9 - TYPE 2 DIABETES MELLITUS WITHOUT COMPLICATIONS Status: Chronic Qualifiers: Diabetes mellitus type: type 2 - Plan Acute hypoxic respiratory failure: Secondary to COVID-19 virus pneumonia and some pulmonary fibrosis. Patient has been here for an extended period time and has a very slow progression. Pulmonary following, trying to wean off the vent COVID-19 pneumonia: Patient remains on vitamin supplementation. Continue Solu-Medrol. Continue Eliquis. Patient is out of isolation. Diabetes mellitus: Exacerbated by steroids. Continue Lantus and sliding scale. Increase Lantus slightly. Anemia of chronic disease: Hemoglobin stable at 10.7.
[2020-06-11] MEDS: Morphine 2 MG/ML VIAL SLOW IVP PRN ×2 (13:38→22:11)
[2020-06-11] MEDS: Cholecalciferol 1,000 UNITS (25 MCG) TAB PO SCH (21:02)
[2020-06-11] MEDS: Insulin Glargine 28 UNITS in Pre-Filled Syringe 1 EACH SC SCH (21:03)
[2020-06-12] MEDS: Lorazepam 2 MG/ML VIAL SLOW IVP PRN ×2 (00:22→03:30)
[2020-06-12] MEDS: Morphine 2 MG/ML VIAL SLOW IVP PRN (00:44)
[2020-06-12] MEDS ORDERED: Lidocaine 1% (PF) 30 ML VIAL ONE (00:59)
[2020-06-12 01:04] LABS: Actual Bicarbonate (HCO3a) 28.1 mEq/L (22-28); Base Excess (BEa) 2.1 mEq/L (-2.0 to +3.0); CO2 Tension 48.8 mmHg (35.0-45.0); Calcium, Ionized (arterial) 1.25 mmol/L (1.12-1.30); Potassium - ABG Lab 4.53 mmol/L (3.70-5.30); pH, Arterial 7.38 (7.35-7.45)
[2020-06-12 01:05] LABS: O2 Tension (PaO2), arterial 30.3 mmHg (80.0-100.0); Puncture Site RRA
[2020-06-12] MEDS ORDERED: Rocuronium Bromide 10 MG/ML (10ML VIAL) ONE (01:21)
[2020-06-12] MEDS ORDERED: Sterile Water 10 ML ONE (01:22)
[2020-06-12] MEDS ORDERED: Vecuronium 10 MG VIAL ONE (01:22)
[2020-06-12] MEDS ORDERED: Midazolam HCl 2 mg/2 ml Vial ONE ×2 (01:22)
[2020-06-12] MEDS ORDERED: Ventilator Sedation Protocol 1 EACH FS ONE (01:46)
[2020-06-12] MEDS ORDERED: Vecuronium 10 MG VIAL IV SCH (01:50)
[2020-06-12] MEDS ORDERED: Midazolam HCl 2 mg/2 ml Vial SLOW IVP SCH (01:50)
[2020-06-12] MEDS ORDERED: Lidocaine 1% (PF) 30 ML VIAL FS SCH (01:50)
[2020-06-12] MEDS ORDERED: Fentanyl BOLUS 250 ML IVPB PRN (02:00)
[2020-06-12] MEDS ORDERED: Propofol BOLUS 1,000 MG/100 ML VIAL IV PRN (02:00)
[2020-06-12] MEDS ORDERED: DISCONTINUE PREVIOUS NARCOTIC PAIN MEDICATIONS AND BENZODIAZEPINES FS SCH (02:00)
[2020-06-12] MEDS ORDERED: Fentanyl CADD 100 ML ONE (02:06)
[2020-06-12] MEDS: Fentanyl CADD 100 ML IV SCH (02:10)
--- NOTE | 2020-06-12 02:22 | OP ---
DATE OF PROCEDURE: 06/12/2020 PROCEDURE PERFORMED: Right thoracostomy tube placement. PREOPERATIVE DIAGNOSIS: Right pneumothorax on mechanical ventilation. POSTOPERATIVE DIAGNOSIS: Resolved right pneumothorax. ANESTHESIA: 1% lidocaine without epinephrine. Additionally, the patient was given vecuronium 10 mg IV and Versed 4 mg IV. DESCRIPTION OF PROCEDURE: The procedure was done on the emergent basis in the ICU. The patient's O2 saturations were running well below 60% at the time I arrive. The patient was placed in a flat position. She was placed on a rate of 20 on the ventilator with FiO2 of 100%. The right lateral hemothorax midaxillary line/nipple line was scrubbed with chlorhexidine and draped sterilely. 1% lidocaine was used to anesthetize the entry site. A small incision was made with a scalpel. Blunt dissection was performed with forceps through the patient's intercostal muscles until the pleural space was entered. A shen of air returned. I used my finger to bluntly dissect in this base. A 32-Serbian thoracostomy tube was then placed in the pleural space to 18 cm. The tube was placed to Pleur-Evac suction. A suture was placed around the tube. Petroleum jelly was placed around the insertion site. Bandage was placed over the petroleum jelly, and tape was placed over this. Postoperative x-ray showed definite resolution of the pneumothorax. O2 saturation improved to 90% range. Job ID: [id number]
[2020-06-12 04:58] LABS: #Lymphocytes 0.9 thou/uL (1.20-3.40); #Monocytes 0.4 thou/uL (0.11-0.59); %Basophils 0.1 % (0.0-1.0); %Eosinophils 0.2 % (0.0-10.0); %Lymphocytes 5.7 % (21.0-51.0); %Monocytes 2.7 % (0.0-10.0); %Neutrophils 91.3 % (42.0-75.0); Hemoglobin 11.1 g/dL (12.0-16.0); Mean Corpuscular HGB CONC 33.3 g/dL (32.0-36.0); Mean Corpuscular Hemoglobin 31.2 pg (27.0-31.0); Mean Platelet Volume 8.5 fL (7.4-10.4); Platelet Count 277 thou/uL (130-400); RBC Distribution Width 14.9 % (11.5-14.5); Red Blood Cell (RBC) Count 3.56 mill/uL (4.20-5.40); White Blood Cell (WBC) Count 15.3 thou/uL (4.8-10.8)
[2020-06-12 05:17] LABS: Anion Gap 13 mmol/L (10-20); BUN (Urea Nitrogen) 26 mg/dL (9.8-20.1); Calc. Creatinine Clearance 101 mL/min (70-130); Calcium 8.9 mg/dL (7.8-10.44); Carbon Dioxide 31 mmol/L (22-29); Chloride 98 mmol/L (98-107); Glucose 288 mg/dL (70-105); Potassium 4.5 mmol/L (3.5-5.1); Sodium 137 mmol/L (136-145)
[2020-06-12] MEDS: HumaLOG 300 UNITS/3 ML VIAL SC PRN (05:50)
--- NOTE | 2020-06-12 07:11 | PRG ---
DATE OF SERVICE: 06/12/2020 This is 45 minutes critical care time. SUBJECTIVE: Had to come in the middle of night last night to place chest tube in the right hemothorax because of development of tension pneumothorax. She has done better since chest tube placement. OBJECTIVE: VITAL SIGNS: Temperature 98.5, pulse 114, blood pressure 99/63, O2 saturation 95%. Twenty-four intake 1602, output 1455. HEENT: Unremarkable. NECK: Trach in good position. LUNGS: Clear bilaterally. Has air leak in right chest tube. CARDIOVASCULAR: S1 and S2. Slightly tachycardic. ABDOMEN: Soft and nontender to palpation. EXTREMITIES: No clubbing, cyanosis, or edema. LABORATORY DATA: White blood cell count 15, hematocrit 33.4, and platelet count 277. Sodium 137, potassium 4.5, chloride 98, CO2 of 31, BUN 26, creatinine 0.6, glucose 288. ASSESSMENT: 1. Right pneumothorax. 2. COVID-19 pneumonia. 3. Acute hypoxic respiratory failure requiring mechanical ventilation and tracheostomy placement. PLAN: 1. Continue thoracostomy tube drainage. 2. Rest on ventilator today. 3. I do not anticipate this patient doing well long-term. Job ID: [id number]
--- NOTE | 2020-06-12 07:44 | RAD ---
XR Chest 1 View Portable History: Pneumothorax Comparison: Radiograph June 08, 2020 Findings: Large right tension pneumothorax with leftward mediastinal shift. Near-complete collapse of the right lung. Extensive fibrotic change about the left lung. Left lung base bulla. Impression: Large right tension pneumothorax with leftward mediastinal shift. This pneumothorax is de creased on subsequent exams with thoracostomy tube placement.
--- NOTE | 2020-06-12 07:46 | RAD ---
XR Chest 1 View Portable History: Chest tube placement Comparison: Radiograph same day Findings: Interval decrease right tension pneumothorax with thoracostomy tube in place. Orogastric tu be tip is at the right lung apex. Tracheostomy is similar. Fibrotic changes throughout the lungs. Left basilar bulla is present. No acute osseous abnormality. Right subclavian central venous catheter tip projects over the right at rium. Impression: Marked interval improvement right tension pneumothorax.
--- NOTE | 2020-06-12 07:46 | RAD ---
XR Chest 1 View Portable History: Respiratory distress after chest tube Comparison: Radiograph same day Findings: No significant right-sided pneumothorax is appreciated after thoracostomy tube placement. F ibrotic changes are similar. The right subclavian central venous catheter and tracheostomy tube are unchanged. G-tube left upper quadrant quadrant of the abdomen. Impression: No significant pneumothorax appreciated.
--- NOTE | 2020-06-12 08:09 | PDOC.HOSPP ---
- Subjective Encounter Date: 06/12/20 Encounter Time: 11:40 Subjective: Patient with severe hypoxic decompensation early this AM, CXR with tension PTX. Dr. Martinez placed a chest tube with improvement. Started to have some desats again in the past hour. Dr. Martinez has updated the sons at the bedside. - Objective Vital Signs & Weight: Vital Signs (12 hours) Temp Pulse Resp BP Pulse Ox 06/12/20 07:36 23 H 95 06/12/20 07:10 115 H 108/69 06/12/20 06:00 28 H 06/12/20 04:00 98.5 F 26 H 91 L 06/12/20 02:00 22 H 06/12/20 01:52 137 H 06/12/20 00:00 99.4 F 42 H 06/11/20 22:09 118 H 06/11/20 22:00 45 H Weight Admit Weight 147 lb Weight 126 lb 1.671 oz Most Recent Monitor Data Heart Rate from ECG 115 NIBP 108/69 NIBP BP-Mean 82 Respiration from ECG 22 SpO2 95 I&O: 06/11/20 06/12/20 06/13/20 06:59 06:59 06:59 Intake Total 1663 1602.3 Output Total 1010 1455 40 Balance 653 147.3 -40 Result Diagrams: 06/12/20 04:20 06/12/20 04:20 Additional Labs: Accuchecks 06/12/20 06/11/20 06/11/20 00:46 21:05 17:08 POC Glucose 220 H 157 H 218 H 06/11/20 06/09/20 11:18 21:18 POC Glucose 155 H 183 H Hospitalist ROS - Review of Systems ROS unobtainable: due to endotracheal tube - Medication Medications: Active Medications Generic Name Dose Route Start Last Admin Trade Name Freq PRN Reason Stop Dose Admin Acetaminophen 1,000 mg 05/04/20 07:05 06/11/20 00:09 Acetaminophen 500 Mg Tab PO 1,000 mg Q6H PRN Administration Mild Pain (1-3) Apixaban 5 mg 06/07/20 21:00 06/11/20 21:02 Apixaban 5 Mg Tab PER TUBE 5 mg BID OMARI Administration Ascorbic Acid 1,000 mg 05/04/20 09:00 06/11/20 09:17 Ascorbic Acid 500 Mg Chewable Tablet PO 1,000 mg DAILY OMARI Administration Cholecalciferol 5,000 units 05/04/20 21:00 06/11/20 21:02 Cholecalciferol 1,000 Units (25 Mcg) Tab PO 5,000 units HS OMARI Administration Dextrose/Water 25 gm 05/03/20 22:18 06/06/20 22:08 Dextrose 50% Abboject 50 Ml Syringe SLOW IVP 25 gm PRN PRN Administration HYPOGLYCEMIA PROTOCOL Famotidine 20 mg 05/04/20 09:00 06/11/20 21:02 Famotidine 20 Mg Tab PO 20 mg BID OMARI Administration Dextrose/Water 1,000 mls @ 0 mls/hr 05/03/20 22:30 06/06/20 09:49 D5w IV 1,000 mls INF PRN Administration HYPOGLYCEMIA PROTOCOL As Directed Insulin Glargine 28 units/ 0.28 mls @ 0 mls/hr 06/11/20 21:00 06/11/20 21:03 Miscellaneous Medication SC 0.28 mls HS OMARI Administration Fentanyl 100 mls @ 0 mls/hr 06/12/20 02:00 06/12/20 02:10 Fentanyl Cadd IV 07/12/20 02:00 100 mls INF OMARI Administration Protocol Per Protocol Insulin Human Lispro 0 units 05/05/20 01:19 06/12/20 05:50 Humalog 300 Units/3 Ml Vial SC 6 unit .MODERATE SLIDING SC PRN Administration Moderate Correctional Scale Lorazepam 2 mg 05/30/20 23:18 06/12/20 03:30 Lorazepam 2 Mg/Ml Vial SLOW IVP 2 mg Q1H PRN Administration Breakthrough agitation Ondansetron HCl 4 mg 05/04/20 07:05 05/04/20 12:12 Ondansetron Pf 4 Mg/2 Ml Vial IVP 4 mg Q6H PRN Administration Nausea/Vomiting Senna/Docusate Sodium 1 tab 05/06/20 21:00 06/11/20 21:24 Senokot S 8.6-50 Mg Tab PO Not Given BID OMARI Sodium Chloride 10 ml 05/03/20 22:30 06/11/20 21:03 Flush - Normal Saline 10 Ml Syringe IVF 10 ml PRN PRN Administration Saline Flush - Exam General Appearance: ill appearing ENT: moist mucosa ENT - other findings: trach in place with vent Heart: no murmur, no gallops, no rubs Heart - other findings: tachycardic Respiratory - other findings: course breath sounds, tachypnea on the vent Gastrointestinal: soft, non-tender, non-distended, normal bowel sounds Gastrointestinal - other findings: PEG in place Extremities: no edema Psychiatric - other findings: non-responsive sedated on the vent Hosp A/P - Plan (1) Acute respiratory failure with hypoxia Code(s): J96.01 - ACUTE RESPIRATORY FAILURE WITH HYPOXIA Status: Acute (2) COVID-19 virus infection Code(s): U07.1 - COVID-19 Status: Acute (3) Elevated liver enzymes Code(s): R74.8 - ABNORMAL LEVELS OF OTHER SERUM ENZYMES Status: Acute (4) Diabetes mellitus Code(s): E11.9 - TYPE 2 DIABETES MELLITUS WITHOUT COMPLICATIONS Status: Chronic Qualifiers: Diabetes mellitus type: type 2 (5) Tension Pneumonthorax - Plan Acute hypoxic respiratory failure: Secondary to COVID-19 virus pneumonia and some pulmonary fibrosis. Patient has been here for an extended period time and has a very slow progression. Pulmonary following, trying to wean off the vent but worsening over past day Tension Pneumothorax on vent: Chest tube placed 06/12/2020 Improved O2 sats after placement COVID-19 pneumonia: Patient remains on vitamin supplementation. Continue Solu-Medrol. Continue Eliquis. Patient is out of isolation. Diabetes mellitus: Exacerbated by steroids. Continue Lantus and sliding scale. Increased Lantus slightly but sugars still high. Anemia of chronic disease: Hemoglobin stable at 10-11.
[2020-06-12] MEDS: Apixaban 5 MG TAB PER TUBE SCH ×2 (09:00→22:18)
[2020-06-12] MEDS: Ascorbic Acid 500 mg Chewable Tablet PO SCH (09:00)
[2020-06-12] MEDS: Senokot S 8.6-50 MG TAB PO SCH ×2 (09:00→22:18)
[2020-06-12] MEDS: Famotidine 20 MG TAB PO SCH ×2 (09:00→22:18)
[2020-06-12] MEDS: Insulin Glargine 28 UNITS in Pre-Filled Syringe 1 EACH SC SCH ×2 (09:02→22:18)
[2020-06-12] MEDS: methylPREDNISolone Sod Succ 40 MG VIAL IVP SCH (09:02)
[2020-06-12] MEDS ORDERED: Dextrose 50% Abboject 50 ML SYRINGE ONE (16:02)
[2020-06-12] MEDS: Dextrose 50% Abboject 50 ML SYRINGE SLOW IVP PRN (16:04)
[2020-06-12] MEDS: Cholecalciferol 1,000 UNITS (25 MCG) TAB PO SCH (22:18)
[2020-06-13] MEDS: Propofol 1,000 MG/100 ML VIAL IV PRN ×2 (00:39→18:16)
[2020-06-13 05:43] LABS: Anion Gap 13 mmol/L (10-20); BUN (Urea Nitrogen) 27 mg/dL (9.8-20.1); Calc. Creatinine Clearance 120 mL/min (70-130); Calcium 9.1 mg/dL (7.8-10.44); Carbon Dioxide 33 mmol/L (22-29); Chloride 98 mmol/L (98-107); Glucose 98 mg/dL (70-105); Potassium 3.5 mmol/L (3.5-5.1); Sodium 140 mmol/L (136-145)
[2020-06-13] MEDS ORDERED: Bisacodyl 5 MG TAB PO PRN (07:38)
[2020-06-13] MEDS ORDERED: Calcium Carbonate 500 MG ChewTAB PO PRN (07:38)
[2020-06-13] MEDS ORDERED: Loperamide HCl 2 MG CAP PO PRN (07:38)
[2020-06-13] MEDS ORDERED: GUAIFENESIN SF SOLN 200 MG/10 ML UDCUP PO PRN (07:38)
--- NOTE | 2020-06-13 07:55 | PRG ---
DATE OF SERVICE: 06/13/2020 35 minutes critical care time. SUBJECTIVE: The patient remains on mechanical ventilation through a tracheostomy. She is having some Valsalva type noises around the tracheostomy. Chest tube appears to be in good position on her x-ray. OBJECTIVE: VITAL SIGNS: Temperature 99.3, pulse 120, blood pressure 103/60, O2 saturation 93%. HEENT: Unremarkable. NECK: Trach in good position. LUNGS: Coarse breath sounds. CARDIAC: S1 and S2. Tachycardic. ABDOMEN: Soft. EXTREMITIES: Edematous. LABORATORY DATA: Sodium 140, potassium 3.5, chloride 98, CO2 of 33, BUN 27, creatinine 0.5, glucose 98. Chest x-ray was reviewed. ASSESSMENT: 1. Coronavirus disease 2019 pneumonia. 2. Hyperglycemia. 3. Right pneumothorax requiring thoracostomy tube placement. PLAN: I do not see any scenario in which the patient will be weanable in the near future. I spoke to the patient's sons yesterday regarding her bad prognosis and encouraged that they consider DNR status. They did not move in that direction. However, I think they do completely understand that the patient is unlikely to survive current illness. Job ID: [id number]
--- NOTE | 2020-06-13 07:58 | RAD ---
XR Chest 1 View History: Low oxygen saturation Comparison: Radiograph prior day Findings: Severe airspace opacities. The lingular bulla is similar. Tracheostomy tube tip is similar. Right-sided thoracostomy tube is in a similar location. No significant right-sided pneumothorax is ap preciated. Right subclavian venous catheter tip sits at the right atrium. Impression: Similar examination of the chest. No significant pneumothorax is appreciated.
[2020-06-13] MEDS ORDERED: Potassium Bicarbonate/Cit Ac 20 MEQ TAB PER TUBE SCH (09:00)
[2020-06-13] MEDS ORDERED: Fentanyl CADD 100 ML ONE (09:23)
[2020-06-13] MEDS: Dextrose 50% Abboject 50 ML SYRINGE SLOW IVP PRN (10:14)
[2020-06-13] MEDS: Senokot S 8.6-50 MG TAB PO SCH ×2 (10:20→21:11)
[2020-06-13] MEDS: Famotidine 20 MG TAB PO SCH ×2 (10:20→21:10)
[2020-06-13] MEDS: Apixaban 5 MG TAB PER TUBE SCH ×2 (10:20→21:11)
[2020-06-13] MEDS: Ascorbic Acid 500 mg Chewable Tablet PO SCH (10:20)
[2020-06-13] MEDS: methylPREDNISolone Sod Succ 40 MG VIAL IVP SCH (10:21)
[2020-06-13] MEDS: Insulin Glargine 28 UNITS in Pre-Filled Syringe 1 EACH SC SCH ×2 (10:22→21:22)
[2020-06-13] MEDS: Morphine 2 MG/ML VIAL SLOW IVP PRN (11:13)
[2020-06-13] MEDS: Lorazepam 2 MG/ML VIAL SLOW IVP PRN (12:13)
[2020-06-13] MEDS: Acetaminophen 500 MG TAB PO PRN (12:26)
--- NOTE | 2020-06-13 12:55 | PDOC.HOSPP ---
- Subjective Encounter Date: 06/13/20 Encounter Time: 10:00 Subjective: Patient seen and examined. - Objective Vital Signs & Weight: Vital Signs (12 hours) Temp Pulse Resp Pulse Ox 06/13/20 12:00 101.1 F H 25 H 06/13/20 10:23 137 H 06/13/20 10:00 24 H 06/13/20 08:00 97.9 F 25 H 06/13/20 07:21 118 H 06/13/20 06:00 30 H 06/13/20 05:03 130 H 06/13/20 04:00 99.3 F 34 H 88 L 06/13/20 02:00 33 H Weight Admit Weight 147 lb Weight 123 lb 10.869 oz Most Recent Monitor Data Heart Rate from ECG 147 NIBP 147/84 NIBP BP-Mean 105 Respiration from ECG 27 SpO2 81 I&O: 06/12/20 06/13/20 06/14/20 06:59 06:59 06:59 Intake Total 1602.3 1027.3 210 Output Total 1455 650 160 Balance 147.3 377.3 50 Result Diagrams: 06/12/20 04:20 06/13/20 03:30 Additional Labs: Accuchecks 06/13/20 06/12/20 06/12/20 11:31 22:17 11:41 POC Glucose 186 H 142 H 78 Radiology Reviewed by me: Yes EKG Reviewed by me: Yes Hospitalist ROS - Review of Systems ROS unobtainable: due to mental status - Medication Medications: Active Medications Generic Name Dose Route Start Last Admin Trade Name Freq PRN Reason Stop Dose Admin Acetaminophen 1,000 mg 05/04/20 07:05 06/13/20 12:26 Acetaminophen 500 Mg Tab PO 1,000 mg Q6H PRN Administration Mild Pain (1-3) Apixaban 5 mg 06/07/20 21:00 06/13/20 10:20 Apixaban 5 Mg Tab PER TUBE 5 mg BID OMARI Administration Ascorbic Acid 1,000 mg 05/04/20 09:00 06/13/20 10:20 Ascorbic Acid 500 Mg Chewable Tablet PO 1,000 mg DAILY OMARI Administration Cholecalciferol 5,000 units 05/04/20 21:00 06/12/20 22:18 Cholecalciferol 1,000 Units (25 Mcg) Tab PO 5,000 units HS OMARI Administration Dextrose/Water 25 gm 05/03/20 22:18 06/13/20 10:14 Dextrose 50% Abboject 50 Ml Syringe SLOW IVP 25 gm PRN PRN Administration HYPOGLYCEMIA PROTOCOL Famotidine 20 mg 05/04/20 09:00 06/13/20 10:20 Famotidine 20 Mg Tab PO 20 mg BID OMARI Administration Dextrose/Water 1,000 mls @ 0 mls/hr 05/03/20 22:30 06/06/20 09:49 D5w IV 1,000 mls INF PRN Administration HYPOGLYCEMIA PROTOCOL As Directed Insulin Glargine 28 units/ 0.28 mls @ 0 mls/hr 06/11/20 21:00 06/12/20 22:18 Miscellaneous Medication SC 0.28 mls HS OMARI Administration Insulin Glargine 28 units/ 0.28 mls @ 0 mls/hr 06/12/20 09:00 06/13/20 10:22 Miscellaneous Medication SC Not Given QAM OMARI Fentanyl 100 mls @ 0 mls/hr 06/12/20 02:00 06/12/20 02:10 Fentanyl Cadd IV 07/12/20 02:00 100 mls INF OMARI Administration Protocol Per Protocol Insulin Human Lispro 0 units 05/05/20 01:19 06/12/20 05:50 Humalog 300 Units/3 Ml Vial SC 6 unit .MODERATE SLIDING SC PRN Administration Moderate Correctional Scale Lorazepam 2 mg 05/30/20 23:18 06/13/20 12:13 Lorazepam 2 Mg/Ml Vial SLOW IVP 2 mg Q1H PRN Administration Breakthrough agitation Methylprednisolone Sodium Succinate 20 mg 06/12/20 09:00 06/13/20 10:21 Methylprednisolone Sod Succ 40 Mg Vial IVP 20 mg DAILY OMARI Administration Morphine Sulfate 2 mg 06/12/20 02:00 06/13/20 11:13 Morphine 2 Mg/Ml Vial SLOW IVP 07/12/20 02:00 2 mg Q1H PRN Administration Breakthrough Pain/Agitation Ondansetron HCl 4 mg 05/04/20 07:05 05/04/20 12:12 Ondansetron Pf 4 Mg/2 Ml Vial IVP 4 mg Q6H PRN Administration Nausea/Vomiting Propofol 1,000 mg 06/12/20 02:00 06/13/20 00:39 Propofol 1,000 Mg/100 Ml Vial IV 07/12/20 02:00 1,000 mg INF PRN Administration TO ACHIEVE GOAL RASS Protocol Senna/Docusate Sodium 1 tab 05/06/20 21:00 06/13/20 10:20 Senokot S 8.6-50 Mg Tab PO 1 tab BID OMARI Administration Sodium Chloride 10 ml 05/03/20 22:30 06/11/20 21:03 Flush - Normal Saline 10 Ml Syringe IVF 10 ml PRN PRN Administration Saline Flush - Exam General Appearance: NAD, ill appearing Eye: PERRL, anicteric sclera ENT: normocephalic atraumatic, no oropharyngeal lesions Neck: supple, symmetric, no JVD, no thyromegaly Neck - other findings: Trach in place Heart: RRR, no murmur, no gallops, no rubs Heart - other findings: Tachycardia Respiratory - other findings: Bilateral coarse breath sound Gastrointestinal: soft, non-tender, non-distended, normal bowel sounds Gastrointestinal - other findings: PEG tube in place Extremities: no cyanosis, no clubbing Skin: normal turgor, no lesions Hosp A/P (1) Acute respiratory failure with hypoxia Code(s): J96.01 - ACUTE RESPIRATORY FAILURE WITH HYPOXIA Status: Acute (2) COVID-19 virus infection Code(s): U07.1 - COVID-19 Status: Acute (3) Elevated liver enzymes Code(s): R74.8 - ABNORMAL LEVELS OF OTHER SERUM ENZYMES Status: Acute (4) Pneumonia due to COVID-19 virus Code(s): U07.1 - COVID-19; J12.89 - OTHER VIRAL PNEUMONIA Status: Acute (5) Diabetes mellitus Code(s): E11.9 - TYPE 2 DIABETES MELLITUS WITHOUT COMPLICATIONS Status: Chronic Qualifiers: Diabetes mellitus type: type 2 (6) Pneumothorax Code(s): J93.9 - PNEUMOTHORAX, UNSPECIFIED Status: Acute - Plan old records reviewed/req, plan discussed w/ family, diamond catheter, continue antibiotics, respiratory therapy Consults: Palliative Care I spoke with the patient's son who are the decision maker for this patient, don and Alvarez, I have discussed with them about current condition and goals of care in detail and answered all their questions, after my discussion and prognosis they independently decided about DNR status that I have ordered in the chart, as per pulmonology as well as given her prolonged hospital course and and now a new deterioration chances of survival is extremely less, at this point they wanted to continue to provide care but they do not want any CPR or any kind of heroic measure in case of cardiopulmonary arrest.
[2020-06-13] MEDS ORDERED: Norepinephrine 8 MG/0.9% NS 250 ML ONE (17:32)
[2020-06-13] MEDS ORDERED: Norepinephrine 8 MG/0.9% NS 250 ML IVPB SCH (18:15)
[2020-06-13] MEDS: Cholecalciferol 1,000 UNITS (25 MCG) TAB PO SCH (21:11)
[2020-06-13] MEDS: HumaLOG 300 UNITS/3 ML VIAL SC PRN (21:22)
[2020-06-14] MEDS ORDERED: Fentanyl CADD 100 ML ONE ×2 (03:01→15:42)
[2020-06-14] MEDS: HumaLOG 300 UNITS/3 ML VIAL SC PRN ×3 (04:24→17:53)
[2020-06-14 05:33] LABS: Anion Gap 11 mmol/L (10-20); BUN (Urea Nitrogen) 27 mg/dL (9.8-20.1); Calc. Creatinine Clearance 104 mL/min (70-130); Calcium 9.2 mg/dL (7.8-10.44); Carbon Dioxide 35 mmol/L (22-29); Chloride 96 mmol/L (98-107); Glucose 259 mg/dL (70-105); Potassium 3.7 mmol/L (3.5-5.1); Sodium 138 mmol/L (136-145)
--- NOTE | 2020-06-14 07:36 | PRG ---
DATE OF SERVICE: 06/14/2020 TIME SPENT: 35 minutes of critical care time. SUBJECTIVE: The patient remains in critical condition, on mechanical ventilation through tracheostomy. OBJECTIVE: VITAL SIGNS: Temperature 98.7, pulse 96, blood pressure 105/59, O2 saturation 95%. Currently, sedated on fentanyl and some propofol. Intake for 24 hours output 990. HEENT: Unremarkable. NECK: Trach in good position. LUNGS: Coarse breath sounds. CARDIOVASCULAR: S1 and S2, regular. ABDOMEN: Soft and nontender. PEG tube noted. EXTREMITIES: Edematous. LABORATORY DATA: Sodium 138, potassium 3.7, chloride 96, CO2 of 35, BUN 27, creatinine 0.5, glucose 259. ASSESSMENT: 1. COVID-19 pneumonia. 2. Respiratory failure, requiring mechanical ventilation and tracheostomy. 3. Right pneumothorax. PLAN: 1. Continue anticoagulation and steroids. 2. Not weanable at this time. 3. We will increase steroid dose in hopes of some type of salvage improvement. 4. Trying to improve ventilator dyssynchrony, but nothing is really working. Job ID: [id number]
[2020-06-14] MEDS: Ascorbic Acid 500 mg Chewable Tablet PO SCH (08:53)
[2020-06-14] MEDS: Senokot S 8.6-50 MG TAB PO SCH ×2 (08:53→20:57)
[2020-06-14] MEDS: Famotidine 20 MG TAB PO SCH ×2 (08:53→20:56)
[2020-06-14] MEDS: Apixaban 5 MG TAB PER TUBE SCH ×2 (08:53→20:56)
[2020-06-14] MEDS: methylPREDNISolone Sod Succ 40 MG VIAL IVP SCH ×2 (08:54→20:58)
[2020-06-14] MEDS: Insulin Glargine 28 UNITS in Pre-Filled Syringe 1 EACH SC SCH ×2 (09:03→21:04)
--- NOTE | 2020-06-14 11:28 | PDOC.HOSPP ---
- Subjective Encounter Date: 06/14/20 Encounter Time: 10:15 non-verbal Subjective: Patient seen and examined bedside today, patient is on ventilator, she is tachypneic and tachycardic, Yesterday patient's son again changed their mind to change to full CODE STATUS - Objective Vital Signs & Weight: Vital Signs (12 hours) Temp Pulse Resp 06/14/20 10:00 43 H 06/14/20 08:00 54 H 06/14/20 07:26 101 H 06/14/20 07:00 98.8 F 06/14/20 06:00 42 H 06/14/20 04:00 98.7 F 42 H 06/14/20 02:00 40 H 06/14/20 01:14 89 06/14/20 00:00 98.6 F 37 H Weight Admit Weight 147 lb Weight 119 lb 11.376 oz Most Recent Monitor Data Heart Rate from ECG 108 NIBP 114/67 NIBP BP-Mean 82 Respiration from ECG 15 SpO2 92 I&O: 06/13/20 06/14/20 06/15/20 06:59 06:59 06:59 Intake Total 1027.3 1516.2 Output Total 650 990 45 Balance 377.3 526.2 -45 Result Diagrams: 06/12/20 04:20 06/14/20 04:20 Additional Labs: Accuchecks 06/14/20 06/14/20 06/13/20 09:01 04:24 21:21 POC Glucose 194 H 252 H 217 H 06/13/20 06/13/20 06/13/20 15:52 11:31 10:12 POC Glucose 174 H 186 H 58 L* EKG Reviewed by me: Yes (Tachycardia) Hospitalist ROS - Review of Systems ROS unobtainable: due to endotracheal tube - Medication Medications: Active Medications Generic Name Dose Route Start Last Admin Trade Name Freq PRN Reason Stop Dose Admin Acetaminophen 1,000 mg 05/04/20 07:05 06/13/20 12:26 Acetaminophen 500 Mg Tab PO 1,000 mg Q6H PRN Administration Mild Pain (1-3) Apixaban 5 mg 06/07/20 21:00 06/14/20 08:53 Apixaban 5 Mg Tab PER TUBE 5 mg BID OMARI Administration Ascorbic Acid 1,000 mg 05/04/20 09:00 06/14/20 08:53 Ascorbic Acid 500 Mg Chewable Tablet PO 1,000 mg DAILY OMARI Administration Cholecalciferol 5,000 units 05/04/20 21:00 06/13/20 21:11 Cholecalciferol 1,000 Units (25 Mcg) Tab PO 5,000 units HS OMARI Administration Dextrose/Water 25 gm 05/03/20 22:18 06/13/20 10:14 Dextrose 50% Abboject 50 Ml Syringe SLOW IVP 25 gm PRN PRN Administration HYPOGLYCEMIA PROTOCOL Famotidine 20 mg 05/04/20 09:00 06/14/20 08:53 Famotidine 20 Mg Tab PO 20 mg BID OMAIR Administration Dextrose/Water 1,000 mls @ 0 mls/hr 05/03/20 22:30 06/06/20 09:49 D5w IV 1,000 mls INF PRN Administration HYPOGLYCEMIA PROTOCOL As Directed Insulin Glargine 28 units/ 0.28 mls @ 0 mls/hr 06/11/20 21:00 06/13/20 21:22 Miscellaneous Medication SC 0.28 mls HS OMARI Administration Insulin Glargine 28 units/ 0.28 mls @ 0 mls/hr 06/12/20 09:00 06/14/20 09:03 Miscellaneous Medication SC 0.28 mls QAM OMARI Administration Fentanyl 100 mls @ 0 mls/hr 06/12/20 02:00 06/12/20 02:10 Fentanyl Cadd IV 07/12/20 02:00 100 mls INF OMARI Administration Protocol Per Protocol Insulin Human Lispro 0 units 05/05/20 01:19 06/14/20 09:03 Humalog 300 Units/3 Ml Vial SC 2 unit .MODERATE SLIDING SC PRN Administration Moderate Correctional Scale Lorazepam 2 mg 05/30/20 23:18 06/13/20 12:13 Lorazepam 2 Mg/Ml Vial SLOW IVP 2 mg Q1H PRN Administration Breakthrough agitation Methylprednisolone Sodium Succinate 40 mg 06/14/20 09:00 06/14/20 08:54 Methylprednisolone Sod Succ 40 Mg Vial IVP 40 mg BID OMARI Administration Morphine Sulfate 2 mg 06/12/20 02:00 06/13/20 11:13 Morphine 2 Mg/Ml Vial SLOW IVP 07/12/20 02:00 2 mg Q1H PRN Administration Breakthrough Pain/Agitation Ondansetron HCl 4 mg 05/04/20 07:05 05/04/20 12:12 Ondansetron Pf 4 Mg/2 Ml Vial IVP 4 mg Q6H PRN Administration Nausea/Vomiting Propofol 1,000 mg 06/12/20 02:00 06/13/20 18:16 Propofol 1,000 Mg/100 Ml Vial IV 07/12/20 02:00 1,000 mg INF PRN Administration TO ACHIEVE GOAL RASS Protocol Senna/Docusate Sodium 1 tab 05/06/20 21:00 06/14/20 08:53 Senokot S 8.6-50 Mg Tab PO 1 tab BID OMARI Administration Sodium Chloride 10 ml 06/13/20 21:00 06/13/20 21:10 Flush - Normal Saline 10 Ml Syringe IVF 10 ml Q12HR OMARI Administration Sodium Chloride 10 ml 06/13/20 19:45 06/14/20 08:55 Flush - Normal Saline 10 Ml Syringe IVF 10 ml PRN PRN Administration Saline Flush - Exam General Appearance: ill appearing Eye: PERRL ENT: normocephalic atraumatic, no oropharyngeal lesions Neck: supple, symmetric, no JVD Neck - other findings: Tracheostomy in place on ventilator Heart: RRR, no murmur, no gallops, no rubs Heart - other findings: Tachycardia Respiratory: tachypneic Respiratory - other findings: Coarse breath sound but no obvious rales Gastrointestinal: soft, normal bowel sounds Gastrointestinal - other findings: PEG tube in place Skin: normal turgor Hosp A/P (1) Acute respiratory failure with hypoxia Code(s): J96.01 - ACUTE RESPIRATORY FAILURE WITH HYPOXIA Status: Acute (2) COVID-19 virus infection Code(s): U07.1 - COVID-19 Status: Acute (3) Elevated liver enzymes Code(s): R74.8 - ABNORMAL LEVELS OF OTHER SERUM ENZYMES Status: Acute (4) Pneumonia due to COVID-19 virus Code(s): U07.1 - COVID-19; J12.89 - OTHER VIRAL PNEUMONIA Status: Acute (5) Diabetes mellitus Code(s): E11.9 - TYPE 2 DIABETES MELLITUS WITHOUT COMPLICATIONS Status: Chronic Qualifiers: Diabetes mellitus type: type 2 (6) Pneumothorax Code(s): J93.9 - PNEUMOTHORAX, UNSPECIFIED Status: Acute Qualifiers: Pneumothorax type: spontaneous, primary Qualified Code(s): J93.11 - Primary spontaneous pneumothorax Plan: S/p chest tube placement - Plan old records reviewed/req, continue antibiotics, respiratory therapy Solu-Medrol increased to 40 mg IV twice daily Blood sugar is going up, continue glargine insulin as ordered, watch for hypoglycemia Continue Eliquis Continue vitamin supplementation Ventilator as per pulmonology Levophed as needed Prognosis is very poor,
--- NOTE | 2020-06-14 15:12 | PDOC.PALPN ---
Palliative Progress Note - Subjective Mechanical ventilation via trach. Tachycardia and tachypnea. Steroids paired anticoagulation. Son at bedside - Objective Vital Signs: Vital Signs - Most Recent Temp Pulse Resp BP Pulse Ox 98.8 F 98 43 H 104/70 88 L 06/14/20 07:00 06/14/20 13:40 06/14/20 10:00 06/14/20 11:36 06/14/20 11:36 - Physical Exam Constitutional: confusion, ill appearing HEENT: EOMI, moist MMs, sclera anicteric Respiratory: tachypnea Deviation from normal: Mechanical ventilation via trach Cardiovascular: RRR Gastrointestinal: soft, non-tender Deviation from normal: PEG Genitourinary: diamond catheter Musculoskeletal: no clubbing, diffuse muscle atrophy Neurology: no focal deficits Skin: cap refill <2 seconds, no lesions, fragile Deviation from normal: Alert intermittantly, unalble to fully appreciate orientation - Assessment (1) Palliative care encounter Code(s): Z51.5 - ENCOUNTER FOR PALLIATIVE CARE Current Visit: Yes Status: Acute (2) Acute respiratory failure with hypoxia Code(s): J96.01 - ACUTE RESPIRATORY FAILURE WITH HYPOXIA Current Visit: Yes Status: Acute (3) COVID-19 virus infection Code(s): U07.1 - COVID-19 Current Visit: Yes Status: Acute (4) DKA (diabetic ketoacidoses) Code(s): E11.10 - TYPE 2 DIABETES MELLITUS WITH KETOACIDOSIS WITHOUT COMA Current Visit: Yes Status: Resolved (5) Pneumonia due to COVID-19 virus Code(s): U07.1 - COVID-19; J12.89 - OTHER VIRAL PNEUMONIA Current Visit: Yes Status: Acute (6) Diabetes mellitus Code(s): E11.9 - TYPE 2 DIABETES MELLITUS WITHOUT COMPLICATIONS Current Visit: Yes Status: Chronic Qualifiers: Diabetes mellitus type: type 2 - Plan Plan: Family had transitioned to DNAR, revoked and resumed to full resuscitation sidra ures. Currently use of Ativan calms patient and reduces heart/resp rate adequately. Son at bedside, continues to be hopeful for recovery appears to have poor health literacy. Spiritual care involved. Will continue to support family, assistance with conversations relating to complex decision making [25] minutes spent on this encounter with >50% of the time in counseling and coordination of care. - ROS Non Response: due to mental status
[2020-06-14] MEDS: Cholecalciferol 1,000 UNITS (25 MCG) TAB PO SCH (20:57)
[2020-06-14] MEDS: Propofol 1,000 MG/100 ML VIAL IV PRN (21:00)
[2020-06-14] MEDS: Lorazepam 2 MG/ML VIAL SLOW IVP PRN (22:50)
[2020-06-15] MEDS ORDERED: Fentanyl CADD 100 ML ONE ×2 (04:05→20:32)
[2020-06-15 04:25] LABS: Anion Gap 12 mmol/L (10-20); BUN (Urea Nitrogen) 20 mg/dL (9.8-20.1); Calc. Creatinine Clearance 116 mL/min (70-130); Carbon Dioxide 36 mmol/L (22-29); Chloride 96 mmol/L (98-107); Glucose 171 mg/dL (70-105); Potassium 4.3 mmol/L (3.5-5.1); Sodium 140 mmol/L (136-145)
[2020-06-15] MEDS: HumaLOG 300 UNITS/3 ML VIAL SC PRN ×3 (05:17→16:51)
--- NOTE | 2020-06-15 07:55 | PRG ---
DATE OF SERVICE: 06/15/2020 35 minutes critical care time. SUBJECTIVE: The patient remains on mechanical ventilation through a tracheostomy. She will wake up and follow some commands. OBJECTIVE: VITAL SIGNS: Pulse is 87, blood pressure 89/53, O2 saturation 98%, respiratory rate 18. Total intake 1989, output 957. HEENT: Unchanged. NECK: Trach in good position with mild amount of air leak coming around the cuff, back into the patient's mouth. LUNGS: Coarse breath sounds. CARDIOVASCULAR: S1 and S2 regular, requiring some Levophed. ABDOMEN: Soft and nontender. EXTREMITIES: No clubbing, cyanosis, or edema. LABORATORY STUDIES AND DATA: Sodium 140, potassium 4.3, chloride 96, CO2 of 36, BUN 20, creatinine 0.5, glucose 171. Chest x-ray shows bilateral infiltrates. She has a right thoracostomy tube. The Pleur-evac continues to show small air leak. ASSESSMENT: 1. COVID-19 pneumonia with persistent respiratory failure requiring mechanical ventilation. 2. Right pneumothorax. PLAN: I have made some minor adjustments on her ventilator yesterday, went up on her steroids. I really do not see any short-term fixes to helping her improve and I would eventually expect her to succumb to this illness. Job ID: [id number]
[2020-06-15] MEDS: Famotidine 20 MG TAB PO SCH (09:13)
[2020-06-15] MEDS: Senokot S 8.6-50 MG TAB PO SCH ×2 (09:13→20:39)
[2020-06-15] MEDS: Apixaban 5 MG TAB PER TUBE SCH ×2 (09:13→20:39)
[2020-06-15] MEDS: Ascorbic Acid 500 mg Chewable Tablet PO SCH (09:13)
[2020-06-15] MEDS: methylPREDNISolone Sod Succ 40 MG VIAL IVP SCH ×2 (09:13→20:41)
[2020-06-15] MEDS: Insulin Glargine 28 UNITS in Pre-Filled Syringe 1 EACH SC SCH ×2 (09:14→20:39)
--- NOTE | 2020-06-15 09:19 | RAD ---
PORTABLE CHEST: Date: 06/15/2020 COMPARISON: 06/12/2020 and 06/13/2020. HISTORY: COVID pneumonia. FINDINGS: Tracheostomy tube is in satisfactory position. Right-sided central line is unchanged in position. Rig ht chest tube is in place. A small apical pneumothorax is present. Parenchymal lung changes are simil ar. IMPRESSION: Small right apical pneumothorax. Otherwise stable chest. POS: RIGOBERTO
--- NOTE | 2020-06-15 11:36 | PDOC.HOSPP ---
- Subjective Encounter Date: 06/15/20 Encounter Time: 10:15 Subjective: Patient seen and examined bedside today, patient is on bilevel ventilator, - Objective Vital Signs & Weight: Vital Signs (12 hours) Temp Pulse Resp Pulse Ox 06/15/20 10:25 98 06/15/20 10:00 36 H 06/15/20 08:00 98.6 F 39 H 88 L 06/15/20 07:17 76 06/15/20 06:00 30 H 06/15/20 04:00 98.9 F 32 H 06/15/20 02:00 35 H 06/15/20 01:32 110 H 06/15/20 00:00 98.8 F 34 H Weight Admit Weight 147 lb Weight 114 lb 13.773 oz Most Recent Monitor Data Heart Rate from ECG 106 NIBP 125/64 NIBP BP-Mean 84 Respiration from ECG 20 SpO2 88 I&O: 06/14/20 06/15/20 06/16/20 06:59 06:59 06:59 Intake Total 1516.2 1989.5 15.7 Output Total 990 957 310 Balance 526.2 1032.5 -294.3 Result Diagrams: 06/12/20 04:20 06/15/20 03:10 Additional Labs: Accuchecks 06/15/20 06/15/20 06/14/20 10:30 04:49 21:03 POC Glucose 259 H 218 H 139 H 06/14/20 15:36 POC Glucose 211 H Radiology Reviewed by me: Yes (Chest x-ray showing small right apical pneumothorax) EKG Reviewed by me: Yes (Sinus tachycardia) Hospitalist ROS - Review of Systems ROS unobtainable: due to endotracheal tube - Medication Medications: Active Medications Generic Name Dose Route Start Last Admin Trade Name Freq PRN Reason Stop Dose Admin Acetaminophen 1,000 mg 05/04/20 07:05 06/13/20 12:26 Acetaminophen 500 Mg Tab PO 1,000 mg Q6H PRN Administration Mild Pain (1-3) Apixaban 5 mg 06/07/20 21:00 06/15/20 09:13 Apixaban 5 Mg Tab PER TUBE 5 mg BID OMARI Administration Ascorbic Acid 1,000 mg 05/04/20 09:00 06/15/20 09:13 Ascorbic Acid 500 Mg Chewable Tablet PO 1,000 mg DAILY OMARI Administration Cholecalciferol 5,000 units 05/04/20 21:00 06/14/20 20:57 Cholecalciferol 1,000 Units (25 Mcg) Tab PO 5,000 units HS OMARI Administration Dextrose/Water 25 gm 05/03/20 22:18 06/13/20 10:14 Dextrose 50% Abboject 50 Ml Syringe SLOW IVP 25 gm PRN PRN Administration HYPOGLYCEMIA PROTOCOL Famotidine 20 mg 05/04/20 09:00 06/15/20 09:13 Famotidine 20 Mg Tab PO 20 mg BID OMARI Administration Dextrose/Water 1,000 mls @ 0 mls/hr 05/03/20 22:30 06/06/20 09:49 D5w IV 1,000 mls INF PRN Administration HYPOGLYCEMIA PROTOCOL As Directed Insulin Glargine 28 units/ 0.28 mls @ 0 mls/hr 06/11/20 21:00 06/14/20 21:04 Miscellaneous Medication SC 0.28 mls HS OMARI Administration Insulin Glargine 28 units/ 0.28 mls @ 0 mls/hr 06/12/20 09:00 06/15/20 09:14 Miscellaneous Medication SC 0.28 mls QAM OMARI Administration Fentanyl 100 mls @ 0 mls/hr 06/12/20 02:00 06/12/20 02:10 Fentanyl Cadd IV 07/12/20 02:00 100 mls INF OMARI Administration Protocol Per Protocol Insulin Human Lispro 0 units 05/05/20 01:19 06/15/20 10:31 Humalog 300 Units/3 Ml Vial SC 6 unit .MODERATE SLIDING SC PRN Administration Moderate Correctional Scale Methylprednisolone Sodium Succinate 40 mg 06/14/20 09:00 06/15/20 09:13 Methylprednisolone Sod Succ 40 Mg Vial IVP 40 mg BID OMARI Administration Morphine Sulfate 2 mg 06/12/20 02:00 06/13/20 11:13 Morphine 2 Mg/Ml Vial SLOW IVP 07/12/20 02:00 2 mg Q1H PRN Administration Breakthrough Pain/Agitation Ondansetron HCl 4 mg 05/04/20 07:05 05/04/20 12:12 Ondansetron Pf 4 Mg/2 Ml Vial IVP 4 mg Q6H PRN Administration Nausea/Vomiting Propofol 1,000 mg 06/12/20 02:00 06/14/20 21:00 Propofol 1,000 Mg/100 Ml Vial IV 07/12/20 02:00 1,000 mg INF PRN Administration TO ACHIEVE GOAL RASS Protocol Senna/Docusate Sodium 1 tab 05/06/20 21:00 06/15/20 09:13 Senokot S 8.6-50 Mg Tab PO 1 tab BID OMARI Administration Sodium Chloride 10 ml 06/13/20 21:00 06/15/20 09:15 Flush - Normal Saline 10 Ml Syringe IVF 10 ml Q12HR OMARI Administration Sodium Chloride 10 ml 06/13/20 19:45 06/14/20 08:55 Flush - Normal Saline 10 Ml Syringe IVF 10 ml PRN PRN Administration Saline Flush - Exam General Appearance: ill appearing Eye: PERRL, anicteric sclera ENT: normocephalic atraumatic, no oropharyngeal lesions Neck: supple, symmetric, no JVD, no thyromegaly Neck - other findings: Tracheostomy in place Heart: RRR, no murmur, no gallops, no rubs Heart - other findings: Tachycardia Respiratory - other findings: Bilateral rales and coarse breath sound Gastrointestinal: soft, non-distended, normal bowel sounds Gastrointestinal - other findings: PEG tube in place Extremities: no cyanosis, no clubbing, no edema Skin: normal turgor, no lesions Hosp A/P (1) Acute respiratory failure with hypoxia Code(s): J96.01 - ACUTE RESPIRATORY FAILURE WITH HYPOXIA Status: Acute (2) COVID-19 virus infection Code(s): U07.1 - COVID-19 Status: Acute (3) Elevated liver enzymes Code(s): R74.8 - ABNORMAL LEVELS OF OTHER SERUM ENZYMES Status: Acute (4) Pneumonia due to COVID-19 virus Code(s): U07.1 - COVID-19; J12.89 - OTHER VIRAL PNEUMONIA Status: Acute (5) Diabetes mellitus Code(s): E11.9 - TYPE 2 DIABETES MELLITUS WITHOUT COMPLICATIONS Status: Chronic Qualifiers: Diabetes mellitus type: type 2 (6) Pneumothorax Code(s): J93.9 - PNEUMOTHORAX, UNSPECIFIED Status: Acute Qualifiers: Pneumothorax type: spontaneous, primary Qualified Code(s): J93.11 - Primary spontaneous pneumothorax - Plan old records reviewed/req, respiratory therapy, DVT proph w/SCDs Continue Solu-Medrol Continue Eliquis Ventilator as per pulmonology Discussed with the patient's son updated about current condition Medication reviewed and continue provide symptomatic and supportive care Prognosis poor
[2020-06-15] MEDS: Lorazepam 2 MG/ML VIAL SLOW IVP PRN (12:02)
[2020-06-15] MEDS: Propofol 1,000 MG/100 ML VIAL IV PRN (20:37)
[2020-06-15] MEDS: Cholecalciferol 1,000 UNITS (25 MCG) TAB PO SCH (20:39)
[2020-06-16] MEDS: HumaLOG 300 UNITS/3 ML VIAL SC PRN ×3 (04:16→20:40)
[2020-06-16 05:04] LABS: #Eosinphils 0.1 thou/uL (0.0-0.7); #Lymphocytes 1.5 thou/uL (1.20-3.40); #Monocytes 0.3 thou/uL (0.11-0.59); #Neutrophils 6.4 thou/uL (1.40-6.50); %Basophils 0.1 % (0.0-1.0); %Eosinophils 0.7 % (0.0-10.0); %Lymphocytes 18.4 % (21.0-51.0); %Monocytes 3.8 % (0.0-10.0); %Neutrophils 76.9 % (42.0-75.0); Hemoglobin 9.4 g/dL (12.0-16.0); Mean Corpuscular Hemoglobin 30.1 pg (27.0-31.0); Mean Corpuscular Volume 94.1 fL (78.0-98.0); Mean Platelet Volume 8.5 fL (7.4-10.4); Platelet Count 272 thou/uL (130-400); RBC Distribution Width 15.1 % (11.5-14.5); Red Blood Cell (RBC) Count 3.14 mill/uL (4.20-5.40); White Blood Cell (WBC) Count 8.3 thou/uL (4.8-10.8)
[2020-06-16 05:24] LABS: Anion Gap 14 mmol/L (10-20); BUN (Urea Nitrogen) 21 mg/dL (9.8-20.1); Calc. Creatinine Clearance 104 mL/min (70-130); Calcium 9.2 mg/dL (7.8-10.44); Carbon Dioxide 36 mmol/L (22-29); Chloride 95 mmol/L (98-107); Glucose 204 mg/dL (70-105); Potassium 4.2 mmol/L (3.5-5.1); Sodium 141 mmol/L (136-145)
--- NOTE | 2020-06-16 08:14 | RAD ---
XR Chest 1 View Portable History: Pneumonia Comparison: Radiograph prior day Findings: Tracheostomy tube tip at the clavicular level. Right-sided thoracostomy tube tip is similar location. The trace apical pneumothorax is not increased with minimal decrease in size. Airspace opacities are similar. Subclavian central venous catheter is in a similar location. Gastrostomy tube left upper quadrant of the abdomen. Impression: Slight interval size decrease trace right apical pneumothorax.
[2020-06-16] MEDS: Apixaban 5 MG TAB PER TUBE SCH ×2 (09:06→20:33)
[2020-06-16] MEDS: Ascorbic Acid 500 mg Chewable Tablet PO SCH (09:06)
[2020-06-16] MEDS: Pantoprazole 40 MG VIAL IVP SCH (09:07)
[2020-06-16] MEDS: Insulin Glargine 28 UNITS in Pre-Filled Syringe 1 EACH SC SCH ×2 (09:07→20:30)
[2020-06-16] MEDS: methylPREDNISolone Sod Succ 40 MG VIAL IVP SCH ×2 (09:07→20:33)
[2020-06-16] MEDS: Lorazepam 2 MG/ML VIAL SLOW IVP PRN ×2 (09:07→22:49)
[2020-06-16] MEDS: Senokot S 8.6-50 MG TAB PO SCH ×2 (09:07→20:30)
--- NOTE | 2020-06-16 10:45 | PDOC.HOSPP ---
- Subjective Encounter Date: 06/16/20 Encounter Time: 10:05 Subjective: Patient seen and examined. Patient is on bilevel ventilator, no overnight event, - Objective Vital Signs & Weight: Vital Signs (12 hours) Temp Pulse Resp 06/16/20 08:00 49 H 06/16/20 06:52 102 H 06/16/20 06:00 48 H 06/16/20 04:00 99.2 F 56 H 06/16/20 02:08 104 H 06/16/20 02:00 42 H 06/16/20 00:00 98.9 F 47 H Weight Admit Weight 147 lb Weight 114 lb 13.773 oz Most Recent Monitor Data Heart Rate from ECG 109 NIBP 121/62 NIBP BP-Mean 81 Respiration from ECG 16 SpO2 87 I&O: 06/15/20 06/16/20 06/17/20 06:59 06:59 06:59 Intake Total 1989.5 1847.1 69.9 Output Total 957 1240 150 Balance 1032.5 607.1 -80.1 Result Diagrams: 06/16/20 04:10 06/16/20 04:10 Additional Labs: Accuchecks 06/16/20 06/15/20 04:14 21:05 POC Glucose 204 H 116 H Radiology Reviewed by me: Yes (Chest x-ray reviewed) EKG Reviewed by me: Yes (Sinus rhythm) Hospitalist ROS - Review of Systems ROS unobtainable: due to endotracheal tube - Medication Medications: Active Medications Generic Name Dose Route Start Last Admin Trade Name Freq PRN Reason Stop Dose Admin Acetaminophen 1,000 mg 05/04/20 07:05 06/13/20 12:26 Acetaminophen 500 Mg Tab PO 1,000 mg Q6H PRN Administration Mild Pain (1-3) Apixaban 5 mg 06/07/20 21:00 06/16/20 09:06 Apixaban 5 Mg Tab PER TUBE 5 mg BID OMARI Administration Ascorbic Acid 1,000 mg 05/04/20 09:00 06/16/20 09:06 Ascorbic Acid 500 Mg Chewable Tablet PO 1,000 mg DAILY OMARI Administration Cholecalciferol 5,000 units 05/04/20 21:00 06/15/20 20:39 Cholecalciferol 1,000 Units (25 Mcg) Tab PO 5,000 units HS OMARI Administration Dextrose/Water 25 gm 05/03/20 22:18 06/13/20 10:14 Dextrose 50% Abboject 50 Ml Syringe SLOW IVP 25 gm PRN PRN Administration HYPOGLYCEMIA PROTOCOL Dextrose/Water 1,000 mls @ 0 mls/hr 05/03/20 22:30 06/06/20 09:49 D5w IV 1,000 mls INF PRN Administration HYPOGLYCEMIA PROTOCOL As Directed Insulin Glargine 28 units/ 0.28 mls @ 0 mls/hr 06/11/20 21:00 06/15/20 20:39 Miscellaneous Medication SC 0.28 mls HS OMARI Administration Insulin Glargine 28 units/ 0.28 mls @ 0 mls/hr 06/12/20 09:00 06/16/20 09:07 Miscellaneous Medication SC 0.28 mls QAM OMARI Administration Fentanyl 100 mls @ 0 mls/hr 06/12/20 02:00 06/12/20 02:10 Fentanyl Cadd IV 07/12/20 02:00 100 mls INF OMARI Administration Protocol Per Protocol Insulin Human Lispro 0 units 05/05/20 01:19 06/16/20 04:16 Humalog 300 Units/3 Ml Vial SC 4 unit .MODERATE SLIDING SC PRN Administration Moderate Correctional Scale Lorazepam 2 mg 06/12/20 02:00 06/16/20 09:07 Lorazepam 2 Mg/Ml Vial SLOW IVP 07/12/20 02:00 2 mg Q1H PRN Administration Breakthrough agitation Methylprednisolone Sodium Succinate 40 mg 06/14/20 09:00 06/16/20 09:07 Methylprednisolone Sod Succ 40 Mg Vial IVP 40 mg BID OMARI Administration Morphine Sulfate 2 mg 06/12/20 02:00 06/13/20 11:13 Morphine 2 Mg/Ml Vial SLOW IVP 07/12/20 02:00 2 mg Q1H PRN Administration Breakthrough Pain/Agitation Ondansetron HCl 4 mg 05/04/20 07:05 05/04/20 12:12 Ondansetron Pf 4 Mg/2 Ml Vial IVP 4 mg Q6H PRN Administration Nausea/Vomiting Pantoprazole Sodium 40 mg 06/16/20 09:00 06/16/20 09:07 Pantoprazole 40 Mg Vial IVP 40 mg DAILY OMARI Administration Propofol 1,000 mg 06/12/20 02:00 06/15/20 20:37 Propofol 1,000 Mg/100 Ml Vial IV 07/12/20 02:00 1,000 mg INF PRN Administration TO ACHIEVE GOAL RASS Protocol Senna/Docusate Sodium 1 tab 05/06/20 21:00 06/16/20 09:07 Senokot S 8.6-50 Mg Tab PO 1 tab BID OMARI Administration Sodium Chloride 10 ml 06/13/20 21:00 06/16/20 09:08 Flush - Normal Saline 10 Ml Syringe IVF 10 ml Q12HR OMARI Administration Sodium Chloride 10 ml 06/13/20 19:45 06/14/20 08:55 Flush - Normal Saline 10 Ml Syringe IVF 10 ml PRN PRN Administration Saline Flush - Exam General Appearance: ill appearing Eye: PERRL, anicteric sclera ENT: normocephalic atraumatic, no oropharyngeal lesions Neck: supple, symmetric, no JVD Neck - other findings: Tracheostomy in place Heart: RRR, no murmur, no gallops, no rubs Respiratory - other findings: Bilateral scattered rales noted, chest tube in place on the right side Gastrointestinal: soft, non-distended, normal bowel sounds Extremities: no cyanosis, 1+ LE edema Skin: normal turgor, no lesions Hosp A/P (1) Acute respiratory failure with hypoxia Code(s): J96.01 - ACUTE RESPIRATORY FAILURE WITH HYPOXIA Status: Acute (2) COVID-19 virus infection Code(s): U07.1 - COVID-19 Status: Acute (3) Elevated liver enzymes Code(s): R74.8 - ABNORMAL LEVELS OF OTHER SERUM ENZYMES Status: Acute (4) Pneumonia due to COVID-19 virus Code(s): U07.1 - COVID-19; J12.89 - OTHER VIRAL PNEUMONIA Status: Acute (5) Diabetes mellitus Code(s): E11.9 - TYPE 2 DIABETES MELLITUS WITHOUT COMPLICATIONS Status: Chronic Qualifiers: Diabetes mellitus type: type 2 (6) Pneumothorax Code(s): J93.9 - PNEUMOTHORAX, UNSPECIFIED Status: Acute Qualifiers: Pneumothorax type: spontaneous, primary Qualified Code(s): J93.11 - Primary spontaneous pneumothorax - Plan old records reviewed/req, diamond catheter, respiratory therapy Overall no significant change, continue to monitor in ICU Continue Solu-Medrol Continue Eliquis Ventilator as per pulmonology Medication reviewed and continue provide symptomatic and supportive care Prognosis poor
--- NOTE | 2020-06-16 11:08 | PRG ---
DATE OF SERVICE: This is 35 minutes critical care time. SUBJECTIVE: The patient remains intubated on mechanical ventilation. There have been no acute changes overnight. She is still double-clutching almost every breath. OBJECTIVE: VITAL SIGNS: Her temperature is 99.2, pulse 109, blood pressure 121/62, O2 saturation in the 90s, 24-hour intake 1847, output 1240. HEENT: Unremarkable. NECK: No JVD. Trach in good position. LUNGS: Coarse breath sounds. She has a right-sided chest tube with persistent air leak. CARDIAC: S1 and S2. Regular. ABDOMEN: Soft. EXTREMITIES: No edema. LABORATORY DATA: Sodium 141, potassium 4.2, chloride 95, CO2 of 36, BUN 21, creatinine 0.5, glucose 204. White blood cell count 8.3, hematocrit 29.5, and platelet count 272. X-ray looks about the same. ASSESSMENT: 1. COVID-19 pneumonia. 2. Acute respiratory failure, requiring mechanical ventilation. PLAN: I did a quick bronchoscopy with a disposable scope to make sure she did not have tracheomalacia obstructing the end of her tracheostomy tube. Her airway was clear. There was no evidence of tracheomalacia on this short look. The patient is not weanable at this time. I have changed her over to assist-control mode with pressure rather than the bilevel and she seems to be more synchronous with that setup. I have reviewed her medications. She continues on insulin, vitamin C, vitamin D, methylprednisolone, and the Eliquis. Family was at the bedside and I updated her son. Job ID: [id number]
[2020-06-16] MEDS: Fentanyl CADD 100 ML IV SCH (13:02)
[2020-06-16] MEDS: Acetaminophen 500 MG TAB PO PRN (20:30)
[2020-06-16] MEDS: Cholecalciferol 1,000 UNITS (25 MCG) TAB PO SCH (20:53)
[2020-06-17] MEDS: HumaLOG 300 UNITS/3 ML VIAL SC PRN ×3 (03:52→22:39)
[2020-06-17 04:13] LABS: #Eosinphils 0.1 thou/uL (0.0-0.7); #Lymphocytes 1.9 thou/uL (1.20-3.40); #Monocytes 0.4 thou/uL (0.11-0.59); %Basophils 0.1 % (0.0-1.0); %Eosinophils 0.6 % (0.0-10.0); %Lymphocytes 18.4 % (21.0-51.0); %Monocytes 3.8 % (0.0-10.0); %Neutrophils 77.1 % (42.0-75.0); Mean Corpuscular HGB CONC 32.9 g/dL (32.0-36.0); Mean Corpuscular Hemoglobin 30.6 pg (27.0-31.0); Mean Platelet Volume 8.2 fL (7.4-10.4); Platelet Count 340 thou/uL (130-400); RBC Distribution Width 14.9 % (11.5-14.5); Red Blood Cell (RBC) Count 3.25 mill/uL (4.20-5.40); White Blood Cell (WBC) Count 10.3 thou/uL (4.8-10.8)
[2020-06-17 04:35] LABS: Anion Gap 14 mmol/L (10-20); BUN (Urea Nitrogen) 18 mg/dL (9.8-20.1); Calc. Creatinine Clearance 109 mL/min (70-130); Calcium 9.3 mg/dL (7.8-10.44); Carbon Dioxide 35 mmol/L (22-29); Chloride 94 mmol/L (98-107); Glucose 207 mg/dL (70-105); Potassium 4.2 mmol/L (3.5-5.1); Sodium 139 mmol/L (136-145)
[2020-06-17] MEDS: Lorazepam 2 MG/ML VIAL SLOW IVP PRN ×4 (07:38→23:53)
--- NOTE | 2020-06-17 07:59 | RAD ---
XR Chest 1 View Portable History: Pneumonia Comparison: Radiograph prior day Findings: Tracheostomy tube tip in a similar location. Right subclavian central venous catheter is si milar as well as the left upper abdominal quadrant gastrostomy tube. Right thoracostomy tube is similar. Small right apical pneumothorax is slightly enlarged with the api shabnam line having a distance of up to 6 mm from the parietal pleura. Impression: Trace increased lateral component to the right pneumothorax.
[2020-06-17] MEDS: methylPREDNISolone Sod Succ 40 MG VIAL IVP SCH ×2 (08:03→20:57)
[2020-06-17] MEDS: Senokot S 8.6-50 MG TAB PO SCH ×2 (08:04→20:57)
[2020-06-17] MEDS: Pantoprazole 40 MG VIAL IVP SCH (08:04)
[2020-06-17] MEDS: Ascorbic Acid 500 mg Chewable Tablet PO SCH (08:04)
[2020-06-17] MEDS: Apixaban 5 MG TAB PER TUBE SCH ×2 (08:04→20:57)
[2020-06-17] MEDS: Propofol 1,000 MG/100 ML VIAL IV PRN (08:04)
[2020-06-17] MEDS: Insulin Glargine 28 UNITS in Pre-Filled Syringe 1 EACH SC SCH ×2 (08:05→21:25)
[2020-06-17] MEDS ORDERED: Fentanyl CADD 100 ML ONE (08:45)
--- NOTE | 2020-06-17 11:26 | PDOC.HOSPP ---
- Subjective Encounter Date: 06/17/20 Encounter Time: 10:10 Subjective: Patient seen and examined. Patient is on ventilator, no overnight events - Objective Vital Signs & Weight: Vital Signs (12 hours) Temp Pulse Resp BP 06/17/20 11:07 118 H 110/54 L 06/17/20 10:00 26 H 06/17/20 08:00 98.7 F 34 H 06/17/20 07:05 98 112/70 06/17/20 06:00 27 H 06/17/20 04:00 99 F 23 H 06/17/20 02:23 85 06/17/20 02:00 20 06/17/20 01:00 21 H 06/17/20 00:00 99.1 F 20 Weight Admit Weight 147 lb Weight 126 lb 15.78 oz Most Recent Monitor Data Heart Rate from ECG 120 NIBP 116/56 NIBP BP-Mean 76 Respiration from ECG 23 SpO2 83 I&O: 06/16/20 06/17/20 06/18/20 06:59 06:59 06:59 Intake Total 1847.1 1673.7 Output Total 1240 1665 300 Balance 607.1 8.7 -300 Result Diagrams: 06/17/20 03:45 06/17/20 03:45 Additional Labs: Accuchecks 06/17/20 06/17/20 06/16/20 10:08 03:49 16:14 POC Glucose 183 H 220 H 219 H Radiology Reviewed by me: Yes EKG Reviewed by me: Yes Hospitalist ROS - Review of Systems ROS unobtainable: due to endotracheal tube - Medication Medications: Active Medications Generic Name Dose Route Start Last Admin Trade Name Freq PRN Reason Stop Dose Admin Acetaminophen 1,000 mg 05/04/20 07:05 06/16/20 20:30 Acetaminophen 500 Mg Tab PO 1,000 mg Q6H PRN Administration Mild Pain (1-3) Apixaban 5 mg 06/07/20 21:00 06/17/20 08:04 Apixaban 5 Mg Tab PER TUBE 5 mg BID OMARI Administration Ascorbic Acid 1,000 mg 05/04/20 09:00 06/17/20 08:04 Ascorbic Acid 500 Mg Chewable Tablet PO 1,000 mg DAILY OMARI Administration Cholecalciferol 5,000 units 05/04/20 21:00 06/16/20 20:53 Cholecalciferol 1,000 Units (25 Mcg) Tab PO 5,000 units HS OMARI Administration Dextrose/Water 25 gm 05/03/20 22:18 06/13/20 10:14 Dextrose 50% Abboject 50 Ml Syringe SLOW IVP 25 gm PRN PRN Administration HYPOGLYCEMIA PROTOCOL Dextrose/Water 1,000 mls @ 0 mls/hr 05/03/20 22:30 06/06/20 09:49 D5w IV 1,000 mls INF PRN Administration HYPOGLYCEMIA PROTOCOL As Directed Insulin Glargine 28 units/ 0.28 mls @ 0 mls/hr 06/11/20 21:00 06/16/20 20:30 Miscellaneous Medication SC 0.28 mls HS OMARI Administration Insulin Glargine 28 units/ 0.28 mls @ 0 mls/hr 06/12/20 09:00 06/17/20 08:05 Miscellaneous Medication SC 0.28 mls QAM OMARI Administration Fentanyl 100 mls @ 0 mls/hr 06/12/20 02:00 06/16/20 13:02 Fentanyl Cadd IV 07/12/20 02:00 100 mls INF OMARI Administration Protocol Per Protocol Insulin Human Lispro 0 units 05/05/20 01:19 06/17/20 03:52 Humalog 300 Units/3 Ml Vial SC 4 unit .MODERATE SLIDING SC PRN Administration Moderate Correctional Scale Lorazepam 2 mg 06/12/20 02:00 06/17/20 10:15 Lorazepam 2 Mg/Ml Vial SLOW IVP 07/12/20 02:00 2 mg Q1H PRN Administration Breakthrough agitation Methylprednisolone Sodium Succinate 40 mg 06/14/20 09:00 06/17/20 08:03 Methylprednisolone Sod Succ 40 Mg Vial IVP 40 mg BID OMARI Administration Morphine Sulfate 2 mg 06/12/20 02:00 06/13/20 11:13 Morphine 2 Mg/Ml Vial SLOW IVP 07/12/20 02:00 2 mg Q1H PRN Administration Breakthrough Pain/Agitation Ondansetron HCl 4 mg 05/04/20 07:05 05/04/20 12:12 Ondansetron Pf 4 Mg/2 Ml Vial IVP 4 mg Q6H PRN Administration Nausea/Vomiting Pantoprazole Sodium 40 mg 06/16/20 09:00 06/17/20 08:04 Pantoprazole 40 Mg Vial IVP 40 mg DAILY OMARI Administration Propofol 1,000 mg 06/12/20 02:00 06/17/20 08:04 Propofol 1,000 Mg/100 Ml Vial IV 07/12/20 02:00 1,000 mg INF PRN Administration TO ACHIEVE GOAL RASS Protocol Senna/Docusate Sodium 1 tab 05/06/20 21:00 06/17/20 08:04 Senokot S 8.6-50 Mg Tab PO 1 tab BID OMARI Administration Sodium Chloride 10 ml 06/13/20 21:00 06/17/20 08:04 Flush - Normal Saline 10 Ml Syringe IVF 10 ml Q12HR OMARI Administration Sodium Chloride 10 ml 06/13/20 19:45 06/14/20 08:55 Flush - Normal Saline 10 Ml Syringe IVF 10 ml PRN PRN Administration Saline Flush - Exam General Appearance: ill appearing Eye: PERRL, anicteric sclera ENT: normocephalic atraumatic, no oropharyngeal lesions Neck: supple, symmetric, no JVD Neck - other findings: Tracheostomy Heart: RRR, no murmur, no gallops, no rubs Heart - other findings: Tachycardia Respiratory: no wheezes, no rales, no ronchi Gastrointestinal: soft, normal bowel sounds Gastrointestinal - other findings: PEG tube in place Extremities: 1+ LE edema Hosp A/P (1) Acute respiratory failure with hypoxia Code(s): J96.01 - ACUTE RESPIRATORY FAILURE WITH HYPOXIA Status: Acute (2) COVID-19 virus infection Code(s): U07.1 - COVID-19 Status: Acute (3) Elevated liver enzymes Code(s): R74.8 - ABNORMAL LEVELS OF OTHER SERUM ENZYMES Status: Acute (4) Pneumonia due to COVID-19 virus Code(s): U07.1 - COVID-19; J12.89 - OTHER VIRAL PNEUMONIA Status: Acute (5) Diabetes mellitus Code(s): E11.9 - TYPE 2 DIABETES MELLITUS WITHOUT COMPLICATIONS Status: Chronic Qualifiers: Diabetes mellitus type: type 2 (6) Pneumothorax Code(s): J93.9 - PNEUMOTHORAX, UNSPECIFIED Status: Acute Qualifiers: Pneumothorax type: spontaneous, primary Qualified Code(s): J93.11 - Primary spontaneous pneumothorax - Plan old records reviewed/req, plan discussed w/ family Overall no significant change, continue to monitor in ICU Continue Solu-Medrol Continue Eliquis Ventilator as per pulmonology Medication reviewed and continue provide symptomatic and supportive care Prognosis poor Discussed with the family bedside
--- NOTE | 2020-06-17 12:44 | PRG ---
DATE OF SERVICE: 06/17/2020 SUBJECTIVE: This is hospital day 45 for Ms. Parmar. She remains on mechanical ventilation through a tracheostomy. She has a right-sided chest tube in place with a persistent air leak to the Pleur-evac. Her current ventilator settings showed that she is on assist-control rate 20, with inspiratory pressure of 23, PEEP of 10, and FiO2 of 95%. OBJECTIVE: HEENT: Unremarkable. NECK: No JVD. LUNGS: Coarse breath sounds. CARDIAC: S1 and S2, regular. ABDOMEN: Soft. EXTREMITIES: No edema. LABORATORY DATA: White blood cell count 10, hematocrit 30, platelet count 340. Sodium 139, potassium 4.2, chloride 94, CO2 of 35, BUN 8, creatinine 0.5, glucose 207. ASSESSMENT: 1. COVID-19 pneumonia. 2. Persistent respiratory failure requiring mechanical ventilation. PLAN: We are continuing basic supportive care in hopes that she will improve. We have not seen much movement in several weeks and I do not think her prognosis is very good. She remains on steroids and anticoagulation. If the occasion presents itself, then we will try to wean her FiO2, but so far that has been an impossible task. Job ID: [id number]
[2020-06-17] MEDS: Acetaminophen 500 MG TAB PO PRN (13:31)
[2020-06-17] MEDS: Cholecalciferol 1,000 UNITS (25 MCG) TAB PO SCH (20:56)
[2020-06-18] MEDS ORDERED: Fentanyl CADD 100 ML ONE (04:38)
[2020-06-18 04:52] LABS: Anion Gap 13 mmol/L (10-20); BUN (Urea Nitrogen) 16 mg/dL (9.8-20.1); Calc. Creatinine Clearance 120 mL/min (70-130); Calcium 9.3 mg/dL (7.8-10.44); Carbon Dioxide 34 mmol/L (22-29); Chloride 96 mmol/L (98-107); Glucose 121 mg/dL (70-105); Potassium 4.2 mmol/L (3.5-5.1); Sodium 139 mmol/L (136-145)
[2020-06-18 05:48] LABS: Hemoglobin 10.1 g/dL (12.0-16.0); Mean Corpuscular HGB CONC 32.9 g/dL (32.0-36.0); Mean Corpuscular Hemoglobin 30.7 pg (27.0-31.0); Mean Corpuscular Volume 93.5 fL (78.0-98.0); Mean Platelet Volume 8.2 fL (7.4-10.4); Platelet Count 370 thou/uL (130-400); Red Blood Cell (RBC) Count 3.27 mill/uL (4.20-5.40); White Blood Cell (WBC) Count 11.5 thou/uL (4.8-10.8)
[2020-06-18 05:51] LABS: Band 12 % (5-11); Lymphocytes 19 % (21-51); MDiff Complete? YES; Monocytes 4 % (0-10); Myelocyte 1 % (0-0); Neutrophil 60 % (42-75)
--- NOTE | 2020-06-18 08:14 | PRG ---
DATE OF SERVICE: 06/18/2020 35 minutes of critical care time. SUBJECTIVE: The patient remains on mechanical ventilation through a trach collar, but no acute changes overnight. OBJECTIVE: VITAL SIGNS: Temperature 99.3 with a T-max of 99.7, pulse 92, blood pressure 92/64. 24-hour intake 1740, output 1725. HEENT: Unremarkable. NECK: No adenopathy or JVD. LUNGS: Coarse breath sounds. CARDIAC: S1 and S2 regular. ABDOMEN: Soft. EXTREMITIES: Edematous. IMAGING DATA: Chest x-ray shows in the right chest tube, she has a persistent air leak. The tracheostomy tube was in good position. LABORATORY DATA: Sodium 139, potassium 4.2, chloride 96, CO2 of 34, BUN 16, creatinine 0.5, glucose 121, white blood cell count 11.5, hematocrit 30.6, and platelet count 370. ASSESSMENT: 1. COVID-19 pneumonia. 2. Acute hypoxic respiratory failure requiring mechanical ventilation. PLAN: 1. Slowly wean FiO2 before any big movement in terms of trying to wean from the vent. 2. Continue PT, OT. 3. Continue methylprednisolone. 4. She has some odd-looking tracheal secretions. Probably should draw cultures as surveillance. It would not surprise me if she did need to have secondary antibiotics started in the next few days. Job ID: [id number]
[2020-06-18] MEDS: methylPREDNISolone Sod Succ 40 MG VIAL IVP SCH ×2 (08:44→20:37)
[2020-06-18] MEDS: Apixaban 5 MG TAB PER TUBE SCH ×2 (08:44→20:36)
[2020-06-18] MEDS: Senokot S 8.6-50 MG TAB PO SCH ×2 (08:44→20:36)
[2020-06-18] MEDS: Pantoprazole 40 MG VIAL IVP SCH (08:44)
[2020-06-18] MEDS: Ascorbic Acid 500 mg Chewable Tablet PO SCH (08:44)
[2020-06-18] MEDS: Insulin Glargine 28 UNITS in Pre-Filled Syringe 1 EACH SC SCH ×2 (08:51→21:02)
--- NOTE | 2020-06-18 09:10 | RAD ---
CHEST 1 VIEW: HISTORY: Pneumonia. COMPARISON: Radiograph prior day. FINDINGS: Right side thoracostomy tube is similar. Subclavian central venous catheter is similar as well as th e tracheostomy tube. Airspace opacities are not improved. Left basilar bullae has not significantly changed. No enlargement of the right-sided pneumothorax with trace right apical component appreciated. IMPRESSION: Trace right apical pneumothorax remains. Improved from yesterday's exam. POS: [facility]
[2020-06-18] MEDS: Lorazepam 2 MG/ML VIAL SLOW IVP PRN ×2 (11:04→21:45)
--- NOTE | 2020-06-18 11:57 | PDOC.HOSPP ---
- Subjective Encounter Date: 06/18/20 Encounter Time: 10:30 Subjective: Patient seen and examined bedside today, patient has thick yellowish tracheal secretion, as per nurse patient does not have any bowel movement for last several days despite stool softener - Objective Vital Signs & Weight: Vital Signs (12 hours) Temp Pulse Resp BP 06/18/20 11:10 116 H 06/18/20 10:00 25 H 06/18/20 08:00 97.9 F 30 H 06/18/20 07:01 92 06/18/20 06:00 23 H 06/18/20 04:00 99.3 F 21 H 06/18/20 02:49 105 H 125/77 06/18/20 02:00 21 H 06/18/20 01:00 23 H 06/18/20 00:00 99.3 F 23 H Weight Admit Weight 147 lb Weight 126 lb 15.78 oz Most Recent Monitor Data Heart Rate from ECG 127 NIBP 131/103 NIBP BP-Mean 112 Respiration from ECG 30 SpO2 81 I&O: 06/17/20 06/18/20 06/19/20 06:59 06:59 06:59 Intake Total 1673.7 1740.4 30 Output Total 1665 1725 175 Balance 8.7 15.4 -145 Result Diagrams: 06/18/20 03:45 06/18/20 03:45 Additional Labs: Accuchecks 06/18/20 06/18/20 06/17/20 10:42 03:44 21:24 POC Glucose 215 H 121 H 156 H 06/17/20 06/16/20 06/16/20 16:39 20:19 10:52 POC Glucose 290 H 230 H 179 H 06/15/20 16:49 POC Glucose 218 H Radiology Reviewed by me: Yes (Chest x-ray reviewed) EKG Reviewed by me: Yes (Sinus rhythm) Hospitalist ROS - Review of Systems ROS unobtainable: due to endotracheal tube - Medication Medications: Active Medications Generic Name Dose Route Start Last Admin Trade Name Freq PRN Reason Stop Dose Admin Acetaminophen 1,000 mg 05/04/20 07:05 06/17/20 13:31 Acetaminophen 500 Mg Tab PO 1,000 mg Q6H PRN Administration Mild Pain (1-3) Apixaban 5 mg 06/07/20 21:00 06/18/20 08:44 Apixaban 5 Mg Tab PER TUBE 5 mg BID OMARI Administration Ascorbic Acid 1,000 mg 05/04/20 09:00 06/18/20 08:44 Ascorbic Acid 500 Mg Chewable Tablet PO 1,000 mg DAILY OMARI Administration Cholecalciferol 5,000 units 05/04/20 21:00 06/17/20 20:56 Cholecalciferol 1,000 Units (25 Mcg) Tab PO 5,000 units HS OMARI Administration Dextrose/Water 25 gm 05/03/20 22:18 06/13/20 10:14 Dextrose 50% Abboject 50 Ml Syringe SLOW IVP 25 gm PRN PRN Administration HYPOGLYCEMIA PROTOCOL Dextrose/Water 1,000 mls @ 0 mls/hr 05/03/20 22:30 06/06/20 09:49 D5w IV 1,000 mls INF PRN Administration HYPOGLYCEMIA PROTOCOL As Directed Insulin Glargine 28 units/ 0.28 mls @ 0 mls/hr 06/11/20 21:00 06/17/20 21:25 Miscellaneous Medication SC 0.28 mls HS OMARI Administration Insulin Glargine 28 units/ 0.28 mls @ 0 mls/hr 06/12/20 09:00 06/18/20 08:51 Miscellaneous Medication SC 0.28 mls QAM OMARI Administration Fentanyl 100 mls @ 0 mls/hr 06/12/20 02:00 06/16/20 13:02 Fentanyl Cadd IV 07/12/20 02:00 100 mls INF OMARI Administration Protocol Per Protocol Insulin Human Lispro 0 units 05/05/20 01:19 06/17/20 22:39 Humalog 300 Units/3 Ml Vial SC 2 unit .MODERATE SLIDING SC PRN Administration Moderate Correctional Scale Lorazepam 2 mg 06/12/20 02:00 06/18/20 11:04 Lorazepam 2 Mg/Ml Vial SLOW IVP 07/12/20 02:00 2 mg Q1H PRN Administration Breakthrough agitation Methylprednisolone Sodium Succinate 40 mg 06/14/20 09:00 06/18/20 08:44 Methylprednisolone Sod Succ 40 Mg Vial IVP 40 mg BID OMARI Administration Morphine Sulfate 2 mg 06/12/20 02:00 06/13/20 11:13 Morphine 2 Mg/Ml Vial SLOW IVP 07/12/20 02:00 2 mg Q1H PRN Administration Breakthrough Pain/Agitation Ondansetron HCl 4 mg 05/04/20 07:05 05/04/20 12:12 Ondansetron Pf 4 Mg/2 Ml Vial IVP 4 mg Q6H PRN Administration Nausea/Vomiting Pantoprazole Sodium 40 mg 06/16/20 09:00 06/18/20 08:44 Pantoprazole 40 Mg Vial IVP 40 mg DAILY OMARI Administration Polyethylene Glycol 17 gm 05/06/20 15:40 06/18/20 08:44 Polyethylene Glycol 3350 17 Gm Packet PO 17 gm DAILYPRN PRN Administration Constipation Propofol 1,000 mg 06/12/20 02:00 06/17/20 08:04 Propofol 1,000 Mg/100 Ml Vial IV 07/12/20 02:00 1,000 mg INF PRN Administration TO ACHIEVE GOAL RASS Protocol Senna/Docusate Sodium 1 tab 05/06/20 21:00 06/18/20 08:44 Senokot S 8.6-50 Mg Tab PO 1 tab BID OMARI Administration Sodium Chloride 10 ml 06/13/20 21:00 06/18/20 08:44 Flush - Normal Saline 10 Ml Syringe IVF 10 ml Q12HR OMARI Administration Sodium Chloride 10 ml 06/13/20 19:45 06/14/20 08:55 Flush - Normal Saline 10 Ml Syringe IVF 10 ml PRN PRN Administration Saline Flush - Exam General Appearance: ill appearing Eye: PERRL, anicteric sclera ENT: normocephalic atraumatic Neck: supple, symmetric, no JVD Neck - other findings: Tracheostomy in place Heart: RRR, no murmur, no gallops Respiratory: no wheezes, no rales, no ronchi Respiratory - other findings: Bilateral coarse breath sound anteriorly Gastrointestinal: soft, non-distended, normal bowel sounds Gastrointestinal - other findings: PEG tube in place Extremities: 1+ LE edema Skin: normal turgor, no lesions Hosp A/P (1) Acute respiratory failure with hypoxia Code(s): J96.01 - ACUTE RESPIRATORY FAILURE WITH HYPOXIA Status: Acute (2) COVID-19 virus infection Code(s): U07.1 - COVID-19 Status: Resolved (3) Elevated liver enzymes Code(s): R74.8 - ABNORMAL LEVELS OF OTHER SERUM ENZYMES Status: Resolved (4) Pneumonia due to COVID-19 virus Code(s): U07.1 - COVID-19; J12.89 - OTHER VIRAL PNEUMONIA Status: Acute (5) Diabetes mellitus Code(s): E11.9 - TYPE 2 DIABETES MELLITUS WITHOUT COMPLICATIONS Status: Chronic Qualifiers: Diabetes mellitus type: type 2 (6) Pneumothorax Code(s): J93.9 - PNEUMOTHORAX, UNSPECIFIED Status: Acute Qualifiers: Pneumothorax type: spontaneous, primary Qualified Code(s): J93.11 - Primary spontaneous pneumothorax - Plan old records reviewed/req, respiratory therapy Overall no significant change, continue to monitor in ICU Continue Solu-Medrol Continue Eliquis Ventilator as per pulmonology Medication reviewed and continue provide symptomatic and supportive care Prognosis poor Add MiraLAX for constipation
[2020-06-18] MEDS: HumaLOG 300 UNITS/3 ML VIAL SC PRN ×2 (18:02→22:57)
[2020-06-18] MEDS: Cholecalciferol 1,000 UNITS (25 MCG) TAB PO SCH (20:36)
[2020-06-19] MEDS ORDERED: Fentanyl CADD 100 ML ONE ×2 (00:11→18:41)
[2020-06-19] MEDS: Propofol 1,000 MG/100 ML VIAL IV PRN ×2 (02:21→17:56)
[2020-06-19 04:45] LABS: #Eosinphils 0.1 thou/uL (0.0-0.7); #Lymphocytes 1.9 thou/uL (1.20-3.40); #Monocytes 0.3 thou/uL (0.11-0.59); #Neutrophils 8.6 thou/uL (1.40-6.50); %Basophils 0.2 % (0.0-1.0); %Eosinophils 0.7 % (0.0-10.0); %Lymphocytes 17.6 % (21.0-51.0); %Monocytes 3.1 % (0.0-10.0); %Neutrophils 78.6 % (42.0-75.0); Hemoglobin 9.8 g/dL (12.0-16.0); Mean Corpuscular HGB CONC 32.3 g/dL (32.0-36.0); Mean Corpuscular Hemoglobin 30.2 pg (27.0-31.0); Mean Corpuscular Volume 93.4 fL (78.0-98.0); Mean Platelet Volume 8.2 fL (7.4-10.4); Platelet Count 434 thou/uL (130-400); RBC Distribution Width 15.2 % (11.5-14.5); Red Blood Cell (RBC) Count 3.23 mill/uL (4.20-5.40); White Blood Cell (WBC) Count 10.9 thou/uL (4.8-10.8)
[2020-06-19 05:24] LABS: Anion Gap 16 mmol/L (10-20); BUN (Urea Nitrogen) 25 mg/dL (9.8-20.1); Calc. Creatinine Clearance 111 mL/min (70-130); Calcium 9.4 mg/dL (7.8-10.44); Carbon Dioxide 32 mmol/L (22-29); Chloride 96 mmol/L (98-107); Glucose 160 mg/dL (70-105); Potassium 4.2 mmol/L (3.5-5.1); Sodium 140 mmol/L (136-145)
--- NOTE | 2020-06-19 07:48 | PRG ---
DATE OF SERVICE: 06/19/2020 35 minutes of critical care time. SUBJECTIVE: The patient remains on mechanical ventilation through tracheostomy. OBJECTIVE: VITAL SIGNS: Her temperature is 98.9 with a T-max of 99.1, pulse 89, blood pressure 106/61, O2 saturation 100%. 24-hour intake 1795, output 1095. HEENT: Unremarkable. NECK: Trach in good position. LUNGS: Coarse breath sounds. CARDIAC: S1, S2. Regular. ABDOMEN: Soft. EXTREMITIES: Slightly edematous. LABORATORY DATA: Sodium 140, potassium 4.2, chloride 96, CO2 of 32, BUN 25, creatinine 0.5, glucose 116. White blood cell count 10.9, hematocrit 30.2, and platelet count 434. ASSESSMENT: 1. Coronavirus disease 2019 pneumonia. 2. Acute hypoxic respiratory failure requiring mechanical ventilation. PLAN: We are continuing present care. Her urine output has diminished somewhat, so I will give her some fluids today. She is not weanable at this time due to persistent hypoxemia. She is continuing steroids and anticoagulation. Job ID: [id number]
[2020-06-19] MEDS: Pantoprazole 40 MG VIAL IVP SCH (08:04)
[2020-06-19] MEDS: Sodium Chloride 0.9% 1,000 ML IV SCH ×2 (08:04→17:53)
[2020-06-19] MEDS: Ascorbic Acid 500 mg Chewable Tablet PO SCH (08:05)
[2020-06-19] MEDS: Senokot S 8.6-50 MG TAB PO SCH ×2 (08:05→20:02)
[2020-06-19] MEDS: Apixaban 5 MG TAB PER TUBE SCH ×2 (08:05→20:02)
[2020-06-19] MEDS: methylPREDNISolone Sod Succ 40 MG VIAL IVP SCH ×2 (08:05→20:02)
[2020-06-19] MEDS: Polyethylene Glycol 3350 17 GM Packet PER TUBE SCH (08:05)
--- NOTE | 2020-06-19 08:10 | RAD ---
XR Chest 1 View Portable History: Pneumonia Comparison: Radiograph prior day Findings: Similar appearance of the tracheostomy. Right thoracostomy tube is similar. No significant pneumothorax is appreciated. Right subclavian central venous catheter tip projects over the right atrium. Airspace opacities are s imilar. No left-sided pneumothorax. Minimal subcutaneous emphysema right hemithorax. Impression: No significant right pneumothorax appreciated.
[2020-06-19] MEDS: Insulin Glargine 28 UNITS in Pre-Filled Syringe 1 EACH SC SCH ×2 (09:59→20:22)
--- NOTE | 2020-06-19 14:09 | PDOC.HOSPP ---
- Subjective Encounter Date: 06/19/20 Encounter Time: 10:50 Subjective: Patient seen and examined bedside today, patient is on ventilator, no overnight event, - Objective Vital Signs & Weight: Vital Signs (12 hours) Temp Pulse Resp 06/19/20 10:41 97 06/19/20 10:00 21 H 06/19/20 08:00 98.5 F 06/19/20 07:45 20 06/19/20 07:36 90 06/19/20 06:00 18 06/19/20 04:00 18 06/19/20 03:00 98.9 F 06/19/20 02:21 107 H Weight Admit Weight 147 lb Weight 60 lb 4.8 oz Most Recent Monitor Data Heart Rate from ECG 110 NIBP 100/67 NIBP BP-Mean 78 Respiration from ECG 22 SpO2 92 I&O: 06/18/20 06/19/20 06/20/20 06:59 06:59 06:59 Intake Total 1740.4 1795.2 128.2 Output Total 1725 1095 435 Balance 15.4 700.2 -306.8 Result Diagrams: 06/19/20 03:35 06/19/20 03:35 Additional Labs: Accuchecks 06/19/20 06/18/20 06/18/20 11:03 22:55 17:03 POC Glucose 208 H 217 H 183 H Radiology Reviewed by me: Yes EKG Reviewed by me: Yes Hospitalist ROS - Review of Systems ROS unobtainable: due to endotracheal tube - Medication Medications: Active Medications Generic Name Dose Route Start Last Admin Trade Name Freq PRN Reason Stop Dose Admin Acetaminophen 1,000 mg 05/04/20 07:05 06/17/20 13:31 Acetaminophen 500 Mg Tab PO 1,000 mg Q6H PRN Administration Mild Pain (1-3) Apixaban 5 mg 06/07/20 21:00 06/19/20 08:05 Apixaban 5 Mg Tab PER TUBE 5 mg BID OMARI Administration Ascorbic Acid 1,000 mg 05/04/20 09:00 06/19/20 08:05 Ascorbic Acid 500 Mg Chewable Tablet PO 1,000 mg DAILY OMARI Administration Cholecalciferol 5,000 units 05/04/20 21:00 06/18/20 20:36 Cholecalciferol 1,000 Units (25 Mcg) Tab PO 5,000 units HS OMARI Administration Dextrose/Water 25 gm 05/03/20 22:18 06/13/20 10:14 Dextrose 50% Abboject 50 Ml Syringe SLOW IVP 25 gm PRN PRN Administration HYPOGLYCEMIA PROTOCOL Dextrose/Water 1,000 mls @ 0 mls/hr 05/03/20 22:30 06/06/20 09:49 D5w IV 1,000 mls INF PRN Administration HYPOGLYCEMIA PROTOCOL As Directed Insulin Glargine 28 units/ 0.28 mls @ 0 mls/hr 06/11/20 21:00 06/18/20 21:02 Miscellaneous Medication SC 0.28 mls HS OMARI Administration Insulin Glargine 28 units/ 0.28 mls @ 0 mls/hr 06/12/20 09:00 06/19/20 09:59 Miscellaneous Medication SC 0.28 mls QAM OMARI Administration Fentanyl 100 mls @ 0 mls/hr 06/12/20 02:00 06/16/20 13:02 Fentanyl Cadd IV 07/12/20 02:00 100 mls INF OMARI Administration Protocol Per Protocol Sodium Chloride 1,000 mls @ 100 mls/hr 06/19/20 07:30 06/19/20 08:04 Normal Saline 0.9% IV 06/20/20 03:29 1,000 mls .Q10H OMARI Administration Insulin Human Lispro 0 units 05/05/20 01:19 06/18/20 22:57 Humalog 300 Units/3 Ml Vial SC 4 unit .MODERATE SLIDING SC PRN Administration Moderate Correctional Scale Lorazepam 2 mg 06/12/20 02:00 06/18/20 21:45 Lorazepam 2 Mg/Ml Vial SLOW IVP 07/12/20 02:00 2 mg Q1H PRN Administration Breakthrough agitation Methylprednisolone Sodium Succinate 40 mg 06/14/20 09:00 06/19/20 08:05 Methylprednisolone Sod Succ 40 Mg Vial IVP 40 mg BID OMARI Administration Morphine Sulfate 2 mg 06/12/20 02:00 06/13/20 11:13 Morphine 2 Mg/Ml Vial SLOW IVP 07/12/20 02:00 2 mg Q1H PRN Administration Breakthrough Pain/Agitation Ondansetron HCl 4 mg 05/04/20 07:05 05/04/20 12:12 Ondansetron Pf 4 Mg/2 Ml Vial IVP 4 mg Q6H PRN Administration Nausea/Vomiting Pantoprazole Sodium 40 mg 06/16/20 09:00 06/19/20 08:04 Pantoprazole 40 Mg Vial IVP 40 mg DAILY OMARI Administration Polyethylene Glycol 17 gm 05/06/20 15:40 06/18/20 08:44 Polyethylene Glycol 3350 17 Gm Packet PO 17 gm DAILYPRN PRN Administration Constipation Polyethylene Glycol 17 gm 06/19/20 09:00 06/19/20 08:05 Polyethylene Glycol 3350 17 Gm Packet PER TUBE 17 gm DAILY OMARI Administration Propofol 1,000 mg 06/12/20 02:00 06/19/20 02:21 Propofol 1,000 Mg/100 Ml Vial IV 07/12/20 02:00 1,000 mg INF PRN Administration TO ACHIEVE GOAL RASS Protocol Senna/Docusate Sodium 1 tab 05/06/20 21:00 06/19/20 08:05 Senokot S 8.6-50 Mg Tab PO 1 tab BID OMARI Administration Sodium Chloride 10 ml 06/13/20 21:00 06/19/20 08:05 Flush - Normal Saline 10 Ml Syringe IVF 10 ml Q12HR OMARI Administration Sodium Chloride 10 ml 06/13/20 19:45 06/14/20 08:55 Flush - Normal Saline 10 Ml Syringe IVF 10 ml PRN PRN Administration Saline Flush - Exam General Appearance: ill appearing Eye: PERRL ENT: normocephalic atraumatic Neck: supple, symmetric, no JVD Neck - other findings: Tracheostomy in place Heart: RRR, no murmur, no gallops, no rubs Respiratory - other findings: Coarse breath sound bilaterally Gastrointestinal: soft, non-distended, normal bowel sounds Gastrointestinal - other findings: PEG tube in place Extremities: 1+ LE edema Hosp A/P (1) Acute respiratory failure with hypoxia Code(s): J96.01 - ACUTE RESPIRATORY FAILURE WITH HYPOXIA Status: Acute (2) COVID-19 virus infection Code(s): U07.1 - COVID-19 Status: Resolved (3) Elevated liver enzymes Code(s): R74.8 - ABNORMAL LEVELS OF OTHER SERUM ENZYMES Status: Resolved (4) Pneumonia due to COVID-19 virus Code(s): U07.1 - COVID-19; J12.89 - OTHER VIRAL PNEUMONIA Status: Acute (5) Diabetes mellitus Code(s): E11.9 - TYPE 2 DIABETES MELLITUS WITHOUT COMPLICATIONS Status: Chronic Qualifiers: Diabetes mellitus type: type 2 (6) Pneumothorax Code(s): J93.9 - PNEUMOTHORAX, UNSPECIFIED Status: Acute Qualifiers: Pneumothorax type: spontaneous, primary Qualified Code(s): J93.11 - Primary spontaneous pneumothorax - Plan old records reviewed/req, continue antibiotics, respiratory therapy For last few days patient has not shown any significant change Continue Solu-Medrol Continue Eliquis Ventilator as per pulmonology Medication reviewed and continue provide symptomatic and supportive care, Consider LTAC evaluation when more stable
[2020-06-19] MEDS: Lorazepam 2 MG/ML VIAL SLOW IVP PRN ×2 (15:12→22:51)
[2020-06-19] MEDS: Cholecalciferol 1,000 UNITS (25 MCG) TAB PO SCH (20:01)
[2020-06-20 04:04] LABS: #Eosinphils 0.1 thou/uL (0.0-0.7); #Lymphocytes 2.2 thou/uL (1.20-3.40); #Monocytes 0.3 thou/uL (0.11-0.59); #Neutrophils 8.7 thou/uL (1.40-6.50); %Basophils 0.1 % (0.0-1.0); %Eosinophils 0.6 % (0.0-10.0); %Lymphocytes 19.3 % (21.0-51.0); %Monocytes 2.4 % (0.0-10.0); %Neutrophils 77.6 % (42.0-75.0); Hemoglobin 9.2 g/dL (12.0-16.0); Mean Corpuscular HGB CONC 33.1 g/dL (32.0-36.0); Mean Corpuscular Hemoglobin 30.9 pg (27.0-31.0); Mean Corpuscular Volume 93.3 fL (78.0-98.0); Mean Platelet Volume 7.8 fL (7.4-10.4); Platelet Count 473 thou/uL (130-400); RBC Distribution Width 15.2 % (11.5-14.5); White Blood Cell (WBC) Count 11.2 thou/uL (4.8-10.8)
[2020-06-20 05:09] LABS: Anion Gap 13 mmol/L (10-20); BUN (Urea Nitrogen) 18 mg/dL (9.8-20.1); Calc. Creatinine Clearance 53 mL/min (70-130); Calcium 8.9 mg/dL (7.8-10.44); Carbon Dioxide 30 mmol/L (22-29); Chloride 100 mmol/L (98-107); Glucose 244 mg/dL (70-105); Potassium 4.3 mmol/L (3.5-5.1); Sodium 139 mmol/L (136-145)
[2020-06-20] MEDS: HumaLOG 300 UNITS/3 ML VIAL SC PRN ×3 (06:28→22:53)
--- NOTE | 2020-06-20 07:51 | PRG ---
DATE OF SERVICE: 06/20/2020 35 minutes of critical care time. SUBJECTIVE: Ms. Parmar remains on mechanical ventilation through a tracheostomy. She is awake. OBJECTIVE: VITAL SIGNS: Her pulse is 95, blood pressure 123/70, O2 saturation 95%, and temperature 99.4. HEENT: Unremarkable. NECK: Trach in good position. LUNGS: Coarse breath sounds. Small air leak to chest tube on the right. CARDIOVASCULAR: S1 and S2. Regular. ABDOMEN: Soft. EXTREMITIES: Slight edema. LABORATORY DATA: Sodium 139, potassium 4.3, chloride 100, CO2 of 30, BUN 18, creatinine 0.5, glucose 244. White blood cell count 11.2, hematocrit 28, and platelet count 473. Chest x-ray shows no acute change. ASSESSMENT: 1. COVID-19 pneumonia. 2. Acute respiratory failure, requiring mechanical ventilation. 3. Gram-negative [place] bacteremia on blood cultures-may be a contaminant. PLAN: 1. I am trying to stop her continuous fentanyl drip and propofol drip and use Versed and Duragesic patch instead. 2. I will start empiric antibiotics given the results of the blood cultures. 3. Continue to try to wean the FiO2 as tolerated. Right now, she is on 85% FiO2 with 10 of PEEP. Job ID: [id number]
--- NOTE | 2020-06-20 08:03 | RAD ---
EXAM: CHEST ONE VIEW HISTORY: Pneumonia. Follow-up evaluation. COMPARISON: 06/19/2020 FINDINGS: Tracheostomy device, right-sided vascular catheter, and right-sided thoracostomy tube remaining in pl karen and unchanged in position. Cardiac silhouette is within normal limits. Coarse interstitial and minimal patchy interstitial opacities are seen within the lungs bilaterally greater at the lung bases . There is a cystic lesion again seen at the left lung base. No pneumothorax is appreciated on this exam. No other interval change. IMPRESSION: 1. Persistent and essentially stable increased coarse interstitial opacities throughout the lungs mohan aterally greater at the lung bases. 2. Cystic structure left lung base. 3. Right-sided thoracostomy tube remains in place. No obvious pneumothorax is seen on this exam.
[2020-06-20] MEDS: fentaNYL 100 mcg/hour Patch TD SCH (09:25)
[2020-06-20] MEDS: Apixaban 5 MG TAB PER TUBE SCH ×2 (09:52→20:47)
[2020-06-20] MEDS: methylPREDNISolone Sod Succ 40 MG VIAL IVP SCH ×2 (09:52→20:47)
[2020-06-20] MEDS: Polyethylene Glycol 3350 17 GM Packet PER TUBE SCH (09:52)
[2020-06-20] MEDS: Cefepime 1 GM in Sodium Chloride 0.9% 100 ML IVPB SCH ×2 (09:52→20:34)
[2020-06-20] MEDS: Pantoprazole 40 MG GRANULES PACKET PER TUBE SCH (09:52)
[2020-06-20] MEDS: Senokot S 8.6-50 MG TAB PO SCH ×2 (09:52→20:47)
[2020-06-20] MEDS: Insulin Glargine 28 UNITS in Pre-Filled Syringe 1 EACH SC SCH ×2 (09:54→20:48)
[2020-06-20] MEDS: Ascorbic Acid 500 mg Chewable Tablet PO SCH (09:58)
[2020-06-20] MEDS: Morphine 2 MG/ML VIAL SLOW IVP PRN ×3 (14:40→23:48)
[2020-06-20] MEDS: Lorazepam 2 MG/ML VIAL SLOW IVP PRN ×3 (14:41→22:58)
--- NOTE | 2020-06-20 16:47 | PDOC.HOSPP ---
- Subjective Encounter Date: 06/20/20 Encounter Time: 12:00 Subjective: F/u: COVId The patient is still on the ventilator, s/p tracheostomy. She was having difficulty following commands, but felt she had poor effort and was reluctant. Eventually she was able to move her hands to command but did not answer any questions - Objective Vital Signs & Weight: Vital Signs (12 hours) Temp Pulse Pulse Pulse Resp BP BP 06/20/20 14:52 117 H 06/20/20 14:00 30 H 06/20/20 12:00 29 H 06/20/20 11:32 113 H 114 H 102/64 117/70 06/20/20 11:15 119 H 06/20/20 11:00 99.0 F 06/20/20 10:00 25 H 06/20/20 08:00 99.0 F 23 H 06/20/20 07:48 06/20/20 07:06 103 H 06/20/20 06:00 20 Pulse Ox Pulse Ox Pulse Ox 06/20/20 14:52 06/20/20 14:00 06/20/20 12:00 06/20/20 11:32 90 L 87 L 06/20/20 11:15 06/20/20 11:00 06/20/20 10:00 06/20/20 08:00 06/20/20 07:48 95 06/20/20 07:06 06/20/20 06:00 Weight Admit Weight 147 lb Weight 60 lb 9.6 oz Most Recent Monitor Data Heart Rate from ECG 129 NIBP 147/75 NIBP BP-Mean 99 Respiration from ECG 34 SpO2 85 I&O: 06/19/20 06/20/20 06/21/20 06:59 06:59 06:59 Intake Total 1795.2 4093.3 58.6 Output Total 1095 2055 740 Balance 700.2 2038.3 -681.4 Result Diagrams: 06/20/20 03:45 06/20/20 03:45 Additional Labs: Accuchecks 06/20/20 06/20/20 06/19/20 16:17 11:50 20:20 POC Glucose 235 H 147 H 201 H 06/19/20 16:50 POC Glucose 96 Hospitalist ROS - Review of Systems Constitutional: denies: fever, chills - Medication Medications: Active Medications Generic Name Dose Route Start Last Admin Trade Name Freq PRN Reason Stop Dose Admin Acetaminophen 1,000 mg 05/04/20 07:05 06/17/20 13:31 Acetaminophen 500 Mg Tab PO 1,000 mg Q6H PRN Administration Mild Pain (1-3) Apixaban 5 mg 06/07/20 21:00 06/20/20 09:52 Apixaban 5 Mg Tab PER TUBE 5 mg BID OMARI Administration Ascorbic Acid 1,000 mg 05/04/20 09:00 06/20/20 09:58 Ascorbic Acid 500 Mg Chewable Tablet PO 1,000 mg DAILY OMARI Administration Cholecalciferol 5,000 units 05/04/20 21:00 06/19/20 20:01 Cholecalciferol 1,000 Units (25 Mcg) Tab PO 5,000 units HS OMARI Administration Dextrose/Water 25 gm 05/03/20 22:18 06/13/20 10:14 Dextrose 50% Abboject 50 Ml Syringe SLOW IVP 25 gm PRN PRN Administration HYPOGLYCEMIA PROTOCOL Fentanyl 100 mcg 06/20/20 07:30 06/20/20 09:25 Fentanyl 100 Mcg/Hour Patch TD 100 mcg Q3D OMARI Administration Dextrose/Water 1,000 mls @ 0 mls/hr 05/03/20 22:30 06/06/20 09:49 D5w IV 1,000 mls INF PRN Administration HYPOGLYCEMIA PROTOCOL As Directed Insulin Glargine 28 units/ 0.28 mls @ 0 mls/hr 06/11/20 21:00 06/19/20 20:22 Miscellaneous Medication SC 0.28 mls HS OMARI Administration Insulin Glargine 28 units/ 0.28 mls @ 0 mls/hr 06/12/20 09:00 06/20/20 09:54 Miscellaneous Medication SC 0.28 mls QAM OMARI Administration Midazolam HCl 100 mls @ 0 mls/hr 06/20/20 07:30 06/20/20 09:23 Versed IVPB 100 mls INF OMARI Administration Protocol Titrate Cefepime HCl 1 gm/ Sodium 100 mls @ 200 mls/hr 06/20/20 09:00 06/20/20 09:52 Chloride IVPB 100 mls Q12HR OMARI Administration Insulin Human Lispro 0 units 05/05/20 01:19 06/20/20 16:28 Humalog 300 Units/3 Ml Vial SC 4 unit .MODERATE SLIDING SC PRN Administration Moderate Correctional Scale Lorazepam 2 mg 06/12/20 02:00 06/20/20 14:41 Lorazepam 2 Mg/Ml Vial SLOW IVP 07/12/20 02:00 2 mg Q1H PRN Administration Breakthrough agitation Methylprednisolone Sodium Succinate 40 mg 06/14/20 09:00 06/20/20 09:52 Methylprednisolone Sod Succ 40 Mg Vial IVP 40 mg BID OMARI Administration Morphine Sulfate 2 mg 06/12/20 02:00 06/20/20 14:40 Morphine 2 Mg/Ml Vial SLOW IVP 07/12/20 02:00 2 mg Q1H PRN Administration Breakthrough Pain/Agitation Ondansetron HCl 4 mg 05/04/20 07:05 05/04/20 12:12 Ondansetron Pf 4 Mg/2 Ml Vial IVP 4 mg Q6H PRN Administration Nausea/Vomiting Pantoprazole Sodium 40 mg 06/20/20 09:00 06/20/20 09:52 Pantoprazole 40 Mg Granules Packet PER TUBE 40 mg DAILY OMARI Administration Polyethylene Glycol 17 gm 05/06/20 15:40 06/18/20 08:44 Polyethylene Glycol 3350 17 Gm Packet PO 17 gm DAILYPRN PRN Administration Constipation Polyethylene Glycol 17 gm 06/19/20 09:00 06/20/20 09:52 Polyethylene Glycol 3350 17 Gm Packet PER TUBE 17 gm DAILY OMARI Administration Senna/Docusate Sodium 1 tab 05/06/20 21:00 06/20/20 09:52 Senokot S 8.6-50 Mg Tab PO 1 tab BID OMARI Administration Sodium Chloride 10 ml 06/13/20 21:00 06/20/20 09:52 Flush - Normal Saline 10 Ml Syringe IVF 10 ml Q12HR OMARI Administration Sodium Chloride 10 ml 06/13/20 19:45 06/14/20 08:55 Flush - Normal Saline 10 Ml Syringe IVF 10 ml PRN PRN Administration Saline Flush - Exam General - other findings: trach in place ENT: normocephalic atraumatic, no oropharyngeal lesions Neck: no JVD Heart: RRR, no murmur, no gallops, no rubs Respiratory: CTAB, no wheezes, no rales, no ronchi Gastrointestinal: soft, non-tender, non-distended, normal bowel sounds Extremities: no cyanosis, no clubbing, no edema Hosp A/P - Plan Chest X ray 06/02: worsening of bilateral infiltrates Chest X ray 06/04: worsening right lung infiltrate Chest X ray 06/06: bilateral pneumonia Chest X ray 06/07: interstitial infiltrates Chest X ray 06/08: no change in bilateral infiltrates Chest X ray 06/09: mild bilateral infiltrates Chest X ray 06/20 : cystic structure left lung base. Increased coarse interst itial opacities throughout the lungs bilaterally This is is a 55 year old female who presented with weakness and shortness of breath, hypoxia. SHe also had DKA which resolved Acute hypoxic respiratory failure from COVID pneumonia Bacteremia - the patient received ceftriaxone from 05/04 to 05/14, zosyn from 05/05 to 05/22. Chest X ray showed worsening infiltrates 06/02. Started on meropenem 06/02 and vanc 06/03. Antibiotics were discontinued on 06/06 . - chest X ray 06/20 showed increasing interstitial opacities. Blood culture 06/18 grew 1/2 gram variable [place]. Cefepime was restrarted today. WBC is up to 11. 1 Hematuria - resolved Leukocytosis - improving to 13, continue to taper steroids gradually Anemia - hb 11.1 #Type II Diabetes #Hypoglycemia- resolved - blood sugars 100-200. Continue lantus 28 units bid
[2020-06-20] MEDS: Cholecalciferol 1,000 UNITS (25 MCG) TAB PO SCH (20:47)
[2020-06-21] MEDS: Lorazepam 2 MG/ML VIAL SLOW IVP PRN ×3 (00:11→16:43)
[2020-06-21] MEDS: Morphine 2 MG/ML VIAL SLOW IVP PRN ×2 (01:05→16:41)
[2020-06-21 04:20] LABS: #Basophils 0.1 thou/uL (0.0-0.2); #Eosinphils 0.5 thou/uL (0.0-0.7); #Lymphocytes 2.8 thou/uL (1.20-3.40); #Monocytes 0.6 thou/uL (0.11-0.59); %Basophils 0.4 % (0.0-1.0); %Eosinophils 4.1 % (0.0-10.0); %Lymphocytes 21.6 % (21.0-51.0); %Monocytes 4.6 % (0.0-10.0); %Neutrophils 69.3 % (42.0-75.0); Mean Corpuscular HGB CONC 31.3 g/dL (32.0-36.0); Mean Corpuscular Hemoglobin 29.3 pg (27.0-31.0); Mean Corpuscular Volume 93.5 fL (78.0-98.0); Mean Platelet Volume 7.7 fL (7.4-10.4); Platelet Count 554 thou/uL (130-400); RBC Distribution Width 15.4 % (11.5-14.5); Red Blood Cell (RBC) Count 3.42 mill/uL (4.20-5.40)
[2020-06-21 04:28] LABS: Anion Gap 11 mmol/L (10-20); BUN (Urea Nitrogen) 26 mg/dL (9.8-20.1); Calc. Creatinine Clearance 51 mL/min (70-130); Carbon Dioxide 32 mmol/L (22-29); Chloride 99 mmol/L (98-107); Glucose 184 mg/dL (70-105); Sodium 138 mmol/L (136-145)
[2020-06-21] MEDS: HumaLOG 300 UNITS/3 ML VIAL SC PRN ×3 (04:58→21:16)
--- NOTE | 2020-06-21 07:54 | PRG ---
DATE OF SERVICE: 06/21/2020 SUBJECTIVE: Ms. Parmar remains on mechanical ventilation through tracheostomy, on 100% FiO2. Chest tube remains in place with a gentle air leak through the Pleur-Evac. OBJECTIVE: HEENT: Unremarkable. NECK: No adenopathy or JVD. Trach in good position. LUNGS: Clear anteriorly. CARDIAC: S1, S2. Regular. ABDOMEN: Soft. EXTREMITIES: Edematous. LABORATORY DATA: Sodium 130, potassium 4, chloride 99, CO2 of 32, BUN 26, creatinine 0.5, glucose 184. White blood cell count 13, hematocrit 32, and platelet count 554. Chest x-ray shows no change. ASSESSMENT: 1. COVID-19 pneumonia with persistent hypoxemia requiring grossly elevated FiO2, is on mechanical ventilation. 2. Gram-negative rods on recent culture. PLAN: 1. Continue antibiotics. 2. I am not optimistic at all that she is going to wean from mechanical ventilation. She is not an LTAC candidate because she is uninsured. We are continuing on anticoagulation and steroids. Her blood sugars are adequately controlled on subcutaneous insulin. 3. She is a full code at the family's request. Job ID: [id number]
[2020-06-21] MEDS: Sodium Chloride 0.9% 1,000 ML IV SCH (08:39)
--- NOTE | 2020-06-21 08:43 | RAD ---
PORTABLE CHEST: HISTORY: Pneumonia. CCU followup. COMPARISON: 06/20/2020. FINDINGS: Tracheostomy device is again noted. Central line unchanged. The bilateral coarse interstitial-type infiltrates are again noted. Cystic change in the left lower lung again noted. IMPRESSION: Stable chest findings. POS: AGW
[2020-06-21] MEDS: Ascorbic Acid 500 mg Chewable Tablet PO SCH (09:33)
[2020-06-21] MEDS: Insulin Glargine 28 UNITS in Pre-Filled Syringe 1 EACH SC SCH ×2 (09:33→21:16)
[2020-06-21] MEDS: Pantoprazole 40 MG GRANULES PACKET PER TUBE SCH (09:33)
[2020-06-21] MEDS: Apixaban 5 MG TAB PER TUBE SCH ×2 (09:33→21:15)
[2020-06-21] MEDS: Senokot S 8.6-50 MG TAB PO SCH ×2 (09:33→21:15)
[2020-06-21] MEDS: Polyethylene Glycol 3350 17 GM Packet PER TUBE SCH (09:34)
[2020-06-21] MEDS: Cefepime 1 GM in Sodium Chloride 0.9% 100 ML IVPB SCH ×2 (09:34→21:03)
[2020-06-21] MEDS: Acetaminophen 500 MG TAB PO PRN (09:34)
[2020-06-21] MEDS: methylPREDNISolone Sod Succ 40 MG VIAL IVP SCH ×2 (09:36→21:03)
--- NOTE | 2020-06-21 14:22 | PDOC.HOSPP ---
- Subjective Encounter Date: 06/21/20 Encounter Time: 11:00 Subjective: F?u: COVID The patient is more alert today and following commands. She is still on the tracheostomy and hooked up to the ventilator. Spoke with the son today, he wants to continue aggressive care. The patient also stated that she didn't want to give up - Objective Vital Signs & Weight: Vital Signs (12 hours) Temp Pulse Resp BP Pulse Ox 06/21/20 10:34 98.1 F 06/21/20 10:31 125 H 101/61 06/21/20 10:04 98.1 F 06/21/20 09:34 101.3 F H 06/21/20 08:00 101.3 F H 88 L 06/21/20 07:15 117 H 104/62 06/21/20 06:00 18 06/21/20 04:00 20 93 L 06/21/20 02:23 121 H Weight Admit Weight 147 lb Weight 61 lb 3.2 oz Most Recent Monitor Data Heart Rate from ECG 124 NIBP 129/68 NIBP BP-Mean 88 Respiration from ECG 25 SpO2 91 I&O: 06/20/20 06/21/20 06/22/20 06:59 06:59 06:59 Intake Total 4093.3 1636.6 160 Output Total 2055 1480 475 Balance 2038.3 156.6 -315 Result Diagrams: 06/21/20 03:37 06/21/20 03:37 Additional Labs: Accuchecks 06/21/20 06/20/20 06/20/20 09:45 21:12 16:17 POC Glucose 252 H 220 H 235 H Hospitalist ROS - Review of Systems Constitutional: denies: fever, chills - Medication Medications: Active Medications Generic Name Dose Route Start Last Admin Trade Name Freq PRN Reason Stop Dose Admin Acetaminophen 1,000 mg 05/04/20 07:05 06/21/20 09:34 Acetaminophen 500 Mg Tab PO 1,000 mg Q6H PRN Administration Mild Pain (1-3) Apixaban 5 mg 06/07/20 21:00 06/21/20 09:33 Apixaban 5 Mg Tab PER TUBE 5 mg BID OMARI Administration Ascorbic Acid 1,000 mg 05/04/20 09:00 06/21/20 09:33 Ascorbic Acid 500 Mg Chewable Tablet PO 1,000 mg DAILY OMARI Administration Cholecalciferol 5,000 units 05/04/20 21:00 06/20/20 20:47 Cholecalciferol 1,000 Units (25 Mcg) Tab PO 5,000 units HS OMARI Administration Dextrose/Water 25 gm 05/03/20 22:18 06/13/20 10:14 Dextrose 50% Abboject 50 Ml Syringe SLOW IVP 25 gm PRN PRN Administration HYPOGLYCEMIA PROTOCOL Fentanyl 100 mcg 06/20/20 07:30 06/20/20 09:25 Fentanyl 100 Mcg/Hour Patch TD 100 mcg Q3D OMARI Administration Dextrose/Water 1,000 mls @ 0 mls/hr 05/03/20 22:30 06/06/20 09:49 D5w IV 1,000 mls INF PRN Administration HYPOGLYCEMIA PROTOCOL As Directed Insulin Glargine 28 units/ 0.28 mls @ 0 mls/hr 06/11/20 21:00 06/20/20 20:48 Miscellaneous Medication SC 0.28 mls HS OMARI Administration Insulin Glargine 28 units/ 0.28 mls @ 0 mls/hr 06/12/20 09:00 06/21/20 09:33 Miscellaneous Medication SC 0.28 mls QAM OMARI Administration Midazolam HCl 100 mls @ 0 mls/hr 06/20/20 07:30 06/21/20 11:35 Versed IVPB 100 mls INF OMARI Administration Protocol Titrate Cefepime HCl 1 gm/ Sodium 100 mls @ 200 mls/hr 06/20/20 09:00 06/21/20 09:34 Chloride IVPB 100 mls Q12HR OMARI Administration Sodium Chloride 1,000 mls @ 70 mls/hr 06/21/20 08:00 06/21/20 08:39 Normal Saline 0.9% IV 1,000 mls .[id number] OMARI Administration Insulin Human Lispro 0 units 05/05/20 01:19 06/21/20 04:58 Humalog 300 Units/3 Ml Vial SC 2 unit .MODERATE SLIDING SC PRN Administration Moderate Correctional Scale Lorazepam 2 mg 06/12/20 02:00 06/21/20 01:01 Lorazepam 2 Mg/Ml Vial SLOW IVP 07/12/20 02:00 2 mg Q1H PRN Administration Breakthrough agitation Methylprednisolone Sodium Succinate 40 mg 06/14/20 09:00 06/21/20 09:36 Methylprednisolone Sod Succ 40 Mg Vial IVP 40 mg BID OMARI Administration Morphine Sulfate 2 mg 06/12/20 02:00 06/21/20 01:05 Morphine 2 Mg/Ml Vial SLOW IVP 07/12/20 02:00 2 mg Q1H PRN Administration Breakthrough Pain/Agitation Ondansetron HCl 4 mg 05/04/20 07:05 05/04/20 12:12 Ondansetron Pf 4 Mg/2 Ml Vial IVP 4 mg Q6H PRN Administration Nausea/Vomiting Pantoprazole Sodium 40 mg 06/20/20 09:00 06/21/20 09:33 Pantoprazole 40 Mg Granules Packet PER TUBE 40 mg DAILY OMARI Administration Polyethylene Glycol 17 gm 05/06/20 15:40 06/18/20 08:44 Polyethylene Glycol 3350 17 Gm Packet PO 17 gm DAILYPRN PRN Administration Constipation Polyethylene Glycol 17 gm 06/19/20 09:00 06/21/20 09:34 Polyethylene Glycol 3350 17 Gm Packet PER TUBE 17 gm DAILY OMARI Administration Senna/Docusate Sodium 1 tab 05/06/20 21:00 06/21/20 09:33 Senokot S 8.6-50 Mg Tab PO 1 tab BID OMARI Administration Sodium Chloride 10 ml 06/13/20 21:00 06/21/20 09:35 Flush - Normal Saline 10 Ml Syringe IVF 10 ml Q12HR OMARI Administration Sodium Chloride 10 ml 06/13/20 19:45 06/14/20 08:55 Flush - Normal Saline 10 Ml Syringe IVF 10 ml PRN PRN Administration Saline Flush - Exam General Appearance: NAD, awake alert General - other findings: on trach Eye: PERRL, anicteric sclera ENT: normocephalic atraumatic, no oropharyngeal lesions Neck: no JVD Heart: RRR, no murmur, no gallops, no rubs Respiratory: CTAB, no wheezes, no rales, no ronchi Gastrointestinal: soft, non-tender, non-distended, normal bowel sounds Extremities: no cyanosis, no clubbing, no edema Skin: normal turgor, no lesions Neurological - other findings: moves fingers and toes Hosp A/P - Plan Chest X ray 06/02: worsening of bilateral infiltrates Chest X ray 06/04: worsening right lung infiltrate Chest X ray 06/06: bilateral pneumonia Chest X ray 06/07: interstitial infiltrates Chest X ray 06/08: no change in bilateral infiltrates Chest X ray 06/09: mild bilateral infiltrates Chest X ray 06/20 : cystic structure left lung base. Increased coarse inter stitial opacities throughout the lungs bilaterally This is is a 55 year old female who presented with weakness and shortness of breath, hypoxia. SHe also had DKA which resolved. She was intubated and is now sp tracheostomy. Hospital course also was complicated by tension pneumothorax requiring chest tube placement #Acute hypoxic respiratory failure from COVID pneumonia #Bacteremia - the patient received ceftriaxone from 05/04 to 05/14, zosyn from 05/05 to 05/22. Chest X ray showed worsening infiltrates 06/02. She received vanc and meropenem until 06/06. - chest X ray 06/20 showed increasing interstitial opacities. Blood culture 06/18 grew 1/2 Bacillus. Cefepime was restarted 06/21. WBC is up to 13, will monitor #Leukocytosis - worsening to 13. Cefepime restarted 06/20. Will monitor for now #Anemia - hb 10.0 #Type II Diabetes #Hypoglycemia- resolved - blood sugars 100-200. Continue lantus 28 units bid
[2020-06-21] MEDS: Cholecalciferol 1,000 UNITS (25 MCG) TAB PO SCH (21:15)
[2020-06-22 05:00] LABS: #Monocytes 0.3 thou/uL (0.11-0.59); #Neutrophils 10.5 thou/uL (1.40-6.50); %Basophils 0.2 % (0.0-1.0); %Eosinophils 0.3 % (0.0-10.0); %Lymphocytes 15.2 % (21.0-51.0); %Monocytes 2.2 % (0.0-10.0); %Neutrophils 82.1 % (42.0-75.0); Mean Corpuscular HGB CONC 31.4 g/dL (32.0-36.0); Mean Corpuscular Hemoglobin 29.4 pg (27.0-31.0); Mean Corpuscular Volume 93.6 fL (78.0-98.0); Mean Platelet Volume 7.8 fL (7.4-10.4); Platelet Count 541 thou/uL (130-400); Red Blood Cell (RBC) Count 3.07 mill/uL (4.20-5.40); White Blood Cell (WBC) Count 12.8 thou/uL (4.8-10.8)
[2020-06-22] MEDS: HumaLOG 300 UNITS/3 ML VIAL SC PRN ×3 (05:02→21:14)
[2020-06-22] MEDS: Sodium Chloride 0.9% 1,000 ML IV SCH ×2 (05:09→12:50)
[2020-06-22 05:25] LABS: Anion Gap 12 mmol/L (10-20); BUN (Urea Nitrogen) 27 mg/dL (9.8-20.1); Calc. Creatinine Clearance 50 mL/min (70-130); Carbon Dioxide 30 mmol/L (22-29); Chloride 99 mmol/L (98-107); Glucose 329 mg/dL (70-105); Potassium 4.1 mmol/L (3.5-5.1); Sodium 137 mmol/L (136-145)
[2020-06-22] MEDS: Morphine 2 MG/ML VIAL SLOW IVP PRN ×2 (08:10→19:43)
--- NOTE | 2020-06-22 08:38 | RAD ---
AP CHEST: INDICATION: Pneumonia followup. CCU followup. COMPARISON: 06/21/2020. FINDINGS: Tracheostomy device unchanged. Central line has tip overlying the right atrium. The right chest tub e is again noted. Coarse interstitial infiltrates bilaterally. Cystic change in the left lower lung again noted. Evidence of a tiny right apical pneumothorax, unchanged.. IMPRESSION: No acute interval change. POS: OFF
[2020-06-22] MEDS: Cefepime 1 GM in Sodium Chloride 0.9% 100 ML IVPB SCH ×2 (09:30→21:10)
[2020-06-22] MEDS: Ascorbic Acid 500 mg Chewable Tablet PO SCH (09:33)
[2020-06-22] MEDS: Pantoprazole 40 MG GRANULES PACKET PER TUBE SCH (09:33)
[2020-06-22] MEDS: Polyethylene Glycol 3350 17 GM Packet PER TUBE SCH (09:33)
[2020-06-22] MEDS: methylPREDNISolone Sod Succ 40 MG VIAL IVP SCH ×2 (09:33→21:09)
[2020-06-22] MEDS: Apixaban 5 MG TAB PER TUBE SCH ×2 (09:34→21:13)
[2020-06-22] MEDS: Senokot S 8.6-50 MG TAB PO SCH ×2 (09:34→21:13)
[2020-06-22] MEDS: Insulin Glargine 28 UNITS in Pre-Filled Syringe 1 EACH SC SCH ×2 (09:34→21:13)
--- NOTE | 2020-06-22 13:46 | PDOC.HOSPP ---
- Subjective Encounter Date: 06/22/20 Encounter Time: 11:00 non-verbal Subjective: F/u: intubated The patient is intubated. She is sleeping comfortably. No events overnight - Objective Vital Signs & Weight: Vital Signs (12 hours) Temp Pulse Resp Pulse Ox 06/22/20 12:00 99.7 F H 06/22/20 11:03 105 H 06/22/20 08:00 98.7 F 93 L 06/22/20 06:55 115 H 06/22/20 06:00 27 H 06/22/20 04:00 99.1 F 23 H 06/22/20 02:01 113 H 06/22/20 02:00 24 H Weight Admit Weight 147 lb Weight 128 lb 8.472 oz Most Recent Monitor Data Heart Rate from ECG 106 NIBP 102/58 NIBP BP-Mean 72 Respiration from ECG 20 SpO2 95 I&O: 06/21/20 06/22/20 06/23/20 06:59 06:59 06:59 Intake Total 1636.6 3140.3 130 Output Total 1480 2590 250 Balance 156.6 550.3 -120 Result Diagrams: 06/25/20 04:15 06/25/20 04:15 Additional Labs: Accuchecks 06/22/20 06/22/20 06/21/20 09:09 04:37 21:00 POC Glucose 162 H 322 H 219 H 06/21/20 06/21/20 17:23 16:10 POC Glucose 304 H 366 H Hospitalist ROS - Review of Systems ROS unobtainable: due to endotracheal tube Constitutional: denies: fever, chills - Medication Medications: Active Medications Generic Name Dose Route Start Last Admin Trade Name Freq PRN Reason Stop Dose Admin Acetaminophen 1,000 mg 05/04/20 07:05 06/21/20 09:34 Acetaminophen 500 Mg Tab PO 1,000 mg Q6H PRN Administration Mild Pain (1-3) Apixaban 5 mg 06/07/20 21:00 06/22/20 09:34 Apixaban 5 Mg Tab PER TUBE 5 mg BID OMARI Administration Ascorbic Acid 1,000 mg 05/04/20 09:00 06/22/20 09:33 Ascorbic Acid 500 Mg Chewable Tablet PO 1,000 mg DAILY OMARI Administration Cholecalciferol 5,000 units 05/04/20 21:00 06/21/20 21:15 Cholecalciferol 1,000 Units (25 Mcg) Tab PO 5,000 units HS OMARI Administration Dextrose/Water 25 gm 05/03/20 22:18 06/13/20 10:14 Dextrose 50% Abboject 50 Ml Syringe SLOW IVP 25 gm PRN PRN Administration HYPOGLYCEMIA PROTOCOL Fentanyl 100 mcg 06/20/20 07:30 06/20/20 09:25 Fentanyl 100 Mcg/Hour Patch TD 100 mcg Q3D OMARI Administration Dextrose/Water 1,000 mls @ 0 mls/hr 05/03/20 22:30 06/06/20 09:49 D5w IV 1,000 mls INF PRN Administration HYPOGLYCEMIA PROTOCOL As Directed Insulin Glargine 28 units/ 0.28 mls @ 0 mls/hr 06/11/20 21:00 06/21/20 21:16 Miscellaneous Medication SC 0.28 mls HS OMARI Administration Insulin Glargine 28 units/ 0.28 mls @ 0 mls/hr 06/12/20 09:00 06/22/20 09:34 Miscellaneous Medication SC 0.28 mls QAM OMARI Administration Midazolam HCl 100 mls @ 0 mls/hr 06/20/20 07:30 06/22/20 12:12 Versed IVPB 100 mls INF OMARI Administration Protocol Titrate Cefepime HCl 1 gm/ Sodium 100 mls @ 200 mls/hr 06/20/20 09:00 06/22/20 09:30 Chloride IVPB 100 mls Q12HR OMARI Administration Sodium Chloride 1,000 mls @ 70 mls/hr 06/21/20 08:00 06/22/20 12:50 Normal Saline 0.9% IV 1,000 mls .[id number] OMARI Administration Insulin Human Lispro 0 units 05/05/20 01:19 06/22/20 05:02 Humalog 300 Units/3 Ml Vial SC 8 unit .MODERATE SLIDING SC PRN Administration Moderate Correctional Scale Lorazepam 2 mg 06/12/20 02:00 06/21/20 16:43 Lorazepam 2 Mg/Ml Vial SLOW IVP 07/12/20 02:00 2 mg Q1H PRN Administration Breakthrough agitation Methylprednisolone Sodium Succinate 40 mg 06/14/20 09:00 06/22/20 09:33 Methylprednisolone Sod Succ 40 Mg Vial IVP 40 mg BID OMARI Administration Morphine Sulfate 2 mg 06/12/20 02:00 06/22/20 08:10 Morphine 2 Mg/Ml Vial SLOW IVP 07/12/20 02:00 2 mg Q1H PRN Administration Breakthrough Pain/Agitation Ondansetron HCl 4 mg 05/04/20 07:05 05/04/20 12:12 Ondansetron Pf 4 Mg/2 Ml Vial IVP 4 mg Q6H PRN Administration Nausea/Vomiting Pantoprazole Sodium 40 mg 06/20/20 09:00 06/22/20 09:33 Pantoprazole 40 Mg Granules Packet PER TUBE 40 mg DAILY OMARI Administration Polyethylene Glycol 17 gm 05/06/20 15:40 06/18/20 08:44 Polyethylene Glycol 3350 17 Gm Packet PO 17 gm DAILYPRN PRN Administration Constipation Polyethylene Glycol 17 gm 06/19/20 09:00 06/22/20 09:33 Polyethylene Glycol 3350 17 Gm Packet PER TUBE 17 gm DAILY OMARI Administration Senna/Docusate Sodium 1 tab 05/06/20 21:00 06/22/20 09:34 Senokot S 8.6-50 Mg Tab PO 1 tab BID OMARI Administration Sodium Chloride 10 ml 06/13/20 21:00 06/22/20 09:38 Flush - Normal Saline 10 Ml Syringe IVF 10 ml Q12HR OMARI Administration Sodium Chloride 10 ml 06/13/20 19:45 06/14/20 08:55 Flush - Normal Saline 10 Ml Syringe IVF 10 ml PRN PRN Administration Saline Flush - Exam General - other findings: intubated, fatigued/tired Eye: PERRL, anicteric sclera ENT: normocephalic atraumatic, no oropharyngeal lesions Neck: no JVD Heart: RRR, no murmur, no gallops, no rubs, murmur present Respiratory: CTAB, no wheezes, no rales, no ronchi Gastrointestinal: soft, non-tender, non-distended, normal bowel sounds Extremities: no cyanosis, no clubbing, no edema Skin: normal turgor, no lesions, no rashes Hosp A/P - Plan Chest X ray 06/02: worsening of bilateral infiltrates Chest X ray 06/04: worsening right lung infiltrate Chest X ray 06/06: bilateral pneumonia Chest X ray 1/7: interstitial infiltrates Chest X ray 06/08: no change in bilateral infiltrates Chest X ray 06/09: mild bilateral infiltrates Chest X ray 06/20 : cystic structure left lung base. Increased coarse interstitial opacities throughout the lungs bilaterally This is is a 55 year old female who presented with weakness and shortness of breath, hypoxia. SHe also had DKA which resolved. She was intubated and is now sp tracheostomy. Hospital course also was complicated by tension pneumothorax requiring chest tube placement #Acute hypoxic respiratory failure from COVID pneumonia #Bacteremia - the patient received ceftriaxone from 05/04 to 05/14, zosyn from 05/05 to 05/22. Chest X ray showed worsening infiltrates 06/02. She received vanc and meropenem until 06/06. - chest X ray 06/20 showed increasing interstitial opacities. Blood culture 06/18 grew 1/2 Bacillus. Cefepime was restarted 06/21. WBC is up to 13, will monitor #Leukocytosis - worsening to 13. Cefepime restarted 06/20. Will monitor for now #Anemia - hb 10.0 #Type II Diabetes #Hypoglycemia- resolved - blood sugars 100-200. Continue lantus 28 units bid
--- NOTE | 2020-06-22 17:25 | PRG ---
DATE OF SERVICE: 06/22/2020 SUBJECTIVE: Zoey Parmar remains mechanically ventilated. She will awaken. OBJECTIVE: VITAL SIGNS: Heart rate is 112, blood pressure 96/55, oximetry is in the low 90s, FiO2 is fluctuating. LUNGS: Otherwise unchanged. HEART: Otherwise unchanged. ABDOMEN: Otherwise unchanged. LABORATORY DATA: White count 12.8, hemoglobin 9.0, platelets 541. Sodium 137, potassium 4.1, chloride 99, bicarb 30, BUN 27, creatinine 0.54. IMPRESSION: Respiratory failure associated with COVID pneumonia, status post tracheostomy and PEG placement, making very little progress. PLAN: Continue supportive care. Job ID: [id number]
[2020-06-22] MEDS ORDERED: Fentanyl CADD 0 ML ONE (18:07)
[2020-06-22] MEDS: Cholecalciferol 1,000 UNITS (25 MCG) TAB PO SCH (21:13)
[2020-06-23] MEDS: Lorazepam 2 MG/ML VIAL SLOW IVP PRN ×4 (00:03→14:33)
[2020-06-23] MEDS: Sodium Chloride 0.9% 1,000 ML IV SCH ×2 (03:57→17:22)
[2020-06-23] MEDS: HumaLOG 300 UNITS/3 ML VIAL SC PRN ×3 (04:05→21:29)
[2020-06-23 04:49] LABS: #Lymphocytes 1.9 thou/uL (1.20-3.40); #Monocytes 0.2 thou/uL (0.11-0.59); #Neutrophils 11.1 thou/uL (1.40-6.50); %Basophils 0.1 % (0.0-1.0); %Eosinophils 0.3 % (0.0-10.0); %Lymphocytes 14.2 % (21.0-51.0); %Monocytes 1.6 % (0.0-10.0); %Neutrophils 83.8 % (42.0-75.0); Hemoglobin 8.7 g/dL (12.0-16.0); Mean Corpuscular HGB CONC 30.9 g/dL (32.0-36.0); Mean Corpuscular Hemoglobin 28.9 pg (27.0-31.0); Mean Corpuscular Volume 93.6 fL (78.0-98.0); Mean Platelet Volume 7.8 fL (7.4-10.4); Platelet Count 575 thou/uL (130-400); RBC Distribution Width 15.5 % (11.5-14.5); Red Blood Cell (RBC) Count 3.02 mill/uL (4.20-5.40); White Blood Cell (WBC) Count 13.2 thou/uL (4.8-10.8)
[2020-06-23 05:09] LABS: Anion Gap 11 mmol/L (10-20); BUN (Urea Nitrogen) 20 mg/dL (9.8-20.1); Calc. Creatinine Clearance 122 mL/min (70-130); Calcium 8.6 mg/dL (7.8-10.44); Carbon Dioxide 32 mmol/L (22-29); Chloride 98 mmol/L (98-107); Glucose 252 mg/dL (70-105); Potassium 4.4 mmol/L (3.5-5.1); Sodium 137 mmol/L (136-145)
[2020-06-23] MEDS ORDERED: Propofol 1,000 MG/100 ML VIAL IV ONE (05:49)
--- NOTE | 2020-06-23 08:18 | RAD ---
Portable frontal chest radiograph: 06/23/2020 COMPARISON: 06/22/2020 HISTORY: Pneumonia FINDINGS: Stable tracheostomy tube, right vascular catheter, and right chest tube. Stable small pneum othorax in the right lung apex. Coarse linear interstitial density with superimposed bibasilar airspace disease again noted, not significantly changed. An area of parenchymal cystic change is susp ected in the lateral left base, stable. IMPRESSION: No significant interval change.
[2020-06-23] MEDS: Morphine 2 MG/ML VIAL SLOW IVP PRN ×2 (08:35→13:02)
[2020-06-23] MEDS: fentaNYL 100 mcg/hour Patch TD SCH (08:50)
[2020-06-23] MEDS: Cefepime 1 GM in Sodium Chloride 0.9% 100 ML IVPB SCH ×2 (09:49→21:28)
[2020-06-23] MEDS: Ascorbic Acid 500 mg Chewable Tablet PO SCH (09:49)
[2020-06-23] MEDS: Polyethylene Glycol 3350 17 GM Packet PER TUBE SCH (09:50)
[2020-06-23] MEDS: Pantoprazole 40 MG GRANULES PACKET PER TUBE SCH (09:50)
[2020-06-23] MEDS: Senokot S 8.6-50 MG TAB PO SCH ×2 (09:50→21:29)
[2020-06-23] MEDS: methylPREDNISolone Sod Succ 40 MG VIAL IVP SCH ×2 (09:50→21:29)
[2020-06-23] MEDS: Apixaban 5 MG TAB PER TUBE SCH ×2 (09:50→21:29)
[2020-06-23] MEDS: Insulin Glargine 28 UNITS in Pre-Filled Syringe 1 EACH SC SCH ×2 (09:50→21:58)
--- NOTE | 2020-06-23 14:00 | PDOC.HOSPP ---
- Subjective Encounter Date: 06/23/20 Encounter Time: 10:45 Subjective: Discussed with RN Status post tracheostomy. She is not able to tolerate weaning as she desats. Family member at bedside Central line on the right chest chest x-ray this morning without any interval change bibasilar airspace disease left lateral base with parenchymal cystic change which is stable - Objective Vital Signs & Weight: Vital Signs (12 hours) Temp Pulse Resp 06/23/20 12:00 99.2 F 06/23/20 10:50 99 06/23/20 08:00 98.9 F 06/23/20 06:45 96 06/23/20 06:00 29 H 06/23/20 04:00 99.4 F 24 H 06/23/20 02:05 114 H 06/23/20 02:00 26 H Weight Admit Weight 147 lb Weight 128 lb 8.472 oz Most Recent Monitor Data Heart Rate from ECG 115 NIBP 122/60 NIBP BP-Mean 80 Respiration from ECG 33 SpO2 89 I&O: 06/22/20 06/23/20 06/24/20 06:59 06:59 06:59 Intake Total 3140.3 2510.6 130 Output Total 2590 2010 655 Balance 550.3 500.6 -525 Result Diagrams: 06/23/20 04:00 06/23/20 04:00 Additional Labs: Accuchecks 06/23/20 06/23/20 06/22/20 09:23 04:04 21:07 POC Glucose 208 H 256 H 183 H 06/22/20 15:53 POC Glucose 212 H Hospitalist ROS - Medication Medications: Active Medications Generic Name Dose Route Start Last Admin Trade Name Jmq PRN Reason Stop Dose Admin Acetaminophen 1,000 mg 05/04/20 07:05 06/21/20 09:34 Acetaminophen 500 Mg Tab PO 1,000 mg Q6H PRN Administration Mild Pain (1-3) Apixaban 5 mg 06/07/20 21:00 06/23/20 09:50 Apixaban 5 Mg Tab PER TUBE 5 mg BID OMARI Administration Ascorbic Acid 1,000 mg 05/04/20 09:00 06/23/20 09:49 Ascorbic Acid 500 Mg Chewable Tablet PO 1,000 mg DAILY OMARI Administration Cholecalciferol 5,000 units 05/04/20 21:00 06/22/20 21:13 Cholecalciferol 1,000 Units (25 Mcg) Tab PO 5,000 units HS OMARI Administration Dextrose/Water 25 gm 05/03/20 22:18 06/13/20 10:14 Dextrose 50% Abboject 50 Ml Syringe SLOW IVP 25 gm PRN PRN Administration HYPOGLYCEMIA PROTOCOL Fentanyl 100 mcg 06/20/20 07:30 06/23/20 08:50 Fentanyl 100 Mcg/Hour Patch TD 100 mcg Q3D OMARI Administration Dextrose/Water 1,000 mls @ 0 mls/hr 05/03/20 22:30 06/06/20 09:49 D5w IV 1,000 mls INF PRN Administration HYPOGLYCEMIA PROTOCOL As Directed Insulin Glargine 28 units/ 0.28 mls @ 0 mls/hr 06/11/20 21:00 06/22/20 21:13 Miscellaneous Medication SC 0.28 mls HS OMARI Administration Midazolam HCl 100 mls @ 0 mls/hr 06/20/20 07:30 06/23/20 09:04 Versed IVPB 100 mls INF OMARI Administration Protocol Titrate Cefepime HCl 1 gm/ Sodium 100 mls @ 200 mls/hr 06/20/20 09:00 06/23/20 09:49 Chloride IVPB 100 mls Q12HR OMARI Administration Sodium Chloride 1,000 mls @ 70 mls/hr 06/21/20 08:00 06/23/20 03:57 Normal Saline 0.9% IV 1,000 mls .[id number] OMARI Administration Insulin Human Lispro 0 units 05/05/20 01:19 06/23/20 04:05 Humalog 300 Units/3 Ml Vial SC 6 unit .MODERATE SLIDING SC PRN Administration Moderate Correctional Scale Lorazepam 2 mg 06/12/20 02:00 06/23/20 11:03 Lorazepam 2 Mg/Ml Vial SLOW IVP 07/12/20 02:00 2 mg Q1H PRN Administration Breakthrough agitation Methylprednisolone Sodium Succinate 40 mg 06/14/20 09:00 06/23/20 09:50 Methylprednisolone Sod Succ 40 Mg Vial IVP 40 mg BID OMARI Administration Morphine Sulfate 2 mg 06/12/20 02:00 06/23/20 13:02 Morphine 2 Mg/Ml Vial SLOW IVP 07/12/20 02:00 2 mg Q1H PRN Administration Breakthrough Pain/Agitation Ondansetron HCl 4 mg 12/04/20 07:05 05/04/20 12:12 Ondansetron Pf 4 Mg/2 Ml Vial IVP 4 mg Q6H PRN Administration Nausea/Vomiting Pantoprazole Sodium 40 mg 06/20/20 09:00 06/23/20 09:50 Pantoprazole 40 Mg Granules Packet PER TUBE 40 mg DAILY OMARI Administration Polyethylene Glycol 17 gm 05/06/20 15:40 06/18/20 08:44 Polyethylene Glycol 3350 17 Gm Packet PO 17 gm DAILYPRN PRN Administration Constipation Polyethylene Glycol 17 gm 06/19/20 09:00 06/23/20 09:50 Polyethylene Glycol 3350 17 Gm Packet PER TUBE 17 gm DAILY OMARI Administration Senna/Docusate Sodium 1 tab 05/06/20 21:00 06/23/20 09:50 Senokot S 8.6-50 Mg Tab PO 1 tab BID OMARI Administration Sodium Chloride 10 ml 06/13/20 21:00 06/23/20 09:50 Flush - Normal Saline 10 Ml Syringe IVF 10 ml Q12HR OMARI Administration Sodium Chloride 10 ml 06/13/20 19:45 06/14/20 08:55 Flush - Normal Saline 10 Ml Syringe IVF 10 ml PRN PRN Administration Saline Flush - Exam General Appearance: ill appearing General - other findings: Status post trach vent dependent Eye: PERRL ENT: normocephalic atraumatic Neck: supple Heart: RRR, normal peripheral pulses Respiratory: normal chest expansion Neurological: cranial nerve grossly intact, no focal deficits Psychiatric: not oriented Hosp A/P - Plan 55 year old female who presented with weakness and shortness of breath, hypoxia. DKA which resolved. #Acute hypoxic respiratory failure from COVID pneumonia #Bacteremia - the patient received ceftriaxone from 05/04 to 05/14, zosyn from 05/05 to 05/22. Chest X ray showed worsening infiltrates 06/02. She received vanc and meropenem until 06/06. - chest X ray 06/20 showed increasing interstitial opacities. Blood culture 06/18 grew 1/2 Bacillus. Cefepime was restarted 06/21. WBC is up to 13, will monitor Tension pneumothorax -Status post chest tube placement #Leukocytosis - worsening to 13. Cefepime restarted 06/20. Will monitor for now #Anemia - hb 10.0 Status post PICC placement -Tolerating the tube feed. #Type II Diabetes #Hypoglycemia- resolved - blood sugars 100-200. Continue lantus 28 units bid -Follow-up on A1c Full code
--- NOTE | 2020-06-23 16:27 | PRG ---
DATE OF SERVICE: 06/23/2020 SUBJECTIVE: Zoey Parmar remains very tenuous with fluctuations in her oxygen requirements and her PEEP requirements. OBJECTIVE: VITAL SIGNS: Heart rate is 102, blood pressure 108/67. LUNGS: Remarkable for equal breath sounds. HEART: Regular rhythm. ABDOMEN: Soft. EXTREMITIES: Without any edema. She will awake and she becomes tachypneic when she is not at least a little bit sedated. Chest x-ray shows a tiny apical pneumothorax. IMPRESSION: COVID pneumonia with prolonged period of mechanical ventilation with tracheostomy in place. She was admitted on May 03. At this point, given that she is not making improvements, I feel it is unlikely she will survive. We will continue to follow. Job ID: [id number]
[2020-06-23] MEDS: Cholecalciferol 1,000 UNITS (25 MCG) TAB PO SCH (21:29)
[2020-06-23] MEDS: HumuLIN 70/30 (300 UNITS/3 ML VIAL) SC SCH (22:01)
[2020-06-24] MEDS ORDERED: Propofol 1,000 MG/100 ML VIAL IV ONE (01:44)
[2020-06-24 04:37] LABS: #Lymphocytes 1.7 thou/uL (1.20-3.40); #Monocytes 0.2 thou/uL (0.11-0.59); #Neutrophils 6.9 thou/uL (1.40-6.50); %Basophils 0.3 % (0.0-1.0); %Eosinophils 0.3 % (0.0-10.0); %Monocytes 2.4 % (0.0-10.0); Mean Corpuscular Hemoglobin 29.8 pg (27.0-31.0); Mean Corpuscular Volume 93.1 fL (78.0-98.0); Mean Platelet Volume 7.9 fL (7.4-10.4); Platelet Count 498 thou/uL (130-400); RBC Distribution Width 15.1 % (11.5-14.5); White Blood Cell (WBC) Count 8.9 thou/uL (4.8-10.8)
[2020-06-24 04:46] LABS: Hemoglobin A1c 6.3 % (4.0-6.0)
[2020-06-24] MEDS: HumaLOG 300 UNITS/3 ML VIAL SC PRN ×2 (04:49→23:28)
[2020-06-24 05:08] LABS: Anion Gap 9 mmol/L (10-20); BUN (Urea Nitrogen) 21 mg/dL (9.8-20.1); Calc. Creatinine Clearance 124 mL/min (70-130); Calcium 8.9 mg/dL (7.8-10.44); Carbon Dioxide 31 mmol/L (22-29); Chloride 99 mmol/L (98-107); Glucose 234 mg/dL (70-105); Potassium 4.3 mmol/L (3.5-5.1); Sodium 135 mmol/L (136-145)
--- NOTE | 2020-06-24 09:12 | RAD ---
PORTABLE CHEST: 06/24/20 PROVIDED CLINICAL HISTORY: Pneumonia. COMPARISON: 06/23/2020 FINDINGS: Significant interval change with respect to the prior examination is not apparent. IMPRESSION: As above. POS: MARY
[2020-06-24] MEDS: Sodium Chloride 0.9% 1,000 ML IV SCH ×2 (09:17→23:34)
[2020-06-24] MEDS: Cefepime 1 GM in Sodium Chloride 0.9% 100 ML IVPB SCH ×2 (09:17→19:56)
[2020-06-24] MEDS: Pantoprazole 40 MG GRANULES PACKET PER TUBE SCH (09:18)
[2020-06-24] MEDS: Senokot S 8.6-50 MG TAB PO SCH ×2 (09:18→19:59)
[2020-06-24] MEDS: Ascorbic Acid 500 mg Chewable Tablet PO SCH (09:18)
[2020-06-24] MEDS: Apixaban 5 MG TAB PER TUBE SCH ×2 (09:18→19:56)
[2020-06-24] MEDS: Polyethylene Glycol 3350 17 GM Packet PER TUBE SCH (09:19)
[2020-06-24] MEDS: methylPREDNISolone Sod Succ 40 MG VIAL IVP SCH ×2 (09:19→19:58)
[2020-06-24] MEDS: HumuLIN 70/30 (300 UNITS/3 ML VIAL) SC SCH ×2 (09:25→20:06)
--- NOTE | 2020-06-24 14:55 | PDOC.HOSPP ---
- Subjective Encounter Date: 06/24/20 Encounter Time: 11:30 Subjective: Patient remains on the vent. I talked to the RN. Son at the bedside.Chest x- ray this morning did not show any significant improvement. From the prior ones - Objective Vital Signs & Weight: Vital Signs (12 hours) Temp Pulse Pulse Pulse Resp BP BP 06/24/20 14:00 24 H 06/24/20 12:00 98.5 F 24 H 06/24/20 11:17 91 06/24/20 10:00 24 H 06/24/20 08:57 83 83 104/54 L 96/67 06/24/20 08:00 98.4 F 28 H 06/24/20 06:16 74 06/24/20 06:00 24 H 06/24/20 04:00 97.8 F 24 H 06/24/20 03:56 71 Pulse Ox Pulse Ox Pulse Ox 06/24/20 14:00 06/24/20 12:00 06/24/20 11:17 06/24/20 10:00 06/24/20 08:57 88 L 88 L 06/24/20 08:00 85 L 06/24/20 06:16 06/24/20 06:00 06/24/20 04:00 06/24/20 03:56 Weight Admit Weight 147 lb Weight 133 lb 2.547 oz Most Recent Monitor Data Heart Rate from ECG 99 NIBP 113/66 NIBP BP-Mean 81 Respiration from ECG 26 SpO2 97 I&O: 06/23/20 06/24/20 06/25/20 06:59 06:59 06:59 Intake Total 2510.6 3415.7 250 Output Total 2009 2432 875 Balance 500.6 983.7 -625 Result Diagrams: 06/24/20 04:00 06/24/20 04:00 Additional Labs: Accuchecks 06/24/20 06/23/20 06/23/20 10:36 21:26 15:46 POC Glucose 189 H 245 H 259 H Hospitalist ROS - Medication Medications: Active Medications Generic Name Dose Route Start Last Admin Trade Name Freq PRN Reason Stop Dose Admin Acetaminophen 1,000 mg 05/04/20 07:05 06/21/20 09:34 Acetaminophen 500 Mg Tab PO 1,000 mg Q6H PRN Administration Mild Pain (1-3) Apixaban 5 mg 06/07/20 21:00 06/24/20 09:18 Apixaban 5 Mg Tab PER TUBE 5 mg BID OMARI Administration Ascorbic Acid 1,000 mg 05/04/20 09:00 06/24/20 09:18 Ascorbic Acid 500 Mg Chewable Tablet PO 1,000 mg DAILY OMARI Administration Cholecalciferol 5,000 units 05/04/20 21:00 06/23/20 21:29 Cholecalciferol 1,000 Units (25 Mcg) Tab PO 5,000 units HS OMARI Administration Dextrose/Water 25 gm 05/03/20 22:18 06/13/20 10:14 Dextrose 50% Abboject 50 Ml Syringe SLOW IVP 25 gm PRN PRN Administration HYPOGLYCEMIA PROTOCOL Fentanyl 100 mcg 06/20/20 07:30 06/23/20 08:50 Fentanyl 100 Mcg/Hour Patch TD 100 mcg Q3D OMARI Administration Dextrose/Water 1,000 mls @ 0 mls/hr 05/03/20 22:30 06/06/20 09:49 D5w IV 1,000 mls INF PRN Administration HYPOGLYCEMIA PROTOCOL As Directed Midazolam HCl 100 mls @ 0 mls/hr 06/20/20 07:30 06/24/20 07:53 Versed IVPB 100 mls INF OMARI Administration Protocol Titrate Cefepime HCl 1 gm/ Sodium 100 mls @ 200 mls/hr 06/20/20 09:00 06/24/20 09:17 Chloride IVPB 100 mls Q12HR OMARI Administration Sodium Chloride 1,000 mls @ 70 mls/hr 06/21/20 08:00 06/24/20 09:17 Normal Saline 0.9% IV 1,000 mls .[id number] OMARI Administration Insulin Human Isoph/Insulin Regular 30 units 06/23/20 21:00 06/24/20 09:25 Humulin 70/30 (300 Units/3 Ml Vial) SC 30 unit BID OMARI Administration Insulin Human Lispro 0 units 05/05/20 01:19 06/24/20 04:49 Humalog 300 Units/3 Ml Vial SC 4 unit .MODERATE SLIDING SC PRN Administration Moderate Correctional Scale Lorazepam 2 mg 06/12/20 02:00 06/23/20 14:33 Lorazepam 2 Mg/Ml Vial SLOW IVP 07/12/20 02:00 2 mg Q1H PRN Administration Breakthrough agitation Methylprednisolone Sodium Succinate 40 mg 06/14/20 09:00 06/24/20 09:19 Methylprednisolone Sod Succ 40 Mg Vial IVP 40 mg BID OMARI Administration Morphine Sulfate 2 mg 06/12/20 02:00 06/23/20 13:02 Morphine 2 Mg/Ml Vial SLOW IVP 07/12/20 02:00 2 mg Q1H PRN Administration Breakthrough Pain/Agitation Ondansetron HCl 4 mg 05/04/20 07:05 05/04/20 12:12 Ondansetron Pf 4 Mg/2 Ml Vial IVP 4 mg Q6H PRN Administration Nausea/Vomiting Pantoprazole Sodium 40 mg 06/20/20 09:00 06/24/20 09:18 Pantoprazole 40 Mg Granules Packet PER TUBE 40 mg DAILY OMARI Administration Polyethylene Glycol 17 gm 05/06/20 15:40 06/18/20 08:44 Polyethylene Glycol 3350 17 Gm Packet PO 17 gm DAILYPRN PRN Administration Constipation Polyethylene Glycol 17 gm 06/19/20 09:00 06/24/20 09:19 Polyethylene Glycol 3350 17 Gm Packet PER TUBE 17 gm DAILY OMARI Administration Senna/Docusate Sodium 1 tab 05/06/20 21:00 06/24/20 09:18 Senokot S 8.6-50 Mg Tab PO 1 tab BID OMARI Administration Sodium Chloride 10 ml 06/13/20 21:00 06/24/20 09:19 Flush - Normal Saline 10 Ml Syringe IVF 10 ml Q12HR OMARI Administration Sodium Chloride 10 ml 06/13/20 19:45 06/14/20 08:55 Flush - Normal Saline 10 Ml Syringe IVF 10 ml PRN PRN Administration Saline Flush - Exam General Appearance: ill appearing General - other findings: On vent Eye: PERRL ENT: normocephalic atraumatic Neck: supple Heart: RRR Respiratory: CTAB, normal chest expansion Gastrointestinal: soft, normal bowel sounds Neurological: cranial nerve grossly intact, no focal deficits Psychiatric: normal behavior Hosp A/P - Plan 55 year old female who presented with weakness and shortness of breath, hypoxia. DKA which resolved. #Acute hypoxic respiratory failure from COVID pneumonia #Bacteremia - the patient received ceftriaxone from 05/04 to 05/14, zosyn from 05/05 to 05/22. Chest X ray showed worsening infiltrates 1/2. She received vanc and meropenem until 06/06. - chest X ray 06/20 showed increasing interstitial opacities. Blood culture 06/18 grew 1/2 Bacillus. Cefepime was restarted 06/21. WBC is up to 13, will monitor Tension pneumothorax -Status post chest tube placement #Leukocytosis - worsening to 13. Cefepime restarted 06/20. Will monitor for now #Anemia - hb 10.0 Status post PICC placement -Tolerating the tube feed. #Type II Diabetes #Hypoglycemia- resolved - blood sugars 100-200. Continue lantus 28 units bid -Follow-up on A1c Full code -No clinical resolution with her Covid pneumonia -Prolonged chronic respiratory failure and vent dependent status -Prognosis guarded given the duration of her respiratory failure -Requested palliative consult to be involved in the care. -She is full code currently
--- NOTE | 2020-06-24 15:12 | PRG ---
DATE OF SERVICE: 06/24/2020 SUBJECTIVE: Zoey Parmar continues to do poorly. OBJECTIVE: VITAL SIGNS: Heart rates in the 90s, blood pressure 110/55, O2 saturations in the low 90s, FiO2 has been fluctuating between 90% and 100% for the last few days. LUNGS: Remarkable for coarse equal breath sounds. HEART: Regular rhythm. ABDOMEN: Soft. IMAGING: Chest radiograph is unchanged. LABORATORY DATA: White count 8.9, hemoglobin 8.0, platelets 498. BUN 21, creatinine 0.46, potassium 4.3. IMPRESSION: COVID pneumonia, status post tracheostomy with extremely poor lung compliance. Her exhaled volumes are small, and when she is awake, she becomes very tachypneic. I pulled the son into the conference room and explained to him that given that she has been in the hospital now for 52 days and mechanically ventilated the majority of the time, it is unlikely that she will survive. He wanted me to talk to his brother and did not let me get to a point about talking about do not resuscitate status. He left the conference room and did not come back. He was leaving telling me he is going to contact his brother by phone, but I did not see him again after that point. I am told by the nursing staff that he has been avoiding these conversations as well. We will continue with supportive care. Job ID: [id number]
[2020-06-24] MEDS: Cholecalciferol 1,000 UNITS (25 MCG) TAB PO SCH (19:56)
[2020-06-25 04:31] LABS: #Basophils 0.1 thou/uL (0.0-0.2); #Eosinphils 0.1 thou/uL (0.0-0.7); #Lymphocytes 3.2 thou/uL (1.20-3.40); #Monocytes 0.7 thou/uL (0.11-0.59); #Neutrophils 10.9 thou/uL (1.40-6.50); %Basophils 0.5 % (0.0-1.0); %Eosinophils 0.6 % (0.0-10.0); %Lymphocytes 21.6 % (21.0-51.0); %Monocytes 4.5 % (0.0-10.0); %Neutrophils 72.9 % (42.0-75.0); Hemoglobin 9.2 g/dL (12.0-16.0); Mean Corpuscular HGB CONC 31.5 g/dL (32.0-36.0); Mean Corpuscular Hemoglobin 29.3 pg (27.0-31.0); Mean Platelet Volume 7.5 fL (7.4-10.4); Platelet Count 650 thou/uL (130-400); RBC Distribution Width 15.6 % (11.5-14.5); Red Blood Cell (RBC) Count 3.15 mill/uL (4.20-5.40)
[2020-06-25 04:49] LABS: Anion Gap 9 mmol/L (10-20); BUN (Urea Nitrogen) 17 mg/dL (9.8-20.1); Calc. Creatinine Clearance 129 mL/min (70-130); Calcium 9.1 mg/dL (7.8-10.44); Carbon Dioxide 34 mmol/L (22-29); Chloride 99 mmol/L (98-107); Glucose 193 mg/dL (70-105); Potassium 4.1 mmol/L (3.5-5.1); Sodium 138 mmol/L (136-145)
[2020-06-25] MEDS: HumaLOG 300 UNITS/3 ML VIAL SC PRN (05:51)
--- NOTE | 2020-06-25 08:04 | PRG ---
DATE OF SERVICE: This is 35 minutes critical care time. SUBJECTIVE: This is hospital day #53 for Zoey Parmar. She is awake while on Versed drip at 10 mg/hour. She has not made any progress toward weaning from mechanical ventilation over the weekend. OBJECTIVE: VITAL SIGNS: Temperature is 98.9, pulse 105, blood pressure 114/64, O2 saturation 93%. HEENT: Unremarkable. NECK: No adenopathy or JVD. Trach in good position. LUNGS: Coarse rhonchi especially on the right. She does have air leak on the right Pleur-evac. CARDIOVASCULAR: S1 and S2, regular. ABDOMEN: Soft and nontender to palpation. EXTREMITIES: No clubbing or cyanosis. She has severe muscle wasting. LABORATORY DATA: Sodium 138, potassium 4.1, chloride 99, CO2 of 34, BUN 17, creatinine 0.5, glucose 193. White blood cell count 15, hematocrit 29.3, and platelet count 615. Chest x-ray is unchanged. ASSESSMENT: 1. COVID-19 pneumonia with persistent respiratory failure requiring mechanical ventilation. 2. Right pneumothorax. 3. Generalized failure to thrive, failure to wean. PLAN: 1. We will go ahead and start to slowly decrease her Versed drip. This will be have to be done over many days as she will withdrawal if it is not done slowly. 2. The patient is currently on antibiotics. Those will continue for 7 days. 3. PICC line placement to get the central line out. 4. The patient has no insurance findings, so therefore is not a candidate for LTAC placement. 5. I doubt this patient is ever going to be able to wean from mechanical ventilation for what I am seeing right now. We will continue to follow. Job ID: [id number]
[2020-06-25] MEDS: methylPREDNISolone Sod Succ 40 MG VIAL IVP SCH ×2 (08:14→21:28)
[2020-06-25] MEDS: Pantoprazole 40 MG GRANULES PACKET PER TUBE SCH (08:15)
[2020-06-25] MEDS: HumuLIN 70/30 (300 UNITS/3 ML VIAL) SC SCH ×2 (08:15→23:01)
[2020-06-25] MEDS: Apixaban 5 MG TAB PER TUBE SCH ×2 (08:15→21:28)
[2020-06-25] MEDS: Cefepime 1 GM in Sodium Chloride 0.9% 100 ML IVPB SCH ×2 (08:16→21:28)
[2020-06-25] MEDS: Ascorbic Acid 500 mg Chewable Tablet PO SCH (08:16)
[2020-06-25] MEDS: Senokot S 8.6-50 MG TAB PO SCH ×2 (08:17→21:28)
[2020-06-25] MEDS: Polyethylene Glycol 3350 17 GM Packet PER TUBE SCH (08:17)
--- NOTE | 2020-06-25 09:24 | RAD ---
PORTABLE CHEST: COMPARISON: Prior day's study. HISTORY: Respiratory distress. FINDINGS: Tracheostomy tube is in place. A right-sided chest tube remains in place. I do not appreciate any s ignificant pneumothorax. There may be a very tiny apical pneumothorax present. Right-sided central line is unchanged in position. Parenchymal lung changes are stable. IMPRESSION: Essentially stable exam. There appears to be possibly a very small apical pneumothorax present. POS: RIGOBERTO
[2020-06-25] MEDS: Sodium Chloride 0.9% 1,000 ML IV SCH (11:08)
--- NOTE | 2020-06-25 12:47 | PDOC.PALPN ---
Palliative Progress Note - Subjective Palliative care was re consulted to readdress Goal of care and resuscitation status. Trach with mechanical ventilation, poor recovery. Pool lung compliance leading to poor prognosis. Daughter at bedside. - Objective Vital Signs: Vital Signs - Most Recent Temp Pulse Resp BP Pulse Ox 98.1 F 111 H 28 H 128/74 93 L 06/25/20 12:00 06/25/20 11:03 06/25/20 12:00 06/25/20 11:03 06/25/20 07:07 - Physical Exam Constitutional: ill appearing HEENT: moist MMs Deviation from normal: Trach, bilaterally adventicious Cardiovascular: RRR Gastrointestinal: soft, non-tender Deviation from normal: PEG Genitourinary: diamond catheter Musculoskeletal: no clubbing, diffuse muscle atrophy Neurology: no focal deficits Skin: no lesions, no rash, bruising - Assessment (1) Palliative care encounter Code(s): Z51.5 - ENCOUNTER FOR PALLIATIVE CARE Current Visit: Yes Status: Acute (2) Acute respiratory failure with hypoxia Code(s): J96.01 - ACUTE RESPIRATORY FAILURE WITH HYPOXIA Current Visit: Yes Status: Acute (3) COVID-19 virus infection Code(s): U07.1 - COVID-19 Current Visit: Yes Status: Resolved (4) DKA (diabetic ketoacidoses) Code(s): E11.10 - TYPE 2 DIABETES MELLITUS WITH KETOACIDOSIS WITHOUT COMA Current Visit: Yes Status: Resolved (5) Pneumonia due to COVID-19 virus Code(s): U07.1 - COVID-19; J12.89 - OTHER VIRAL PNEUMONIA Current Visit: Yes Status: Acute (6) Diabetes mellitus Code(s): E11.9 - TYPE 2 DIABETES MELLITUS WITHOUT COMPLICATIONS Current Visit: Yes Status: Chronic Qualifiers: Diabetes mellitus type: type 2 - Plan Plan: Patient daughter at bedside. Lengthy conversation with patient son Alvarez x2. Discussed his conversation with Dr Loja requesting a "teach back" to determine understanding of health literacy in the context of his mothers condition. Unable to grasp poor prognosis. Revisited resuscitation status and concern if CPR performed causing harm verses care. He is going to again visit with his siblings. Emotional support offered to Alvarez. He is calling his siblings this evening when everyone is off of work. Will follow up 06/26/20 [45] minutes spent on this encounter with >50% of the time in counseling and coordination of care. - ROS Non Response: due to mental status
--- NOTE | 2020-06-25 13:52 | PDOC.HOSPP ---
- Subjective Encounter Date: 06/25/20 Encounter Time: 11:20 Subjective: Family at bedside plan to get a PICC line this morning. Patient is alert oriented; she is still on sedation that has been down titrated. - Objective Vital Signs & Weight: Vital Signs (12 hours) Temp Pulse Pulse Pulse Resp BP BP 06/25/20 12:00 98.1 F 28 H 06/25/20 11:03 111 H 128/74 06/25/20 10:18 111 H 111 H 133/73 06/25/20 10:00 24 H 06/25/20 07:59 28 H 06/25/20 07:07 06/25/20 07:00 98.9 F 06/25/20 06:42 108 H 121/69 06/25/20 06:00 28 H 06/25/20 04:00 99.0 F 28 H 06/25/20 02:00 29 H BP Pulse Ox Pulse Ox Pulse Ox 06/25/20 12:00 06/25/20 11:03 06/25/20 10:18 127/74 85 L 85 L 06/25/20 10:00 06/25/20 07:59 06/25/20 07:07 93 L 06/25/20 07:00 06/25/20 06:42 06/25/20 06:00 06/25/20 04:00 06/25/20 02:00 Weight Admit Weight 147 lb Weight 133 lb 6.075 oz Most Recent Monitor Data Heart Rate from ECG 97 NIBP 115/67 NIBP BP-Mean 83 Respiration from ECG 23 SpO2 97 I&O: 06/24/20 06/25/20 06/26/20 06:59 06:59 06:59 Intake Total 3415.7 3665 180 Output Total 2432 3170 1085 Balance 983.7 495 905 Result Diagrams: 06/25/20 04:15 06/25/20 04:15 Additional Labs: Accuchecks 06/25/20 06/24/20 06/24/20 09:37 23:26 17:45 POC Glucose 83 162 H 197 H 06/24/20 04:20 POC Glucose 229 H Hospitalist ROS - Medication Medications: Active Medications Generic Name Dose Route Start Last Admin Trade Name Freq PRN Reason Stop Dose Admin Acetaminophen 1,000 mg 05/04/20 07:05 06/21/20 09:34 Acetaminophen 500 Mg Tab PO 1,000 mg Q6H PRN Administration Mild Pain (1-3) Apixaban 5 mg 06/07/20 21:00 06/25/20 08:15 Apixaban 5 Mg Tab PER TUBE 5 mg BID OMARI Administration Ascorbic Acid 1,000 mg 05/04/20 09:00 06/25/20 08:16 Ascorbic Acid 500 Mg Chewable Tablet PO 1,000 mg DAILY OMARI Administration Cholecalciferol 5,000 units 05/04/20 21:00 06/24/20 19:56 Cholecalciferol 1,000 Units (25 Mcg) Tab PO 5,000 units HS OMARI Administration Dextrose/Water 25 gm 05/03/20 22:18 06/13/20 10:14 Dextrose 50% Abboject 50 Ml Syringe SLOW IVP 25 gm PRN PRN Administration HYPOGLYCEMIA PROTOCOL Fentanyl 100 mcg 06/20/20 07:30 06/23/20 08:50 Fentanyl 100 Mcg/Hour Patch TD 100 mcg Q3D OMARI Administration Dextrose/Water 1,000 mls @ 0 mls/hr 05/03/20 22:30 06/06/20 09:49 D5w IV 1,000 mls INF PRN Administration HYPOGLYCEMIA PROTOCOL As Directed Midazolam HCl 100 mls @ 0 mls/hr 06/20/20 07:30 06/25/20 04:19 Versed IVPB 100 mls INF OMARI Administration Protocol Titrate Cefepime HCl 1 gm/ Sodium 100 mls @ 200 mls/hr 06/20/20 09:00 06/25/20 08:16 Chloride IVPB 100 mls Q12HR OMARI Administration Sodium Chloride 1,000 mls @ 70 mls/hr 06/21/20 08:00 06/25/20 11:08 Normal Saline 0.9% IV 1,000 mls .[id number] OMARI Administration Insulin Human Isoph/Insulin Regular 30 units 06/23/20 21:00 06/25/20 08:15 Humulin 70/30 (300 Units/3 Ml Vial) SC 30 unit BID OMARI Administration Insulin Human Lispro 0 units 05/05/20 01:19 06/25/20 05:51 Humalog 300 Units/3 Ml Vial SC 2 unit .MODERATE SLIDING SC PRN Administration Moderate Correctional Scale Lorazepam 2 mg 06/12/20 02:00 06/23/20 14:33 Lorazepam 2 Mg/Ml Vial SLOW IVP 07/12/20 02:00 2 mg Q1H PRN Administration Breakthrough agitation Methylprednisolone Sodium Succinate 30 mg 06/25/20 09:00 06/25/20 08:14 Methylprednisolone Sod Succ 40 Mg Vial IVP 30 mg BID OMARI Administration Morphine Sulfate 2 mg 06/12/20 02:00 06/23/20 13:02 Morphine 2 Mg/Ml Vial SLOW IVP 07/12/20 02:00 2 mg Q1H PRN Administration Breakthrough Pain/Agitation Ondansetron HCl 4 mg 05/04/20 07:05 05/04/20 12:12 Ondansetron Pf 4 Mg/2 Ml Vial IVP 4 mg Q6H PRN Administration Nausea/Vomiting Pantoprazole Sodium 40 mg 06/20/20 09:00 06/25/20 08:15 Pantoprazole 40 Mg Granules Packet PER TUBE 40 mg DAILY OMARI Administration Polyethylene Glycol 17 gm 05/06/20 15:40 06/18/20 08:44 Polyethylene Glycol 3350 17 Gm Packet PO 17 gm DAILYPRN PRN Administration Constipation Polyethylene Glycol 17 gm 06/19/20 09:00 06/25/20 08:17 Polyethylene Glycol 3350 17 Gm Packet PER TUBE Not Given DAILY OMARI Senna/Docusate Sodium 1 tab 05/06/20 21:00 06/25/20 08:17 Senokot S 8.6-50 Mg Tab PO Not Given BID OMARI Sodium Chloride 10 ml 06/13/20 21:00 06/25/20 08:17 Flush - Normal Saline 10 Ml Syringe IVF 10 ml Q12HR OMARI Administration Sodium Chloride 10 ml 06/13/20 19:45 06/14/20 08:55 Flush - Normal Saline 10 Ml Syringe IVF 10 ml PRN PRN Administration Saline Flush - Exam General Appearance: NAD, awake alert General - other findings: Status post trach and vent dependent for since May 03 Eye: PERRL ENT: normocephalic atraumatic Neck: supple Heart: RRR Respiratory: CTAB Gastrointestinal: soft, no palpable masses Neurological: no focal deficits Psychiatric: A&O x 3 Hosp A/P - Plan 55 year old female who presented with weakness and shortness of breath, hypoxia. DKA which resolved. #Acute hypoxic respiratory failure from COVID pneumonia #Bacteremia - the patient received ceftriaxone from 05/04 to 05/14, zosyn from 05/05 to 05/22. Chest X ray showed worsening infiltrates 06/02. She received vanc and meropenem until 06/06. - chest X ray 06/20 showed increasing interstitial opacities. Blood culture 06/18 grew 1/2 Bacillus. Cefepime was restarted 06/21. WBC is up to 13, will monitor Tension pneumothorax -Status post chest tube placement #Leukocytosis - worsening to 13. Cefepime restarted 06/20. Will monitor for now #Anemia - hb 10.0 Status post PICC placement -Tolerating the tube feed. #Type II Diabetes #Hypoglycemia- resolved - blood sugars 100-200. Continue lantus 28 units bid -Follow-up on A1c Full code -No clinical resolution with her Covid pneumonia -Prolonged chronic respiratory failure and vent dependent status -Prognosis guarded given the duration of her respiratory failure -Requested palliative consult to be involved in the care. -She is full code currently -Stop cefepime on to complete 7-day course -Patient is not weanable from the vent-due to adverse impact of Covid pneumonia and poor lung compliance overall. Patient on vent since May code -Family is not very approachable to discuss the CODE STATUS. Therapy is palliative did talk to the son Alvarez and he is going to touch base with his siblings. Patient would not be able to go to LTAC to continue the vent management as she does not have a good insurance.
[2020-06-25] MEDS: Lorazepam 2 MG/ML VIAL SLOW IVP PRN ×2 (15:32→20:03)
--- NOTE | 2020-06-25 16:09 | PDOC.HOSPP ---
- Subjective Encounter Date: 06/22/20 Encounter Time: 13:46 Subjective: Late entry note from 06/22 F/u: COVID The patient is sleeping comfortably intubated, no events overnight - Objective Vital Signs & Weight: Vital Signs (12 hours) Temp Pulse Pulse Pulse Resp BP BP 06/25/20 14:58 108 H 136/74 06/25/20 14:00 28 H 06/25/20 12:00 98.1 F 28 H 06/25/20 11:03 111 H 128/74 06/25/20 10:18 111 H 111 H 133/73 06/25/20 10:00 24 H 06/25/20 07:59 28 H 06/25/20 07:07 06/25/20 07:00 98.9 F 06/25/20 06:42 108 H 121/69 06/25/20 06:00 28 H BP Pulse Ox Pulse Ox Pulse Ox 06/25/20 14:58 06/25/20 14:00 06/25/20 12:00 06/25/20 11:03 06/25/20 10:18 127/74 85 L 85 L 06/25/20 10:00 06/25/20 07:59 06/25/20 07:07 93 L 06/25/20 07:00 06/25/20 06:42 06/25/20 06:00 Weight Admit Weight 147 lb Weight 133 lb 6.075 oz Most Recent Monitor Data Heart Rate from ECG 109 NIBP 115/68 NIBP BP-Mean 83 Respiration from ECG 23 SpO2 94 I&O: 06/24/20 06/25/20 06/26/20 06:59 06:59 06:59 Intake Total 3415.7 3665 180 Output Total 2432 3170 1585 Balance 983.7 495 1405 Result Diagrams: 06/25/20 04:15 06/25/20 04:15 Additional Labs: Accuchecks 06/25/20 06/25/20 06/24/20 15:45 09:37 23:26 POC Glucose 73 83 162 H 06/24/20 06/24/20 17:45 04:20 POC Glucose 197 H 229 H Hospitalist ROS - Review of Systems ROS unobtainable: due to mental status - Medication Medications: Active Medications Generic Name Dose Route Start Last Admin Trade Name Freq PRN Reason Stop Dose Admin Acetaminophen 1,000 mg 05/04/20 07:05 06/21/20 09:34 Acetaminophen 500 Mg Tab PO 1,000 mg Q6H PRN Administration Mild Pain (1-3) Apixaban 5 mg 06/07/20 21:00 06/25/20 08:15 Apixaban 5 Mg Tab PER TUBE 5 mg BID OMARI Administration Ascorbic Acid 1,000 mg 05/04/20 09:00 06/25/20 08:16 Ascorbic Acid 500 Mg Chewable Tablet PO 1,000 mg DAILY OMARI Administration Cholecalciferol 5,000 units 05/04/20 21:00 06/24/20 19:56 Cholecalciferol 1,000 Units (25 Mcg) Tab PO 5,000 units HS OMARI Administration Dextrose/Water 25 gm 05/03/20 22:18 06/13/20 10:14 Dextrose 50% Abboject 50 Ml Syringe SLOW IVP 25 gm PRN PRN Administration HYPOGLYCEMIA PROTOCOL Fentanyl 100 mcg 06/20/20 07:30 06/23/20 08:50 Fentanyl 100 Mcg/Hour Patch TD 100 mcg Q3D OMARI Administration Dextrose/Water 1,000 mls @ 0 mls/hr 05/03/20 22:30 06/06/20 09:49 D5w IV 1,000 mls INF PRN Administration HYPOGLYCEMIA PROTOCOL As Directed Midazolam HCl 100 mls @ 0 mls/hr 06/20/20 07:30 06/25/20 16:08 Versed IVPB 100 mls INF OMARI Administration Protocol Titrate Cefepime HCl 1 gm/ Sodium 100 mls @ 200 mls/hr 06/20/20 09:00 06/25/20 08:16 Chloride IVPB 100 mls Q12HR OMARI Administration Sodium Chloride 1,000 mls @ 70 mls/hr 06/21/20 08:00 06/25/20 11:08 Normal Saline 0.9% IV 1,000 mls .[id number] OMARI Administration Insulin Human Isoph/Insulin Regular 30 units 06/23/20 21:00 06/25/20 08:15 Humulin 70/30 (300 Units/3 Ml Vial) SC 30 unit BID OMARI Administration Insulin Human Lispro 0 units 05/05/20 01:19 06/25/20 05:51 Humalog 300 Units/3 Ml Vial SC 2 unit .MODERATE SLIDING SC PRN Administration Moderate Correctional Scale Lorazepam 2 mg 06/12/20 02:00 06/25/20 15:32 Lorazepam 2 Mg/Ml Vial SLOW IVP 07/12/20 02:00 2 mg Q1H PRN Administration Breakthrough agitation Methylprednisolone Sodium Succinate 30 mg 06/25/20 09:00 06/25/20 08:14 Methylprednisolone Sod Succ 40 Mg Vial IVP 30 mg BID OMARI Administration Morphine Sulfate 2 mg 06/12/20 02:00 06/23/20 13:02 Morphine 2 Mg/Ml Vial SLOW IVP 07/12/20 02:00 2 mg Q1H PRN Administration Breakthrough Pain/Agitation Ondansetron HCl 4 mg 05/04/20 07:05 05/04/20 12:12 Ondansetron Pf 4 Mg/2 Ml Vial IVP 4 mg Q6H PRN Administration Nausea/Vomiting Pantoprazole Sodium 40 mg 06/20/20 09:00 06/25/20 08:15 Pantoprazole 40 Mg Granules Packet PER TUBE 40 mg DAILY OMARI Administration Polyethylene Glycol 17 gm 05/06/20 15:40 06/18/20 08:44 Polyethylene Glycol 3350 17 Gm Packet PO 17 gm DAILYPRN PRN Administration Constipation Polyethylene Glycol 17 gm 06/19/20 09:00 06/25/20 08:17 Polyethylene Glycol 3350 17 Gm Packet PER TUBE Not Given DAILY OMARI Senna/Docusate Sodium 1 tab 05/06/20 21:00 06/25/20 08:17 Senokot S 8.6-50 Mg Tab PO Not Given BID OMARI Sodium Chloride 10 ml 06/13/20 21:00 06/25/20 08:17 Flush - Normal Saline 10 Ml Syringe IVF 10 ml Q12HR OMARI Administration Sodium Chloride 10 ml 06/13/20 19:45 06/14/20 08:55 Flush - Normal Saline 10 Ml Syringe IVF 10 ml PRN PRN Administration Saline Flush - Exam General - other findings: drowsy Eye: PERRL, anicteric sclera ENT: normocephalic atraumatic, no oropharyngeal lesions Neck: no JVD Heart: RRR, no murmur, no gallops, no rubs Respiratory: CTAB, no wheezes, no rales, no ronchi Gastrointestinal: soft, non-tender, non-distended, normal bowel sounds Extremities: no cyanosis, no clubbing, no edema Skin: normal turgor, no lesions, no rashes Hosp A/P - Plan Chest X ray 06/02: worsening of bilateral infiltrates Chest X ray 06/04: worsening right lung infiltrate Chest X ray 06/06: bilateral pneumonia Chest X ray 06/07: interstitial infiltrates Chest X ray 06/08: no change in bilateral infiltrates Chest X ray 06/09: mild bilateral infiltrates Chest X ray 06/20 : cystic structure left lung base. Increased coarse inters titial opacities throughout the lungs bilaterally This is is a 55 year old female who presented with weakness and shortness of breath, hypoxia. SHe also had DKA which resolved. She was intubated and is now sp tracheostomy. Hospital course also was complicated by tension pneumothorax requiring chest tube placement #Acute hypoxic respiratory failure from COVID pneumonia #Bacteremia - the patient received ceftriaxone from 05/04 to 05/14, zosyn from 05/05 to 05/22. Chest X ray showed worsening infiltrates 06/02. She received vanc and meropenem until 06/06. - chest X ray 06/20 showed increasing interstitial opacities. Blood culture 06/18 grew 1/2 Bacillus. Cefepime was restarted 06/21. WBC has improved to 12, will monitor #Leukocytosis - improving to 12. Cefepime restarted 06/20. Will monitor for now #Anemia - hb 8.7, stable, will monitor #Type II Diabetes #Hypoglycemia- resolved - Continue lantus
[2020-06-25] MEDS: Morphine 2 MG/ML VIAL SLOW IVP PRN (20:20)
[2020-06-25] MEDS ORDERED: Propofol 1,000 MG/100 ML VIAL IV ONE (20:55)
[2020-06-25] MEDS ORDERED: Ventilator Sedation Protocol 1 EACH FS SCH (21:00)
--- NOTE | 2020-06-25 21:05 | RAD ---
CHEST ONE VIEW: Comparison: 06-25-2020 at 4:45 a.m. History: Ventilated patient, respiratory distress. FINDINGS: Re-demonstration of a tracheostomy and a right sided chest tube. Stable right sided vascular catheter . Stable opacification of the right lung. Interval large left sided pneumothorax with tension pneumothorax. No acute osseous abnormalities. IMPRESSION: Large left sided pneumothorax with tension pneumothorax. Results of study conveyed to Evelia, CCU nurse, 06-25-2020 at 8:[address] Martinez is aware and in the room. POS: PPP
[2020-06-25] MEDS: Vecuronium 10 MG VIAL IVP PRN ×2 (21:07→23:03)
--- NOTE | 2020-06-25 21:10 | RAD ---
PORTABLE SUPINE CHEST: History: Chest tube follow up Comparison: 06-25-2020 at 8:29 p.m. FINDINGS: A chest tube has been placed. The large left pneumothorax noted previously is no longer present. Ther e is re-expansion of the left lung with no significant left pneumothorax apparent. The cystic lesion in the left lower lung is again noted. A right chest tube remains in place. Probable small right apic al pneumothorax is unchanged. IMPRESSION: Re-expansion of the left lung. The hazy bilateral interstitial infiltrates are again noted. POS: AGW
[2020-06-25] MEDS ORDERED: Fentanyl BOLUS 250 ML IVPB PRN (21:15)
[2020-06-25] MEDS ORDERED: Morphine 2 MG/ML VIAL SLOW IVP PRN (21:15)
[2020-06-25] MEDS ORDERED: DISCONTINUE PREVIOUS NARCOTIC PAIN MEDICATIONS AND BENZODIAZEPINES FS SCH (21:15)
[2020-06-25] MEDS ORDERED: Fentanyl CADD 100 ML IV SCH (21:15)
[2020-06-25] MEDS ORDERED: Sodium Chloride 0.9% 500 ML IV SCH (21:15)
[2020-06-25] MEDS ORDERED: Propofol BOLUS 1,000 MG/100 ML VIAL IV PRN (21:15)
[2020-06-25] MEDS: Cholecalciferol 1,000 UNITS (25 MCG) TAB PO SCH (21:29)
--- NOTE | 2020-06-25 22:17 | OP ---
DATE OF PROCEDURE: 06/25/2020 PROCEDURE: Left thoracostomy tube placement. PREOPERATIVE DIAGNOSIS: Tension left pneumothorax. POSTOPERATIVE DIAGNOSIS: Tension left pneumothorax. ANESTHESIA: None. DESCRIPTION OF PROCEDURE: I was actually up here seeing a different patient when I was called by the nursing staff that the patient suddenly desaturated from the 90s to 50s. When I walked into the room, x-ray was being taken that showed a left tension pneumothorax. Before we could even gather our thoughts, the patient began to have bradycardia and further desaturation down to the 30s. I quickly scrubbed her skin with chlorhexidine, used an 11 blade scalpel to make an incision in the left mid axillary line just below the left nipple line. Using hemostats, I dissected down to the rib, opened up the intercostal space, and relieved the tension with a big gush of air. I then placed a 36 [place] tube into the chest, sutured the tube in place, placed on Pleur-evac suction. She had immediate improvement in her O2 sats up into the 90s initially with increase in her blood pressure and pulse. X-ray showed proper placement. The procedure was tolerated well. Job ID: [id number]
[2020-06-26] MEDS: Vecuronium 10 MG VIAL IVP PRN ×13 (00:22→23:06)
[2020-06-26] MEDS: Sodium Chloride 0.9% 1,000 ML IV SCH ×3 (04:59→20:11)
[2020-06-26 05:26] LABS: Band 10 % (5-11); Eosinophils 3 % (0-10); Hemoglobin 9.1 g/dL (12.0-16.0); Hypochromia SLIGHT = 6-15 cells (100X) (0-5/hpf); Lymphocytes 2 % (21-51); MDiff Complete? YES; Mean Corpuscular Hemoglobin 30.2 pg (27.0-31.0); Mean Corpuscular Volume 94.4 fL (78.0-98.0); Mean Platelet Volume 7.4 fL (7.4-10.4); Monocytes 3 % (0-10); Neutrophil 81 % (42-75); Platelet Count 592 thou/uL (130-400); Platelet Morphology Comment Appears Increased; RBC Distribution Width 15.8 % (11.5-14.5); Reactive Lymphocytes 1 % (0-10); Red Blood Cell (RBC) Count 3.03 mill/uL (4.20-5.40); White Blood Cell (WBC) Count 16.5 thou/uL (4.8-10.8)
[2020-06-26 05:45] LABS: Anion Gap 11 mmol/L (10-20); BUN (Urea Nitrogen) 16 mg/dL (9.8-20.1); Calc. Creatinine Clearance 141 mL/min (70-130); Calcium 8.7 mg/dL (7.8-10.44); Carbon Dioxide 31 mmol/L (22-29); Chloride 103 mmol/L (98-107); Potassium 3.8 mmol/L (3.5-5.1); Sodium 141 mmol/L (136-145)
[2020-06-26 06:00] LABS: Glucose 56 mg/dL (70-105)
--- NOTE | 2020-06-26 08:15 | RAD ---
Portable frontal chest radiograph: 06/26/2020 COMPARISON: 06/25/2020 HISTORY: Pneumonia FINDINGS: Bilateral chest tubes are present. There is a tracheostomy tube noted and there is a stable right vascular catheter. A tiny stable pneumothorax is noted in the right lung apex. There is cavitary change in the left base with probable pneumomediastinum and questionable small pneu mothorax in the left lung base. Interstitial and alveolar opacity with a perihilar/bibasilar predominance persists, consistent with Covid pneumonia. IMPRESSION: Stable lines and tubes. Tiny apical pneumothorax on the right and possible small left bas ilar pneumothorax. Continued follow-up advised.
[2020-06-26] MEDS: Cefepime 1 GM in Sodium Chloride 0.9% 100 ML IVPB SCH ×2 (08:34→20:14)
[2020-06-26] MEDS: methylPREDNISolone Sod Succ 40 MG VIAL IVP SCH ×2 (08:34→20:13)
[2020-06-26] MEDS: Pantoprazole 40 MG GRANULES PACKET PER TUBE SCH (08:35)
[2020-06-26] MEDS: Ascorbic Acid 500 mg Chewable Tablet PO SCH (08:35)
--- NOTE | 2020-06-26 08:36 | PRG ---
DATE OF SERVICE: 06/26/2020 35 minutes of critical care time. SUBJECTIVE: The patient had a left-sided tension pneumothorax developed last night requiring thoracostomy tube placement. She remains on mechanical ventilation. OBJECTIVE: VITAL SIGNS: Temperature 98.2, pulse 102, blood pressure 83/60, and O2 saturation 89%. She is currently on assist control, rate 20, high pressure 24, PEEP 12, FiO2 of 85%. GENERAL: She looks obtunded. HEENT: Unremarkable. NECK: No JVD. LUNGS: Coarse breath sounds. She has air leaks in both her chest tubes . CARDIOVASCULAR: Regular. ABDOMEN: Soft and nontender. EXTREMITIES: No edema. LABORATORY DATA: White blood cell count 16.5, hematocrit 28.6, and platelet count 592. Sodium 141, potassium 3.8, chloride 103, CO2 of 31, BUN 16, creatinine 0.4, glucose 56. ASSESSMENT: 1. COVID-19 pneumonia. 2. Bilateral pneumothoraces. 3. Acute respiratory failure requiring mechanical ventilation. PLAN: It is hard to see scenario this patient will survive this, I am going to go ahead and stop her 70/30 insulin since her blood sugars are running so low. If anything, we should just use a low dose of NPH insulin if needed. Family has been counseled multiple times regarding the patient's poor prognosis. Job ID: [id number]
[2020-06-26] MEDS: Senokot S 8.6-50 MG TAB PO SCH ×2 (08:51→20:41)
[2020-06-26] MEDS: Apixaban 5 MG TAB PER TUBE SCH ×2 (08:51→20:14)
[2020-06-26] MEDS: Polyethylene Glycol 3350 17 GM Packet PER TUBE SCH (08:51)
[2020-06-26] MEDS: fentaNYL 100 mcg/hour Patch TD SCH (08:53)
[2020-06-26] MEDS: NPH, Human Insulin Isophane 300 UNIT/3 ML VIAL SC SCH ×2 (11:01→20:16)
--- NOTE | 2020-06-26 13:41 | PDOC.HOSPP ---
- Subjective Encounter Date: 06/26/20 Encounter Time: 10:28 Subjective: Talk to the RN. Patient almost coded last evening. She has an another pneumothorax requiring second chest tube placement last evening. He still has a central line. A PICC line to be placed possibly today. Chest x- ray this morning showed a tiny apical pneumothorax on the right side and small left basilar pneumothorax. Cavitary changes in the left base possible pneumomediastinum and continued persistent small left lung base pneumothorax. - Objective Vital Signs & Weight: Vital Signs (12 hours) Temp Pulse Resp BP Pulse Ox 06/26/20 12:00 98.1 F 06/26/20 11:18 96 86/58 L 06/26/20 10:00 20 06/26/20 08:00 20 06/26/20 07:20 86 L 06/26/20 07:05 100 88/61 L 06/26/20 07:00 98.2 F 06/26/20 06:00 20 06/26/20 04:00 98.2 F 06/26/20 02:21 103 H 06/26/20 02:00 20 Weight Admit Weight 147 lb Weight 134 lb 0.657 oz Most Recent Monitor Data Heart Rate from ECG 112 NIBP 119/70 NIBP BP-Mean 86 Respiration from ECG 20 SpO2 94 I&O: 06/25/20 06/26/20 06/27/20 06:59 06:59 06:59 Intake Total 3665 4754 220 Output Total 3170 3325 640 Balance 495 1429 -420 Result Diagrams: 06/26/20 03:30 06/26/20 03:30 Additional Labs: Accuchecks 06/26/20 06/25/20 06/25/20 06:02 21:52 15:45 POC Glucose 94 224 H 73 Hospitalist ROS - Medication Medications: Active Medications Generic Name Dose Route Start Last Admin Trade Name Freq PRN Reason Stop Dose Admin Acetaminophen 1,000 mg 05/04/20 07:05 06/21/20 09:34 Acetaminophen 500 Mg Tab PO 1,000 mg Q6H PRN Administration Mild Pain (1-3) Apixaban 5 mg 06/07/20 21:00 06/26/20 08:51 Apixaban 5 Mg Tab PER TUBE Not Given BID OMARI Ascorbic Acid 1,000 mg 05/04/20 09:00 06/26/20 08:35 Ascorbic Acid 500 Mg Chewable Tablet PO 1,000 mg DAILY OMARI Administration Cholecalciferol 5,000 units 05/04/20 21:00 06/25/20 21:29 Cholecalciferol 1,000 Units (25 Mcg) Tab PO 5,000 units HS OMARI Administration Dextrose/Water 25 gm 05/03/20 22:18 06/13/20 10:14 Dextrose 50% Abboject 50 Ml Syringe SLOW IVP 25 gm PRN PRN Administration HYPOGLYCEMIA PROTOCOL Fentanyl 100 mcg 06/20/20 07:30 06/26/20 08:53 Fentanyl 100 Mcg/Hour Patch TD 100 mcg Q3D OAMRI Administration Dextrose/Water 1,000 mls @ 0 mls/hr 05/03/20 22:30 06/06/20 09:49 D5w IV 1,000 mls INF PRN Administration HYPOGLYCEMIA PROTOCOL As Directed Midazolam HCl 100 mls @ 0 mls/hr 06/20/20 07:30 06/26/20 12:55 Versed IVPB 100 mls INF OMARI Administration Protocol Titrate Cefepime HCl 1 gm/ Sodium 100 mls @ 200 mls/hr 06/20/20 09:00 06/26/20 08:34 Chloride IVPB 100 mls Q12HR OMARI Administration Sodium Chloride 1,000 mls @ 70 mls/hr 06/21/20 08:00 06/26/20 04:59 Normal Saline 0.9% IV 1,000 mls .[id number] OMARI Administration Insulin Human Lispro 0 units 05/05/20 01:19 06/25/20 05:51 Humalog 300 Units/3 Ml Vial SC 2 unit .MODERATE SLIDING SC PRN Administration Moderate Correctional Scale Insulin Human NPH 10 unit 06/26/20 09:00 06/26/20 11:01 Nph, Human Insulin Isophane 300 Unit/3 Ml Vial SC 10 unit BID OMARI Administration Methylprednisolone Sodium Succinate 30 mg 06/25/20 09:00 06/26/20 08:34 Methylprednisolone Sod Succ 40 Mg Vial IVP 30 mg BID OMARI Administration Morphine Sulfate 2 mg 06/12/20 02:00 06/25/20 20:20 Morphine 2 Mg/Ml Vial SLOW IVP 07/12/20 02:00 2 mg Q1H PRN Administration Breakthrough Pain/Agitation Ondansetron HCl 4 mg 05/04/20 07:05 05/04/20 12:12 Ondansetron Pf 4 Mg/2 Ml Vial IVP 4 mg Q6H PRN Administration Nausea/Vomiting Pantoprazole Sodium 40 mg 06/20/20 09:00 06/26/20 08:35 Pantoprazole 40 Mg Granules Packet PER TUBE 40 mg DAILY OMARI Administration Polyethylene Glycol 17 gm 05/06/20 15:40 06/18/20 08:44 Polyethylene Glycol 3350 17 Gm Packet PO 17 gm DAILYPRN PRN Administration Constipation Polyethylene Glycol 17 gm 06/19/20 09:00 06/26/20 08:51 Polyethylene Glycol 3350 17 Gm Packet PER TUBE Not Given DAILY OMARI Senna/Docusate Sodium 1 tab 05/06/20 21:00 06/26/20 08:51 Senokot S 8.6-50 Mg Tab PO Not Given BID OMARI Sodium Chloride 10 ml 06/13/20 21:00 06/26/20 08:51 Flush - Normal Saline 10 Ml Syringe IVF 10 ml Q12HR OMARI Administration Sodium Chloride 10 ml 06/13/20 19:45 06/14/20 08:55 Flush - Normal Saline 10 Ml Syringe IVF 10 ml PRN PRN Administration Saline Flush Vecuronium [place] 10 mg 06/25/20 21:02 06/26/20 12:29 Vecuronium 10 Mg Vial IVP 10 mg Q30MIN PRN Administration Agitation Hospitalist Exam Vitals: Vital Signs (12 hours) Temp Pulse Resp BP Pulse Ox 06/26/20 12:00 98.1 F 20 06/26/20 11:18 96 86/58 L 06/26/20 10:00 20 06/26/20 08:00 20 06/26/20 07:20 86 L 06/26/20 07:05 100 88/61 L 06/26/20 07:00 98.2 F 06/26/20 06:00 20 06/26/20 04:00 98.2 F 20 06/26/20 02:21 103 H 06/26/20 02:00 20 Weight Admit Weight 147 lb Weight 134 lb 0.657 oz Most Recent Monitor Data Heart Rate from ECG 112 NIBP 119/70 NIBP BP-Mean 86 Respiration from ECG 20 SpO2 94 General Appearance: ill appearing General - other findings: vent Eye: PERRL ENT: normocephalic atraumatic Neck: supple Heart: RRR Respiratory: normal chest expansion Gastrointestinal: soft, normal bowel sounds Extremities: 1+ LE edema Neurological: no focal deficits Psychiatric: not oriented, somnolent, lethargic Hosp A/P - Plan 55 year old female who presented with weakness and shortness of breath, hypoxia. DKA which resolved. #Acute hypoxic respiratory failure from COVID pneumonia #Bacteremia - the patient received ceftriaxone from 05/04 to 05/14, zosyn from 05/05 to 05/22. Chest X ray showed worsening infiltrates 06/02. She received vanc and meropenem until 06/06. - chest X ray 06/20 showed increasing interstitial opacities. Blood culture 06/18 grew 1/2 Bacillus. Cefepime was restarted 06/21. WBC is up to 13, will monitor Tension pneumothorax -Status post chest tube placement #Leukocytosis - worsening to 13. Cefepime restarted 06/20. Will monitor for now #Anemia - hb 10.0 Status post PICC placement -Tolerating the tube feed. #Type II Diabetes #Hypoglycemia- resolved - blood sugars 100-200. Continue lantus 28 units bid -Follow-up on A1c Full code -No clinical resolution with her Covid pneumonia -Prolonged chronic respiratory failure and vent dependent status -Prognosis guarded given the duration of her respiratory failure -Requested palliative consult to be involved in the care. -She is full code currently -Stop cefepime on to complete 7-day course -Patient is not weanable from the vent-due to adverse impact of Covid pneumonia and poor lung compliance overall. Patient on vent since May code -Family is not very approachable to discuss the CODE STATUS. palliative did talk to the son Alvarez and he is going to touch base with his siblings. Patient would not be able to go to LTAC to continue the vent management as she does not have a good insurance. Second episode of tension pneumothorax requiring chest tube placement on Plan for PICC line - central line has been over a month old. Hypoglycemia----insulin dose being reduced. Again family is being updated. Almost 60 days being here.
--- NOTE | 2020-06-26 14:46 | SPC ---
Ultrasound guided left upper extremity PICC placement HISTORY: Post Covid pneumonia. Patient needs long-term IV antibiotics. FINDINGS: Informed consent obtained prior to the procedure. An appropriate access site was determined with ultrasound guidance. The area was then meticulously pr epped and draped in usual sterile fashion. Skin overlying the left basilic vein anesthetized with 1% buffered lidocaine. Utilizing direct sonogr aphic guidance, vascular access is obtained via the left basilic vein, and an 0.018in guidewire was advanced to the cavoatrial junction. Intravascular length is calculated at 39.5 cm, and the PICC is c ut accordingly. Needle is removed and replaced with a peel-away sheath. The PICC was advanced over the wire. Wire and peel-away sheath were removed. The tip of the catheter overlies the cavoatrial junction. The catheter was accessed and aspirated/flushed easily. FINDINGS: Technically successful placement of a 39.5 centimeter single lumen 5 [place] left upper extremity PICC line. Chest x-ray performed post procedure for evaluation of PICC line placement demonstrates bilateral tho racostomy tubes, right subclavian central venous catheter, and tracheostomy device remaining in place when compared to chest x-ray 06/26/2020 at 0424 hours.. A left-sided pneumothorax is now seen al hema the left lateral chest and at the left lung base. Probable pneumomediastinum along the left paramediastinal location. Cystic-appearing lung changes seen at the left lung base also seen on chest x-ray on 06/25/2020. Subcutaneously emphysema is seen which has increased. Radiopaque density overlies right upper lung zone which was not seen on prior study but may be artifactual. IMPRESSION: 1. Bilateral thoracostomy tubes in place. A small left-sided pneumothorax is seen along the left late ral chest extending from the left lung apex to the left midlung zone with trace pneumothorax seen at the left lung base. In addition, there is suggestion of pneumomediastinum. 2. Stable cystic lung change left lung base. 3. Rounded radiopaque density overlying right upper lung zone. This may be artifactual and was not se en on prior study. This can be evaluated on follow-up exam. 4. Successful ultrasound guided placement of a left upper extremity PICC. 5. Above findings discussed with Matti nurse in CCU, on 06/26/2020 at 1441 hours.
[2020-06-26] MEDS: Propofol 1,000 MG/100 ML VIAL IV PRN (18:26)
[2020-06-26] MEDS: HumaLOG 300 UNITS/3 ML VIAL SC PRN (21:25)
[2020-06-26] MEDS: Cholecalciferol 1,000 UNITS (25 MCG) TAB PO SCH (21:28)
[2020-06-26] MEDS: Lorazepam 2 MG/ML VIAL SLOW IVP PRN (23:03)
[2020-06-27] MEDS: Vecuronium 10 MG VIAL IVP PRN ×7 (02:22→22:49)
[2020-06-27] MEDS: HumaLOG 300 UNITS/3 ML VIAL SC PRN ×3 (03:42→20:26)
[2020-06-27 04:35] LABS: Anion Gap 12 mmol/L (10-20); BUN (Urea Nitrogen) 14 mg/dL (9.8-20.1); Calc. Creatinine Clearance 127 mL/min (70-130); Calcium 9.1 mg/dL (7.8-10.44); Carbon Dioxide 31 mmol/L (22-29); Chloride 99 mmol/L (98-107); Glucose 290 mg/dL (70-105); Potassium 4.8 mmol/L (3.5-5.1); Sodium 137 mmol/L (136-145)
[2020-06-27 04:45] LABS: Band 7 % (5-11); Hemoglobin 9.8 g/dL (12.0-16.0); Lymphocytes 6 % (21-51); MDiff Complete? YES; Mean Corpuscular HGB CONC 31.2 g/dL (32.0-36.0); Mean Corpuscular Hemoglobin 29.8 pg (27.0-31.0); Mean Corpuscular Volume 95.5 fL (78.0-98.0); Mean Platelet Volume 7.5 fL (7.4-10.4); Metamyelocyte 2 % (0-0); Monocytes 2 % (0-10); Neutrophil 83 % (42-75); Nucleated RBC 1 % (0); Platelet Count 639 thou/uL (130-400); Platelet Morphology Comment Appears Increased; RBC Distribution Width 15.9 % (11.5-14.5); Red Blood Cell (RBC) Count 3.28 mill/uL (4.20-5.40); White Blood Cell (WBC) Count 15.9 thou/uL (4.8-10.8)
--- NOTE | 2020-06-27 07:57 | PRG ---
DATE OF SERVICE: 06/27/2020 TIME SPENT: This is 35 minutes of critical care time. SUBJECTIVE: The patient remains in ventilator, tracheostomy, mechanical ventilation. There have been no acute changes overnight. She desats with any type of movement and trach care. OBJECTIVE: VITAL SIGNS: Temperature 98.2, pulse 100, blood pressure 83/56. 24-hour intake 4250, output 2885. HEENT: Unchanged. NECK: Trach in good position. LUNGS: Coarse rhonchi, bilateral bronchopleural fistulas. CARDIAC: S1 and S2. Regular. ABDOMEN: Soft. EXTREMITIES: No edema. LABORATORY DATA: White blood cell count 15.9, hematocrit 31.3, and platelet count 639. Sodium 137, potassium 4.8, chloride 99, CO2 of 31, BUN 14, creatinine 0.5, glucose 290. X-ray shows bilateral chest tubes. ASSESSMENT: 1. COVID-19 pneumonia. 2. Acute respiratory failure, requiring mechanical ventilation. 3. Bilateral pneumothoraces. 4. Generalized failure to thrive. PLAN: I spoke with family via conference call yesterday. I told them, in my opinion, there is no hope for survival in this patient. She has shown no ability to heal and she is now 55 days into her hospitalization. My recommendation is that they pursue comfort care in anticipation that patient passing soon. Further disposition to follow today. Job ID: [id number]
--- NOTE | 2020-06-27 08:34 | RAD ---
CHEST 1 VIEW: Date: 06/27/2020 INDICATION: History of pneumonia. COMPARISON: Prior study dated 06/26/2020. FINDINGS: Small bilateral apical pneumothorax persists. Right-sided and left-sided thoracostomy tubes are stabl e. Bilateral air space disease is similar. Cavitary lesion left lower lobe is stable. Osseous structu res are unchanged. Tracheostomy right subclavian central venous catheter and left-sided PICC line are present. Left-sided PICC line is new from the prior exam. IMPRESSION: 1. New left-sided PICC line. 2. Stable bilateral air space disease. 3. Stable small right apical pneumothorax. 4. Stable small left apical pneumothorax. POS: BH
[2020-06-27] MEDS: methylPREDNISolone Sod Succ 40 MG VIAL IVP SCH ×2 (08:47→20:09)
[2020-06-27] MEDS: Cefepime 1 GM in Sodium Chloride 0.9% 100 ML IVPB SCH ×2 (08:48→20:08)
[2020-06-27] MEDS: Ascorbic Acid 500 mg Chewable Tablet PO SCH (08:48)
[2020-06-27] MEDS: Pantoprazole 40 MG GRANULES PACKET PER TUBE SCH (08:48)
[2020-06-27] MEDS: Apixaban 5 MG TAB PER TUBE SCH ×2 (08:48→20:08)
[2020-06-27] MEDS: NPH, Human Insulin Isophane 300 UNIT/3 ML VIAL SC SCH ×2 (08:51→20:21)
[2020-06-27] MEDS: Senokot S 8.6-50 MG TAB PO SCH ×2 (08:53→20:27)
[2020-06-27] MEDS: Polyethylene Glycol 3350 17 GM Packet PER TUBE SCH (08:54)
[2020-06-27] MEDS: Lorazepam 2 MG/ML VIAL SLOW IVP PRN ×2 (09:24→22:40)
[2020-06-27] MEDS: Sodium Chloride 0.9% 1,000 ML IV SCH (10:28)
--- NOTE | 2020-06-27 13:22 | PDOC.PALPN ---
Palliative Progress Note - Subjective trach/mechanical ventilation. Sedation, de saturation with minimal movement or elevation of sedation - Objective Vital Signs: Vital Signs - Most Recent Temp Pulse Resp BP Pulse Ox 98.2 F 100 20 115/68 89 L 06/27/20 07:00 06/27/20 10:21 06/27/20 12:00 06/27/20 10:21 06/27/20 07:28 - Physical Exam Constitutional: encephalitic, ill appearing HEENT: moist MMs Deviation from normal: trach, bilateral chest tubes Cardiovascular: RRR, diminished peripheral pulses Gastrointestinal: soft, non-tender, positive bowel sounds Genitourinary: diamond catheter Musculoskeletal: no clubbing, no edema, diffuse muscle atrophy Skin: no lesions, no rash Deviation from normal: sedated - Assessment (1) Palliative care encounter Code(s): Z51.5 - ENCOUNTER FOR PALLIATIVE CARE Current Visit: Yes Status: Acute (2) Acute respiratory failure with hypoxia Code(s): J96.01 - ACUTE RESPIRATORY FAILURE WITH HYPOXIA Current Visit: Yes Status: Acute (3) COVID-19 virus infection Code(s): U07.1 - COVID-19 Current Visit: Yes Status: Resolved (4) DKA (diabetic ketoacidoses) Code(s): E11.10 - TYPE 2 DIABETES MELLITUS WITH KETOACIDOSIS WITHOUT COMA Current Visit: Yes Status: Resolved (5) Pneumonia due to COVID-19 virus Code(s): U07.1 - COVID-19; J12.89 - OTHER VIRAL PNEUMONIA Current Visit: Yes Status: Acute (6) Diabetes mellitus Code(s): E11.9 - TYPE 2 DIABETES MELLITUS WITHOUT COMPLICATIONS Current Visit: Yes Status: Chronic Qualifiers: Diabetes mellitus type: type 2 - Plan Plan: Family meeting with patient 5 children and Father Enio. Cultural link utilized, [place] [id number] Discussed prognosis at length, harm verses care and suffering. Reviewed what Dr Martinez had relayed utilizing teach back method. They are understanding of poor prognosis. Goal: Transition to DNAR at this time do not desire to remover ventilatory support. Will revisit goal of care in 24 hours Emotional support and Therapeutic listening [90] minutes spent on this encounter with >50% of the time in counseling and coordination of care. - ROS Non Response: due to endotracheal tube, due to mental status
--- NOTE | 2020-06-27 15:13 | PDOC.HOSPP ---
- Subjective Encounter Date: 06/27/20 Encounter Time: 11:10 Subjective: Family is at bedside. CODE STATUS changed to DNR worsening chest x-ray. - Objective Vital Signs & Weight: Vital Signs (12 hours) Temp Pulse Resp BP Pulse Ox 06/27/20 15:01 93 101/58 L 06/27/20 14:00 20 06/27/20 12:00 20 06/27/20 10:21 100 115/68 06/27/20 10:00 20 06/27/20 08:00 20 06/27/20 07:28 89 L 06/27/20 07:00 98.2 F 06/27/20 06:35 105 H 108/64 06/27/20 05:51 20 06/27/20 05:00 98.5 F 06/27/20 04:00 20 Weight Admit Weight 147 lb Weight 131 lb 13.383 oz Most Recent Monitor Data Heart Rate from ECG 93 NIBP 101/58 NIBP BP-Mean 72 Respiration from ECG 20 SpO2 94 I&O: 06/26/20 06/27/20 06/28/20 06:59 06:59 06:59 Intake Total 4754 4250.2 120 Output Total 3325 2885 985 Balance 1429 1365.2 -865 Result Diagrams: 06/27/20 03:45 06/27/20 03:45 Additional Labs: Accuchecks 06/27/20 06/27/20 06/26/20 09:40 03:39 20:10 POC Glucose 138 H 245 H 153 H 06/26/20 10:02 POC Glucose 134 H Hospitalist ROS - Medication Medications: Active Medications Generic Name Dose Route Start Last Admin Trade Name Freq PRN Reason Stop Dose Admin Acetaminophen 1,000 mg 05/04/20 07:05 06/21/20 09:34 Acetaminophen 500 Mg Tab PO 1,000 mg Q6H PRN Administration Mild Pain (1-3) Apixaban 5 mg 06/07/20 21:00 06/27/20 08:48 Apixaban 5 Mg Tab PER TUBE 5 mg BID OMARI Administration Ascorbic Acid 1,000 mg 05/04/20 09:00 06/27/20 08:48 Ascorbic Acid 500 Mg Chewable Tablet PO 1,000 mg DAILY OMARI Administration Cholecalciferol 5,000 units 05/04/20 21:00 06/26/20 21:28 Cholecalciferol 1,000 Units (25 Mcg) Tab PO 5,000 units HS OMARI Administration Dextrose/Water 25 gm 05/03/20 22:18 06/13/20 10:14 Dextrose 50% Abboject 50 Ml Syringe SLOW IVP 25 gm PRN PRN Administration HYPOGLYCEMIA PROTOCOL Fentanyl 100 mcg 06/20/20 07:30 06/26/20 08:53 Fentanyl 100 Mcg/Hour Patch TD 100 mcg Q3D OMARI Administration Dextrose/Water 1,000 mls @ 0 mls/hr 05/03/20 22:30 06/06/20 09:49 D5w IV 1,000 mls INF PRN Administration HYPOGLYCEMIA PROTOCOL As Directed Midazolam HCl 100 mls @ 0 mls/hr 06/20/20 07:30 06/27/20 09:51 Versed IVPB 100 mls INF OMARI Administration Protocol Titrate Cefepime HCl 1 gm/ Sodium 100 mls @ 200 mls/hr 06/20/20 09:00 06/27/20 08:48 Chloride IVPB 100 mls Q12HR OMARI Administration Sodium Chloride 1,000 mls @ 70 mls/hr 06/21/20 08:00 06/27/20 10:28 Normal Saline 0.9% IV 1,000 mls .[id number] OMARI Administration Insulin Human Lispro 0 units 05/05/20 01:19 06/27/20 03:42 Humalog 300 Units/3 Ml Vial SC 4 unit .MODERATE SLIDING SC PRN Administration Moderate Correctional Scale Insulin Human NPH 10 unit 06/26/20 09:00 06/27/20 08:51 Nph, Human Insulin Isophane 300 Unit/3 Ml Vial SC 10 unit BID OMARI Administration Lorazepam 2 mg 06/25/20 21:15 06/27/20 09:24 Lorazepam 2 Mg/Ml Vial SLOW IVP 07/25/20 21:15 2 mg Q1H PRN Administration Breakthrough agitation Methylprednisolone Sodium Succinate 30 mg 06/25/20 09:00 06/27/20 08:47 Methylprednisolone Sod Succ 40 Mg Vial IVP 30 mg BID OMARI Administration Morphine Sulfate 2 mg 06/12/20 02:00 06/25/20 20:20 Morphine 2 Mg/Ml Vial SLOW IVP 07/12/20 02:00 2 mg Q1H PRN Administration Breakthrough Pain/Agitation Ondansetron HCl 4 mg 05/04/20 07:05 05/04/20 12:12 Ondansetron Pf 4 Mg/2 Ml Vial IVP 4 mg Q6H PRN Administration Nausea/Vomiting Pantoprazole Sodium 40 mg 06/20/20 09:00 06/27/20 08:48 Pantoprazole 40 Mg Granules Packet PER TUBE 40 mg DAILY OMARI Administration Polyethylene Glycol 17 gm 05/06/20 15:40 06/18/20 08:44 Polyethylene Glycol 3350 17 Gm Packet PO 17 gm DAILYPRN PRN Administration Constipation Polyethylene Glycol 17 gm 06/19/20 09:00 06/27/20 08:54 Polyethylene Glycol 3350 17 Gm Packet PER TUBE Not Given DAILY OMARI Propofol 1,000 mg 06/25/20 21:15 06/26/20 18:26 Propofol 1,000 Mg/100 Ml Vial IV 07/25/20 21:15 1,000 mg INF PRN Administration TO ACHIEVE GOAL RASS Protocol Senna/Docusate Sodium 1 tab 05/06/20 21:00 06/27/20 08:53 Senokot S 8.6-50 Mg Tab PO Not Given BID OMARI Sodium Chloride 10 ml 06/13/20 21:00 06/27/20 08:59 Flush - Normal Saline 10 Ml Syringe IVF 10 ml Q12HR OMARI Administration Sodium Chloride 10 ml 06/13/20 19:45 06/14/20 08:55 Flush - Normal Saline 10 Ml Syringe IVF 10 ml PRN PRN Administration Saline Flush Vecuronium [place] 10 mg 06/25/20 21:02 06/27/20 11:11 Vecuronium 10 Mg Vial IVP 10 mg Q30MIN PRN Administration Agitation Hospitalist Exam Vitals: Vital Signs (12 hours) Temp Pulse Resp BP Pulse Ox 06/27/20 15:01 93 101/58 L 06/27/20 14:00 20 06/27/20 12:00 20 06/27/20 10:21 100 115/68 06/27/20 10:00 20 06/27/20 08:00 20 06/27/20 07:28 89 L 06/27/20 07:00 98.2 F 06/27/20 06:35 105 H 108/64 06/27/20 05:51 20 06/27/20 05:00 98.5 F 06/27/20 04:00 20 Weight Admit Weight 147 lb Weight 131 lb 13.383 oz Most Recent Monitor Data Heart Rate from ECG 93 NIBP 101/58 NIBP BP-Mean 72 Respiration from ECG 20 SpO2 94 General Appearance: ill appearing General - other findings: On vent Eye: PERRL ENT: normocephalic atraumatic Neck: supple Respiratory: normal chest expansion Respiratory - other findings: Chest tubes Gastrointestinal: soft Extremities: 1+ LE edema Musculoskeletal: generalized weakness Psychiatric: not oriented Hosp A/P - Plan 55 year old female who presented with weakness and shortness of breath, hypoxia. DKA which resolved. #Acute hypoxic respiratory failure from COVID pneumonia #Bacteremia - the patient received ceftriaxone from 05/04 to 05/14, zosyn from 05/05 to 05/22. Chest X ray showed worsening infiltrates 06/02. She received vanc and meropenem until 06/06. - chest X ray 06/20 showed increasing interstitial opacities. Blood culture 06/18 grew 1/2 Bacillus. Cefepime was restarted 06/21. WBC is up to 13, will monitor Tension pneumothorax -Status post chest tube placement #Leukocytosis - worsening to 13. Cefepime restarted 06/20. Will monitor for now #Anemia - hb 10.0 Status post PICC placement -Tolerating the tube feed. #Type II Diabetes #Hypoglycemia- resolved - blood sugars 100-200. Continue lantus 28 units bid -Follow-up on A1c Full code -No clinical resolution with her Covid pneumonia -Prolonged chronic respiratory failure and vent dependent status -Prognosis guarded given the duration of her respiratory failure -Requested palliative consult to be involved in the care. -She is full code currently -Stop cefepime on to complete 7-day course -Patient is not weanable from the vent-due to adverse impact of Covid pneumonia and poor lung compliance overall. Patient on vent since May code -Family is not very approachable to discuss the CODE STATUS. palliative did talk to the son Alvarez and he is going to touch base with his siblings. Patient would not be able to go to LTAC to continue the vent management as she does not have a good insurance. Second episode of tension pneumothorax requiring chest tube placement on Plan for PICC line - central line has been over a month old. Hypoglycemia----insulin dose being reduced. Again family is being updated. Almost 60 days being here. 27th CODE STATUS changed to DNR Overall poor prognosis given her longstanding vent dependent, COVID-19 pneumonia Appreciate palliative involvement. It appears patient's family have no desire at this point in withdrawing the care.
[2020-06-27] MEDS: Cholecalciferol 1,000 UNITS (25 MCG) TAB PO SCH (22:39)
[2020-06-28] MEDS: Vecuronium 10 MG VIAL IVP PRN ×13 (00:03→18:54)
[2020-06-28] MEDS ORDERED: Vecuronium 10 MG VIAL ONE (00:06)
[2020-06-28] MEDS: Lorazepam 2 MG/ML VIAL SLOW IVP PRN (01:07)
[2020-06-28] MEDS: Sodium Chloride 0.9% 1,000 ML IV SCH ×2 (02:42→18:47)
[2020-06-28] MEDS: HumaLOG 300 UNITS/3 ML VIAL SC PRN ×3 (04:27→21:17)
[2020-06-28 05:07] LABS: Anion Gap 14 mmol/L (10-20); BUN (Urea Nitrogen) 17 mg/dL (9.8-20.1); Calc. Creatinine Clearance 115 mL/min (70-130); Calcium 9.2 mg/dL (7.8-10.44); Carbon Dioxide 34 mmol/L (22-29); Chloride 96 mmol/L (98-107); Glucose 356 mg/dL (70-105); Potassium 4.5 mmol/L (3.5-5.1); Sodium 139 mmol/L (136-145)
[2020-06-28 05:21] LABS: Band 1 % (5-11); Hemoglobin 9.5 g/dL (12.0-16.0); Hypochromia SLIGHT = 6-15 cells (100X) (0-5/hpf); Lymphocytes 16 % (21-51); MDiff Complete? YES; Mean Corpuscular HGB CONC 31.5 g/dL (32.0-36.0); Mean Corpuscular Hemoglobin 29.7 pg (27.0-31.0); Mean Corpuscular Volume 94.3 fL (78.0-98.0); Mean Platelet Volume 7.4 fL (7.4-10.4); Neutrophil 83 % (42-75); Platelet Count 606 thou/uL (130-400); Platelet Morphology Comment Appears Increased; RBC Distribution Width 15.4 % (11.5-14.5); Red Blood Cell (RBC) Count 3.19 mill/uL (4.20-5.40); White Blood Cell (WBC) Count 14.5 thou/uL (4.8-10.8)
[2020-06-28] MEDS ORDERED: Bacteriostatic Normal Saline 30 ML VIAL ONE ×2 (07:30→16:22)
[2020-06-28] MEDS: Polyethylene Glycol 3350 17 GM Packet PER TUBE SCH (07:45)
[2020-06-28] MEDS: Senokot S 8.6-50 MG TAB PO SCH ×2 (07:46→20:15)
--- NOTE | 2020-06-28 08:28 | RAD ---
EXAM: CHEST ONE VIEW HISTORY: Pneumonia. Follow-up evaluation. COMPARISON: 06/27/2020 FINDINGS: Tracheostomy device, a sided PICC line, right-sided vascular catheter, bilateral thoracostomy tubes, and gastrostomy tube remain in place and unchanged in position. Cardiac silhouettes within normal limits. Right lung apex is incompletely imaged, but there is a tiny right and trace left pneumothorac es present. Bilateral airspace opacities are again seen diffusely throughout the lungs bilaterally. Small thin-walled cavitary lesion left lung base is again seen. No significant interval change compar ed to prior exam. The osseous structures are intact. IMPRESSION: 1. Stable minimal biapical pneumothoraces with bilateral thoracostomy tubes remain in place. 2. Stable diffuse bilateral airspace opacities with stable thin-walled cavitary lesion left lung base .
[2020-06-28] MEDS: methylPREDNISolone Sod Succ 40 MG VIAL IVP SCH ×2 (09:57→20:14)
[2020-06-28] MEDS: Pantoprazole 40 MG GRANULES PACKET PER TUBE SCH (09:59)
[2020-06-28] MEDS: Ascorbic Acid 500 mg Chewable Tablet PO SCH (09:59)
[2020-06-28] MEDS: Apixaban 5 MG TAB PER TUBE SCH ×2 (09:59→20:13)
[2020-06-28] MEDS: Cefepime 1 GM in Sodium Chloride 0.9% 100 ML IVPB SCH ×2 (10:00→20:22)
[2020-06-28] MEDS: NPH, Human Insulin Isophane 300 UNIT/3 ML VIAL SC SCH ×2 (10:44→21:16)
[2020-06-28] MEDS ORDERED: EPINEPHrine 1 MG/10 ML Abboject SYRINGE ONE (12:54)
[2020-06-28] MEDS ORDERED: EPINEPHrine 1 MG/ML AMP ONE (12:56)
--- NOTE | 2020-06-28 13:00 | PDOC.HOSPP ---
- Subjective Encounter Date: 06/28/20 Encounter Time: 10:25 Subjective: Patient has to be paralyzed twice this morning. her sats are dropping significantly. Bilateral chest tube placement. Chest x-ray this morning shows minimal biapical pneumothoraces and a stable diffuse bilateral airspace opacity with thin-walled cavitary lesions in the left lung base. - Objective Vital Signs & Weight: Vital Signs (12 hours) Temp Pulse Resp BP 06/28/20 12:00 20 06/28/20 10:13 122 H 155/86 H 06/28/20 10:00 20 06/28/20 08:00 20 06/28/20 07:00 99.1 F 06/28/20 06:42 125 H 147/86 H 06/28/20 06:00 20 06/28/20 04:00 20 06/28/20 01:52 20 06/28/20 01:00 20 Weight Admit Weight 147 lb Weight 129 lb 3.054 oz Most Recent Monitor Data Heart Rate from ECG 127 NIBP 174/86 NIBP BP-Mean 115 Respiration from ECG 20 SpO2 84 I&O: 06/27/20 06/28/20 06/29/20 06:59 06:59 06:59 Intake Total 4250.2 4231.5 280 Output Total 2885 3440 945 Balance 1365.2 791.5 -665 Result Diagrams: 06/28/20 04:20 06/28/20 04:20 Additional Labs: Accuchecks 06/28/20 06/27/20 06/27/20 12:03 20:24 15:57 POC Glucose 290 H 184 H 213 H Hospitalist ROS - Medication Medications: Active Medications Generic Name Dose Route Start Last Admin Trade Name Freq PRN Reason Stop Dose Admin Acetaminophen 1,000 mg 05/04/20 07:05 06/21/20 09:34 Acetaminophen 500 Mg Tab PO 1,000 mg Q6H PRN Administration Mild Pain (1-3) Apixaban 5 mg 06/07/20 21:00 06/28/20 09:59 Apixaban 5 Mg Tab PER TUBE 5 mg BID OMARI Administration Ascorbic Acid 1,000 mg 05/04/20 09:00 06/28/20 09:59 Ascorbic Acid 500 Mg Chewable Tablet PO 1,000 mg DAILY OMARI Administration Cholecalciferol 5,000 units 05/04/20 21:00 06/27/20 22:39 Cholecalciferol 1,000 Units (25 Mcg) Tab PO 5,000 units HS OMARI Administration Dextrose/Water 25 gm 05/03/20 22:18 06/13/20 10:14 Dextrose 50% Abboject 50 Ml Syringe SLOW IVP 25 gm PRN PRN Administration HYPOGLYCEMIA PROTOCOL Fentanyl 100 mcg 06/20/20 07:30 06/26/20 08:53 Fentanyl 100 Mcg/Hour Patch TD 100 mcg Q3D OMARI Administration Dextrose/Water 1,000 mls @ 0 mls/hr 05/03/20 22:30 06/06/20 09:49 D5w IV 1,000 mls INF PRN Administration HYPOGLYCEMIA PROTOCOL As Directed Midazolam HCl 100 mls @ 0 mls/hr 06/20/20 07:30 06/28/20 05:58 Versed IVPB 100 mls INF OMARI Administration Protocol Titrate Cefepime HCl 1 gm/ Sodium 100 mls @ 200 mls/hr 06/20/20 09:00 06/28/20 10:00 Chloride IVPB 100 mls Q12HR OMARI Administration Sodium Chloride 1,000 mls @ 70 mls/hr 06/21/20 08:00 06/28/20 02:42 Normal Saline 0.9% IV 1,000 mls .[id number] OMARI Administration Insulin Human Lispro 0 units 05/05/20 01:19 06/28/20 04:27 Humalog 300 Units/3 Ml Vial SC 6 unit .MODERATE SLIDING SC PRN Administration Moderate Correctional Scale Insulin Human NPH 10 unit 06/26/20 09:00 06/28/20 10:44 Nph, Human Insulin Isophane 300 Unit/3 Ml Vial SC 10 unit BID OMARI Administration Lorazepam 2 mg 06/25/20 21:15 06/28/20 01:07 Lorazepam 2 Mg/Ml Vial SLOW IVP 07/25/20 21:15 2 mg Q1H PRN Administration Breakthrough agitation Methylprednisolone Sodium Succinate 30 mg 06/25/20 09:00 06/28/20 09:57 Methylprednisolone Sod Succ 40 Mg Vial IVP 30 mg BID OMARI Administration Morphine Sulfate 2 mg 06/12/20 02:00 06/25/20 20:20 Morphine 2 Mg/Ml Vial SLOW IVP 07/12/20 02:00 2 mg Q1H PRN Administration Breakthrough Pain/Agitation Ondansetron HCl 4 mg 05/04/20 07:05 05/04/20 12:12 Ondansetron Pf 4 Mg/2 Ml Vial IVP 4 mg Q6H PRN Administration Nausea/Vomiting Pantoprazole Sodium 40 mg 06/20/20 09:00 06/28/20 09:59 Pantoprazole 40 Mg Granules Packet PER TUBE 40 mg DAILY OMARI Administration Polyethylene Glycol 17 gm 05/06/20 15:40 06/18/20 08:44 Polyethylene Glycol 3350 17 Gm Packet PO 17 gm DAILYPRN PRN Administration Constipation Polyethylene Glycol 17 gm 06/19/20 09:00 06/28/20 07:45 Polyethylene Glycol 3350 17 Gm Packet PER TUBE Not Given DAILY OMARI Propofol 1,000 mg 06/25/20 21:15 06/26/20 18:26 Propofol 1,000 Mg/100 Ml Vial IV 07/25/20 21:15 1,000 mg INF PRN Administration TO ACHIEVE GOAL RASS Protocol Senna/Docusate Sodium 1 tab 05/06/20 21:00 06/28/20 07:46 Senokot S 8.6-50 Mg Tab PO Not Given BID OMARI Sodium Chloride 10 ml 06/13/20 21:00 06/28/20 10:45 Flush - Normal Saline 10 Ml Syringe IVF 10 ml Q12HR OMARI Administration Sodium Chloride 10 ml 06/13/20 19:45 06/14/20 08:55 Flush - Normal Saline 10 Ml Syringe IVF 10 ml PRN PRN Administration Saline Flush Vecuronium [place] 10 mg 06/25/20 21:02 06/28/20 11:58 Vecuronium 10 Mg Vial IVP 10 mg Q30MIN PRN Administration Agitation Hospitalist Exam Vitals: Vital Signs (12 hours) Temp Pulse Resp BP 06/28/20 12:00 20 06/28/20 10:13 122 H 155/86 H 06/28/20 10:00 20 06/28/20 08:00 20 06/28/20 07:00 99.1 F 06/28/20 06:42 125 H 147/86 H 06/28/20 06:00 20 06/28/20 04:00 20 06/28/20 01:52 20 06/28/20 01:00 20 Weight Admit Weight 147 lb Weight 129 lb 3.054 oz Most Recent Monitor Data Heart Rate from ECG 127 NIBP 174/86 NIBP BP-Mean 115 Respiration from ECG 20 SpO2 84 General Appearance: ill appearing General - other findings: Bilateral chest tube placement. Eye: PERRL, anicteric sclera ENT: normocephalic atraumatic Neck: supple Heart: RRR Respiratory: CTAB, normal chest expansion Gastrointestinal: soft, normal bowel sounds Extremities - other findings: Dependent edema Psychiatric: not oriented Hosp A/P - Plan 55 year old female who presented with weakness and shortness of breath, hypoxia. DKA which resolved. #Acute hypoxic respiratory failure from COVID pneumonia #Bacteremia - the patient received ceftriaxone from 05/04 to 05/14, zosyn from 05/05 to 05/22. Chest X ray showed worsening infiltrates 06/02. She received vanc and meropenem until 06/06. - chest X ray 06/20 showed increasing interstitial opacities. Blood culture 06/18 grew 1/2 Bacillus. Cefepime was restarted 06/21. WBC is up to 13, will monitor Tension pneumothorax -Status post chest tube placement #Leukocytosis - worsening to 13. Cefepime restarted 06/20. Will monitor for now #Anemia - hb 10.0 Status post PICC placement -Tolerating the tube feed. #Type II Diabetes #Hypoglycemia- resolved - blood sugars 100-200. Continue lantus 28 units bid -Follow-up on A1c Full code -No clinical resolution with her Covid pneumonia -Prolonged chronic respiratory failure and vent dependent status -Prognosis guarded given the duration of her respiratory failure -Requested palliative consult to be involved in the care. -She is full code currently -Stop cefepime on to complete 7-day course -Patient is not weanable from the vent-due to adverse impact of Covid pneumonia and poor lung compliance overall. Patient on vent since May code -Family is not very approachable to discuss the CODE STATUS. palliative did talk to the son Alvarez and he is going to touch base with his siblings. Patient would not be able to go to LTAC to continue the vent management as she does not have a good insurance. Second episode of tension pneumothorax requiring chest tube placement on Plan for PICC line - central line has been over a month old. Hypoglycemia----insulin dose being reduced. Again family is being updated. Almost 60 days being here. CODE STATUS changed to DNR Overall poor prognosis given her longstanding vent dependent, COVID-19 pneumonia Appreciate palliative involvement. It appears patient's family have no desire at this point in withdrawing the care. Bilateral chest tube placement. Chest x-ray this morning shows minimal biapical pneumothoraces and a stable diffuse bilateral airspace opacity with thin-walled cavitary lesions in the left lung base. Worsening pulmonary dysfunction Requires paralytics x2 this morning Accelerated hypertension -She does have a as needed hydralazine Eliquis twice daily; IV Solu-Medrol twice a day cefepime 1gm twice a day Medical futility Overall her demise is in the near foreseeable future despite good critical care mgmt.
[2020-06-28 14:01] VITALS: BMI 23.6
[2020-06-28] MEDS: Propofol 1,000 MG/100 ML VIAL IV PRN (18:48)
[2020-06-28] MEDS: Cholecalciferol 1,000 UNITS (25 MCG) TAB PO SCH (20:13)
--- NOTE | 2020-06-28 20:28 | PRG ---
DATE OF SERVICE: 06/28/2020 OBJECTIVE: VITAL SIGNS: Heart rate is 117, respiratory rates in the 20s, oximetry in the 80s on 100% oxygen. GENERAL: She is not paralyzed. She quickly desaturates sometimes as low as 50%. LUNGS, HEART, AND ABDOMEN: Otherwise unchanged. LABORATORY DATA: White count 14.5, hemoglobin 9.5, platelets 606. Sodium 139, potassium 4.5, chloride 96, bicarb 34, BUN 17, creatinine 0.5. IMPRESSION: COVID pneumonia with respiratory failure. I think we be in medicine that she will not survive this. Job ID: [id number]
[2020-06-29] MEDS: Vecuronium 10 MG VIAL IVP PRN ×4 (00:07→03:10)
[2020-06-29 04:49] LABS: #Eosinphils 0.1 thou/uL (0.0-0.7); #Monocytes 0.6 thou/uL (0.11-0.59); #Neutrophils 15.5 thou/uL (1.40-6.50); %Basophils 0.2 % (0.0-1.0); %Eosinophils 0.4 % (0.0-10.0); %Lymphocytes 11.1 % (21.0-51.0); %Monocytes 3.1 % (0.0-10.0); %Neutrophils 85.3 % (42.0-75.0); Hemoglobin 9.9 g/dL (12.0-16.0); Mean Corpuscular HGB CONC 30.3 g/dL (32.0-36.0); Mean Corpuscular Hemoglobin 28.6 pg (27.0-31.0); Mean Corpuscular Volume 94.3 fL (78.0-98.0); Mean Platelet Volume 7.8 fL (7.4-10.4); Platelet Count 640 thou/uL (130-400); RBC Distribution Width 15.6 % (11.5-14.5); Red Blood Cell (RBC) Count 3.47 mill/uL (4.20-5.40); White Blood Cell (WBC) Count 18.2 thou/uL (4.8-10.8)
[2020-06-29 05:08] LABS: Anion Gap 13 mmol/L (10-20); BUN (Urea Nitrogen) 21 mg/dL (9.8-20.1); Calc. Creatinine Clearance 106 mL/min (70-130); Calcium 9.4 mg/dL (7.8-10.44); Carbon Dioxide 34 mmol/L (22-29); Chloride 94 mmol/L (98-107); Glucose 307 mg/dL (70-105); Potassium 4.3 mmol/L (3.5-5.1); Sodium 137 mmol/L (136-145)
[2020-06-29] MEDS: HumaLOG 300 UNITS/3 ML VIAL SC PRN ×2 (05:23→18:42)
[2020-06-29] MEDS: fentaNYL 100 mcg/hour Patch TD SCH (07:53)
--- NOTE | 2020-06-29 08:03 | PRG ---
DATE OF SERVICE: 06/29/2020 35 minutes critical care time. SUBJECTIVE: The patient remains in bad shape, on mechanical ventilation through a tracheostomy. I am told by nursing staff she spent a considerable amount of time with O2 sats in the 60s and 70s last night. OBJECTIVE: VITAL SIGNS: Currently, temperature 98.6, pulse 118, O2 saturation was 90% on 100% oxygen, blood pressure 124/71. GENERAL: She is obtunded, on mechanical ventilation. She is receiving some Versed, propofol, and fentanyl I believe. HEENT: Unremarkable. NECK: Making noises around tracheostomy. LUNGS: Coarse breath sounds. She has air leak from left chest tube. No air leak on the right. CARDIAC: S1, S2 regular. ABDOMEN: Soft, nontender. EXTREMITIES: Edematous. LABORATORY DATA: Sodium 137, potassium 4.3, chloride 94, CO2 34, BUN 21, creatinine 0.5, glucose 307. White blood cell count 18.2, hematocrit 32.8, platelet count 640. ASSESSMENT: 1. COVID-19 pneumonia. 2. Acute respiratory failure without any evidence of improvement over 56 days. PLAN: In my opinion, the situation is hopeless for functional recovery and I would advise withdrawal of care. Apparently, there was a meeting with the family later today to address this. Family did make the patient DNR earlier in this week. We will see whether or not they are ready to transition to comfort care. Job ID: [id number]
--- NOTE | 2020-06-29 09:14 | RAD ---
CHEST 1 VIEW: HISTORY: Pneumonia. COMPARISON: Radiograph of prior day. FINDINGS: Bilateral thoracostomy tubes are in place. There is interval increase in size of the right-sided pne umothorax with a lateral and anterior component. Trace left apical pneumothorax. Tracheostomy tube tip at the clavicular level. The right subclavian central venous catheter tip is i n the right atrium. The left PICC tip also projects over the right atrium. IMPRESSION: Interval redistribution versus size increase of the right-sided pneumothorax now with a more apical a nd lateral component and increased right hemithorax size relative to the left which may reflect a com ponent of lateral tension. The underlying thoracostomy tube is in a similar location. Recommend tu luating the patency of the right-sided thoracostomy tube for mucus plugging. Karina, the patient's nurse, was notified of the findings via telephone at 8:17 a.m. CODE CR POS: HOME
[2020-06-29] MEDS: Cefepime 1 GM in Sodium Chloride 0.9% 100 ML IVPB SCH ×2 (10:22→21:35)
[2020-06-29] MEDS: methylPREDNISolone Sod Succ 40 MG VIAL IVP SCH ×2 (10:23→21:36)
[2020-06-29] MEDS: Ascorbic Acid 500 mg Chewable Tablet PO SCH (10:24)
[2020-06-29] MEDS: Pantoprazole 40 MG GRANULES PACKET PER TUBE SCH (10:24)
[2020-06-29] MEDS: Apixaban 5 MG TAB PER TUBE SCH ×2 (10:24→21:35)
[2020-06-29] MEDS: NPH, Human Insulin Isophane 300 UNIT/3 ML VIAL SC SCH ×2 (10:25→21:39)
[2020-06-29] MEDS: Polyethylene Glycol 3350 17 GM Packet PER TUBE SCH (10:28)
[2020-06-29] MEDS: Senokot S 8.6-50 MG TAB PO SCH ×2 (10:28→23:21)
--- NOTE | 2020-06-29 15:12 | PDOC.HOSPP ---
- Subjective Encounter Date: 06/29/20 Encounter Time: 10:30 Subjective: No family members at bedside seen today. loud gurgling sound from the throat. Her demise is quite imminent - Objective Vital Signs & Weight: Vital Signs (12 hours) Temp Pulse Resp Pulse Ox 06/29/20 14:47 100 06/29/20 14:00 22 H 06/29/20 12:00 22 H 06/29/20 10:32 106 H 06/29/20 10:00 21 H 06/29/20 08:00 98.5 F 22 H 06/29/20 06:42 117 H 06/29/20 06:00 20 06/29/20 04:00 98.6 F 20 72 L Weight Admit Weight 147 lb Weight 129 lb 13.636 oz Most Recent Monitor Data Heart Rate from ECG 94 NIBP 105/57 NIBP BP-Mean 73 Respiration from ECG 23 SpO2 86 I&O: 06/28/20 06/29/20 06/30/20 06:59 06:59 06:59 Intake Total 4231.5 3563.8 60 Output Total 3440 3985 820 Balance 791.5 -421.2 -760 Result Diagrams: 06/29/20 03:32 06/29/20 03:32 Additional Labs: Accuchecks 06/29/20 06/28/20 06/28/20 10:43 21:14 15:55 POC Glucose 203 H 191 H 304 H Hospitalist ROS - Medication Medications: Active Medications Generic Name Dose Route Start Last Admin Trade Name Freq PRN Reason Stop Dose Admin Acetaminophen 1,000 mg 05/04/20 07:05 06/21/20 09:34 Acetaminophen 500 Mg Tab PO 1,000 mg Q6H PRN Administration Mild Pain (1-3) Apixaban 5 mg 06/07/20 21:00 06/29/20 10:24 Apixaban 5 Mg Tab PER TUBE 5 mg BID OMARI Administration Ascorbic Acid 1,000 mg 05/04/20 09:00 06/29/20 10:24 Ascorbic Acid 500 Mg Chewable Tablet PO 1,000 mg DAILY OMARI Administration Cholecalciferol 5,000 units 05/04/20 21:00 06/28/20 20:13 Cholecalciferol 1,000 Units (25 Mcg) Tab PO 5,000 units HS OMARI Administration Dextrose/Water 25 gm 05/03/20 22:18 06/13/20 10:14 Dextrose 50% Abboject 50 Ml Syringe SLOW IVP 25 gm PRN PRN Administration HYPOGLYCEMIA PROTOCOL Fentanyl 100 mcg 06/20/20 07:30 06/29/20 07:53 Fentanyl 100 Mcg/Hour Patch TD Not Given Q3D OMARI Dextrose/Water 1,000 mls @ 0 mls/hr 05/03/20 22:30 06/06/20 09:49 D5w IV 1,000 mls INF PRN Administration HYPOGLYCEMIA PROTOCOL As Directed Midazolam HCl 100 mls @ 0 mls/hr 06/20/20 07:30 06/29/20 02:14 Versed IVPB 100 mls INF OMARI Administration Protocol Titrate Cefepime HCl 1 gm/ Sodium 100 mls @ 200 mls/hr 06/20/20 09:00 06/29/20 10:22 Chloride IVPB 100 mls Q12HR OMARI Administration Sodium Chloride 1,000 mls @ 70 mls/hr 06/21/20 08:00 06/28/20 18:47 Normal Saline 0.9% IV 1,000 mls .[id number] OMARI Administration Insulin Human Lispro 0 units 05/05/20 01:19 06/29/20 05:23 Humalog 300 Units/3 Ml Vial SC 8 unit .MODERATE SLIDING SC PRN Administration Moderate Correctional Scale Insulin Human NPH 20 unit 06/29/20 07:43 06/29/20 10:25 Nph, Human Insulin Isophane 300 Unit/3 Ml Vial SC 20 unit BID OMARI Administration Lorazepam 2 mg 06/25/20 21:15 06/28/20 01:07 Lorazepam 2 Mg/Ml Vial SLOW IVP 07/25/20 21:15 2 mg Q1H PRN Administration Breakthrough agitation Methylprednisolone Sodium Succinate 30 mg 06/25/20 09:00 06/29/20 10:23 Methylprednisolone Sod Succ 40 Mg Vial IVP 30 mg BID OMARI Administration Morphine Sulfate 2 mg 06/12/20 02:00 06/25/20 20:20 Morphine 2 Mg/Ml Vial SLOW IVP 07/12/20 02:00 2 mg Q1H PRN Administration Breakthrough Pain/Agitation Ondansetron HCl 4 mg 05/04/20 07:05 05/04/20 12:12 Ondansetron Pf 4 Mg/2 Ml Vial IVP 4 mg Q6H PRN Administration Nausea/Vomiting Pantoprazole Sodium 40 mg 06/20/20 09:00 06/29/20 10:24 Pantoprazole 40 Mg Granules Packet PER TUBE 40 mg DAILY OMARI Administration Polyethylene Glycol 17 gm 05/06/20 15:40 06/18/20 08:44 Polyethylene Glycol 3350 17 Gm Packet PO 17 gm DAILYPRN PRN Administration Constipation Polyethylene Glycol 17 gm 06/19/20 09:00 06/29/20 10:28 Polyethylene Glycol 3350 17 Gm Packet PER TUBE Not Given DAILY OMARI Propofol 1,000 mg 06/25/20 21:15 06/28/20 18:48 Propofol 1,000 Mg/100 Ml Vial IV 07/25/20 21:15 1,000 mg INF PRN Administration TO ACHIEVE GOAL RASS Protocol Senna/Docusate Sodium 1 tab 05/06/20 21:00 06/29/20 10:28 Senokot S 8.6-50 Mg Tab PO Not Given BID OMARI Sodium Chloride 10 ml 06/13/20 21:00 06/29/20 10:28 Flush - Normal Saline 10 Ml Syringe IVF Not Given Q12HR OMARI Sodium Chloride 10 ml 06/13/20 19:45 06/14/20 08:55 Flush - Normal Saline 10 Ml Syringe IVF 10 ml PRN PRN Administration Saline Flush Vecuronium [place] 10 mg 06/25/20 21:02 06/29/20 03:10 Vecuronium 10 Mg Vial IVP 10 mg Q30MIN PRN Administration Agitation Hospitalist Exam Vitals: Vital Signs (12 hours) Temp Pulse Resp Pulse Ox 06/29/20 14:47 100 06/29/20 14:00 22 H 06/29/20 12:00 22 H 06/29/20 10:32 106 H 06/29/20 10:00 21 H 06/29/20 08:00 98.5 F 22 H 06/29/20 06:42 117 H 06/29/20 06:00 20 06/29/20 04:00 98.6 F 20 72 L Weight Admit Weight 147 lb Weight 129 lb 13.636 oz Most Recent Monitor Data Heart Rate from ECG 94 NIBP 105/57 NIBP BP-Mean 73 Respiration from ECG 23 SpO2 86 General Appearance: ill appearing Eye: PERRL Eye - other findings: trach ENT: normocephalic atraumatic ENT - other findings: gurgling sound Neck: supple Heart: RRR Respiratory: rhonchi, tachypneic, wheezes Gastrointestinal: soft Neurological: no new deficit Psychiatric: not oriented Hosp A/P - Plan 55 year old female who presented with weakness and shortness of breath, hypoxia. DKA which resolved. #Acute hypoxic respiratory failure from COVID pneumonia #Bacteremia - the patient received ceftriaxone from 05/04 to 05/14, zosyn from 05/05 to 05/22. Chest X ray showed worsening infiltrates 06/02. She received vanc and meropenem until 06/06. - chest X ray 06/20 showed increasing interstitial opacities. Blood culture 06/18 grew 1/2 Bacillus. Cefepime was restarted 06/21. WBC is up to 13, will monitor Tension pneumothorax -Status post chest tube placement #Leukocytosis - worsening to 13. Cefepime restarted 06/20. Will monitor for now #Anemia - hb 10.0 Status post PICC placement -Tolerating the tube feed. #Type II Diabetes #Hypoglycemia- resolved - blood sugars 100-200. Continue lantus 28 units bid -Follow-up on A1c Full code -No clinical resolution with her Covid pneumonia -Prolonged chronic respiratory failure and vent dependent status -Prognosis guarded given the duration of her respiratory failure -Requested palliative consult to be involved in the care. -She is full code currently -Stop cefepime on to complete 7-day course -Patient is not weanable from the vent-due to adverse impact of Covid pneumonia and poor lung compliance overall. Patient on vent since May code -Family is not very approachable to discuss the CODE STATUS. palliative did talk to the son Alvarez and he is going to touch base with his siblings. Patient would not be able to go to LTAC to continue the vent management as she does not have a good insurance. Second episode of tension pneumothorax requiring chest tube placement on Plan for PICC line - central line has been over a month old. Hypoglycemia----insulin dose being reduced. Again family is being updated. Almost 60 days being here. CODE STATUS changed to DNR Overall poor prognosis given her longstanding vent dependent, COVID-19 pneumonia Appreciate palliative involvement. It appears patient's family have no desire at this point in withdrawing the care. Bilateral chest tube placement. Chest x-ray this morning shows minimal biapical pneumothoraces and a stable diffuse bilateral airspace opacity with thin-walled cavitary lesions in the left lung base. Worsening pulmonary dysfunction Requires paralytics x2 this morning Accelerated hypertension -She does have a as needed hydralazine Eliquis twice daily; IV Solu-Medrol twice a day cefepime 1gm twice a day Medical futility Overall her demise is in the near foreseeable future despite good critical care mgmt. worsening prognosis. Her demise is quite imminent. Family meeting this afternoon. ORQUIDEA AR
--- NOTE | 2020-06-29 15:28 | PDOC.PALPN ---
Palliative Progress Note - Subjective Remains with trach, mechanically ventilated FiO2 10% Peep 12, sedated, paralytic, pressure support, chest tubes. - Objective Vital Signs: Vital Signs - Most Recent Temp Pulse Resp BP Pulse Ox 98.5 F 100 22 H 167/87 H 72 L 06/29/20 08:00 06/29/20 14:47 06/29/20 14:00 06/28/20 14:15 06/29/20 04:00 - Physical Exam Constitutional: encephalitic, ill appearing Deviation from normal: Distress with minimal stimulation HEENT: moist MMs Respiratory: unlabored breathing Deviation from normal: mechanical ventilation, chest tubes Cardiovascular: RRR, diminished peripheral pulses Gastrointestinal: soft, non-tender, positive bowel sounds Genitourinary: diamond catheter Musculoskeletal: no cyanosis, no clubbing, diffuse muscle atrophy Deviation from normal: sedated Skin: cap refill <2 seconds, no lesions, no rash Deviation from normal: encephalopathic, sedated, anxious with lifing of sedation - Assessment (1) Palliative care encounter Code(s): Z51.5 - ENCOUNTER FOR PALLIATIVE CARE Current Visit: Yes Status: Acute (2) Acute respiratory failure with hypoxia Code(s): J96.01 - ACUTE RESPIRATORY FAILURE WITH HYPOXIA Current Visit: Yes Status: Acute (3) COVID-19 virus infection Code(s): U07.1 - COVID-19 Current Visit: Yes Status: Resolved (4) DKA (diabetic ketoacidoses) Code(s): E11.10 - TYPE 2 DIABETES MELLITUS WITH KETOACIDOSIS WITHOUT COMA Current Visit: Yes Status: Resolved (5) Pneumonia due to COVID-19 virus Code(s): U07.1 - COVID-19; J12.89 - OTHER VIRAL PNEUMONIA Current Visit: Yes Status: Acute (6) Diabetes mellitus Code(s): E11.9 - TYPE 2 DIABETES MELLITUS WITHOUT COMPLICATIONS Current Visit: Yes Status: Chronic Qualifiers: Diabetes mellitus type: type 2 - Plan Plan: Lengthy conversation again with Cultural link and Hector of patient sons Alvarez and Reviewed decline, poor prognosis and aspect of suffering. Answered questions. Alvarez and two siblings desire to allow for transition of care to comfort at end of life and to be with her, two siblings do not agree. Siblings will visit again. This evening. Vilma Coppola RNpress room supervisor also present. [60] minutes spent on this encounter with >50% of the time in counseling and coordination of care. - ROS Non Response: due to endotracheal tube (Trach), due to mental status
[2020-06-29] MEDS: Sodium Chloride 0.9% 1,000 ML IV SCH (18:50)
[2020-06-29] MEDS: Cholecalciferol 1,000 UNITS (25 MCG) TAB PO SCH (21:55)
[2020-06-29] MEDS ORDERED: Sterile Water 10 ML VIAL FS PRN (23:48)
[2020-06-30] MEDS: Propofol 1,000 MG/100 ML VIAL IV PRN (01:59)
[2020-06-30] MEDS: Vecuronium 10 MG VIAL IVP PRN (04:12)
[2020-06-30 05:19] LABS: Anion Gap 12 mmol/L (10-20); BUN (Urea Nitrogen) 16 mg/dL (9.8-20.1); Calc. Creatinine Clearance 137 mL/min (70-130); Calcium 9.2 mg/dL (7.8-10.44); Carbon Dioxide 33 mmol/L (22-29); Chloride 98 mmol/L (98-107); Glucose 196 mg/dL (70-105); Potassium 3.9 mmol/L (3.5-5.1); Sodium 139 mmol/L (136-145)
[2020-06-30] MEDS: HumaLOG 300 UNITS/3 ML VIAL SC PRN (05:30)
[2020-06-30] MEDS: Sodium Chloride 0.9% 1,000 ML IV SCH (05:40)
[2020-06-30 07:39] LABS: #Monocytes 0.4 thou/uL (0.11-0.59); #Neutrophils 12.1 thou/uL (1.40-6.50); %Basophils 0.3 % (0.0-1.0); %Eosinophils 0.2 % (0.0-10.0); %Lymphocytes 13.5 % (21.0-51.0); %Monocytes 2.7 % (0.0-10.0); %Neutrophils 83.3 % (42.0-75.0); Hemoglobin 9.3 g/dL (12.0-16.0); Mean Corpuscular HGB CONC 31.7 g/dL (32.0-36.0); Mean Corpuscular Hemoglobin 29.5 pg (27.0-31.0); Mean Corpuscular Volume 92.9 fL (78.0-98.0); Mean Platelet Volume 7.7 fL (7.4-10.4); Platelet Count 518 thou/uL (130-400); RBC Distribution Width 15.3 % (11.5-14.5); Red Blood Cell (RBC) Count 3.17 mill/uL (4.20-5.40); White Blood Cell (WBC) Count 14.5 thou/uL (4.8-10.8)
--- NOTE | 2020-06-30 08:01 | PRG ---
DATE OF SERVICE: 06/30/2020 SUBJECTIVE: The patient remains on mechanical ventilation through a tracheostomy. She is on heavy sedation with midazolam, propofol, p.r.n. Ativan, and fentanyl. OBJECTIVE: VITAL SIGNS: Her temperature is 99 and has been basically her maximum temperature, pulse 108, blood pressure 104/62. Fluid balance intake 2823, output 2216. HEENT: Unchanged. NECK: Tracheostomy has a leak around the cuff, probably from tracheomalacia giving her noises through her vocal cords. LUNGS: Coarse rhonchi. 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 CARDIOVASCULAR: S1 and S2. Tachycardic. ABDOMEN: Soft. PEG tube noted. EXTREMITIES: Edematous. LABORATORY DATA: Sodium 139, potassium 3.9, chloride 98, CO2 33, BUN 16, creatinine 0.4, glucose 196. White blood cell count 18.2, hematocrit 32.8, and platelet count 640. Blood sugars have generally been running in the 100s to 200s. She is on NPH insulin 20 units subcu twice daily. Her IV fluids continue to run about 70 mL/h. ASSESSMENT: 1. COVID-19 pneumonia. 2. Acute/chronic respiratory failure requiring mechanical ventilation. 3. Generalized failure to thrive. 4. Diabetes mellitus. PLAN: Given the fact that she has bilateral pneumothoraces and has not shown any propensity to wean in terms of FiO2, I do not think her illness is survival. There have been multiple conversations with family, some of which seemed understand that she will not survive, but it is not at this time. Further family conversations will be held probably early next week. In the meantime, we are continuing current therapy, but her prognosis is dismal. Job ID: [id number]
--- NOTE | 2020-06-30 09:31 | PDOC.HOSPP ---
- Subjective Encounter Date: 06/30/20 Encounter Time: 09:29 Subjective: Ms. Parmar was seen today in follow-up of respiratory failure due to COVID pneumonia. She has a trach and PEG. She has been requiring high levels of supplemental oxygen. Her son is at the bedside praying over her. She seems to respond to him, but focusing on him and tracking him in the room. - Objective Vital Signs & Weight: Vital Signs (12 hours) Temp Pulse Resp 06/30/20 07:04 109 H 06/30/20 06:00 20 06/30/20 04:00 99.0 F 21 H 06/30/20 03:15 109 H 06/30/20 02:00 23 H 06/30/20 01:00 23 H 06/30/20 00:00 98.8 F 22 H 06/29/20 22:29 103 H 06/29/20 22:00 26 H Weight Admit Weight 147 lb Weight 129 lb 13.636 oz Most Recent Monitor Data Heart Rate from ECG 108 NIBP 104/61 NIBP BP-Mean 75 Respiration from ECG 20 SpO2 91 I&O: 06/29/20 06/30/20 07/01/20 06:59 06:59 06:59 Intake Total 3563.8 2823.5 Output Total 3985 2260 0 Balance -421.2 563.5 0 Result Diagrams: 06/30/20 04:16 06/30/20 04:16 Additional Labs: Accuchecks 06/29/20 06/29/20 06/29/20 21:14 17:27 10:43 POC Glucose 121 H 226 H 203 H Hospitalist ROS - Medication Medications: Active Medications Generic Name Dose Route Start Last Admin Trade Name Freq PRN Reason Stop Dose Admin Acetaminophen 1,000 mg 05/04/20 07:05 06/21/20 09:34 Acetaminophen 500 Mg Tab PO 1,000 mg Q6H PRN Administration Mild Pain (1-3) Apixaban 5 mg 06/07/20 21:00 06/29/20 21:35 Apixaban 5 Mg Tab PER TUBE 5 mg BID OMARI Administration Ascorbic Acid 1,000 mg 05/04/20 09:00 06/29/20 10:24 Ascorbic Acid 500 Mg Chewable Tablet PO 1,000 mg DAILY OMARI Administration Cholecalciferol 5,000 units 05/04/20 21:00 06/29/20 21:55 Cholecalciferol 1,000 Units (25 Mcg) Tab PO 5,000 units HS OMARI Administration Dextrose/Water 25 gm 05/03/20 22:18 06/13/20 10:14 Dextrose 50% Abboject 50 Ml Syringe SLOW IVP 25 gm PRN PRN Administration HYPOGLYCEMIA PROTOCOL Dextrose/Water 1,000 mls @ 0 mls/hr 05/03/20 22:30 06/06/20 09:49 D5w IV 1,000 mls INF PRN Administration HYPOGLYCEMIA PROTOCOL As Directed Cefepime HCl 1 gm/ Sodium 100 mls @ 200 mls/hr 06/20/20 09:00 06/29/20 21:35 Chloride IVPB 100 mls Q12HR OMARI Administration Sodium Chloride 1,000 mls @ 70 mls/hr 06/21/20 08:00 06/30/20 05:40 Normal Saline 0.9% IV 1,000 mls .[id number] OMARI Administration Insulin Human Lispro 0 units 05/05/20 01:19 06/30/20 05:30 Humalog 300 Units/3 Ml Vial SC 2 unit .MODERATE SLIDING SC PRN Administration Moderate Correctional Scale Insulin Human NPH 20 unit 06/29/20 07:43 06/29/20 21:39 Nph, Human Insulin Isophane 300 Unit/3 Ml Vial SC 20 unit BID OMARI Administration Lorazepam 2 mg 06/25/20 21:15 06/28/20 01:07 Lorazepam 2 Mg/Ml Vial SLOW IVP 07/25/20 21:15 2 mg Q1H PRN Administration Breakthrough agitation Methylprednisolone Sodium Succinate 30 mg 06/25/20 09:00 06/29/20 21:36 Methylprednisolone Sod Succ 40 Mg Vial IVP 30 mg BID OMARI Administration Ondansetron HCl 4 mg 05/04/20 07:05 05/04/20 12:12 Ondansetron Pf 4 Mg/2 Ml Vial IVP 4 mg Q6H PRN Administration Nausea/Vomiting Pantoprazole Sodium 40 mg 06/20/20 09:00 06/29/20 10:24 Pantoprazole 40 Mg Granules Packet PER TUBE 40 mg DAILY OMARI Administration Polyethylene Glycol 17 gm 05/06/20 15:40 06/18/20 08:44 Polyethylene Glycol 3350 17 Gm Packet PO 17 gm DAILYPRN PRN Administration Constipation Polyethylene Glycol 17 gm 06/19/20 09:00 06/29/20 10:28 Polyethylene Glycol 3350 17 Gm Packet PER TUBE Not Given DAILY OMARI Propofol 1,000 mg 06/25/20 21:15 06/30/20 01:59 Propofol 1,000 Mg/100 Ml Vial IV 07/25/20 21:15 1,000 mg INF PRN Administration TO ACHIEVE GOAL RASS Protocol Senna/Docusate Sodium 1 tab 05/06/20 21:00 06/29/20 23:21 Senokot S 8.6-50 Mg Tab PO Not Given BID OMARI Sodium Chloride 10 ml 06/13/20 21:00 06/29/20 21:37 Flush - Normal Saline 10 Ml Syringe IVF 10 ml Q12HR OMARI Administration Sodium Chloride 10 ml 06/13/20 19:45 06/14/20 08:55 Flush - Normal Saline 10 Ml Syringe IVF 10 ml PRN PRN Administration Saline Flush Vecuronium [place] 10 mg 06/25/20 21:02 06/30/20 04:12 Vecuronium 10 Mg Vial IVP 10 mg Q30MIN PRN Administration Agitation Hospitalist Exam Vitals: Vital Signs (12 hours) Temp Pulse Resp 06/30/20 07:04 109 H 06/30/20 06:00 20 06/30/20 04:00 99.0 F 21 H 06/30/20 03:15 109 H 06/30/20 02:00 23 H 06/30/20 01:00 23 H 06/30/20 00:00 98.8 F 22 H 06/29/20 22:29 103 H 06/29/20 22:00 26 H Weight Admit Weight 147 lb Weight 129 lb 13.636 oz Most Recent Monitor Data Heart Rate from ECG 108 NIBP 104/61 NIBP BP-Mean 75 Respiration from ECG 20 SpO2 91 Eye: PERRL, anicteric sclera Heart: RRR, no murmur, no gallops, no rubs, normal peripheral pulses Respiratory: rales (at the bases, no rhonchi or wheezing) Gastrointestinal: soft, non-tender, non-distended, normal bowel sounds, no palpable masses, no hepatomegaly Extremities: no cyanosis, 1+ LE edema Hosp A/P (1) Acute respiratory failure with hypoxia Code(s): J96.01 - ACUTE RESPIRATORY FAILURE WITH HYPOXIA Status: Acute (2) Pneumonia due to COVID-19 virus Code(s): U07.1 - COVID-19; J12.89 - OTHER VIRAL PNEUMONIA Status: Acute (3) Diabetes mellitus Code(s): E11.9 - TYPE 2 DIABETES MELLITUS WITHOUT COMPLICATIONS Status: Chronic Qualifiers: Diabetes mellitus type: type 2 - Plan * Acute respiratory failure due to COVID pneumonia- 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 Her oxygen saturations have been poor despite ventilatory support * Continue Solumedrol and supportive care * Continue with Cefepime * DM- blood glucose- continue Lantus and SSI * Nutritional Support- with tube feeds * HTN- blood pressure has been stable * Prognosis is extremely poor for functional recovery
[2020-06-30] MEDS: Cefepime 1 GM in Sodium Chloride 0.9% 100 ML IVPB SCH (11:05)
[2020-06-30] MEDS: methylPREDNISolone Sod Succ 40 MG VIAL IVP SCH ×2 (11:06→21:04)
[2020-06-30] MEDS: Ascorbic Acid 500 mg Chewable Tablet PO SCH (11:07)
[2020-06-30] MEDS: Pantoprazole 40 MG GRANULES PACKET PER TUBE SCH (11:20)
[2020-06-30] MEDS: Apixaban 5 MG TAB PER TUBE SCH ×2 (11:20→21:04)
[2020-06-30] MEDS: Senokot S 8.6-50 MG TAB PO SCH ×2 (11:20→21:05)
[2020-06-30] MEDS: NPH, Human Insulin Isophane 300 UNIT/3 ML VIAL SC SCH ×2 (11:21→21:11)
[2020-06-30] MEDS: Polyethylene Glycol 3350 17 GM Packet PER TUBE SCH (11:21)
[2020-06-30] MEDS: Lorazepam 2 MG/ML VIAL SLOW IVP PRN (14:56)
--- NOTE | 2020-06-30 15:54 | RAD ---
RADIOGRAPH CHEST 1 VIEW: DATE: 06/30/2020 TIME: 5:04 AM HISTORY: 55-year-old female follow-up pneumothorax COMPARISON: 06/29/2020 FINDINGS: Right-sided pneumothorax is no longer visualized. Bilateral chest tubes remain. Diffuse bilateral moderately severe reticular nodular infiltrates unchanged. Bilateral subclavian central venous catheters. Tracheostomy tube. No cardiomegaly. Prominent scar at left lateral base. IMPRESSION: 1) interval resolution of right pneumothorax. 2) no interval change in diffuse bilateral reticulonodular moderately severe infiltrates
[2020-06-30] MEDS: Cholecalciferol 1,000 UNITS (25 MCG) TAB PO SCH (21:03)
[2020-07-01] MEDS: Sodium Chloride 0.9% 1,000 ML IV SCH ×2 (02:36→17:46)
[2020-07-01 03:42] LABS: #Lymphocytes 1.6 thou/uL (1.20-3.40); #Monocytes 0.2 thou/uL (0.11-0.59); #Neutrophils 10.4 thou/uL (1.40-6.50); %Basophils 0.2 % (0.0-1.0); %Eosinophils 0.4 % (0.0-10.0); %Monocytes 1.6 % (0.0-10.0); %Neutrophils 84.8 % (42.0-75.0); Hemoglobin 9.5 g/dL (12.0-16.0); Mean Corpuscular HGB CONC 31.7 g/dL (32.0-36.0); Mean Corpuscular Hemoglobin 29.4 pg (27.0-31.0); Mean Corpuscular Volume 92.7 fL (78.0-98.0); Mean Platelet Volume 7.4 fL (7.4-10.4); Platelet Count 509 thou/uL (130-400); RBC Distribution Width 15.5 % (11.5-14.5); Red Blood Cell (RBC) Count 3.24 mill/uL (4.20-5.40); White Blood Cell (WBC) Count 12.3 thou/uL (4.8-10.8)
[2020-07-01 03:58] LABS: Anion Gap 10 mmol/L (10-20); BUN (Urea Nitrogen) 15 mg/dL (9.8-20.1); Calc. Creatinine Clearance 128 mL/min (70-130); Calcium 9.3 mg/dL (7.8-10.44); Carbon Dioxide 37 mmol/L (22-29); Chloride 97 mmol/L (98-107); Glucose 231 mg/dL (70-105); Potassium 4.1 mmol/L (3.5-5.1); Sodium 140 mmol/L (136-145)
[2020-07-01] MEDS: Propofol 1,000 MG/100 ML VIAL IV PRN ×2 (04:52→12:36)
[2020-07-01] MEDS: HumaLOG 300 UNITS/3 ML VIAL SC PRN ×4 (05:26→21:55)
[2020-07-01] MEDS: Ascorbic Acid 500 mg Chewable Tablet PO SCH (09:35)
[2020-07-01] MEDS: Apixaban 5 MG TAB PER TUBE SCH ×2 (09:36→21:48)
[2020-07-01] MEDS: methylPREDNISolone Sod Succ 40 MG VIAL IVP SCH ×2 (09:36→21:49)
[2020-07-01] MEDS: Pantoprazole 40 MG GRANULES PACKET PER TUBE SCH (09:36)
--- NOTE | 2020-07-01 09:56 | RAD ---
EXAM: Chest one view: HISTORY: Follow-up pneumonia COMPARISON: 06/30/2020 FINDINGS: Tracheostomy tube, left PICC line, right central line, and bilateral chest tubes in place. Heart size: Within normal limits. Lungs: Stable extensive bilateral mostly linear and interstitial and alveolar opacity changes with so me bullous changes in the left lower chest. Possible tiny left apical pneumothorax but no evidence for significant size residual pneumothorax. IMPRESSION: Stable exam. Continued short-term follow-up.
[2020-07-01] MEDS: NPH, Human Insulin Isophane 300 UNIT/3 ML VIAL SC SCH ×2 (10:17→21:51)
--- NOTE | 2020-07-01 10:26 | PDOC.HOSPP ---
- Subjective Encounter Date: 07/01/20 Encounter Time: 10:25 Subjective: Ms. Parmar was seen today in follow-up of COVID pneumonia. She will open her eyes to voice and touch. One of her son's is at the bedside. - Objective Vital Signs & Weight: Vital Signs (12 hours) Temp Pulse Resp BP Pulse Ox 07/01/20 08:00 21 H 98 07/01/20 07:57 111 H 113/73 07/01/20 07:00 98.8 F 07/01/20 06:00 21 H 07/01/20 04:00 99.3 F 27 H 07/01/20 03:15 101 H 07/01/20 02:00 24 H 07/01/20 00:00 98.6 F 21 H 06/30/20 22:29 87 Weight Admit Weight 147 lb Weight 136 lb 0.403 oz Most Recent Monitor Data Heart Rate from ECG 110 NIBP 113/73 NIBP BP-Mean 86 Respiration from ECG 21 SpO2 98 I&O: 06/30/20 07/01/20 07/02/20 06:59 06:59 06:59 Intake Total 2823.5 4344 Output Total 2260 1935 60 Balance 563.5 2409 -60 Result Diagrams: 07/01/20 03:20 07/01/20 03:20 Additional Labs: Accuchecks 06/30/20 06/30/20 06/30/20 22:06 16:38 11:24 POC Glucose 187 H 160 H 195 H Hospitalist ROS - Medication Medications: Active Medications Generic Name Dose Route Start Last Admin Trade Name Freq PRN Reason Stop Dose Admin Acetaminophen 1,000 mg 05/04/20 07:05 06/21/20 09:34 Acetaminophen 500 Mg Tab PO 1,000 mg Q6H PRN Administration Mild Pain (1-3) Apixaban 5 mg 06/07/20 21:00 07/01/20 09:36 Apixaban 5 Mg Tab PER TUBE 5 mg BID OMARI Administration Ascorbic Acid 1,000 mg 05/04/20 09:00 07/01/20 09:35 Ascorbic Acid 500 Mg Chewable Tablet PO 1,000 mg DAILY OMARI Administration Cholecalciferol 5,000 units 05/04/20 21:00 06/30/20 21:03 Cholecalciferol 1,000 Units (25 Mcg) Tab PO 5,000 units HS OMARI Administration Dextrose/Water 25 gm 05/03/20 22:18 06/13/20 10:14 Dextrose 50% Abboject 50 Ml Syringe SLOW IVP 25 gm PRN PRN Administration HYPOGLYCEMIA PROTOCOL Dextrose/Water 1,000 mls @ 0 mls/hr 05/03/20 22:30 06/06/20 09:49 D5w IV 1,000 mls INF PRN Administration HYPOGLYCEMIA PROTOCOL As Directed Sodium Chloride 1,000 mls @ 70 mls/hr 06/21/20 08:00 07/01/20 02:36 Normal Saline 0.9% IV 1,000 mls .[id number] OMARI Administration Midazolam HCl 100 mls @ 0 mls/hr 06/30/20 15:15 07/01/20 02:20 Versed IVPB 100 mls INF OMARI Administration Protocol Titrate Insulin Human Lispro 0 units 05/05/20 01:19 07/01/20 05:26 Humalog 300 Units/3 Ml Vial SC 4 unit .MODERATE SLIDING SC PRN Administration Moderate Correctional Scale Insulin Human NPH 20 unit 06/29/20 07:43 07/01/20 10:17 Nph, Human Insulin Isophane 300 Unit/3 Ml Vial SC 20 unit BID OMARI Administration Lorazepam 2 mg 06/25/20 21:15 06/30/20 14:56 Lorazepam 2 Mg/Ml Vial SLOW IVP 07/25/20 21:15 2 mg Q1H PRN Administration Breakthrough agitation Methylprednisolone Sodium Succinate 30 mg 06/25/20 09:00 07/01/20 09:36 Methylprednisolone Sod Succ 40 Mg Vial IVP 30 mg BID OMARI Administration Ondansetron HCl 4 mg 05/04/20 07:05 05/04/20 12:12 Ondansetron Pf 4 Mg/2 Ml Vial IVP 4 mg Q6H PRN Administration Nausea/Vomiting Pantoprazole Sodium 40 mg 06/20/20 09:00 07/01/20 09:36 Pantoprazole 40 Mg Granules Packet PER TUBE 40 mg DAILY OMARI Administration Polyethylene Glycol 17 gm 05/06/20 15:40 06/18/20 08:44 Polyethylene Glycol 3350 17 Gm Packet PO 17 gm DAILYPRN PRN Administration Constipation Polyethylene Glycol 17 gm 06/19/20 09:00 06/30/20 11:21 Polyethylene Glycol 3350 17 Gm Packet PER TUBE Not Given DAILY OMARI Propofol 1,000 mg 06/25/20 21:15 07/01/20 04:52 Propofol 1,000 Mg/100 Ml Vial IV 07/25/20 21:15 1,000 mg INF PRN Administration TO ACHIEVE GOAL RASS Protocol Senna/Docusate Sodium 1 tab 05/06/20 21:00 06/30/20 21:05 Senokot S 8.6-50 Mg Tab PO Not Given BID OMARI Sodium Chloride 10 ml 06/13/20 21:00 06/30/20 21:05 Flush - Normal Saline 10 Ml Syringe IVF 10 ml Q12HR OMARI Administration Sodium Chloride 10 ml 06/13/20 19:45 06/14/20 08:55 Flush - Normal Saline 10 Ml Syringe IVF 10 ml PRN PRN Administration Saline Flush Vecuronium [place] 10 mg 06/25/20 21:02 06/30/20 04:12 Vecuronium 10 Mg Vial IVP 10 mg Q30MIN PRN Administration Agitation Hospitalist Exam Vitals: Vital Signs (12 hours) Temp Pulse Resp BP Pulse Ox 07/01/20 08:00 21 H 98 07/01/20 07:57 111 H 113/73 07/01/20 07:00 98.8 F 07/01/20 06:00 21 H 07/01/20 04:00 99.3 F 27 H 07/01/20 03:15 101 H 07/01/20 02:00 24 H 07/01/20 00:00 98.6 F 21 H 06/30/20 22:29 87 Weight Admit Weight 147 lb Weight 136 lb 0.403 oz Most Recent Monitor Data Heart Rate from ECG 110 NIBP 113/73 NIBP BP-Mean 86 Respiration from ECG 21 SpO2 98 General Appearance: NAD, awake alert Eye: PERRL, anicteric sclera Heart: RRR, no murmur, no gallops, no rubs, normal peripheral pulses Respiratory: no wheezes, no ronchi, rales (at both bases) Gastrointestinal: soft, non-tender, non-distended, normal bowel sounds, no palpable masses, no hepatomegaly Extremities: no cyanosis (palpable d.p. pulses), 1+ LE edema Hosp A/P (1) Acute respiratory failure with hypoxia Code(s): J96.01 - ACUTE RESPIRATORY FAILURE WITH HYPOXIA Status: Acute (2) Pneumonia due to COVID-19 virus Code(s): U07.1 - COVID-19; J12.89 - OTHER VIRAL PNEUMONIA Status: Acute (3) Diabetes mellitus Code(s): E11.9 - TYPE 2 DIABETES MELLITUS WITHOUT COMPLICATIONS Status: Chronic Qualifiers: Diabetes mellitus type: type 2 - Plan * Acute respiratory failure due to COVID pneumonia- She is on maximum venti latory support and her oxygen saturations continue to drop with only minimal exertion. * Continue Solumedrol and supportive care * Continue with Cefepime * DM- blood glucose- continue Lantus and SSI * Nutritional Support- with tube feeds * HTN- blood pressure has been stable * Prognosis is extremely poor for any recovery
[2020-07-01] MEDS: Polyethylene Glycol 3350 17 GM Packet PER TUBE SCH (10:50)
[2020-07-01] MEDS: Senokot S 8.6-50 MG TAB PO SCH ×2 (10:50→21:48)
--- NOTE | 2020-07-01 11:09 | PRG ---
DATE OF SERVICE: 07/01/2020 SUBJECTIVE: The patient continues on mechanical ventilation. Currently on assist control, rate 20, inspiratory pressure 24, inspiratory time 1 second with FiO2 of 100%, PEEP of 12, and walked in the room this morning. Her O2 saturation was at a surprising 100%. Her chest tubes have bilateral air leaks in the Pleur-evac. She had copious urine output. She is sedated on Versed and propofol and fentanyl. OBJECTIVE: HEENT: Unchanged. NECK: Trach in good position. LUNGS: Coarse rhonchi. CARDIAC: S1 and S2. Slightly tachycardic. ABDOMEN: Soft. EXTREMITIES: Trace edema throughout. LABORATORY DATA: Sodium 140, potassium 4.1, chloride 97, CO2 of 37, BUN 15, creatinine 0.4, glucose 231. White blood cell count 12.3, hematocrit 30, and platelet count 509. X-ray shows no change. ASSESSMENT: 1. COVID-19 pneumonia. 2. Bilateral pneumothoraces. 3. Acute hypoxic respiratory failure requiring mechanical ventilation. PLAN: At this time, she remains unweanable from mechanical ventilation. I have had multiple conversations with the family, indicating poor prognosis and advisement of withdrawal of care. She is DNR, but they have not made a decision whether or not to withdraw care. We are basically continuing current care. I will try to wean her oxygen, although I have no confidence that it will work. Job ID: [id number]
[2020-07-01] MEDS: Cholecalciferol 1,000 UNITS (25 MCG) TAB PO SCH (21:48)
[2020-07-02 04:55] LABS: #Basophils 0.1 thou/uL (0.0-0.2); #Eosinphils 0.4 thou/uL (0.0-0.7); #Lymphocytes 3.7 thou/uL (1.20-3.40); #Monocytes 0.7 thou/uL (0.11-0.59); #Neutrophils 13.4 thou/uL (1.40-6.50); %Basophils 0.4 % (0.0-1.0); %Eosinophils 2.1 % (0.0-10.0); %Lymphocytes 20.4 % (21.0-51.0); %Monocytes 3.8 % (0.0-10.0); %Neutrophils 73.4 % (42.0-75.0); Hemoglobin 9.7 g/dL (12.0-16.0); Mean Corpuscular HGB CONC 31.4 g/dL (32.0-36.0); Mean Corpuscular Hemoglobin 29.8 pg (27.0-31.0); Mean Corpuscular Volume 94.9 fL (78.0-98.0); Mean Platelet Volume 7.6 fL (7.4-10.4); Platelet Count 452 thou/uL (130-400); RBC Distribution Width 15.9 % (11.5-14.5); Red Blood Cell (RBC) Count 3.25 mill/uL (4.20-5.40); White Blood Cell (WBC) Count 18.2 thou/uL (4.8-10.8)
[2020-07-02 05:12] LABS: Anion Gap 11 mmol/L (10-20); BUN (Urea Nitrogen) 17 mg/dL (9.8-20.1); Calc. Creatinine Clearance 126 mL/min (70-130); Calcium 8.8 mg/dL (7.8-10.44); Carbon Dioxide 33 mmol/L (22-29); Chloride 100 mmol/L (98-107); Glucose 241 mg/dL (70-105); Potassium 3.5 mmol/L (3.5-5.1); Sodium 140 mmol/L (136-145)
[2020-07-02] MEDS: Lorazepam 2 MG/ML VIAL SLOW IVP PRN (07:23)
[2020-07-02] MEDS: HumaLOG 300 UNITS/3 ML VIAL SC PRN ×3 (07:37→19:19)
--- NOTE | 2020-07-02 08:24 | RAD ---
Portable frontal chest radiograph: 07/02/2020 COMPARISON: 07/01/2020 HISTORY: Pneumonia FINDINGS: Stable tracheostomy tube, right vascular catheter, left upper extremity PICC, and bilateral chest tubes. Probable small volume pneumomediastinum. Questionable tiny apical pneumothorax on the right. Pulmonary cystic change again noted in the left base. There is persistent coarse linear inters titial density with superimposed alveolar opacity bilaterally, right greater than left, with a basilar predominance. IMPRESSION: Questionable tiny pneumothorax in the right lung apex. Otherwise no interval change.
--- NOTE | 2020-07-02 08:54 | PDOC.HOSPP ---
- Subjective Encounter Date: 07/02/20 Encounter Time: 08:50 Subjective: Ms. Parmar was seen today in follow-up of COVID pneumonia and respiratory failure. She has had agonal breathing and an elevated heart rate this morning. - Objective Vital Signs & Weight: Vital Signs (12 hours) Temp Pulse Resp BP 07/02/20 06:57 136 H 91/51 L 07/02/20 06:00 30 H 07/02/20 04:00 99.5 F 31 H 07/02/20 02:32 128 H 84/41 L 07/02/20 02:00 28 H 07/02/20 00:00 33 H 07/01/20 22:48 122 H 07/01/20 22:00 25 H Weight Admit Weight 147 lb Weight 131 lb 6.328 oz Most Recent Monitor Data Heart Rate from ECG 149 NIBP 89/74 NIBP BP-Mean 79 Respiration from ECG 39 SpO2 91 I&O: 07/01/20 07/02/20 07/03/20 06:59 06:59 06:59 Intake Total 4344 3724 Output Total 1935 2745 0 Balance 2409 979 0 Result Diagrams: 07/02/20 04:29 07/02/20 04:29 Additional Labs: Accuchecks 07/02/20 07/01/20 07/01/20 04:29 17:34 10:34 POC Glucose 223 H 245 H 156 H Hospitalist ROS - Medication Medications: Active Medications Generic Name Dose Route Start Last Admin Trade Name Freq PRN Reason Stop Dose Admin Acetaminophen 1,000 mg 05/04/20 07:05 06/21/20 09:34 Acetaminophen 500 Mg Tab PO 1,000 mg Q6H PRN Administration Mild Pain (1-3) Apixaban 5 mg 06/07/20 21:00 07/01/20 21:48 Apixaban 5 Mg Tab PER TUBE 5 mg BID OMARI Administration Ascorbic Acid 1,000 mg 05/04/20 09:00 07/01/20 09:35 Ascorbic Acid 500 Mg Chewable Tablet PO 1,000 mg DAILY OMARI Administration Cholecalciferol 5,000 units 05/04/20 21:00 07/01/20 21:48 Cholecalciferol 1,000 Units (25 Mcg) Tab PO 5,000 units OMARI Administration Dextrose/Water 25 gm 05/03/20 22:18 06/13/20 10:14 Dextrose 50% Abboject 50 Ml Syringe SLOW IVP 25 gm PRN PRN Administration HYPOGLYCEMIA PROTOCOL Dextrose/Water 1,000 mls @ 0 mls/hr 05/03/20 22:30 06/06/20 09:49 D5w IV 1,000 mls INF PRN Administration HYPOGLYCEMIA PROTOCOL As Directed Sodium Chloride 1,000 mls @ 70 mls/hr 06/21/20 08:00 07/01/20 17:46 Normal Saline 0.9% IV 1,000 mls .[id number] OMAIR Administration Midazolam HCl 100 mls @ 0 mls/hr 06/30/20 15:15 07/01/20 23:16 Versed IVPB 100 mls INF OMARI Administration Protocol Titrate Insulin Human Lispro 0 units 05/05/20 01:19 07/02/20 07:37 Humalog 300 Units/3 Ml Vial SC 4 unit .MODERATE SLIDING SC PRN Administration Moderate Correctional Scale Insulin Human NPH 20 unit 06/29/20 07:43 07/01/20 21:51 Nph, Human Insulin Isophane 300 Unit/3 Ml Vial SC 20 unit BID OMARI Administration Lorazepam 2 mg 06/25/20 21:15 07/02/20 07:23 Lorazepam 2 Mg/Ml Vial SLOW IVP 07/25/20 21:15 2 mg Q1H PRN Administration Breakthrough agitation Methylprednisolone Sodium Succinate 30 mg 06/25/20 09:00 07/01/20 21:49 Methylprednisolone Sod Succ 40 Mg Vial IVP 30 mg BID OMARI Administration Ondansetron HCl 4 mg 05/04/20 07:05 05/04/20 12:12 Ondansetron Pf 4 Mg/2 Ml Vial IVP 4 mg Q6H PRN Administration Nausea/Vomiting Pantoprazole Sodium 40 mg 06/20/20 09:00 07/01/20 09:36 Pantoprazole 40 Mg Granules Packet PER TUBE 40 mg DAILY OMARI Administration Polyethylene Glycol 17 gm 05/06/20 15:40 06/18/20 08:44 Polyethylene Glycol 3350 17 Gm Packet PO 17 gm DAILYPRN PRN Administration Constipation Polyethylene Glycol 17 gm 06/19/20 09:00 07/01/20 10:50 Polyethylene Glycol 3350 17 Gm Packet PER TUBE Not Given DAILY OMARI Propofol 1,000 mg 06/25/20 21:15 07/01/20 12:36 Propofol 1,000 Mg/100 Ml Vial IV 07/25/20 21:15 1,000 mg INF PRN Administration TO ACHIEVE GOAL RASS Protocol Senna/Docusate Sodium 1 tab 05/06/20 21:00 07/01/20 21:48 Senokot S 8.6-50 Mg Tab PO 1 tab BID OMARI Administration Sodium Chloride 10 ml 06/13/20 21:00 07/01/20 21:48 Flush - Normal Saline 10 Ml Syringe IVF 10 ml Q12HR OMARI Administration Sodium Chloride 10 ml 06/13/20 19:45 06/14/20 08:55 Flush - Normal Saline 10 Ml Syringe IVF 10 ml PRN PRN Administration Saline Flush Vecuronium [place] 10 mg 06/25/20 21:02 06/30/20 04:12 Vecuronium 10 Mg Vial IVP 10 mg Q30MIN PRN Administration Agitation Hospitalist Exam Vitals: Vital Signs (12 hours) Temp Pulse Resp BP 07/02/20 06:57 136 H 91/51 L 07/02/20 06:00 30 H 07/02/20 04:00 99.5 F 31 H 07/02/20 02:32 128 H 84/41 L 07/02/20 02:00 28 H 07/02/20 00:00 33 H 07/01/20 22:48 122 H 07/01/20 22:00 25 H Weight Admit Weight 147 lb Weight 131 lb 6.328 oz Most Recent Monitor Data Heart Rate from ECG 149 NIBP 89/74 NIBP BP-Mean 79 Respiration from ECG 39 SpO2 91 Eye: PERRL Heart: RRR, no murmur, no gallops, no rubs, normal peripheral pulses Respiratory: rales (+ bilateral rales and rhonchi) Gastrointestinal: soft, non-tender, non-distended, normal bowel sounds, no palpable masses, no hepatomegaly Extremities: no cyanosis, 1+ LE edema Hosp A/P (1) Acute respiratory failure with hypoxia Code(s): J96.01 - ACUTE RESPIRATORY FAILURE WITH HYPOXIA Status: Acute (2) Pneumonia due to COVID-19 virus Code(s): U07.1 - COVID-19; J12.89 - OTHER VIRAL PNEUMONIA Status: Acute (3) Diabetes mellitus Code(s): E11.9 - TYPE 2 DIABETES MELLITUS WITHOUT COMPLICATIONS Status: Chronic Qualifiers: Diabetes mellitus type: type 2 - Plan * Acute respiratory failure due to COVID pneumonia- She continues to have hypoxemia at times on maximal ventilator settings. Her heart rate is in the 150's. * It does not appear she will survive the day * Will continue supportive care, She is DNAR * DM- blood glucose- continue Lantus and SSI * Nutritional Support- with tube feeds * HTN- blood pressure has been stable
[2020-07-02] MEDS: Ascorbic Acid 500 mg Chewable Tablet PO SCH ×2 (09:50→09:51)
[2020-07-02] MEDS: Apixaban 5 MG TAB PER TUBE SCH (09:51)
[2020-07-02] MEDS: NPH, Human Insulin Isophane 300 UNIT/3 ML VIAL SC SCH (09:52)
[2020-07-02] MEDS: methylPREDNISolone Sod Succ 40 MG VIAL IVP SCH (09:52)
[2020-07-02] MEDS: Pantoprazole 40 MG GRANULES PACKET PER TUBE SCH (09:53)
[2020-07-02] MEDS: Propofol 1,000 MG/100 ML VIAL IV PRN (10:50)
[2020-07-02] MEDS: Polyethylene Glycol 3350 17 GM Packet PER TUBE SCH (10:54)
[2020-07-02] MEDS: Senokot S 8.6-50 MG TAB PO SCH (10:54)
--- NOTE | 2020-07-02 17:41 | PRG ---
DATE OF SERVICE: 07/02/2020 SUBJECTIVE: Zoey Parmar is essentially unchanged. OBJECTIVE: VITAL SIGNS: Heart rate is 146, blood pressure 82/71, respiratory rate is in the high 30s, FiO2 is at 100%, sats are in the mid 80s. LUNGS: Unchanged. HEART: Unchanged. ABDOMEN: Unchanged. 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 I do not feel there is any way she can survive this. The new lab findings of significance blood work. Family is at the bedside this afternoon. Job ID: [id number]
[2020-07-02] MEDS: Sodium Chloride 0.9% 1,000 ML IV SCH (18:28)
[2020-07-02 18:39] VITALS: TEMP 98.4
[2020-07-02 18:42] VITALS: BP 75/50
--- NOTE | 2020-07-09 11:12 | PDOC.DS.DS ---
Provider Date of Admission: 05/03/20 19:32 Date of Discharge: 07/02/20 Admitting Provider: Glen Almazan DO Consultations: General Surgery, Pulmonary Primary Care Physician: OUT OF TOWN Course Hospital Course: Ms. Parmar is a 55 year old female with a history of diabetes mellitus type 2, and hypothyroidism, who presented to the Emergency Room at [facility] with generalized weakness and shortness of breath. She was then transferred to our facility for further management. Sh was found to be hypoxic with oxygen saturations in the 80's on room air. She tested positive for COVID- 19 infection. She was also found to be in DKA, and was placed on an insulin drip. She remained on high flow oxygen for several days, but then subsequently decompensated and required intubation. Despite aggressive measures, and initially being placed in the prone position, she did not do well. She required tracheostomy and PEG tube placement. She was never able to be weaned from the ventilator, and was requiring maximal ventilatory support, after several weeks in the hospital, her condition continued to deteriorate. She ultimately succumbed to her illness, and on 07/02/2020 due to COVID pneumonia, with ARDS. Resuscitation Status: 06/27/20 10:38 Resuscitation Status Routine Co-Sign Provider: Resuscitation Status: DNAR: NO Resuscitation Discussed with: Shira 5 children Additional comments: Children elected to transition to DNAR, Alvarez signed on behalf of his 5 siblings Lab Results: 07/02/20 04:29 07/02/20 04:29 Microbiology - Entire Visit 06/18/20 08:08 Central Line - Right Subclavian Vein Blood Culture - Final NO GROWTH IN 5 DAYS 06/18/20 08:16 Venous blood - Left Hand Blood Culture - Final Bacillus species,NOT anthracis 06/18/20 10:58 Urine diamond catheter Urine Culture - Final NO GROWTH AT 48 HOURS 05/21/20 07:22 Venous blood - Left Arm Blood Culture - Final NO GROWTH IN 5 DAYS 05/21/20 07:18 Venous blood - Right Arm Blood Culture - Final NO GROWTH IN 5 DAYS 05/21/20 15:40 Urine diamond catheter Urine Culture - Final NO GROWTH AT 36 HOURS 05/05/20 06:55 Urine clean catch Urine Culture - Final Non-Hemolytic Streptococcus Yeast species Vitals: Weight Admit Weight 147 lb Weight 131 lb 6.328 oz Most Recent Monitor Data Heart Rate from ECG 120 NIBP 42/36 NIBP BP-Mean 38 Respiration from ECG 22 SpO2 83 Physical Exam: The patient was seen and examined on the day of discharge. Problem (1) Acute respiratory failure with hypoxia Code(s): J96.01 - ACUTE RESPIRATORY FAILURE WITH HYPOXIA Status: Acute (2) Pneumonia due to COVID-19 virus Code(s): U07.1 - COVID-19; J12.89 - OTHER VIRAL PNEUMONIA Status: Acute (3) Diabetes mellitus Code(s): E11.9 - TYPE 2 DIABETES MELLITUS WITHOUT COMPLICATIONS Status: Chronic Qualifiers: Diabetes mellitus type: type 2 Plan Allergies: No Known Allergies Allergy (Verified 05/03/20 23:57) Referrals: [facility],OUT OF [Primary Care Provider] - Disposition: Quality CORE MEASURES:: N/A
== END 2020-07-02 19:35 | disposition expired | DRG 4 ==
LOC: ERS 17:41 → IMCU/EMU 19:32 → CCU 05-10 12:15
PROVIDERS: ADMIT Family Medicine; ATTEND Internal Medicine
PROC: 8E0ZXY6 Isolation (ICD-10-PCS; 2020-05-03)
PROC: 5A09557 Assistance with Respiratory Ventilation, Greater than 96 Consecutive Hours, Continuous Positive Airway Pressure (ICD-10-PCS; 2020-05-04)
PROC: 5A1955Z Respiratory Ventilation, Greater than 96 Consecutive Hours (ICD-10-PCS; 2020-05-10)
PROC: 0BH17EZ Insertion of Endotracheal Airway into Trachea, Via Natural or Artificial Opening (ICD-10-PCS; 2020-05-10)
PROC: XW13325 Transfusion of Convalescent Plasma (Nonautologous) into Peripheral Vein, Percutaneous Approach, New Technology Group 5 (ICD-10-PCS; 2020-05-19)
PROC: 0B110F4 Bypass Trachea to Cutaneous with Tracheostomy Device, Open Approach (ICD-10-PCS; principal; 2020-06-06)
PROC: 0DH63UZ Insertion of Feeding Device into Stomach, Percutaneous Approach (ICD-10-PCS; 2020-06-06)
PROC: 02HV33Z Insertion of Infusion Device into Superior Vena Cava, Percutaneous Approach (ICD-10-PCS; 2020-06-06)
PROC: B548ZZA Ultrasonography of Superior Vena Cava, Guidance (ICD-10-PCS; 2020-06-06)
PROC: 0W9930Z Drainage of Right Pleural Cavity with Drainage Device, Percutaneous Approach (ICD-10-PCS; 2020-06-12)
PROC: 3E033XZ Introduction of Vasopressor into Peripheral Vein, Percutaneous Approach (ICD-10-PCS; 2020-06-13)
PROC: 0BJ08ZZ Inspection of Tracheobronchial Tree, Via Natural or Artificial Opening Endoscopic (ICD-10-PCS; 2020-06-18)
PROC: 0W9B30Z Drainage of Left Pleural Cavity with Drainage Device, Percutaneous Approach (ICD-10-PCS; 2020-06-25)
PROC: 02HV33Z Insertion of Infusion Device into Superior Vena Cava, Percutaneous Approach (ICD-10-PCS; 2020-06-26)
PROC: B548ZZA Ultrasonography of Superior Vena Cava, Guidance (ICD-10-PCS; 2020-06-26)
DX: A41.89 Other specified sepsis (principal); U07.1 COVID-19; J12.82 Pneumonia due to coronavirus disease 2019; E11.10 Type 2 diabetes mellitus with ketoacidosis without coma; J80 Acute respiratory distress syndrome; J93.0 Spontaneous tension pneumothorax; N17.9 Acute kidney failure, unspecified; N39.0 Urinary tract infection, site not specified; B37.49 Other urogenital candidiasis; E46 Unspecified protein-calorie malnutrition; Z99.11 Dependence on respirator [ventilator] status; Z66 Do not resuscitate; Z51.5 Encounter for palliative care; E03.9 Hypothyroidism, unspecified; E11.65 Type 2 diabetes mellitus with hyperglycemia; I10 Essential (primary) hypertension; R74.8 Abnormal levels of other serum enzymes; K59.00 Constipation, unspecified; J02.9 Acute pharyngitis, unspecified; E87.5 Hyperkalemia; D72.825 Bandemia; B95.4 Other streptococcus as the cause of diseases classified elsewhere; R13.10 Dysphagia, unspecified; D72.829 Elevated white blood cell count, unspecified; T38.0X5A Adverse effect of glucocorticoids and synthetic analogues, initial encounter; Z68.24 Body mass index [BMI] 24.0-24.9, adult; E11.649 Type 2 diabetes mellitus with hypoglycemia without coma; R31.9 Hematuria, unspecified; J84.10 Pulmonary fibrosis, unspecified; D63.8 Anemia in other chronic diseases classified elsewhere; Z83.3 Family history of diabetes mellitus; Z82.49 Family history of ischemic heart disease and other diseases of the circulatory system; R62.7 Adult failure to thrive
CPT/HCPCS: 36415; 36416; 36430; 36569; 36600; 71045; 80048; 80053; 80074; 80076; 82010; 82330; 82553; 82728; 82803; 82805; 83036; 83615; 83735; 84484; 85025; 85027; 85379; 85610; 85730; 86140; 86850; 86900; 86901; 87040; 87086; 87635; 93005; 94002; 94003; 94660; 96365; 96366; C1751; C9113; J0171; J0456; J0692; J0696; J1100; J1120; J1644; J1650; J1815; J1940; J2060; J2185; J2248; J2250; J2270; J2405; J2543; J2704; J2920; J2930; J3010; J3370; J3475; J3480; J3490; J7050; P9017; S0020; U0003